=== PATIENT | female | born 1970 | race Caucasian/White ===

== ENCOUNTER 2018-01-30 18:02 | Emergency (ER) | payer MEDICARE, SELFPAY ==
[2018-01-30 18:03] VITALS: BP 133/90; PULSE 107; RESP 18; TEMP 36.6; O2SAT 95; BMI 26.6
--- NOTE | 2018-01-30 18:29 | EKG12_ITS ---
Test Reason : Blood Pressure : / mmHG Vent. Rate : 081 BPM Atrial Rate : 081 BPM P-R Int : 132 ms QRS Dur : 086 ms QT Int : 406 ms P-R-T Axes : 045 064 058 degrees QTc Int : 471 ms Normal sinus rhythm Normal ECG Confirmed by SURAJ WILKINS ([id number]), supervising editor news reel GARY FREEMAN ([id number]) on 02/04/2018 1:42:50 PM Referred By: SAQIB Confirmed By:SURAJ WILKINS
[2018-01-30 19:30] LABS: Anion Gap 9 (5-15); BUN 4 mg/dL (7-18); BUN/Creat Ratio 6.7 RATIO (10-20); Calcium,Total 7.8 mg/dL (8.5-10.1); Chloride 105 mmol/L (98-107); EST Glomerular Filtration Rate 113 mL/min (>60); Est Glom Filt Rate - Afr Amer 137 mL/min (>60); Estimated Creatinine Clearance 102.06 ml/min; Glucose 87 mg/dL (74-106); Potassium 3.4 mmol/L (3.5-5.1); Sodium Level 137 mmol/L (136-145)
[2018-01-30 19:42] LABS: Absolute Lymphocyte Count 5.28 X10^3/ul (0.83-4.51); Absolute Neutrophil Count 1.7 X10^3/uL (2.0-7.7); Basophil# 0.02 X10^3/uL; Basophil% 0.3 % (0-1); Differential Indicated SCAN CRITERIA MET; Eosinophil# 0.02 X10^3/uL; Eosinophils% 0.3 % (0-5); Hematocrit 36.1 % (37-47); Hemoglobin 12.3 g/dl (12.0-15.0); Lymphocyte # 5.28 X10^3/ul (4.0); Lymphocyte % 72.8 % (19-41); Mean Corp Hgb Conc 34.1 g/gl (32-36); Mean Corpuscular Hgb 28.7 pg (27.0-32.0); Mean Corpuscular Volume 84.1 fL (81-99); Mean Platelet Vol. 8.8 fl (6.2-12.0); Monocyte# 0.21 X10^3/uL; Monocyte% 2.9 % (0-10); Neutrophil % 23.4 % (47-70); POSITIVE COUNT NO; POSITIVE DIFFERENTIAL YES; POSITIVE MORPHOLOGY NO; Platelet Count 214 K/mm3 (150-450); RBC Distribution Width CV 15.1 % (11.6-14.6); RBC Distribution Width SD 46.3 fl (35.1-43.9); Red Blood Count 4.29 M/mm3 (4.2-5.4); White Blood Count 7.3 K/mm3 (4.4-11.0)
[2018-01-30 19:46] LABS: Pregnancy, Serum, hCG Quali. NEGATIVE Negative (0-9 Nonpreg)
[2018-01-30 19:55] VITALS: RESP 18
[2018-01-30 19:59] LABS: Differential Comment SCANNED
--- NOTE | 2018-01-30 20:00 | NURSING ---
DR. ALVAREZ NOTIFIED OF ALCOHOL LEVEL OF .391
[2018-01-30 21:02] VITALS: RESP 17
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
[2018-01-31] VITALS (12 sets, daily range): BP systolic 128–180; BP diastolic 75–100; PULSE 61–80; RESP 15–20; O2SAT 96–100
[2018-01-31 00:05] LABS: Bacteria 0 SEEN /hpf (None Seen); Mucous, Urine 0 SEEN /hpf (<or=2+); Red Blood Cells-Urine 0 SEEN /hpf (0-5); Squamous Epithelial Cells - UA 0 SEEN /hpf (5-10); White Blood Cells 0 SEEN /hpf (0-5)
[2018-01-31 00:08] LABS: Color, Urine Straw (Yellow); Glucose, Dipstick Normal (Normal); Ketone-Dipstick Negative (Negative); Leukocyte Esterase-Dipstick Negative /ul (Negative); Nitrite-Dipstick Negative (Negative); Occult Blood-Urine Negative /ul (Negative); Protein-Dipstick Negative (Negative); Urine Bilirubin Dipstick Negative (Negative); Urine Clarity Clear (Clear); Urine Urobilinogen Normal (Normal)
[2018-01-31 00:27] LABS: Amphetamine Urine VISTA NEGATIVE (<1000 ng/mL); Barbiturate Urine VISTA NEGATIVE (< 200 ng/mL); Benzodiazepine Urine VISTA NEGATIVE (< 200 ng/mL); Cocaine Urine VISTA NEGATIVE (< 300 ng/mL); Ecstacy Urine VISTA NEGATIVE (< 500 ng/mL); Methadone Urine VISTA NEGATIVE (< 300 ng/mL); PCP Urine VISTA NEGATIVE (< 25 ng/mL); THC Urine VISTA NEGATIVE (< 50 ng/mL); Vista UDS pH Range 5
[2018-01-31] MEDS: diazePAM 5 MG Tablet PO (01:58)
--- NOTE | 2018-01-31 02:21 | ED.RN ---
PT C/O THAT SHE THOUGHT HER HEART WAS RACING,HR 87.PT THEN ASKED IF SHE COULD HAVE ANOTHER BED,ADVISED THAT THIS BED WAS IT.PT HAS BEEN GIVEN FOOD,SEVERAL SERVINGS OF POP AND A PILLOW FOR COMFORT.
[2018-01-31 09:03] LABS: Alcohol, Blood (Medical)-Serum < 3.0 mg/dL
--- NOTE | 2018-01-31 09:08 | ED.RN ---
NOTIFIED CRISIS THAT PT IS MEDICALLY CLEARED
--- NOTE | 2018-01-31 10:43 | ED.VISSUMM ---
- ER Visit Summary Date of Service: 01/31/18 Chief Complaint: [Alcohol intoxication, depression, suicidal ideation] History of Present Illness: The patient is a 47 F [presents to the emergency department with above complaints. This is an addendum to my initial dictation from yesterday. Patient initially was evaluated by myself however her alcohol level was almost 400 and therefore patient required normalization of alcohol level before crisis with see her this morning. Patient was evaluated by crisis and at this time is not suicidal. Patient states that she has had bouts of alcoholism in the past and has gone years sober but she keeps having relapses. Patient has services in place at the counseling center and plans on getting help for her alcohol abuse. Patient has no intent on harming herself at this point, Contract for safety.] Physical Examination: [] Test Results: [] Emergency Department Course and Treatment: [] Treatment Plan: [Follow-up with counseling center] Disposition: [Discharged home in stable condition] Impression: [Alcohol intoxication Depression] This note was generated with [employer] dictation software. It may contain incorrect words, spelling, and punctuation that were not noted in review of the chart prior to signing ED Disposition - Plan for ED Patient: Chief Complaint: Suicidal Referrals: Wendy Cesar MD [Primary Care Provider] -
--- NOTE | 2018-01-31 10:45 | ED.DEP ---
ED Disposition - Plan for ED Patient: Chief Complaint: Suicidal Instructions: ED Depression, ED Alcohol Intoxication Referrals: Wendy Cesar MD [Primary Care Provider] - 3-5 Days Additional Instructions: follow up with counseling center
== END 2018-01-31 11:09 | disposition home or self-care (01) ==
PROVIDERS: Emergency Provider Emergency Medicine; Family Provider Family Medicine; PCP Family Medicine
DX: F10.229 Alcohol dependence with intoxication, unspecified (principal); Y90.8 Blood alcohol level of 240 mg/100 ml or more; R45.851 Suicidal ideations; F31.9 Bipolar disorder, unspecified; F20.9 Schizophrenia, unspecified; I10 Essential (primary) hypertension; Z79.899 Other long term (current) drug therapy; Z72.0 Tobacco use
CPT/HCPCS: 36415; 80048; 80307; 80320; 81001; 84703; 85025; 93005; 99285; G0480

== ENCOUNTER 2018-03-19 17:17 | Emergency (ER) | payer MEDICARE, SELFPAY ==
[2018-03-19 17:18] VITALS: BP 142/88; PULSE 84; RESP 16; TEMP 36.4; O2SAT 97; BMI 23.4
--- NOTE | 2018-03-19 17:36 | ED.RN ---
pt has a ring on that she can not remove.
--- NOTE | 2018-03-19 17:56 | ED.RN ---
THIS RN IN ROOM 1:1 SITTER.
[2018-03-19 18:17] VITALS: RESP 18; O2SAT 99
--- NOTE | 2018-03-19 18:22 | ED.RN ---
MEAL TRAY GIVEN, PT RESTING QUIETLY IN BED EATING, NO SIGNS OF DISTRESS.
[2018-03-19 18:24] LABS: Bacteria 0 SEEN /hpf (None Seen); Mucous, Urine 0 SEEN /hpf (<or=2+); Red Blood Cells-Urine 0 SEEN /hpf (0-5); Squamous Epithelial Cells - UA 0 SEEN /hpf (5-10); White Blood Cells 0 SEEN /hpf (0-5)
[2018-03-19 18:30] LABS: Color, Urine Straw (Yellow); Glucose, Dipstick Normal (Normal); Ketone-Dipstick Negative (Negative); Leukocyte Esterase-Dipstick Negative /ul (Negative); Nitrite-Dipstick Negative (Negative); Occult Blood-Urine Negative /ul (Negative); Protein-Dipstick Negative (Negative); Urine Bilirubin Dipstick Negative (Negative); Urine Clarity Clear (Clear); Urine Urobilinogen Normal (Normal); Urine pH 6.5 (5.0 - 8.0)
[2018-03-19 18:42] LABS: Anion Gap 11 (5-15); BUN 6 mg/dL (7-18); BUN/Creat Ratio 11.5 RATIO (10-20); Calcium,Total 7.8 mg/dL (8.5-10.1); Chloride 101 mmol/L (98-107); Creatinine, Serum 0.52 mg/dL (0.55-1.02); EST Glomerular Filtration Rate 133 mL/min (>60); Est Glom Filt Rate - Afr Amer 161 mL/min (>60); Estimated Creatinine Clearance 117.76 ml/min; Glucose 106 mg/dL (74-106); Potassium 3.6 mmol/L (3.5-5.1); Sodium Level 131 mmol/L (136-145)
[2018-03-19 18:47] LABS: Pregnancy, Serum, hCG Quali. NEGATIVE Negative (0-9 Nonpreg)
[2018-03-19 18:53] LABS: Hematocrit 32.8 % (37-47); Hemoglobin 11.3 g/dl (12.0-15.0); Mean Corp Hgb Conc 34.5 g/gl (32-36); Mean Corpuscular Hgb 3.1 pg (27.0-32.0); Mean Corpuscular Volume 87.5 fL (81-99); Mean Platelet Vol. 8.5 fl (6.2-12.0); Neutrophil % 30.1 % (47-70); POSITIVE COUNT NO; POSITIVE DIFFERENTIAL NO; POSITIVE MORPHOLOGY NO; Platelet Count 177 K/mm3 (150-450); RBC Distribution Width SD 47.4 fl (35.1-43.9); Red Blood Count 3.75 M/mm3 (4.2-5.4); White Blood Count 4.8 K/mm3 (4.4-11.0)
[2018-03-19 18:54] LABS: Absolute Lymphocyte Count 3.05 X10^3/ul (0.83-4.51); Absolute Neutrophil Count 1.4 X10^3/uL (2.0-7.7); Basophil# 0.01 X10^3/uL; Basophil% 0.2 % (0-1); Eosinophil# 0.03 X10^3/uL; Eosinophils% 0.6 % (0-5); Lymphocyte # 3.05 X10^3/ul (4.0); Lymphocyte % 63.9 % (19-41); Monocyte# 0.23 X10^3/uL; Monocyte% 4.8 % (0-10); Neutrophil # 1.43 X10^3/uL (2.7-7.7)
[2018-03-19 19:00] VITALS: RESP 16
[2018-03-19 19:10] LABS: Amphetamine Urine VISTA NEGATIVE (<1000 ng/mL); Barbiturate Urine VISTA NEGATIVE (< 200 ng/mL); Benzodiazepine Urine VISTA NEGATIVE (< 200 ng/mL); Cocaine Urine VISTA NEGATIVE (< 300 ng/mL); Ecstacy Urine VISTA NEGATIVE (< 500 ng/mL); Methadone Urine VISTA NEGATIVE (< 300 ng/mL); PCP Urine VISTA NEGATIVE (< 25 ng/mL); THC Urine VISTA NEGATIVE (< 50 ng/mL); Vista UDS pH Range 5
--- NOTE | 2018-03-19 19:10 | ED.RN ---
in to sit 1:1 with the pt, pt awake and talkative. no distress evident, calm and cooperative.
[2018-03-19] MEDS: HYDROcodone Bitartrate/Apap 5/325 Tablet PO (19:12)
--- NOTE | 2018-03-19 19:18 | ED.RN ---
raoul tadeo rn at bedside for one on one observation of patient
[2018-03-19 21:33] VITALS: BP 134/83; PULSE 81; RESP 16; O2SAT 96
[2018-03-19] MEDS: busPIRone 15 MG TABLET PO (23:02)
[2018-03-19] MEDS: Benztropine 2 MG Tablet 1 MG PO (23:03)
[2018-03-19] MEDS: Haloperidol 5 MG Tablet 10 MG PO (23:03)
[2018-03-19 23:29] VITALS: RESP 14
[2018-03-20] VITALS: BP 161/93; PULSE 74; PULSE 80; RESP 15; RESP 16; O2SAT 100
[2018-03-20] MEDS: traZODone 50 MG Tablet 150 MG PO
--- NOTE | 2018-03-20 00:31 | ED.RN ---
pt woke and jumped out of bed and has a small emesis in the sink, asked the dr for tommie
--- NOTE | 2018-03-20 00:32 | ED.VISSUMM ---
- ER Visit Summary Date of Service: 03/20/18 Chief Complaint: Depression and suicidal ideation History of Present Illness: The patient is a 47 F reports worsening depression. She states she wants to cut because it feels good. She states that she has pain in her heart and she does not want to be here anymore. Symptoms were worsened by the of a family friend yesterday. Patient also admits to alcohol abuse and states she drinks up to a 12 pack of beer a day. She has had 6 drinks so far today. Patient is followed by the counseling center. She states her Klonopin was recently switched to BuSpar. Physical Examination: Vital signs unremarkable. Patient sitting upright in bed in no acute distress. Head neck examination normal. Heart is regular rate and rhythm. Lung sounds are clear. Abdomen is soft nontender. Psych exam reveals depressed affect with suicidal thoughts. Test Results: CBC was normal white count hemoglobin 11.3. Chemistry studies reveal a sodium of 131. Urinalysis normal. test negative. EtOH is 177. Tox screen is positive for opiates and she is prescribed regular hydrocodone. Emergency Department Course and Treatment: Patient was given a single dose of her [place] which she was due for here. She is observed for several hours. Patient felt like she was starting to go through withdrawal. CIWA score was obtained and is only 10. Patient is given her normal nighttime meds. She has been evaluated by Hany from the counseling center. Patient has been accepted at [facility]. Treatment Plan: [] Disposition: Transfer Impression: 1. Suicidal ideation 2. Depression 3. Alcohol abuse This note was generated with [employer] dictation software. It may contain incorrect words, spelling, and punctuation that were not noted in review of the chart prior to signing ED Disposition - Plan for ED Patient: Chief Complaint: Suicidal Referrals: Janna Best MD [Primary Care Provider] -
[2018-03-20] MEDS: Ondansetron ODT 4 MG Tablet PO (00:49)
[2018-03-20 01:23] VITALS: RESP 13
[2018-03-20 02:13] VITALS: RESP 14
[2018-03-20 03:24] VITALS: BP 161/93; PULSE 80; RESP 15; O2SAT 100
== END 2018-03-20 03:54 ==
PROVIDERS: Emergency Provider Emergency Medicine; Family Provider Internal Medicine; PCP Internal Medicine
DX: F32.9 Major depressive disorder, single episode, unspecified (principal); R45.851 Suicidal ideations; F10.20 Alcohol dependence, uncomplicated; Y90.6 Blood alcohol level of 120-199 mg/100 ml; F12.90 Cannabis use, unspecified, uncomplicated; Z79.899 Other long term (current) drug therapy; Z72.0 Tobacco use
CPT/HCPCS: 80048; 80307; 80320; 81001; 84703; 85025; 99285; G0480

== ENCOUNTER 2018-04-16 16:46 | Inpatient (IN) | payer MEDICARE, SELFPAY ==
[2018-04-16 16:46] VITALS: BP 159/79; PULSE 103; RESP 16; TEMP 36.7; O2SAT 98; BMI 25.1
--- NOTE | 2018-04-16 17:11 | ED.VISSUMM ---
- ER Visit Summary Date of Service: 04/16/18 Chief Complaint: Depressed and suicidal History of Present Illness: The patient is a 47 F 3 of PTSD, depression and affective disorder. Patient was just admitted 2 weeks ago for 9 days to a psychiatric facility. She was discharged on 916. She states she is depressed again and contemplating suicidal thoughts. She denies any attempt at this time. She has attempted overdose in the past. She also is contemplating stabbing herself. Physical Examination: Appearing middle-aged female. No acute distress. Currently calm and cooperative. She is not acting out. Vital signs are stable and afebrile. HEENT exam unremarkable. Neck nontender no signs of trauma. Lungs clear to auscultation bilaterally. Heart regular rhythm no murmur. Abdomen soft nontender. No signs of trauma. She is moving all 4 extremities. There are no signs of trauma nor track perez. No edema. Back nontender. Neurologically she is awake and alert with no focal motor deficits. Test Results: CBC unremarkable. BMP unremarkable. Normal creatinine. Serum test negative. Urine tox screen was positive for opiates. Her alcohol level was 196 consistent with acute intoxication. This of course will delay her crisis evaluation. Emergency Department Course and Treatment:. The crisis evaluation to determine she needs to be admitted for depression and suicidal ideation. Treatment Plan: Awaiting crisis evaluation and given the patient's alcohol level time to decrease below intoxication levels. Patient is evaluated patient she is now no longer intoxicated and denies being suicidal. She is requesting alcohol detox. I spoke to the hospitalist and she will be admitted for detox to the [facility] program. Disposition: Admission Impression: Acute on chronic depression Suicidal ideation resolved Acute alcohol intoxication requesting alcohol detox History of depression., PTSD and schizoaffective disorder. This note was generated with [employer] dictation software. It may contain incorrect words, spelling, and punctuation that were not noted in review of the chart prior to signing ED Disposition - Plan for ED Patient: Chief Complaint: Suicidal Referrals: Janna Best MD [Primary Care Provider] -
[2018-04-16 17:34] LABS: Absolute Lymphocyte Count 2.72 X10^3/ul (0.83-4.51); Absolute Neutrophil Count 1.4 X10^3/uL (2.0-7.7); Basophil# 0.02 X10^3/uL; Basophil% 0.4 % (0-1); Eosinophil# 0.02 X10^3/uL; Eosinophils% 0.4 % (0-5); Hematocrit 34.2 % (37-47); Lymphocyte # 2.72 X10^3/ul (4.0); Mean Corp Hgb Conc 35.1 g/gl (32-36); Mean Corpuscular Hgb 30.9 pg (27.0-32.0); Mean Corpuscular Volume 88.1 fL (81-99); Mean Platelet Vol. 8.6 fl (6.2-12.0); Monocyte# 0.27 X10^3/uL; Monocyte% 6.1 % (0-10); Neutrophil # 1.39 X10^3/uL (2.7-7.7); Neutrophil % 31.2 % (47-70); Platelet Count 161 K/mm3 (150-450); RBC Distribution Width CV 15.1 % (11.6-14.6); RBC Distribution Width SD 48.5 fl (35.1-43.9); Red Blood Count 3.88 M/mm3 (4.2-5.4); White Blood Count 4.5 K/mm3 (4.4-11.0)
[2018-04-16 17:36] LABS: POSITIVE COUNT NO; POSITIVE DIFFERENTIAL NO; POSITIVE MORPHOLOGY NO
[2018-04-16 17:47] VITALS: RESP 14
[2018-04-16 17:49] LABS: Amphetamine Urine VISTA NEGATIVE (<1000 ng/mL); Barbiturate Urine VISTA NEGATIVE (< 200 ng/mL); Benzodiazepine Urine VISTA NEGATIVE (< 200 ng/mL); Cocaine Urine VISTA NEGATIVE (< 300 ng/mL); Ecstacy Urine VISTA NEGATIVE (< 500 ng/mL); Methadone Urine VISTA NEGATIVE (< 300 ng/mL); PCP Urine VISTA NEGATIVE (< 25 ng/mL); THC Urine VISTA NEGATIVE (< 50 ng/mL); Vista UDS pH Range 5
[2018-04-16 17:55] LABS: Anion Gap 10 (5-15); BUN 8 mg/dL (7-18); BUN/Creat Ratio 13.7 RATIO (10-20); Chloride 102 mmol/L (98-107); Creatinine, Serum 0.58 mg/dL (0.55-1.02); EST Glomerular Filtration Rate 117 mL/min (>60); Est Glom Filt Rate - Afr Amer 141 mL/min (>60); Estimated Creatinine Clearance 105.58 ml/min; Glucose 78 mg/dL (74-106); Sodium Level 135 mmol/L (136-145)
[2018-04-16 18:01] LABS: Pregnancy, Serum, hCG Quali. NEGATIVE Negative (0-9 Nonpreg)
[2018-04-16 18:16] VITALS: RESP 17
[2018-04-16 21:40] VITALS: BP 168/91; PULSE 78; RESP 14; O2SAT 98
--- NOTE | 2018-04-16 22:05 | ED.RN ---
CANDACE FROM CRISIS CALLED. SHE IS ON HER WAY TO SEE PT.
--- NOTE | 2018-04-16 22:20 | ED.RN ---
CANDACE FROM CRISIS HERE TO SEE PT.
[2018-04-16 22:52] VITALS: BP 172/96; PULSE 75; RESP 22; O2SAT 98
[2018-04-16] MEDS: LORazepam 1 MG Tablet PO (22:52)
--- NOTE | 2018-04-16 23:20 | PCM.HP.STD ---
Problem List (1) Alcohol dependence with withdrawal Status: Acute (2) Schizoaffective disorder Status: Acute (3) PTSD (post-traumatic stress disorder) Status: Acute History of Present Illness Date of Admission: 04/16/18 Chief Complaint: alcohol withdrawal Patient was seen and examined at 2345 on 04/16/2018. The patient is a 47 year old F with a significant history of PTSD, schizoaffective disorder; alcohol dependence who presents with signs of alcohol withdrawal that started about 1 hour prior to arrival at emergency department. She reports symptoms of 'eye jittery', nausea, diarrhea, restlessness, poor appetite and abdominal pain. Patient reported that she was at [facility] for help with alcohol dependence about 2 weeks ago; but she has relapsed a week and a half ago and is seeking help to be sober again. She reports drinking 7-8 beers per day. She drank about 8 beers the same afternoon of this admission. Reportedly she was suicidal was at home. Patient was evaluated by the crisis center whiles at emergency department and it was felt that she is no longer suicidal. At the time of history taking patient reported she is no longer suicidal. She denies any visual, auditory or tactile hallucinations. Patient takes prescribed Vicodin for back pain. Past Medical History Medical History: Medical History (Last Updated 04/17/18 @ 01:52 by Ryne Hernandez MD) PTSD (post-traumatic stress disorder) F43.10 Schizoaffective disorder F25.9 Allergies aripiprazole [From Abilify] Allergy (Verified 04/16/18 16:48) Rash risperidone [From Risperdal] Allergy (Verified 04/16/18 16:48) Unknown sulfamethoxazole [From Septra] Allergy (Verified 04/16/18 16:48) Rash trimethoprim [From Septra] Allergy (Verified 04/16/18 16:48) Rash gabapentin [From Neurontin] Adverse Reaction (Verified 04/16/18 16:48) Upset Stomach prednisone Adverse Reaction (Verified 04/16/18 16:48) Other SKIN HURTS Home Medications: Ambulatory Orders Medication Instructions Recorded Albuterol IH (ProAir) [Proair Hfa] 2 puff INHALATION Q4H PRN PRN 10/24/15 Benztropine [Cogentin] 1 mg PO BID 10/24/15 Citalopram [Celexa] 40 mg PO DAILY 10/24/15 Haloperidol 10 mg PO BID 10/24/15 Hydrocodone/Acetaminophen 1 each PO 4X/DAY PRN PRN 03/19/18 [Hydrocodon-Acetaminoph 7.5-325] Naproxen Sodium [Naprelan] 750 mg PO DAILY 03/19/18 busPIRone [Buspar] 15 mg PO BID 03/19/18 traZODone [Desyrel] 150 mg PO QHS 03/19/18 Docusate Sodium [Colace] 100 mg PO BID 04/17/18 Surgical History: noncontributory, - Psychiatric History: No pertinent psych hx Lives: Alone Smoking Status: Current every day smoker Tobacco Use: Cigarettes Alcohol: Heavy - *Family History Maternal Family History: Family History (Last Updated 04/17/18 @ 01:56 by Ryne Hernandez MD) Father Alcoholism Aunt Depression Aunt No problems noted. History Items: No pertinent history Paternal Family History: Family History (Last Updated 04/17/18 @ 01:56 by Ryne Hernandez MD) Father Alcoholism Aunt Depression Aunt No problems noted. Review of Systems Constitutional: Denies: Chills, Fever, Weight Change HEENT: Denies: Head Aches, Sinus Congestion, Sinus Drainage Cardiovascular: Denies: Chest Pain, Palpitations Respiratory: Denies: Cough, Shortness of breath at rest, Sputum production Gastrointestinal: Reports: Abdominal Pain, Nausea. Denies: Vomiting Genitourinary: Denies: Dysuria Musculoskeletal: Reports: Back Pain. Denies: Joint Pain, Joint Tenderness Skin: Denies: Rash, Wounds Neurological: Denies: Numbness, Tingling, Focal weakness Psychiatric: Reports: Anxiety - on medications, Depression - on medications, Suicidal Ideations - resolved at the emergency department.. Denies: Homicidal Ideations Hematologic/ Lymphatic: Denies: Easy Bruising, Easy Bleeding VTE Information - Inpt Only VTE Present on Admission: No VTE Pharm Prophylaxis ordered?: Yes Patient Problems: Active and Suspected Problems (Last Updated 04/17/18 @ 01:52 by Ryne Hernandez MD) Alcohol dependence with withdrawal (Acute) Schizoaffective disorder (Acute) PTSD (post-traumatic stress disorder) (Acute) - Physical Exam General: Alert, Oriented x3, Cooperative HEENT: Atraumatic, PERRLA, EOMI, Normocephalic Neck: Supple, No JVD, Negative Carotid Bruits Lungs: Clear to auscultation, Normal air movement Cardiovascular: Regular rate, No murmurs Abdomen: Bowel Sounds Present, Soft, Non Tender Extremities: No edema, Capillary Refill Less than 3 Seconds Skin: No rashes, No breakdown Musculoskeletal: No Tenderness to Palpation of Joints or Extremities Neurological: Cranial nerves II-XII grossly intact Psych/Mental Status: Normal Affect, Appropriate Vital Signs Temp Pulse Resp BP Pulse Ox 98.1 F 75 22 H 172/96 H 98 04/16/18 16:46 04/16/18 22:52 04/16/18 22:52 04/16/18 22:52 04/16/18 22:52 Oxygen Delivery Method Room Air Weight: 68.5 kg Body Mass Index (BMI) 25.1 Laboratory Tests Past 24 Hrs 04/16/18 04/16/18 04/16/18 17:03 17:20 17:20 WBC 4.5 RBC 3.88 L Hgb 12.0 Hct 34.2 L MCV 88.1 MCH 30.9 MCHC 35.1 RDW 15.1 H RDW Differential 48.5 H Plt Count 161 MPV 8.6 Immature Gran % (Auto) 0.900 Neut % (Auto) 31.2 L Lymph % (Auto) 61.0 H Gordon % (Auto) 6.1 Eos % (Auto) 0.4 Baso % (Auto) 0.4 Absolute Neuts (auto) 1.4 L Absolute Lymphs (auto) 2.72 Total Counted Not Reportable Sodium 135 L Potassium 4.0 Chloride 102 Carbon Dioxide 23.0 Anion Gap 10 BUN 8 Creatinine 0.58 Estim Creat Clear Calc 105.58 Est GFR (MDRD) Af Amer 141 Est GFR (MDRD) Non-Af 117 BUN/Creatinine Ratio 13.7 Glucose 78 Calcium 8.0 L Serum , Qual Urine Opiates Screen POSITIVE H Urine Methadone Screen NEGATIVE Ur Barbiturates Screen NEGATIVE Ur Phencyclidine Scrn NEGATIVE Ur Amphetamines Screen NEGATIVE U Methamphetamin-MDMA NEGATIVE U Benzodiazepines Scrn NEGATIVE Urine Cocaine Screen NEGATIVE U Cannabinoids Screen NEGATIVE Ur Drug Screen Comment Ethyl Alcohol 04/16/18 04/16/18 17:20 17:20 WBC RBC Hgb Hct MCV MCH MCHC RDW RDW Differential Plt Count MPV Immature Gran % (Auto) Neut % (Auto) Lymph % (Auto) Gordon % (Auto) Eos % (Auto) Baso % (Auto) Absolute Neuts (auto) Absolute Lymphs (auto) Total Counted Sodium Potassium Chloride Carbon Dioxide Anion Gap BUN Creatinine Estim Creat Clear Calc Est GFR (MDRD) Af Amer Est GFR (MDRD) Non-Af BUN/Creatinine Ratio Glucose Calcium Serum , Qual NEGATIVE Urine Opiates Screen Urine Methadone Screen Ur Barbiturates Screen Ur Phencyclidine Scrn Ur Amphetamines Screen U Methamphetamin-MDMA U Benzodiazepines Scrn Urine Cocaine Screen U Cannabinoids Screen Ur Drug Screen Comment Ethyl Alcohol 196.0 Assessment/Plan All Active Problems (Last Updated 04/17/18 @ 01:52 by Ryne Hernandez MD) Alcohol dependence with withdrawal (Acute) Schizoaffective disorder (Acute) PTSD (post-traumatic stress disorder) (Acute) Patient is a 47 year old F with a significant history of PTSD, schizoaffective disorder; tobacco abuse; alcohol dependence who presents with signs of alcohol withdrawal. Alcohol dependence with withdrawal. ED labs reviewed. Urine tox screen was positive for opioids. Patient is on prescribed Vicodin for back pain Internal level was 196. Mild hyponatremia likely secondary to beer potomania Received Ativan at emergency department patient reported calmed her down. CIWA protocol with Ativan, multivitamins, folic acid and thiamine. Patient was counseled. Scheduled metoprolol tartrate As needed Catapres. Trend BMP Hold home Colace in the setting of reported diarrhea Elevated blood pressure without diagnosis of hypertension. On admission blood pressure was severely elevated with highest systolic blood pressure of 180; and highest diastolic blood pressure of 106. This could be essential hypertension or sympathetic effects from withdrawal. Placed on scheduled metoprolol and as needed Catapres. Trend blood pressures. Hyponatremia Mild Secondary to alcohol dependence Trend BMP. Tobacco abuse. Counseled Inpatient consult smoking cessation Nicotine patch ordered. PTSD, depression/anxiety/schizoaffective disorder Home Haloperidol 10 mg 3 times daily continued. Cogentin continued Citalopram continued Back Pain Naproxen continued DVT prophylaxis Subcutaneous Lovenox. Code Visit Inpatient E&M: 29788 Init Hosp L3
[2018-04-17] VITALS (13 sets, daily range): BP systolic 114–182; BP diastolic 75–111; PULSE 69–91; RESP 14–18; TEMP 36.3–37.1; O2SAT 97–99; BMI 23.7
--- NOTE | 2018-04-17 00:14 | ED.RN ---
PT WAS ASKED IF SHE WAS CURRENTLY HAVING ANY THOUGHTS OF HARMING HER SELF OR OTHERS. SHE ANSWERED NO. WHEN QUESTIONED TO WHY THE CHANGE SHE ANSWERED BECAUSE OF THE SOBERING. ED DR STATES SHE IS NO LONGER SUICIDAL AND DOESN'T NEED A 1:1 SITTER. Jaylen KRAMER, RN [id number]
[2018-04-17] MEDS: Benztropine 2 MG Tablet 1 MG PO ×3 (01:40→21:31)
[2018-04-17] MEDS: traZODone 50 MG Tablet 150 MG PO (01:41)
[2018-04-17] MEDS: Metoprolol Tartrate 25 MG Tablet PO (01:42)
[2018-04-17] MEDS: busPIRone 15 MG TABLET PO ×3 (01:42→21:31)
[2018-04-17] MEDS: LORazepam 1 MG Tablet 2 MG PO ×4 (01:57→17:44)
[2018-04-17] MEDS: HYDROcodone Bitartrate/Apap 5/325 Tablet PO ×2 (03:35→09:35)
[2018-04-17] MEDS: Naproxen 250 MG Tablet PO ×3 (07:48→17:43)
[2018-04-17] MEDS: Thiamine Hydrochloride 100 MG Tablet PO ×2 (07:48→17:44)
[2018-04-17] MEDS: Multivitamins,Ther W-Minerals Tablet 1 TABLET PO (07:49)
[2018-04-17] MEDS: Folic Acid 1 MG Tablet PO (07:49)
[2018-04-17] MEDS: Citalopram 40 MG TABLET PO (09:24)
[2018-04-17] MEDS: Haloperidol 5 MG Tablet 10 MG PO ×2 (09:25→21:33)
[2018-04-17] MEDS: Enoxaparin 40 MG/0.4 ML Syringe SC (09:26)
--- NOTE | 2018-04-17 09:28 | PCM.PN.HOSP ---
Patient Problems: Active and Suspected Problems (Last Updated 04/17/18 @ 01:52 by Ryne Hernandez MD) Alcohol dependence with withdrawal (Acute) Schizoaffective disorder (Acute) PTSD (post-traumatic stress disorder) (Acute) Subjective: Doing well at the moment, her last drink was yesterday afternoon. She does state that she has had a seizure in the past with withdrawal. Vitals/I&O's: Vital Signs Temp Pulse Resp BP Pulse Ox 98.2 F 91 16 153/97 H 98 04/17/18 07:41 04/17/18 07:41 04/17/18 07:41 04/17/18 07:41 04/17/18 07:41 Oxygen Delivery Method Room Air Weight: 144 lb 9.972 oz Body Mass Index (BMI) 23.7 Intake and Output for Last 24 Hours 04/15/18 04/16/18 04/17/18 23:59 23:59 23:59 Intake Total 750 / 750 Output Total 450 / 450 Balance 300 / 300 General: Alert, Oriented x3, Cooperative, No apparent distress HEENT: Atraumatic, EOMI, Normocephalic Oral: Moist Mucosa Neck: Supple, No JVD Lungs: Clear to auscultation, Normal air movement, No rhonchi, No wheeze, No rales Cardiovascular: Regular rate, Regular Rhythm, Normal S1, Normal S2, No murmurs Abdomen: Soft, Non Tender, Non-Distended, No Hepato-splenomegaly Extremities: No edema, Capillary Refill Less than 3 Seconds Skin: No rashes, No breakdown Musculoskeletal: No Tenderness to Palpation of Joints or Extremities Neurological: Neuro grossly intact, Sensory exam intact to light touch and pain Psych/Mental Status: Normal Affect, Appropriate Laboratory Results 04/16/18 17:03: Urine Opiates Screen POSITIVE H, Urine Methadone Screen NEGATIVE, Ur Barbiturates Screen NEGATIVE, Ur Phencyclidine Scrn NEGATIVE, Ur Amphetamines Screen NEGATIVE, U Methamphetamin-MDMA NEGATIVE, U Benzodiazepines Scrn NEGATIVE, Urine Cocaine Screen NEGATIVE, U Cannabinoids Screen NEGATIVE, Ur Drug Screen Comment 04/16/18 17:20: WBC 4.5, RBC 3.88 L, Hgb 12.0, Hct 34.2 L, MCV 88.1, MCH 30.9, MCHC 35.1, RDW 15.1 H, RDW Differential 48.5 H, Plt Count 161, MPV 8.6, Immature Gran % (Auto) 0.900, Neut % (Auto) 31.2 L, Lymph % (Auto) 61.0 H, [place] % (Auto) 6.1, Eos % (Auto) 0.4, Baso % (Auto) 0.4, Absolute Neuts (auto) 1.4 L, Absolute Lymphs (auto) 2.72, Total Counted Not Reportable 04/16/18 17:20: Sodium 135 L, Potassium 4.0, Chloride 102, Carbon Dioxide 23.0, Anion Gap 10, BUN 8, Creatinine 0.58, Estim Creat Clear Calc 105.58, Est GFR (MDRD) Af Amer 141, Est GFR (MDRD) Non-Af 117, BUN/Creatinine Ratio 13.7, Glucose 78, Calcium 8.0 L 04/16/18 17:20: Ethyl Alcohol 196.0 04/16/18 17:20: Serum , Qual NEGATIVE Current Medications Hydrocodone Bitart/Acetaminophen ([place] 5mg-325mg) 1.5 tablet PO 4X/DAY PRN PRN PRN Reason: PAIN Last Admin: 04/17/18 03:35 Dose: 1.5 tablet Albuterol Sulfate (Ventolin Aerosols) 2.5 mg INHALATION Q4H PRN PRN PRN Reason: SOB &/OR WHEEZING Benztropine Mesylate (Cogentin) 1 mg PO BID [facility] Last Admin: 04/17/18 01:40 Dose: 1 mg Buspirone HCl (Buspar) 15 mg PO BID [facility] Last Admin: 04/17/18 01:42 Dose: 15 mg Citalopram Hydrobromide (Celexa) 40 mg PO DAILY [facility] Clonidine (Catapres) 0.1 mg PO Q6H PRN PRN PRN Reason: SBP > 160 Enoxaparin Sodium (Lovenox) 40 mg SC DAILY@1000 [facility] Folic Acid (Folic Acid) 1 mg PO DAILY@0800 [facility] Stop: 04/19/18 08:01 Last Admin: 04/17/18 07:49 Dose: 1 mg Haloperidol (Haldol) 10 mg PO BID [facility] Lorazepam (Ativan) 2 mg PO Q2H PRN PRN; Protocol PRN Reason: CIWA score > 8 but <15 Last Admin: 04/17/18 07:51 Dose: 2 mg Lorazepam (Ativan) 2 mg PO UD PRN; Protocol PRN Reason: CIWA score >/=15. Lorazepam (Ativan) 2 mg IV Q2H PRN PRN; Protocol PRN Reason: CIWA score > 8 but <15 Lorazepam (Ativan) 2 mg IV UD PRN; Protocol PRN Reason: CIWA score >/=15. Magnesium Hydroxide (Milk Of Magnesia) 30 ml PO DAILY PRN PRN PRN Reason: Constipation Metoprolol Tartrate (Lopressor (Beta Eze)) 25 mg PO DAILY [facility] Last Admin: 04/17/18 01:42 Dose: 25 mg Multivitamins/Minerals (Multivitamin With Minerals) [facility] Last Admin: 04/17/18 07:49 Dose: 1 tablet Naproxen (Naprosyn) 250 mg PO TIDCM [facility] Last Admin: 04/17/18 07:48 Dose: 250 mg Nicotine (Nicoderm Cq (Pbkc)) 21 mg TRANSDERM. DAILY [facility] Last Admin: 04/17/18 01:41 Dose: 21 mg Ondansetron HCl (Zofran) 4 mg IV Q8H PRN PRN PRN Reason: NAUSEA Thiamine HCl (Vitamin B1) 100 mg PO BIDCM [facility] Stop: 04/19/18 17:01 Last Admin: 04/17/18 07:48 Dose: 100 mg Trazodone HCl (Desyrel) 150 mg PO QHS [facility] Last Admin: 04/17/18 01:41 Dose: 150 mg Medical Necessity - Tobacco Use Smoking Status: Current every day smoker Tobacco Use: Cigarettes Assessment/Plan All Active Problems (Last Updated 04/17/18 @ 01:52 by Ryne Hernandez MD) Alcohol dependence with withdrawal (Acute) Schizoaffective disorder (Acute) PTSD (post-traumatic stress disorder) (Acute) 1. Alcohol Intoxication/HTN/Hyponatremia - BAL was 196 on admission - She was started on ativan PRN, given her past h/o seizure will also add scheduled librium - No IVF at this time - Clonidine as needed, can address HTN after her withdrawal in order to be accurate - hyponatremia is d/t EtOH, will monitor 2. PTSD/Depression/Anxiety/Schizoaffective - C/w her home medications - we did discuss that she starts drinking again when her stress level increases and we discussed mitigation strategies - Stated that she feels she hit rock-bottom this time 3. Tobacco abuse - counseled on cessation - Patch ordered DVT: Lovenox Diet: Regular Code Visit Inpatient E&M: 25031 Subs Hosp L2
--- NOTE | 2018-04-17 09:35 | PN_ITS ---
Patient Problems: Active and Suspected Problems (Last Updated 04/17/18 @ 01:52 by Ryne Hernandez MD) Alcohol dependence with withdrawal (Acute) Schizoaffective disorder (Acute) PTSD (post-traumatic stress disorder) (Acute) Subjective: Doing well at the moment, her last drink was yesterday afternoon. She does state that she has had a seizure in the past with withdrawal. Vitals/I&O's: Vital Signs Temp Pulse Resp BP Pulse Ox 98.2 F 91 16 153/97 H 98 04/17/18 07:41 04/17/18 07:41 04/17/18 07:41 04/17/18 07:41 04/17/18 07:41 Oxygen Delivery Method Room Air Weight: 144 lb 9.972 oz Body Mass Index (BMI) 23.7 Intake and Output for Last 24 Hours 04/15/18 04/16/18 04/17/18 23:59 23:59 23:59 Intake Total 750 / 750 Output Total 450 / 450 Balance 300 / 300 General: Alert, Oriented x3, Cooperative, No apparent distress HEENT: Atraumatic, EOMI, Normocephalic Oral: Moist Mucosa Neck: Supple, No JVD Lungs: Clear to auscultation, Normal air movement, No rhonchi, No wheeze, No rales Cardiovascular: Regular rate, Regular Rhythm, Normal S1, Normal S2, No murmurs Abdomen: Soft, Non Tender, Non-Distended, No Hepato-splenomegaly Extremities: No edema, Capillary Refill Less than 3 Seconds Skin: No rashes, No breakdown Musculoskeletal: No Tenderness to Palpation of Joints or Extremities Neurological: Neuro grossly intact, Sensory exam intact to light touch and pain Psych/Mental Status: Normal Affect, Appropriate Laboratory Results 04/16/18 17:03: Urine Opiates Screen POSITIVE H, Urine Methadone Screen NEGATIVE, Ur Barbiturates Screen NEGATIVE, Ur Phencyclidine Scrn NEGATIVE, Ur Amphetamines Screen NEGATIVE, U Methamphetamin-MDMA NEGATIVE, U Benzodiazepines Scrn NEGATIVE, Urine Cocaine Screen NEGATIVE, U Cannabinoids Screen NEGATIVE, Ur Drug Screen Comment 04/16/18 17:20: WBC 4.5, RBC 3.88 L, Hgb 12.0, Hct 34.2 L, MCV 88.1, MCH 30.9, MCHC 35.1, RDW 15.1 H, RDW Differential 48.5 H, Plt Count 161, MPV 8.6, Immature Gran % (Auto) 0.900, Neut % (Auto) 31.2 L, Lymph % (Auto) 61.0 H, [place] % (Auto) 6.1, Eos % (Auto) 0.4, Baso % (Auto) 0.4, Absolute Neuts (auto) 1.4 L, Absolute Lymphs (auto) 2.72, Total Counted Not Reportable 04/16/18 17:20: Sodium 135 L, Potassium 4.0, Chloride 102, Carbon Dioxide 23.0, Anion Gap 10, BUN 8, Creatinine 0.58, Estim Creat Clear Calc 105.58, Est GFR (MDRD) Af Amer 141, Est GFR (MDRD) Non-Af 117, BUN/Creatinine Ratio 13.7, Glucose 78, Calcium 8.0 L 04/16/18 17:20: Ethyl Alcohol 196.0 04/16/18 17:20: Serum , Qual NEGATIVE Current Medications Hydrocodone Bitart/Acetaminophen ([place] 5mg-325mg) 1.5 tablet PO 4X/DAY PRN PRN PRN Reason: PAIN Last Admin: 04/17/18 03:35 Dose: 1.5 tablet Albuterol Sulfate (Ventolin Aerosols) 2.5 mg INHALATION Q4H PRN PRN PRN Reason: SOB &/OR WHEEZING Benztropine Mesylate (Cogentin) 1 mg PO BID [facility] Last Admin: 04/17/18 01:40 Dose: 1 mg Buspirone HCl (Buspar) 15 mg PO BID [facility] Last Admin: 04/17/18 01:42 Dose: 15 mg Citalopram Hydrobromide (Celexa) 40 mg PO DAILY [facility] Clonidine (Catapres) 0.1 mg PO Q6H PRN PRN PRN Reason: SBP > 160 Enoxaparin Sodium (Lovenox) 40 mg SC DAILY@1000 [facility] Folic Acid (Folic Acid) 1 mg PO DAILY@0800 [facility] Stop: 04/19/18 08:01 Last Admin: 04/17/18 07:49 Dose: 1 mg Haloperidol (Haldol) 10 mg PO BID [facility] Lorazepam (Ativan) 2 mg PO Q2H PRN PRN; Protocol PRN Reason: CIWA score > 8 but <15 Last Admin: 04/17/18 07:51 Dose: 2 mg Lorazepam (Ativan) 2 mg PO UD PRN; Protocol PRN Reason: CIWA score >/=15. Lorazepam (Ativan) 2 mg IV Q2H PRN PRN; Protocol PRN Reason: CIWA score > 8 but <15 Lorazepam (Ativan) 2 mg IV UD PRN; Protocol PRN Reason: CIWA score >/=15. Magnesium Hydroxide (Milk Of Magnesia) 30 ml PO DAILY PRN PRN PRN Reason: Constipation Metoprolol Tartrate (Lopressor (Beta Eze)) 25 mg PO DAILY [facility] Last Admin: 04/17/18 01:42 Dose: 25 mg [facility]ivitamins/Minerals ([facility]ivitamin With Minerals) [facility] Last Admin: 04/17/18 07:49 Dose: 1 tablet Naproxen (Naprosyn) 250 mg PO TIDCM [facility] Last Admin: 04/17/18 07:48 Dose: 250 mg Nicotine (Nicoderm Cq (Pbkc)) 21 mg TRANSDERM. DAILY [facility] Last Admin: 04/17/18 01:41 Dose: 21 mg Ondansetron HCl (Zofran) 4 mg IV Q8H PRN PRN PRN Reason: NAUSEA Thiamine HCl (Vitamin B1) 100 mg PO BIDCM [facility] Stop: 04/19/18 17:01 Last Admin: 04/17/18 07:48 Dose: 100 mg Trazodone HCl (Desyrel) 150 mg PO QHS [facility] Last Admin: 04/17/18 01:41 Dose: 150 mg Medical Necessity - Tobacco Use Smoking Status: Current every day smoker Tobacco Use: Cigarettes Assessment/Plan All Active Problems (Last Updated 04/17/18 @ 01:52 by Ryne Hernandez MD) Alcohol dependence with withdrawal (Acute) Schizoaffective disorder (Acute) PTSD (post-traumatic stress disorder) (Acute) 1. Alcohol Intoxication/HTN/Hyponatremia - BAL was 196 on admission - She was started on ativan PRN, given her past h/o seizure will also add scheduled librium - No IVF at this time - Clonidine as needed, can address HTN after her withdrawal in order to be accurate - hyponatremia is d/t EtOH, will monitor 2. PTSD/Depression/Anxiety/Schizoaffective - C/w her home medications - we did discuss that she starts drinking again when her stress level increases and we discussed mitigation strategies - Stated that she feels she hit rock-bottom this time 3. Tobacco abuse - counseled on cessation - Patch ordered DVT: Lovenox Diet: Regular Code Visit Inpatient E&M: 02275 Subs Hosp L2
[2018-04-17] MEDS: chlordiazePOXIDE 25 MG Capsule PO ×2 (14:00→21:32)
[2018-04-17] MEDS: cloNIDine HCl 0.1 MG Tablet PO (14:58)
[2018-04-18] VITALS (7 sets, daily range): BP systolic 119–157; BP diastolic 67–96; PULSE 63–82; RESP 16–18; TEMP 36–36.7; O2SAT 97–98
[2018-04-18] MEDS: traZODone 50 MG Tablet 150 MG PO ×2 (00:17→21:14)
[2018-04-18] MEDS: chlordiazePOXIDE 25 MG Capsule PO ×3 (06:16→21:13)
[2018-04-18] MEDS: busPIRone 15 MG TABLET PO ×2 (08:23→21:13)
[2018-04-18] MEDS: Haloperidol 5 MG Tablet 10 MG PO ×2 (08:23→21:14)
[2018-04-18] MEDS: Thiamine Hydrochloride 100 MG Tablet PO ×2 (08:24→16:17)
[2018-04-18] MEDS: Citalopram 40 MG TABLET PO (08:24)
[2018-04-18] MEDS: Naproxen 250 MG Tablet PO ×3 (08:24→16:17)
[2018-04-18] MEDS: Folic Acid 1 MG Tablet PO (08:25)
[2018-04-18] MEDS: Multivitamins,Ther W-Minerals Tablet 1 TABLET PO (08:25)
[2018-04-18] MEDS: Metoprolol Tartrate 25 MG Tablet PO (08:25)
[2018-04-18] MEDS: Enoxaparin 40 MG/0.4 ML Syringe SC (08:25)
[2018-04-18] MEDS: Benztropine 2 MG Tablet 1 MG PO ×2 (08:26→21:13)
[2018-04-18] MEDS: LORazepam 1 MG Tablet 2 MG PO ×3 (08:31→18:24)
[2018-04-18] MEDS: Ondansetron ODT 4 MG Tablet PO (12:45)
[2018-04-18] MEDS: HYDROcodone Bitartrate/Apap 5/325 Tablet PO ×2 (13:56→20:05)
--- NOTE | 2018-04-18 14:06 | PCM.PN.HOSP ---
Patient Problems: Active and Suspected Problems (Last Updated 04/17/18 @ 01:52 by Ryne Hernandez MD) Alcohol dependence with withdrawal (Acute) Schizoaffective disorder (Acute) PTSD (post-traumatic stress disorder) (Acute) Subjective: NAD ON, feels ok, resting, not agitated Objective: General: Alert, Oriented x3, Cooperative, No apparent distress HEENT: Atraumatic, EOMI, Normocephalic Oral: Moist Mucosa Neck: Supple, No JVD Lungs: Clear to auscultation, Normal air movement, No rhonchi, No wheeze, No rales Cardiovascular: Regular rate, Regular Rhythm, Normal S1, Normal S2, No murmurs Abdomen: Soft, Non Tender, Non-Distended, No Hepato-splenomegaly Extremities: No edema, Capillary Refill Less than 3 Seconds Skin: No rashes, No breakdown Vitals/I&O's: Vital Signs Temp Pulse Resp BP Pulse Ox 98.1 F 72 18 156/90 H 97 04/18/18 14:00 04/18/18 14:00 04/18/18 14:00 04/18/18 14:00 04/18/18 14:00 Oxygen Delivery Method Room Air Weight: 144 lb 9.972 oz Body Mass Index (BMI) 23.7 Intake and Output for Last 24 Hours 04/16/18 04/17/18 04/18/18 23:59 23:59 23:59 Intake Total 2500 / 2500 980 / 980 Output Total 450 / 450 Balance 0 / 0 980 / 980 Current Medications Hydrocodone Bitart/Acetaminophen ([place] 5mg-325mg) 1.5 tablet PO 4X/DAY PRN PRN PRN Reason: PAIN Last Admin: 04/18/18 13:56 Dose: 1.5 tablet Albuterol Sulfate (Ventolin Aerosols) 2.5 mg INHALATION Q4H PRN PRN PRN Reason: SOB &/OR WHEEZING Benztropine Mesylate (Cogentin) 1 mg PO BID [facility] Last Admin: 04/18/18 08:26 Dose: 1 mg Buspirone HCl (Buspar) 15 mg PO BID [facility] Last Admin: 04/18/18 08:23 Dose: 15 mg Chlordiazepoxide (Librium) 25 mg PO TID [facility] Last Admin: 04/18/18 13:53 Dose: 25 mg Citalopram Hydrobromide (Celexa) 40 mg PO DAILY [facility] Last Admin: 04/18/18 08:24 Dose: 40 mg Clonidine (Catapres) 0.1 mg PO Q6H PRN PRN PRN Reason: SBP > 160 Last Admin: 04/17/18 14:58 Dose: 0.1 mg Enoxaparin Sodium (Lovenox) 40 mg SC DAILY@1000 [facility] Last Admin: 04/18/18 08:25 Dose: 40 mg Folic Acid (Folic Acid) 1 mg PO DAILY@0800 [facility] Stop: 04/19/18 08:01 Last Admin: 04/18/18 08:25 Dose: 1 mg Haloperidol (Haldol) 10 mg PO BID [facility] Last Admin: 04/18/18 08:23 Dose: 10 mg Lorazepam (Ativan) 2 mg PO Q2H PRN PRN; Protocol PRN Reason: CIWA score > 8 but <15 Last Admin: 04/18/18 08:31 Dose: 2 mg Lorazepam (Ativan) 2 mg PO UD PRN; Protocol PRN Reason: CIWA score >/=15. Last Admin: 04/18/18 14:05 Dose: 2 mg Lorazepam (Ativan) 2 mg IV Q2H PRN PRN; Protocol PRN Reason: CIWA score > 8 but <15 Lorazepam (Ativan) 2 mg IV UD PRN; Protocol PRN Reason: CIWA score >/=15. Magnesium Hydroxide (Milk Of Magnesia) 30 ml PO DAILY PRN PRN PRN Reason: Constipation Metoprolol Tartrate (Lopressor (Beta Eze)) 25 mg PO DAILY [facility] Last Admin: 04/18/18 08:25 Dose: 25 mg Multivitamins/Minerals (Multivitamin With Minerals) 1 tablet PO DAILYCM [facility] Last Admin: 04/18/18 08:25 Dose: 1 tablet Naproxen (Naprosyn) 250 mg PO TIDCM [facility] Last Admin: 04/18/18 12:44 Dose: 250 mg Nicotine (Nicoderm Cq (Pbkc)) 21 mg TRANSDERM. DAILY [facility] Last Admin: 04/18/18 08:25 Dose: 21 mg Ondansetron HCl (Zofran Odt) 4 mg PO Q8H PRN PRN PRN Reason: NAUSEA/VOMITING Last Admin: 04/18/18 12:45 Dose: 4 mg Thiamine HCl (Vitamin B1) 100 mg PO BIDCM [facility] Stop: 04/19/18 17:01 Last Admin: 04/18/18 08:24 Dose: 100 mg Trazodone HCl (Desyrel) 150 mg PO QHS [facility] Last Admin: 04/18/18 00:17 Dose: 150 mg Medical Necessity - Tobacco Use Smoking Status: Current every day smoker Tobacco Use: Cigarettes Assessment/Plan All Active Problems (Last Updated 04/17/18 @ 01:52 by Ryne Hernandez MD) Alcohol dependence with withdrawal (Acute) Schizoaffective disorder (Acute) PTSD (post-traumatic stress disorder) (Acute) 1. Alcohol Intoxication/HTN/Hyponatremia - BAL was 196 on admission - She was started on ativan PRN, given her past h/o seizure will also add scheduled librium - No IVF at this time - Clonidine as needed, can address HTN after her withdrawal in order to be accurate - hyponatremia is d/t EtOH, will monitor - Zofran PRN 2. PTSD/Depression/Anxiety/Schizoaffective - C/w her home medications - we did discuss that she starts drinking again when her stress level increases and we discussed mitigation strategies - Stated that she feels she hit rock-bottom this time 3. Tobacco abuse - counseled on cessation - Patch ordered DVT: Lovenox Diet: Regular Code Visit Inpatient E&M: 65671 Subs Hosp L2
[2018-04-19] VITALS (7 sets, daily range): BP systolic 105–142; BP diastolic 55–99; PULSE 64–84; RESP 16–18; TEMP 36–36.8; O2SAT 97–99
[2018-04-19] MEDS: chlordiazePOXIDE 25 MG Capsule PO (05:58)
[2018-04-19] MEDS: HYDROcodone Bitartrate/Apap 5/325 Tablet PO (08:30)
[2018-04-19] MEDS: Folic Acid 1 MG Tablet PO (08:31)
[2018-04-19] MEDS: Naproxen 250 MG Tablet PO ×2 (08:31→12:02)
[2018-04-19] MEDS: Thiamine Hydrochloride 100 MG Tablet PO (08:32)
[2018-04-19] MEDS: busPIRone 15 MG TABLET PO (08:32)
[2018-04-19] MEDS: Multivitamins,Ther W-Minerals Tablet 1 TABLET PO (08:32)
[2018-04-19] MEDS: Benztropine 2 MG Tablet 1 MG PO (08:33)
[2018-04-19] MEDS: Citalopram 40 MG TABLET PO (08:33)
[2018-04-19] MEDS: Haloperidol 5 MG Tablet 10 MG PO (08:34)
[2018-04-19] MEDS: Metoprolol Tartrate 25 MG Tablet PO (08:34)
[2018-04-19] MEDS: Enoxaparin 40 MG/0.4 ML Syringe SC (08:38)
--- NOTE | 2018-04-19 09:21 | DCINST_ITS ---
- Discharge Diagnoses Current Active Problems: Current Active and Chronic Problems (Last Updated 04/17/18 @ 01:52 by Ryne Hernandez MD) Alcohol dependence with withdrawal (Acute) Schizoaffective disorder (Acute) PTSD (post-traumatic stress disorder) (Acute) You will use the following diet at home:: No restrictions, Other Your liquids should be the consistency of: Regular/Thin Discharge Activity: Return to Normal Activity Call your doctor if you observe: Shortness of breath, Dizziness Allergies/Adverse Reactions: Allergies aripiprazole [From Abilify] Allergy (Verified 04/16/18 16:48) Rash risperidone [From Risperdal] Allergy (Verified 04/16/18 16:48) Unknown sulfamethoxazole [From Septra] Allergy (Verified 04/16/18 16:48) Rash trimethoprim [From Septra] Allergy (Verified 04/16/18 16:48) Rash gabapentin [From Neurontin] Adverse Reaction (Verified 04/16/18 16:48) Upset Stomach prednisone Adverse Reaction (Verified 04/16/18 16:48) Other SKIN HURTS Medications to take at Discharge Albuterol IH (ProAir) [Proair Hfa] 2 puff INHALATION Q4H PRN PRN 10/24/15 Benztropine [Cogentin] 1 mg PO BID 10/24/15 Citalopram [Celexa] 40 mg PO DAILY 10/24/15 Haloperidol 10 mg PO BID 10/24/15 Hydrocodone/Acetaminophen [Hydrocodone-Acetamin 7.5-325] 1 each PO 4X/DAY PRN PRN 03/19/18 Naproxen Sodium [Naprelan] 750 mg PO DAILY 03/19/18 busPIRone [Buspar] 15 mg PO BID 03/19/18 traZODone [Desyrel] 150 mg PO QHS 03/19/18 Docusate Sodium [Colace] 100 mg PO BID 04/17/18 Primary Care Physician: Janna Best MD [Primary Care Provider] - Please follow up with your Primary Care Physician in: in 3-5 days Test Results: Test results from this visit will be discussed in further detail at your follow- up appointment, if applicable.
--- NOTE | 2018-04-19 09:21 | PCM.DC.SUM ---
Discharge Date and Diagnosis - Problem List Patient Problems: Active and Suspected Problems (Last Updated 04/17/18 @ 01:52 by Ryne Hernandez MD) Alcohol dependence with withdrawal (Acute) Schizoaffective disorder (Acute) PTSD (post-traumatic stress disorder) (Acute) Date of Admission: 04/16/18 Date of Discharge: 04/19/18 - Primary Discharge Diagnosis Active and Suspected Problems (Last Updated 04/17/18 @ 01:52 by Ryne Hernandez MD) Alcohol dependence with withdrawal (Acute) Schizoaffective disorder (Acute) PTSD (post-traumatic stress disorder) (Acute) Hospital Course and Treatment Imaging Results: None Consults: None Operations: None Procedures: None Summary of Care Provided: HPI: The patient is a 47 year old F with a significant history of PTSD, schizoaffective disorder; alcohol dependence who presents with signs of alcohol withdrawal that started about 1 hour prior to arrival at emergency department. She reports symptoms of 'eye jittery', nausea, diarrhea, restlessness, poor appetite and abdominal pain. Patient reported that she was at [facility] for help with alcohol dependence about 2 weeks ago; but she has relapsed a week and a half ago and is seeking help to be sober again. She reports drinking 7-8 beers per day. She drank about 8 beers the same afternoon of this admission. Reportedly she was suicidal was at home. Patient was evaluated by the crisis center whiles at emergency department and it was felt that she is no longer suicidal. At the time of history taking patient reported she is no longer suicidal. She denies any visual, auditory or tactile hallucinations. Patient takes prescribed Vicodin for back pain. Vital Signs - 24 hr Temp Pulse Resp BP Pulse Ox 04/19/18 08:34 76 142/99 H 04/19/18 08:22 98.3 F 76 18 142/99 H 97 04/19/18 07:01 98 04/19/18 05:53 96.8 F L 64 16 105/55 L 99 04/18/18 20:46 96.8 F L 76 16 119/67 04/18/18 14:00 98.1 F 72 18 156/90 H 97 General: Alert, Oriented x3, Cooperative, No apparent distress HEENT: Atraumatic, EOMI, Normocephalic Oral: Moist Mucosa Neck: Supple, No JVD Lungs: Clear to auscultation, Normal air movement, No rhonchi, No wheeze, No rales Cardiovascular: Regular rate, Regular Rhythm, Normal S1, Normal S2, No murmurs Abdomen: Soft, Non Tender, Non-Distended, No Hepato-splenomegaly Extremities: No edema, Capillary Refill Less than 3 Seconds Skin: No rashes, No breakdown Hospital Course: 1. EtOH intoxication/[facility]/Hyponatremia - She was admitted under the [facility] protocol. During her acute intoxication phase, she did have elevated blood pressures and she was started on clonidine and metoprolol. The elevated BP was d/t the EtOH intoxication and withdrawal, her BP medications were discontinued on discharge. She is to f/u with her PCP for further monitoring of her BP. Her hyponatremia was 2/2 to her EtOH, and was not severe at 135, no intervention was necessary 2. PTSD/Depression/Anxiety/Schizoaffective disorder - She was continued on her home medication on admission and discharge without any changes. In order to help with her alcoholism, her mental health needs to be managed first. It is apparent that at the moment she lack the coping skills to deal with any stress that arises in her life, and therefore turns to drinking. She will need to f/u with both a therapist and a psychiatrist as an outpatient. Discharge Activity: Return to Normal Activity Call your doctor if you observe: Shortness of breath, Dizziness Home Medications: Medications to take at Discharge Albuterol IH (ProAir) [Proair Hfa] 2 puff INHALATION Q4H PRN PRN 10/24/15 Benztropine [Cogentin] 1 mg PO BID 10/24/15 Citalopram [Celexa] 40 mg PO DAILY 10/24/15 Haloperidol 10 mg PO BID 10/24/15 Hydrocodone/Acetaminophen [Hydrocodone-Acetamin 7.5-325] 1 each PO 4X/DAY PRN PRN 03/19/18 Naproxen Sodium [Naprelan] 750 mg PO DAILY 03/19/18 busPIRone [Buspar] 15 mg PO BID 03/19/18 traZODone [Desyrel] 150 mg PO QHS 03/19/18 Docusate Sodium [Colace] 100 mg PO BID 04/17/18 Primary Care Physician: Janna Best MD [Primary Care Provider] - Please follow up with your Primary Care Physician in: in 3-5 days Disposition: Home Minutes spent on discharge:: 35 Patient Condition:: Good Medical Necessity - Tobacco Use Smoking Status: Current every day smoker Tobacco Use: Cigarettes Meaningful Use Info Meaningful Use Diagnoses (Choose all that apply): None applicable Code Visit Inpatient E&M: 59835 Disch Hosp
== END 2018-04-19 13:43 | disposition home or self-care (01) | DRG 897 ==
LOC: ED 18:06 → MS2 04-17
PROVIDERS: Admitting Provider Hospitalist; Emergency Provider Emergency Medicine; Family Provider Internal Medicine; PCP Internal Medicine; Visit Provider Family Medicine
DX: F10.239 Alcohol dependence with withdrawal, unspecified (principal); E87.1 Hypo-osmolality and hyponatremia; F10.229 Alcohol dependence with intoxication, unspecified; Y90.6 Blood alcohol level of 120-199 mg/100 ml; F17.210 Nicotine dependence, cigarettes, uncomplicated; F43.10 Post-traumatic stress disorder, unspecified; F25.9 Schizoaffective disorder, unspecified; R03.0 Elevated blood-pressure reading, without diagnosis of hypertension
CPT/HCPCS: 36415; 80048; 80307; 80320; 84703; 85025; 97165; 97802; 99284; G0480

== ENCOUNTER 2018-06-17 10:51 | Emergency (ER) | payer MEDICARE, SELFPAY ==
[2018-06-17 10:51] VITALS: BP 166/94; PULSE 110; RESP 16; TEMP 36.4; O2SAT 97; BMI 25.0
[2018-06-17] MEDS: proMETHazine 25 MG/ML Syringe 12.5 MG IV (11:19)
[2018-06-17] MEDS: chlordiazePOXIDE 25 MG Capsule 50 MG PO ×2 (11:20→17:35)
[2018-06-17] MEDS: 0.9% Normal Saline 1,000 ML 1000 ML IV (11:20)
[2018-06-17 11:21] LABS: Absolute Lymphocyte Count 1.29 X10^3/ul (0.83-4.51); Absolute Neutrophil Count 2.9 X10^3/uL (2.0-7.7); Basophil# 0.02 X10^3/uL; Basophil% 0.5 % (0-1); Lymphocyte # 1.29 X10^3/ul (4.0); Lymphocyte % 29.2 % (19-41); Mean Corp Hgb Conc 35.1 g/gl (32-36); Mean Corpuscular Hgb 31.3 pg (27.0-32.0); Mean Corpuscular Volume 88.9 fL (81-99); Mean Platelet Vol. 8.6 fl (6.2-12.0); Monocyte# 0.21 X10^3/uL; Monocyte% 4.8 % (0-10); Neutrophil # 2.86 X10^3/uL (2.7-7.7); Neutrophil % 64.6 % (47-70); Platelet Count 208 K/mm3 (150-450); RBC Distribution Width CV 13.9 % (11.6-14.6); RBC Distribution Width SD 44.2 fl (35.1-43.9); Red Blood Count 4.16 M/mm3 (4.2-5.4); White Blood Count 4.4 K/mm3 (4.4-11.0)
[2018-06-17 11:22] LABS: POSITIVE COUNT NO; POSITIVE DIFFERENTIAL NO; POSITIVE MORPHOLOGY NO
[2018-06-17 11:38] LABS: ALB/GLOB Ratio 1.1 RATIO (0.9-2.4); AST(SGOT) 12 U/L (15-37); Alanine Aminotransfer ALT/SGPT 13 U/L (13-56); Albumin, Serum 3.9 g/dL (3.2-5.0); Alkaline Phosphatase 86 U/L (45-117); Anion Gap 10 (5-15); BUN 9 mg/dL (7-18); BUN/Creat Ratio 13.3 RATIO (10-20); Calcium,Total 8.7 mg/dL (8.5-10.1); Chloride 104 mmol/L (98-107); Creatinine, Serum 0.68 mg/dL (0.55-1.02); EST Glomerular Filtration Rate 98 mL/min (>60); Est Glom Filt Rate - Afr Amer 118 mL/min (>60); Estimated Creatinine Clearance 90.05 ml/min; Globulin 3.5 g/dL (2.2-4.2); Glucose 123 mg/dL (74-106); Lipase 71 U/L (73-393); Potassium 3.8 mmol/L (3.5-5.1); Protein, Total 7.4 g/dL (6.4-8.2); Sodium Level 137 mmol/L (136-145)
[2018-06-17 13:00] LABS: Amphetamine Urine VISTA NEGATIVE (<1000 ng/mL); Barbiturate Urine VISTA NEGATIVE (< 200 ng/mL); Benzodiazepine Urine VISTA NEGATIVE (< 200 ng/mL); Cocaine Urine VISTA NEGATIVE (< 300 ng/mL); Ecstacy Urine VISTA NEGATIVE (< 500 ng/mL); Methadone Urine VISTA NEGATIVE (< 300 ng/mL); PCP Urine VISTA NEGATIVE (< 25 ng/mL); THC Urine VISTA POSITIVE (< 50 ng/mL); Vista UDS pH Range 5
--- NOTE | 2018-06-17 14:47 | ED.VISSUMM ---
- ER Visit Summary Date of Service: 06/17/18 Chief Complaint: [Need for alcohol detox] History of Present Illness: The patient is a 47 F [presents to the emergency department complaint of wanting to go through alcohol detox. Patient states that she went through detox 3 months ago with [facility] and 2 weeks after getting out she started drinking again. Patient's last drink was at 5 AM this morning. Patient normally drinks beer. Patient also drank last night. Patient feels shaky, nauseated, and short of breath. Patient denies feeling suicidal or homicidal.] Physical Examination: [HEENT-PERRLA, EOMI. Cranial nerves II through XII grossly intact. TMs clear. Mucous membranes moist. No adenopathy. Cardiovascular-regular rate and rhythm without murmur or ectopy Lungs-clear to auscultation, chest wall stable without crepitus or subcu emphysema Abdomen-normoactive bowel sounds, soft, nontender, no rebound or rigidity, no peritoneal signs. Neuro exam-no focal weakness. Patient does have a fine tremor. Extremities-intact ?4, normal range of motion, normal pulses, atraumatic] Test Results: [. CBC with differential showed a white blood cell count of 4.4, hemoglobin 13, hematocrit 37, placed 208. Chemistries unremarkable. LFTs were normal. Lipase was 71. Alcohol was negative. Toxicology screen was positive for marijuana and opiates.] Emergency Department Course and Treatment: [Patient apparently was told by new patient today that she was not in their network and they recommended that patient go to [facility] for detox however patient states that she did not have a ride so she came to the emergency department here instead.] Treatment Plan: [Patient was medicated with Zofran and Librium. Patient will be evaluated by crisis for possible placement for alcohol detox] Disposition transfer] Impression: [Alcohol withdrawal Request for inpatient detox from alcohol] This note was generated with [employer] dictation software. It may contain incorrect words, spelling, and punctuation that were not noted in review of the chart prior to signing ED Disposition - Plan for ED Patient: Chief Complaint: Substance Abuse Referrals: Janna Best MD [Primary Care Provider] -
--- NOTE | 2018-06-17 14:52 | ED.DCSUM_ITS ---
- ER Visit Summary Date of Service: 06/17/18 Chief Complaint: [Need for alcohol detox] History of Present Illness: The patient is a 47 F [presents to the emergency department complaint of wanting to go through alcohol detox. Patient states that she went through detox 3 months ago with [facility] and 2 weeks after getting out she started drinking again. Patient's last drink was at 5 AM this morning. Patient normally drinks beer. Patient also drank last night. Patient feels shaky, nauseated, and short of breath. Patient denies feeling suicidal or homicidal.] Physical Examination: [HEENT-PERRLA, EOMI. Cranial nerves II through XII grossly intact. TMs clear. Mucous membranes moist. No adenopathy. Cardiovascular-regular rate and rhythm without murmur or ectopy Lungs-clear to auscultation, chest wall stable without crepitus or subcu emphysema Abdomen-normoactive bowel sounds, soft, nontender, no rebound or rigidity, no peritoneal signs. Neuro exam-no focal weakness. Patient does have a fine tremor. Extremities-intact ?4, normal range of motion, normal pulses, atraumatic] Test Results: [. CBC with differential showed a white blood cell count of 4.4, hemoglobin 13, hematocrit 37, placed 208. Chemistries unremarkable. LFTs were normal. Lipase was 71. Alcohol was negative. Toxicology screen was positive for marijuana and opiates.] Emergency Department Course and Treatment: [Patient apparently was told by new patient today that she was not in their network and they recommended that patient go to [facility] for detox however patient states that she did not have a ride so she came to the emergency department here instead.] Treatment Plan: [Patient was medicated with Zofran and Librium. Patient will be evaluated by crisis for possible placement for alcohol detox] Disposition transfer] Impression: [Alcohol withdrawal Request for inpatient detox from alcohol] This note was generated with [employer] dictation software. It may contain incorrect words, spelling, and punctuation that were not noted in review of the chart prior to signing ED Disposition - Plan for ED Patient: Chief Complaint: Substance Abuse Referrals: Janna Best MD [Primary Care Provider] -
[2018-06-17 17:13] LABS: Pregnancy, Serum, hCG Quali. NEGATIVE Negative (0-9 Nonpreg)
[2018-06-17 17:32] VITALS: RESP 18
[2018-06-17 20:03] VITALS: BP 149/84; PULSE 85; RESP 13; O2SAT 98
[2018-06-17 21:08] VITALS: BP 158/91; PULSE 81; RESP 14; O2SAT 99
== END 2018-06-17 21:08 | disposition short-term general hospital (02) ==
PROVIDERS: Emergency Medicine; Emergency Provider Emergency Medicine; Family Provider Internal Medicine; PCP Internal Medicine
DX: F10.239 Alcohol dependence with withdrawal, unspecified (principal); Z72.0 Tobacco use; F20.9 Schizophrenia, unspecified; Z79.899 Other long term (current) drug therapy; F43.10 Post-traumatic stress disorder, unspecified
CPT/HCPCS: 80053; 80307; 80320; 83690; 84703; 85025; 96361; 96374; 99285; J7030; A4216; G0480

== ENCOUNTER 2018-10-26 10:10 | Emergency (ER) | payer MEDICARE, SELFPAY ==
[2018-10-26 10:11] VITALS: BP 135/81; PULSE 92; RESP 18; TEMP 36.4; O2SAT 95; BMI 23.3
--- NOTE | 2018-10-26 10:24 | CT_ITS ---
STUDY: CT ABDOMEN AND PELVIS WITHOUT CONTRAST REASON FOR EXAM: Female, 48 years old. ALCOHOL BINGE DRINKING AND TOOK MULTIPLE TYLENOL, PTSD, SCHIZOAFFECTIVE DISORDER, GERD, HTN, HX-LT KIDNEY AND OVARIAN CA . RADIATION DOSAGE (If Supplied By Facility): CTDIvol = ( 6.42 ) mGy, DLP = ( 332.19 ) mGycm TECHNIQUE: Transaxial images were obtained from the dome of the diaphragm to the symphysis pubis without oral contrast, and without intravenous contrast. Sagittal and coronal images were reconstructed. Individualized dose optimization techniques were used for this CT. COMPARISON: 05 January 2016 FINDINGS: The visualized lung bases are unremarkable. The visualized portions of the heart are within normal limits. Normal liver. Normal gallbladder and extrahepatic biliary system. Normal spleen. Normal pancreas. Normal bilateral adrenal glands. Normal right kidney. Anterior cortical calcification consistent with previous insult versus surgery, clinically correlate. Normal visualized stomach. Normal small intestine. Normal colon. The appendix is visualized and appears normal. Normal abdominal aorta. Normal inferior vena cava. Normal retroperitoneum. Normal urinary bladder. Normal visualized uterus. Normal abdominal wall. Normal osseous structures. CT/Abdomen/Pelvis without Cont IMPRESSION: 1. No evidence of acute intra-abdominal process or focal inflammation. Likely stable postsurgical changes of the left kidney are again noted. Electronically Signed: Ben Johnson DO at 11:14 EDT , Service support ,
--- NOTE | 2018-10-26 10:30 | ED.VISSUMM ---
- ER Visit Summary Date of Service: 10/26/18 Chief Complaint: [] Suicidal ideation and drug overdose alcohol abuse History of Present Illness: The patient is a 48 F [] she is brought in by EMS the history is rather sketchy apparently she has been drinking alcohol all night, she then became suicidal, she then ingested an unspecified amount of Tylenol either 2 bottles or 2 handfuls she does not know the strength, she then spoke with some individual about all the above and that individual called the paramedics and they brought her to the hospital, she indicates she is also having diffuse abdominal pain that she apparently gets when she drinks alcohol, she indicates she has a long history of alcohol abuse and was detoxed 2 months ago, she reports no history of any other elements specifically no heart lung kidney liver abnormalities denies being before she started drinking and took the Tylenol she was not ill she apparently lives alone, she is not specific about prior psychiatric history, she denies illicit drug use Physical Examination: [] Vital signs are within normal range General, no distress resting comfortably, she is quite agitated she is trying to get out of the bed she will not get undressed she wants to leave now she states she is feeling fine she just wants to go home and then a minute later she complained of the abdominal pain she is cooperative to some degree when she is directed HEENT is generally unremarkable The neck is supple no adenopathy Cardiovascular, regular rate and rhythm Lungs, clear bilateral Abdomen, soft , nonspecific discomfort no rebound guarding organomegaly Extremities, no clubbing cyanosis or edema Neurologic, awake alert answering questions appropriately moving all 4 extremities Test Results: [] Emergency Department Course and Treatment: [] This time given all the above there is no additional information from the EMS providers or from the patient we will start IV fluids screening labs and evaluation of the abdominal pain, we will start IV N-acetylcysteine because of potential significant ingestion screening labs tox screen other supportive measures, she is under direct observation of staff Treatment Plan: [] Patient has been started on the IV N-acetylcysteine, her CT abdomen shows nothing acute please see that report, her general screening labs are unremarkable except her lactate is 3.1, her acetaminophen level is 512 and this is approximately a 4-hour level repeat is pending, her liver enzymes and other studies are unremarkable she is not , chest x-ray is pending and will be on the chart she is remained hemodynamically stable here Spoke with the ICU service at [facility] Dr. Reyna he feels she is better managed at a tertiary care facility, I spoke with [facility] they could not accommodate her admission, we then spoke with [facility] Dr. Maria ICU attending they have accepted her in transfer to the [facility] and I discussed with the patient pink slip is signed Disposition: [] Transfer [facility] ICU for further management Impression: [] Intentional drug overdose acetaminophen, suicidal ideation, alcohol abuse, abdominal pain history of schizoaffective disorder and depression This note was generated with Flator[employer] dictation software. It may contain incorrect words, spelling, and punctuation that were not noted in review of the chart prior to signing ED Disposition - Plan for ED Patient: Referrals: Janna Best MD [Primary Care Provider] -
--- NOTE | 2018-10-26 10:34 | ED.DCSUM_ITS ---
- ER Visit Summary Date of Service: 10/26/18 Chief Complaint: [] Suicidal ideation and drug overdose alcohol abuse History of Present Illness: The patient is a 48 F [] she is brought in by EMS the history is rather sketchy apparently she has been drinking alcohol all night, she then became suicidal, she then ingested an unspecified amount of Tylenol either 2 bottles or 2 handfuls she does not know the strength, she then spoke with some individual about all the above and that individual called the paramedics and they brought her to the hospital, she indicates she is also having diffuse abdominal pain that she apparently gets when she drinks alcohol, she indicates she has a long history of alcohol abuse and was detoxed 2 months ago, she reports no history of any other elements specifically no heart lung kidney liver abnormalities denies being before she started drinking and took the Tylenol she was not ill she apparently lives alone, she is not specific about prior psychiatric history, she denies illicit drug use Physical Examination: [] Vital signs are within normal range General, no distress resting comfortably, she is quite agitated she is trying to get out of the bed she will not get undressed she wants to leave now she states she is feeling fine she just wants to go home and then a minute later she complained of the abdominal pain she is cooperative to some degree when she is directed HEENT is generally unremarkable The neck is supple no adenopathy Cardiovascular, regular rate and rhythm Lungs, clear bilateral Abdomen, soft , nonspecific discomfort no rebound guarding organomegaly Extremities, no clubbing cyanosis or edema Neurologic, awake alert answering questions appropriately moving all 4 extremities Test Results: [] Emergency Department Course and Treatment: [] This time given all the above there is no additional information from the EMS providers or from the patient we will start IV fluids screening labs and evaluation of the abdominal pain, we will start IV N-acetylcysteine because of potential significant ingestion screening labs tox screen other supportive measures, she is under direct observation of staff Treatment Plan: [] Patient has been started on the IV N-acetylcysteine, her CT abdomen shows nothing acute please see that report, her general screening labs are unremarkable except her lactate is 3.1, her acetaminophen level is 512 and this is approximately a 4-hour level repeat is pending, her liver enzymes and other studies are unremarkable she is not , chest x-ray is pending and will be on the chart she is remained hemodynamically stable here Spoke with the ICU service at [facility] Dr. Reyna he feels she is better managed at a tertiary care facility, I spoke with [facility] they could not accommodate her admission, we then spoke with [facility] Dr. Maria ICU attending they have accepted her in transfer to the [facility] and I discussed with the patient pink slip is signed Disposition: [] Transfer [facility] ICU for further management Impression: [] Intentional drug overdose acetaminophen, suicidal ideation, alcohol abuse, abdominal pain history of schizoaffective disorder and depression This note was generated with [employer] dictation software. It may contain incorrect words, spelling, and punctuation that were not noted in review of the chart prior to signing ED Disposition - Plan for ED Patient: Referrals: Janna Best MD [Primary Care Provider] -
[2018-10-26 10:40] LABS: Absolute Lymphocyte Count 6.35 X10^3/ul (0.83-4.51); Absolute Neutrophil Count 3.7 X10^3/uL (2.0-7.7); Basophil# 0.04 X10^3/uL; Basophil% 0.4 % (0-1); Eosinophil# 0.03 X10^3/uL; Eosinophils% 0.3 % (0-5); Hemoglobin 12.8 g/dl (12.0-15.0); Lymphocyte # 6.35 X10^3/ul (4.0); Lymphocyte % 60.1 % (19-41); Mean Corp Hgb Conc 34.6 g/gl (32-36); Mean Corpuscular Hgb 29.8 pg (27.0-32.0); Mean Corpuscular Volume 86.2 fL (81-99); Mean Platelet Vol. 8.5 fl (6.2-12.0); Monocyte# 0.38 X10^3/uL; Monocyte% 3.6 % (0-10); Neutrophil # 3.67 X10^3/uL (2.7-7.7); Neutrophil % 34.7 % (47-70); Platelet Count 210 K/mm3 (150-450); RBC Distribution Width CV 14.1 % (11.6-14.6); RBC Distribution Width SD 44.4 fl (35.1-43.9); Red Blood Count 4.29 M/mm3 (4.2-5.4); White Blood Count 10.6 K/mm3 (4.4-11.0)
[2018-10-26 10:41] LABS: Differential Indicated SCAN CRITERIA MET; POSITIVE COUNT NO; POSITIVE DIFFERENTIAL YES; POSITIVE MORPHOLOGY NO
[2018-10-26] MEDS: 0.9% Normal Saline 1,000 ML 1000 ML IV (10:42)
[2018-10-26] MEDS: Ondansetron 4 MG/2 ML Vial IV (10:42)
[2018-10-26] MEDS: Activated Charcoal/Sorbitol 50 GM/240 ML BOT PO (10:42)
[2018-10-26 10:53] LABS: Internal QC Validated? YES +Cl - CLEAR BKGD; Pregnancy, Serum, hCG Quali. NEGATIVE Negative
[2018-10-26 10:54] LABS: AST(SGOT) 13 U/L (15-37); Alanine Aminotransfer ALT/SGPT 14 U/L (13-56); Albumin, Serum 4.3 g/dL (3.2-5.0); Alkaline Phosphatase 97 U/L (45-117); Anion Gap 12 (5-15); BUN 8 mg/dL (7-18); BUN/Creat Ratio 13.8 RATIO (10-20); Bilirubin, Direct 0.16 mg/dL (0.00-0.30); Calcium,Total 8.3 mg/dL (8.5-10.1); Chloride 103 mmol/L (98-107); Creatinine, Serum 0.58 mg/dL (0.55-1.02); EST Glomerular Filtration Rate 117 mL/min (>60); Est Glom Filt Rate - Afr Amer 142 mL/min (>60); Estimated Creatinine Clearance 104.42 ml/min; Globulin 3.2 g/dL (2.2-4.2); Glucose 104 mg/dL (74-106); Lipase 87 U/L (73-393); Protein, Total 7.5 g/dL (6.4-8.2); Sodium Level 135 mmol/L (136-145)
[2018-10-26 11:01] LABS: Differential Comment SCANNED
[2018-10-26 11:06] LABS: Lactic Acid 3.1 mmol/L (0.4-2.0)
[2018-10-26 11:09] LABS: Salicylate 3.8 mg/dL (2.8-20.0)
--- NOTE | 2018-10-26 11:15 | ED.RN ---
LAB CALLS WITH CRITICAL RESULT, LACTIC ACID 3.1, DR. TELLEZ MADE AWARE.
[2018-10-26 11:17] VITALS: BP 124/76; PULSE 69; RESP 17; O2SAT 100
[2018-10-26 11:43] LABS: Acetaminophen (Tylenol) Level 512.6 ug/mL (10.0-30.0)
--- NOTE | 2018-10-26 11:43 | ED.RN ---
Tylenol level is 512.6. aware
[2018-10-26 12:04] VITALS: BP 115/69; PULSE 79; RESP 16; O2SAT 99
[2018-10-26] MEDS: 0.9% Normal Saline 1,000 ML 999 ML IV ×2 (12:04→13:30)
--- NOTE | 2018-10-26 12:12 | RAD_ITS ---
STUDY: X-RAY CHEST REASON FOR EXAM: Female, 48 years old. Shortness of breath. TECHNIQUE: Single AP portable view of the chest. COMPARISON: 07/02/2017. FINDINGS: The patient is somewhat rotated. Nodular density is seen in the right retrocardiac region. The right hilum likely due to summation of shadows and due to rotation. There is no demonstrated pleural abnormality. Normal size heart. Normal mediastinum and vivian. Normal visualized pulmonary arteries. Normal visualized aortic arch and descending thoracic aorta. Normal visualized thoracic spine. Normal visualized ribs, clavicles, and shoulders. There is no demonstrated abnormality of the visualized soft tissue structures of the upper abdomen. RAD/Chest 1 View (Portable) IMPRESSION: No active pulmonary disease. Electronically Signed: Bang Bonner MD at 12:56 EDT Tel , Service support ,
--- NOTE | 2018-10-26 12:12 | EKG12_ITS ---
Test Reason : OVERDOSE Blood Pressure : / mmHG Vent. Rate : 070 BPM Atrial Rate : 070 BPM P-R Int : 136 ms QRS Dur : 074 ms QT Int : 426 ms P-R-T Axes : 043 073 071 degrees QTc Int : 460 ms Sinus rhythm with occasional Premature ventricular complexes Abnormal ECG Confirmed by BARBARA PRICE, ANDRES ([id number]), development editor GARY FREEMAN ([id number]) on 10/29/2018 9:07:52 AM Referred By: ROSALINDA' Confirmed By:ANDRES JIMENEZ MD
[2018-10-26 12:34] LABS: Mucous, Urine 0 SEEN /hpf (<or=2+); Red Blood Cells-Urine 0 SEEN /hpf (0-5)
[2018-10-26 12:48] LABS: Color, Urine Yellow (Yellow); Glucose, Dipstick Normal (Normal); Ketone-Dipstick 50 mg/dl (Negative); Leukocyte Esterase-Dipstick 500 /ul (Negative); Nitrite-Dipstick Negative (Negative); Occult Blood-Urine Negative /ul (Negative); Protein-Dipstick Negative (Negative); Urine Bilirubin Dipstick Negative (Negative); Urine Clarity Sl. Cloudy (Clear); Urine Urobilinogen Normal (Normal)
[2018-10-26 12:49] LABS: Amphetamine Urine VISTA NEGATIVE (<1000 ng/mL); Barbiturate Urine VISTA NEGATIVE (< 200 ng/mL); Benzodiazepine Urine VISTA NEGATIVE (< 200 ng/mL); Cocaine Urine VISTA NEGATIVE (< 300 ng/mL); Ecstacy Urine VISTA NEGATIVE (< 500 ng/mL); Methadone Urine VISTA NEGATIVE (< 300 ng/mL); PCP Urine VISTA NEGATIVE (< 25 ng/mL); THC Urine VISTA NEGATIVE (< 50 ng/mL); Vista UDS pH Range 5
[2018-10-26 12:54] LABS: Bacteria 1+ /hpf (None Seen); Squamous Epithelial Cells - UA 5-10 SEEN /hpf (5-10); White Blood Cells 5-10 SEEN /hpf (0-5)
[2018-10-26 13:00] VITALS: RESP 16
[2018-10-26 13:26] LABS: Acetaminophen (Tylenol) Level 354.3 ug/mL (10.0-30.0)
--- NOTE | 2018-10-26 13:49 | ED.RN ---
TYLENOL LEVEL 354.[address] LAB[address] DR WILSONED AWARE
[2018-10-26 14:00] VITALS: BP 164/91; PULSE 78; RESP 18
[2018-10-26 14:24] VITALS: BP 148/98; PULSE 79; RESP 17; O2SAT 97
[2018-10-26 14:38] LABS: Reflex Lactate? Y
== END 2018-10-26 14:25 | disposition short-term general hospital (02) ==
LOC: ED 10:40
PROVIDERS: Emergency Provider Emergency Medicine; Family Provider Internal Medicine; PCP Internal Medicine
DX: T14.91XA Suicide attempt, initial encounter (principal); T39.1X2A Poisoning by 4-Aminophenol derivatives, intentional self-harm, initial encounter; T51.0X2A Toxic effect of ethanol, intentional self-harm, initial encounter; Y93.89 Activity, other specified; Y92.9 Unspecified place or not applicable; F10.10 Alcohol abuse, uncomplicated; Y90.9 Presence of alcohol in blood, level not specified; R10.9 Unspecified abdominal pain; F25.9 Schizoaffective disorder, unspecified; F32.9 Major depressive disorder, single episode, unspecified
CPT/HCPCS: 71045; 74176; 80048; 80076; 80307; 80320; 80329; 81001; 82009; 83605; 83690; 84703; 85025; 93005; 96365; 96366; 96375; 99285; J7030; A4216; G0480; J2405

== ENCOUNTER 2018-12-27 18:37 | Emergency (ER) | payer MEDICARE, SELFPAY ==
[2018-12-27 18:38] VITALS: BP 142/92; PULSE 83; RESP 16; TEMP 36.8; O2SAT 98; BMI 23.9
--- NOTE | 2018-12-27 18:45 | ED.RN ---
sitter at bedside 1:1
[2018-12-27 19:06] LABS: Internal QC Validated? YES +Cl - CLEAR BKGD
[2018-12-27 19:08] LABS: Absolute Lymphocyte Count 4.36 X10^3/ul (0.83-4.51); Absolute Neutrophil Count 1.4 X10^3/uL (2.0-7.7); Basophil# 0.02 X10^3/uL; Basophil% 0.3 % (0-1); Eosinophil# 0.03 X10^3/uL; Eosinophils% 0.5 % (0-5); Hematocrit 32.9 % (37-47); Hemoglobin 11.3 g/dl (12.0-15.0); Lymphocyte # 4.36 X10^3/ul (4.0); Lymphocyte % 72.1 % (19-41); Mean Corp Hgb Conc 34.3 g/gl (32-36); Mean Corpuscular Hgb 28.8 pg (27.0-32.0); Mean Corpuscular Volume 83.9 fL (81-99); Mean Platelet Vol. 8.3 fl (6.2-12.0); Monocyte# 0.21 X10^3/uL; Monocyte% 3.5 % (0-10); Neutrophil % 23.1 % (47-70); POSITIVE COUNT NO; POSITIVE DIFFERENTIAL NO; POSITIVE MORPHOLOGY NO; Platelet Count 184 K/mm3 (150-450); Pregnancy, Serum, hCG Quali. NEGATIVE Negative; RBC Distribution Width CV 14.7 % (11.6-14.6); RBC Distribution Width SD 44.9 fl (35.1-43.9); Red Blood Count 3.92 M/mm3 (4.2-5.4); White Blood Count 6.1 K/mm3 (4.4-11.0)
[2018-12-27 19:19] LABS: ALB/GLOB Ratio 1.1 RATIO (0.9-2.4); AST(SGOT) 12 U/L (15-37); Alanine Aminotransfer ALT/SGPT 15 U/L (13-56); Albumin, Serum 3.6 g/dL (3.2-5.0); Alkaline Phosphatase 75 U/L (45-117); Anion Gap 6 (5-15); BUN 11 mg/dL (7-18); BUN/Creat Ratio 19.4 RATIO (10-20); Calcium,Total 7.9 mg/dL (8.5-10.1); Chloride 108 mmol/L (98-107); Creatinine, Serum 0.57 mg/dL (0.55-1.02); EST Glomerular Filtration Rate 120 mL/min (>60); Est Glom Filt Rate - Afr Amer 145 mL/min (>60); Estimated Creatinine Clearance 106.25 ml/min; Globulin 3.2 g/dL (2.2-4.2); Glucose 73 mg/dL (74-106); Potassium 3.7 mmol/L (3.5-5.1); Protein, Total 6.8 g/dL (6.4-8.2); Sodium Level 138 mmol/L (136-145)
[2018-12-27 19:28] LABS: Acetaminophen (Tylenol) Level 3.7 ug/mL (10.0-30.0); Salicylate 3.2 mg/dL (2.8-20.0)
--- NOTE | 2018-12-27 21:06 | ED.VISSUMM ---
- ER Visit Summary Date of Service: 12/27/18 Chief Complaint: Suicidal History of Present Illness: The patient is a 48 F who admits she is been drinking a lot of the past 3 days. She reported called her insurance company [employer] and stated that she wanted to hurt herself. Police were called. Patient now states she was just emotional and wants to go home. Please do note the patient had a knife next to her and explained in detail to the office or how she was going to cut her arm. Past history significant for anxiety, depression, schizoaffective disorder, PTSD, asthma, hypertension, renal and ovarian cancer. She had a partial kidney removed and one ovary removed. Physical Examination: Vital signs unremarkable. Patient sitting upright in bed no acute distress. She does smell of alcoholic beverage. Heart is regular rate and rhythm. Lung sounds are clear. Abdomen is soft no focal tenderness. Psychiatric evaluation reveals the patient to be depressed. She does admit to suicidal thoughts. Test Results: CBC significant for hemoglobin 11.3. Chemistry studies significant for glucose of 73. LFTs normal. test negative. Acetaminophen and salicylate levels are negative. Alcohol is 309. Emergency Department Course and Treatment: Patient is sleeping comfortably at this time. She will need to provide a urine sample for tox screen. At this time patient needs to be observed for some time secondary to her acute intoxication. She will be reevaluated once sober and crisis can see the patient at that time if required. Patient will be signed out to oncoming physician. Treatment Plan: [] Disposition: To be determined Impression: 1. EtOH intoxication 2. Suicidal ideation This note was generated with [employer] dictation software. It may contain incorrect words, spelling, and punctuation that were not noted in review of the chart prior to signing ED Disposition - Plan for ED Patient: Referrals: Janna Best MD [Primary Care Provider] -
[2018-12-27 22:30] LABS: Amphetamine Urine VISTA NEGATIVE (<1000 ng/mL); Barbiturate Urine VISTA NEGATIVE (< 200 ng/mL); Benzodiazepine Urine VISTA NEGATIVE (< 200 ng/mL); Cocaine Urine VISTA NEGATIVE (< 300 ng/mL); Ecstacy Urine VISTA NEGATIVE (< 500 ng/mL); Methadone Urine VISTA NEGATIVE (< 300 ng/mL); PCP Urine VISTA NEGATIVE (< 25 ng/mL); THC Urine VISTA NEGATIVE (< 50 ng/mL); Vista UDS pH Range 5
[2018-12-27 23:10] VITALS: BP 110/68; PULSE 76; RESP 14; TEMP 36.9; O2SAT 94
[2018-12-28 01:37] VITALS: RESP 18
[2018-12-28 02:00] VITALS: RESP 18
[2018-12-28 02:56] VITALS: BP 148/89; PULSE 65; RESP 18; O2SAT 95
[2018-12-28 03:56] VITALS: RESP 16
--- NOTE | 2018-12-28 04:31 | ED.RN ---
CALLED [facility]ISIS TO SEE THIS PT, ABIMAEL IS [employer]ER
[2018-12-28 05:00] VITALS: RESP 18
--- NOTE | 2018-12-28 05:01 | ED.RN ---
[facility]ISIS ON SITE TO SEE THIS PT
--- NOTE | 2018-12-28 05:56 | ED.DEP ---
ED Disposition - Plan for ED Patient: Instructions: ED Depression, ED Alcohol Intoxication Referrals: Janna Best MD [Primary Care Provider] -
--- NOTE | 2018-12-28 05:57 | ED.RN ---
SUICIDE PRECAUTIONS DISCONTINUED. PT BEING D/C HOME WITH SAFETY PLAN
[2018-12-28 06:10] VITALS: BP 161/78; PULSE 71; RESP 18; O2SAT 97
== END 2018-12-28 06:19 | disposition home or self-care (01) ==
LOC: ED 19:19
PROVIDERS: Emergency Provider Emergency Medicine; Family Provider Internal Medicine; PCP Internal Medicine
DX: F10.129 Alcohol abuse with intoxication, unspecified (principal); Y90.8 Blood alcohol level of 240 mg/100 ml or more; R45.851 Suicidal ideations; F25.9 Schizoaffective disorder, unspecified; F43.10 Post-traumatic stress disorder, unspecified; F32.9 Major depressive disorder, single episode, unspecified; F41.9 Anxiety disorder, unspecified; I10 Essential (primary) hypertension; J45.909 Unspecified asthma, uncomplicated; Z79.899 Other long term (current) drug therapy; Z72.0 Tobacco use
CPT/HCPCS: 80053; 80307; 80320; 80329; 84703; 85025; 99283; G0480

== ENCOUNTER 2019-01-15 19:15 | Emergency (ER) | payer MEDICARE, SELFPAY ==
[2019-01-15 19:16] VITALS: BP 139/85; PULSE 77; RESP 20; TEMP 37.1; O2SAT 96; BMI 24.1
[2019-01-15 19:54] VITALS: PULSE 79; RESP 18
[2019-01-15 20:23] LABS: Absolute Lymphocyte Count 4.67 X10^3/ul (0.83-4.51); Absolute Neutrophil Count 1.3 X10^3/uL (2.0-7.7); Basophil# 0.02 X10^3/uL; Basophil% 0.3 % (0-1); Eosinophil# 0.01 X10^3/uL; Eosinophils% 0.2 % (0-5); Hematocrit 35.8 % (37-47); Hemoglobin 12.5 g/dl (12.0-15.0); Internal QC Validated? YES +Cl - CLEAR BKGD; Lymphocyte # 4.67 X10^3/ul (4.0); Lymphocyte % 73.9 % (19-41); Mean Corp Hgb Conc 34.9 g/gl (32-36); Mean Corpuscular Hgb 28.8 pg (27.0-32.0); Mean Corpuscular Volume 82.5 fL (81-99); Monocyte# 0.33 X10^3/uL; Monocyte% 5.2 % (0-10); Neutrophil # 1.25 X10^3/uL (2.7-7.7); Neutrophil % 19.8 % (47-70); Platelet Count 231 K/mm3 (150-450); Pregnancy, Serum, hCG Quali. NEGATIVE Negative; RBC Distribution Width CV 14.9 % (11.6-14.6); RBC Distribution Width SD 44.7 fl (35.1-43.9); Red Blood Count 4.34 M/mm3 (4.2-5.4); White Blood Count 6.3 K/mm3 (4.4-11.0)
[2019-01-15 20:25] LABS: POSITIVE COUNT NO; POSITIVE DIFFERENTIAL NO; POSITIVE MORPHOLOGY NO
[2019-01-15 20:35] LABS: ALB/GLOB Ratio 1.2 RATIO (0.9-2.4); AST(SGOT) 12 U/L (15-37); Alanine Aminotransfer ALT/SGPT 12 U/L (13-56); Albumin, Serum 3.8 g/dL (3.2-5.0); Alkaline Phosphatase 91 U/L (45-117); Anion Gap 9 (5-15); BUN 5 mg/dL (7-18); BUN/Creat Ratio 10.1 RATIO (10-20); Calcium,Total 8.1 mg/dL (8.5-10.1); Chloride 99 mmol/L (98-107); EST Glomerular Filtration Rate 140 mL/min (>60); Est Glom Filt Rate - Afr Amer 169 mL/min (>60); Estimated Creatinine Clearance 121.13 ml/min; Globulin 3.3 g/dL (2.2-4.2); Glucose 91 mg/dL (74-106); Potassium 3.5 mmol/L (3.5-5.1); Protein, Total 7.1 g/dL (6.4-8.2); Sodium Level 132 mmol/L (136-145)
[2019-01-15 20:40] LABS: Amphetamine Urine VISTA NEGATIVE (<1000 ng/mL); Barbiturate Urine VISTA NEGATIVE (< 200 ng/mL); Benzodiazepine Urine VISTA NEGATIVE (< 200 ng/mL); Cocaine Urine VISTA NEGATIVE (< 300 ng/mL); Ecstacy Urine VISTA NEGATIVE (< 500 ng/mL); Methadone Urine VISTA NEGATIVE (< 300 ng/mL); PCP Urine VISTA NEGATIVE (< 25 ng/mL); THC Urine VISTA NEGATIVE (< 50 ng/mL); Vista UDS pH Range 6
[2019-01-15 20:42] VITALS: RESP 22
[2019-01-15] MEDS: Haloperidol 5 MG Tablet 10 MG PO (21:29)
[2019-01-15] MEDS: Benztropine 2 MG Tablet 1 MG PO (21:29)
[2019-01-15] MEDS: busPIRone 15 MG TABLET PO (21:29)
[2019-01-15 21:33] VITALS: BP 111/54; PULSE 72; RESP 18; O2SAT 100
[2019-01-15 22:00] VITALS: RESP 18
[2019-01-15 22:58] VITALS: RESP 20
--- NOTE | 2019-01-15 23:13 | ED.RN ---
DR CHAVEZ NOTIFIED PT FEELING SHAKY
[2019-01-16] VITALS (15 sets, daily range): BP systolic 119–173; BP diastolic 68–90; PULSE 76–99; RESP 12–20; O2SAT 97–100
--- NOTE | 2019-01-16 00:09 | ED.VISSUMM ---
- ER Visit Summary Date of Service: 01/16/19 Chief Complaint: Alcohol detox and suicidal ideation History of Present Illness: The patient is a 48 F tells me that she is an alcoholic. She is gone through rehab before. States she would like to go to [facility] because they have good classes for her. She most recently was at [place] she states a few months ago. After leaving there she states she just started drinking. Today she reports having to [place] ice teas at 16 ounces apiece, 2 tall boy 24 ounce cans about ice, and one small bottle of what she believes to be schnapps. She also states she would like to take a knife and cut her throat because she hates herself. History of depression alcoholism PTSD and schizoaffective disorder. Physical Examination: Afebrile vital signs are stable Gen: Well-nourished well-developed Head: Normocephalic atraumatic Eyes: Perrl EOMI ENT: TMs clear no rhinorrhea moist mucous membranes Neck: Supple no lymphadenopathy no JVD nontender CVS: Regular rate rhythm no murmurs normal S1-S2 Respiratory: No distress clear to auscultation bilaterally chest nontender Abdomen: Soft nontender nondistended normal bowel sounds no masses Back: Nontender Extremity: Nontender no edema Skin: Normal color no rash Neuro: alert orientated ?3 CN II-XII intact normal strength sensation she has slurred speech. Smells of alcohol there is no tremor Psych: Normal affect normal mood Test Results: Psychiatric screening labs were obtained. UDA is positive for opiates. Alcohol is 218. Emergency Department Course and Treatment: She will need to sober up until she is clinically sober. As she states she would like to care for herself we will get a sitter. Once she is clinically sober she can be reassessed. Her last visit at the beginning of this month patient denied suicidality when she was sober. Impression: 1. Acute alcohol intoxication 2. Suicidal ideation This note was generated with [employer] dictation software. It may contain incorrect words, spelling, and punctuation that were not noted in review of the chart prior to signing ED Disposition - Plan for ED Patient: Referrals: Janna Best MD [Primary Care Provider] -
[2019-01-16] MEDS: LORazepam 1 MG Tablet PO ×3 (00:32→14:50)
--- NOTE | 2019-01-16 02:50 | ED.RN ---
called crisis to see this pt, mary jane is communications department chair.
--- NOTE | 2019-01-16 03:05 | ED.RN ---
mary jane called back, she must see someone at [facility], and come here after that
[2019-01-16] MEDS: Ondansetron ODT 4 MG Tablet PO (05:14)
--- NOTE | 2019-01-16 06:05 | ED.RN ---
[facility] CALLED, SHE IS STUCK AT [facility] IN THE EVENT SHE IS UNABLE TO MAKE IT HERE, HER SHIFT RELIEF WILL TAKE THE CASE.
--- NOTE | 2019-01-16 08:19 | ED.RN ---
PER MOHSEN WITH CRISIS; SOMEONE SHOULD BE HERE WITHIN THE NEXT THIRTY MINUTES
--- NOTE | 2019-01-16 09:48 | ED.RN ---
JOI WITH CRISIS IS GOING TO WORK ON A FACILITY THAT WILL ACCEPT DUAL DIAGNOSIS
[2019-01-16] MEDS: busPIRone 15 MG TABLET PO (09:51)
[2019-01-16] MEDS: Haloperidol 5 MG Tablet 10 MG PO (09:51)
[2019-01-16] MEDS: Benztropine 2 MG Tablet 1 MG PO (09:51)
[2019-01-16] MEDS: HYDROcodone Bitartrate/Apap 5/325 Tablet PO ×2 (10:18→16:21)
--- NOTE | 2019-01-16 13:35 | ED.RN ---
2 attempts to call [facility] for nurse to nurse report.
--- NOTE | 2019-01-16 14:05 | ED.RN ---
report given to nurse Arechiga at [facility].
== END 2019-01-16 16:57 ==
LOC: ED 19:35
PROVIDERS: Emergency Provider Emergency Medicine; Family Provider Internal Medicine; PCP Internal Medicine
DX: F10.229 Alcohol dependence with intoxication, unspecified (principal); Y90.7 Blood alcohol level of 200-239 mg/100 ml; R45.851 Suicidal ideations; F25.9 Schizoaffective disorder, unspecified; F43.10 Post-traumatic stress disorder, unspecified; F32.9 Major depressive disorder, single episode, unspecified; Z79.899 Other long term (current) drug therapy; Z72.0 Tobacco use
CPT/HCPCS: 36415; 80053; 80307; 80320; 84703; 85025; 99285; G0480

== ENCOUNTER 2020-05-08 13:16 | Inpatient (IN) | payer MEDICARE, SELFPAY ==
[2020-05-08] VITALS (12 sets, daily range): BP systolic 146–200; BP diastolic 72–117; PULSE 92–112; RESP 17–19; TEMP 36.1–36.9; O2SAT 97–100; BMI 27.4; BMI 28.9
--- NOTE | 2020-05-08 13:49 | ED.VIS.GEN ---
History of Present Illness Chief Complaint: Substance Abuse Informant: Patient Narrative: 1-year-old female presenting for EtOH detox. She states that she has detox before but it has been a long time. She currently states she drinks about a 12 pack a day of beer. She states she also gets up in the middle the night when she cannot sleep and drinks beer. She denies other alcohol. She denies drugs. She is a smoker. States she has been in withdrawal before. She is also had 1 withdrawal seizure. - Past Medical History (1) Alcohol dependence with withdrawal Status: Acute (2) PTSD (post-traumatic stress disorder) Status: Chronic (3) Schizoaffective disorder Status: Chronic Past Medical History - Allergies and Home Meds Allergies/Adverse Reactions: Allergies aripiprazole [From Abilify] Allergy (Verified 05/08/20 13:16) Rash risperidone [From Risperdal] Allergy (Verified 05/08/20 13:16) Unknown sulfamethoxazole [From Septra] Allergy (Verified 05/08/20 13:16) Rash trimethoprim [From Septra] Allergy (Verified 05/08/20 13:16) Rash gabapentin [From Neurontin] Adverse Reaction (Verified 05/08/20 13:16) Upset Stomach prednisone Adverse Reaction (Verified 05/08/20 13:16) Other SKIN HURTS Prior records reviewed: Yes Past Medical History: - - Reviewed in problem list Surgical History: noncontributory, - Lives: Alone Smoking Status: Current every day smoker Alcohol: Heavy Drugs: None - Family History Maternal Family History: Family History (Last Reviewed 05/08/20 @ 16:08 by Angelique Arreola NP, RESERVATIONS SPECIALIST-C) Father Alcoholism Aunt Depression Aunt No problems noted. Family History: Reports: No pertinent history Paternal Family History: Family History (Last Reviewed 05/08/20 @ 16:08 by Angelique Arreola NP, RESERVATIONS SPECIALIST-C) Father Alcoholism Aunt Depression Aunt No problems noted. Family History: Reports: - - Alcoholism Review of Systems General: Denies: Chills, Fever, Sweats Eyes: Denies: Visual changes - bilaterally, Diplopia ENT: Denies: Rhinorrhea, Sore throat Cardiovascular: Denies: Chest pain, Palpitations Respiratory: Denies: Dyspnea, Cough, Dyspnea on exertion Gastrointestinal: Denies: Abdominal pain, Nausea, Vomiting, Diarrhea, Melena, Hematochezia Genitourinary: Denies: Dysuria, Hematuria, Frequency Musculoskeletal: Denies: Back pain, Extremity Pain Skin: Denies: Rash, Wounds Neurological: Denies: Headache, Weakness, Numbness Psych: Denies: Suicidal thoughts, Suicidal ideations Physical Exam Vital Signs/Narrative: Vital Signs Temp Pulse Resp BP Pulse Ox 05/08/20 13:17 97.0 F L 108 H 17 200/117 H 100 General: Obese, No Acute Distress Head: Normocephalic, Atraumatic Eyes: Perrl, EOMI. Negative for: Scleral icterus ENT: Moist mucous membranes, No rhinorrhea Cardiovascular: Regular rate, Regular rhythm Respiratory: No distress, CTA bilaterally Skin: Normal color, No rash. Negative for: Jaundice Neurological: Alert, Oriented x3 Psychological: Normal affect, Normal Mood Diagnostic/Tx/Re-eval Laboratory Data 05/08/20 05/08/20 05/08/20 14:03 14:15 14:15 WBC 5.9 RBC 4.30 Hgb 13.5 Hct 40.5 MCV 94.2 MCH 31.4 MCHC 33.3 RDW Std Deviation 47.2 H RDW Coeff of Cecille 13.7 Plt Count 230 MPV 8.5 Immature Gran % (Auto) 1.500 H Neut % (Auto) 34.0 L Lymph % (Auto) 59.5 H Worth % (Auto) 4.1 Eos % (Auto) 0.2 Baso % (Auto) 0.7 Absolute Neuts (auto) 2.0 Absolute Lymphs (auto) 3.48 Nucleated RBC % 0 PT 11.5 L INR 0.9 Sodium Potassium Chloride Carbon Dioxide Anion Gap BUN Creatinine Estim Creat Clear Calc Est GFR (MDRD) Af Amer Est GFR (MDRD) Non-Af BUN/Creatinine Ratio Glucose Calcium Phosphorus Magnesium Total Bilirubin AST ALT Alkaline Phosphatase Total Protein Albumin Globulin Albumin/Globulin Ratio Urine Opiates Screen NEGATIVE Urine Methadone Screen NEGATIVE Ur Barbiturates Screen NEGATIVE Ur Phencyclidine Scrn NEGATIVE Ur Amphetamines Screen NEGATIVE U Methamphetamin-MDMA NEGATIVE U Benzodiazepines Scrn NEGATIVE Urine Cocaine Screen NEGATIVE U Cannabinoids Screen NEGATIVE Ur Drug Screen Comment Ethyl Alcohol 05/08/20 05/08/20 05/08/20 14:15 14:15 14:15 WBC RBC Hgb Hct MCV MCH MCHC RDW Std Deviation RDW Coeff of Cecille Plt Count MPV Immature Gran % (Auto) Neut % (Auto) Lymph % (Auto) Worth % (Auto) Eos % (Auto) Baso % (Auto) Absolute Neuts (auto) Absolute Lymphs (auto) Nucleated RBC % PT INR Sodium 131 L Potassium 3.9 Chloride 101 Carbon Dioxide 20.0 L Anion Gap 10 BUN 5 L Creatinine 0.68 Estim Creat Clear Calc 88.07 Est GFR (MDRD) Af Amer 117 Est GFR (MDRD) Non-Af 96 BUN/Creatinine Ratio 7.3 L Glucose 91 Calcium 9.0 Phosphorus Magnesium 1.9 Total Bilirubin 0.50 AST 21 ALT 22 Alkaline Phosphatase 139 H Total Protein 8.5 H Albumin 4.1 Globulin 4.4 H Albumin/Globulin Ratio 0.9 Urine Opiates Screen Urine Methadone Screen Ur Barbiturates Screen Ur Phencyclidine Scrn Ur Amphetamines Screen U Methamphetamin-MDMA U Benzodiazepines Scrn Urine Cocaine Screen U Cannabinoids Screen Ur Drug Screen Comment Ethyl Alcohol 62.0 05/08/20 14:15 WBC RBC Hgb Hct MCV MCH MCHC RDW Std Deviation RDW Coeff of Cecille Plt Count MPV Immature Gran % (Auto) Neut % (Auto) Lymph % (Auto) Worth % (Auto) Eos % (Auto) Baso % (Auto) Absolute Neuts (auto) Absolute Lymphs (auto) Nucleated RBC % PT INR Sodium Potassium Chloride Carbon Dioxide Anion Gap BUN Creatinine Estim Creat Clear Calc Est GFR (MDRD) Af Amer Est GFR (MDRD) Non-Af BUN/Creatinine Ratio Glucose Calcium Phosphorus 2.9 Magnesium Total Bilirubin AST ALT Alkaline Phosphatase Total Protein Albumin Globulin Albumin/Globulin Ratio Urine Opiates Screen Urine Methadone Screen Ur Barbiturates Screen Ur Phencyclidine Scrn Ur Amphetamines Screen U Methamphetamin-MDMA U Benzodiazepines Scrn Urine Cocaine Screen U Cannabinoids Screen Ur Drug Screen Comment Ethyl Alcohol - Medical Decision Making 49-year-old female presenting for detox from alcohol. She states her last drink was about 1130. Patient states she has had withdrawal and withdrawal seizures in the past. Currently she is hypertensive and tachycardic she does not have a tremor. She appears to be mentating clearly. Her blood work is unremarkable. She was given 2 doses of Ativan in the ED and feels improved. She still has a very low alcohol level. Talk screen is negative. Patient discussed with hospitalist who accepted admission for detox. Impression: 1. Alcohol abuse 2. Admission for alcohol detoxification ED Disposition - Plan for ED Patient: Disposition: Acute Care Hospital [facility]
[2020-05-08] MEDS: LORazepam 2 MG/ML Syringe 1 MG IV ×2 (14:15→15:36)
[2020-05-08 14:30] LABS: Absolute Lymphocyte Count 3.48 X10^3/uL (0.83-4.51); Basophil# 0.04 X10^3/uL; Basophil% 0.7 % (0-1); Eosinophil# 0.01 X10^3/uL; Eosinophils% 0.2 % (0-5); Hematocrit 40.5 % (37-47); Hemoglobin 13.5 g/dL (12.0-15.0); Lymphocyte # 3.48 X10^3/ul (4.0); Lymphocyte % 59.5 % (19-41); Mean Corp Hgb Conc 33.3 g/dL (32-36); Mean Corpuscular Hgb 31.4 pg (27.0-32.0); Mean Corpuscular Volume 94.2 fL (81-99); Mean Platelet Vol. 8.5 fl (6.2-12.0); Monocyte# 0.24 X10^3/uL; Monocyte% 4.1 % (0-10); NRBC Flagged by Analyzer 0 % (0-5); Neutrophil # 1.99 X10^3/uL (2.7-7.7); Platelet Count 230 K/mm3 (150-450); RBC Distribution Width CV 13.7 % (11.6-14.6); RBC Distribution Width SD 47.2 fl (35.1-43.9); White Blood Count 5.9 K/mm3 (4.4-11.0)
[2020-05-08 14:31] LABS: Amphetamine Urine VISTA NEGATIVE (<1000 ng/mL); Barbiturate Urine VISTA NEGATIVE (< 200 ng/mL); Benzodiazepine Urine VISTA NEGATIVE (< 200 ng/mL); Cocaine Urine VISTA NEGATIVE (< 300 ng/mL); Ecstacy Urine VISTA NEGATIVE (< 500 ng/mL); Methadone Urine VISTA NEGATIVE (< 300 ng/mL); PCP Urine VISTA NEGATIVE (< 25 ng/mL); THC Urine VISTA NEGATIVE (< 50 ng/mL); Vista UDS pH Range 5
[2020-05-08 14:47] LABS: International Normalized Ratio 0.9; Prothrombin Time (Protime)PT. 11.5 SECONDS (11.7-14.9)
[2020-05-08 15:00] LABS: ALB/GLOB Ratio 0.9 RATIO (0.9-2.4); AST(SGOT) 21 U/L (15-37); Alanine Aminotransfer ALT/SGPT 22 U/L (13-56); Albumin, Serum 4.1 g/dL (3.2-5.0); Alkaline Phosphatase 139 U/L (45-117); Anion Gap 10 (5-15); BUN 5 mg/dL (7-18); BUN/Creat Ratio 7.3 RATIO (10-20); Chloride 101 mmol/L (98-107); Creatinine, Serum 0.68 mg/dL (0.55-1.02); EST Glomerular Filtration Rate 96 mL/min (>60); Est Glom Filt Rate - Afr Amer 117 mL/min (>60); Estimated Creatinine Clearance 88.07 ml/min; Globulin 4.4 g/dL (2.2-4.2); Glucose 91 mg/dL (74-106); Potassium 3.9 mmol/L (3.5-5.1); Protein, Total 8.5 g/dL (6.4-8.2); Sodium Level 131 mmol/L (136-145)
--- NOTE | 2020-05-08 15:59 | HP.PCM_ITS ---
Problem List (1) Alcohol dependence with withdrawal Status: Acute (2) Schizoaffective disorder Status: Chronic (3) PTSD (post-traumatic stress disorder) Status: Chronic History of Present Illness Date of Admission: 05/08/20 Chief Complaint: Alcohol withdrawal. The patient is a 49 year old F who presents the emergency room for alcohol withdrawal. Patient states she drinks 12 beers per day, last drink 11 AM this morning. She states she drank a sixpack of [place] earlier today. She currently complains of anxiety, tremors. Patient reports a history of seizures due to alcohol withdrawal. She denies recent seizure activity. Patient has been through detox programs in the past which have been unsuccessful. Patient states her drinking has been worse over the past 6 months to 1 year due to worsening back pain. She also reports recent of her aunt which she has been drinking more to cope with. She denies other drug use. She has a history of she has a history of suicidal ideation/suicide attempt. Denies current suicidal thoughts or ideations. She has a past medical history of hypertension, depression, anxiety, schizoaffective disorder, PTSD, alcohol dependence, tobacco dependence, chronic back pain. Past Medical History Past Medical History (Chronic Problems): Chronic Problems (Last Updated 04/17/18 @ 01:[address] Ryne Hernandez MD) Schizoaffective disorder (Chronic) PTSD (post-traumatic stress disorder) (Chronic) Medical History: Medical History (Last Updated 04/17/18 @ 01:[address] Ryne Hernandez MD) PTSD (post-traumatic stress disorder) F43.10 Schizoaffective disorder F25.9 Allergies aripiprazole [From Abilify] Allergy (Verified 05/08/20 13:16) Rash risperidone [From Risperdal] Allergy (Verified 05/08/20 13:16) Unknown sulfamethoxazole [From Septra] Allergy (Verified 05/08/20 13:16) Rash trimethoprim [From Septra] Allergy (Verified 05/08/20 13:16) Rash gabapentin [From Neurontin] Adverse Reaction (Verified 05/08/20 13:16) Upset Stomach prednisone Adverse Reaction (Verified 05/08/20 13:16) Other SKIN HURTS Home Medications: Ambulatory Orders Medication Instructions Recorded Albuterol IH (ProAir) [Proair Hfa] 2 puff INHALATION Q4H PRN PRN 10/24/15 Benztropine [Cogentin] 0.5 mg PO BID 10/24/15 Citalopram [Celexa] 40 mg PO DAILY 10/24/15 Haloperidol 10 mg PO BID 10/24/15 busPIRone [Buspar] 15 mg PO BID 03/19/18 traZODone [Desyrel] 150 mg PO QHS 03/19/18 Docusate Sodium [Colace] 100 mg PO BID 04/17/18 Albuterol Inhaler [Ventolin Hfa 1 - 2 puff INHALATION Q4H PRN PRN 05/08/20 (SP)] Amlodipine [Norvasc] 5 mg PO DAILY 05/08/20 Pantoprazole Sodium [Protonix] 40 mg PO DAILY 05/08/20 Quetiapine Fumarate [Seroquel] 200 mg PO QHS 05/08/20 Surgical History: - - Spine surgery x2. 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 History Items: - - Denies known maternal medical history including cardiac history. Paternal Family History: Family History (Last Reviewed 05/08/20 @ 16:08 by Angelique Arreola NP, LIFT MECHANIC-C) Father Alcoholism Aunt Depression Aunt No problems noted. History Items: - - Alcoholism Review of Systems Constitutional: Reports: - - Upper extremity tremors. Denies: Chills, Fever, Weight Change HEENT: Denies: Head Aches, Sinus Congestion, Sinus Drainage Cardiovascular: Denies: Chest Pain, Palpitations Respiratory: Denies: Cough, Shortness of breath at rest, Sputum production Gastrointestinal: Denies: Abdominal Pain, Nausea, Vomiting Genitourinary: Denies: Dysuria Musculoskeletal: Denies: Joint Pain, Joint Tenderness Skin: Denies: Rash, Wounds Neurological: Denies: Numbness, Tingling, Focal weakness Psychiatric: Reports: Anxiety, Depression. Denies: Homicidal Ideations, Suicidal Ideations Hematologic/ Lymphatic: Denies: Easy Bruising, Easy Bleeding VTE Information - Inpt Only VTE Present on Admission: No VTE Mechan Device Prophylaxis: None VTE Pharm Prophylaxis ordered?: No Reason prophylaxis not ordered:: Treatment Not Indicated Patient Problems: Active and Suspected Problems (Last Updated 04/17/18 @ 01:[address] Ryne Hernandez MD) Alcohol dependence with withdrawal (Acute) - Physical Exam Vitals/I&O's: Vital Signs Temp Pulse Resp BP Pulse Ox 98 F 112 H 18 175/94 H 98 05/08/20 15:37 05/08/20 15:37 05/08/20 15:37 05/08/20 15:37 05/08/20 15:37 Oxygen Delivery Method Room Air Weight: 165 lb Body Mass Index (BMI) 27.4 General: Alert, Oriented x3, Cooperative, - - Appears anxious, upper extremity tremors HEENT: Atraumatic, PERRLA, EOMI, Normocephalic Oral: Dry Mucosa Neck: Supple, No JVD, Negative Carotid Bruits Lungs: Clear to auscultation, Normal air movement Cardiovascular: Regular Rhythm, No murmurs, Tachycardic Abdomen: Bowel Sounds Present, Soft, Non Tender, Non-Distended Extremities: No clubbing, No cyanosis, No edema, Capillary Refill Less than 3 Seconds Skin: No rashes, No breakdown Musculoskeletal: No Tenderness to Palpation of Joints or Extremities Neurological: Cranial nerves II-XII grossly intact, Neuro grossly intact Psych/Mental Status: Anxious, Flat Affect Laboratory Results 05/08/20 14:03: Urine Opiates Screen NEGATIVE, Urine Methadone Screen NEGATIVE, Ur Barbiturates Screen NEGATIVE, Ur Phencyclidine Scrn NEGATIVE, Ur Amphetamines Screen NEGATIVE, U Methamphetamin-MDMA NEGATIVE, U Benzodiazepines Scrn NEGATIVE, Urine Cocaine Screen NEGATIVE, U Cannabinoids Screen NEGATIVE, Ur Drug Screen Comment 05/08/20 14:15: WBC 5.9, RBC 4.30, Hgb 13.5, Hct 40.5, MCV 94.2, MCH 31.4, MCHC 33.3, RDW Std Deviation 47.2 H, RDW Coeff of Cecille 13.7, Plt Count 230, MPV 8.5, Immature Gran % (Auto) 1.500 H, Neut % (Auto) 34.0 L, Lymph % (Auto) 59.5 H, [place] % (Auto) 4.1, Eos % (Auto) 0.2, Baso % (Auto) 0.7, Absolute Neuts (auto) 2.0, Absolute Lymphs (auto) 3.48, Nucleated RBC % 0 05/08/20 14:15: PT 11.5 L, INR 0.9 05/08/20 14:15: Sodium 131 L, Potassium 3.9, Chloride 101, Carbon Dioxide 20.0 L , Anion Gap 10, BUN 5 L, Creatinine 0.68, Estim Creat Clear Calc 88.07, Est GFR (MDRD) Af Amer 117, Est GFR (MDRD) Non-Af 96, BUN/Creatinine Ratio 7.3 L, Glucose 91, Calcium 9.0, Total Bilirubin 0.50, AST 21, ALT 22, Alkaline Phosphatase 139 H, Total Protein 8.5 H, Albumin 4.1, Globulin 4.4 H, Albumin/Globulin Ratio 0.9 05/08/20 14:15: Ethyl Alcohol 62.0 Assessment/Plan All Active Problems (Last Updated 04/17/18 @ 01:[address] Ryne Hernandez MD) Alcohol dependence with withdrawal (Acute) 1. Acute alcohol withdrawal, chronic alcohol dependence-medical stabilization per protocol. Phenobarbital taper. As needed regimen for somatic complaints. Tox screen negative. Alcohol level 62. Mild hyponatremia on BMP. [employer] consult. 2. Uncontrolled hypertension-blood pressure significantly elevated on admission. Increase home amlodipine regimen to 10 mg daily. As needed hydralazine for systolic blood pressure greater than 160. 3. Tobacco dependence-encouraged cessation. Nicotine replacement patch. 4. Anxiety/depression/schizoaffective disorder/PTSD-continue BuSpar, Celexa, haloperidol, Seroquel, trazodone, Cogentin. 5. Chronic back pain-as needed Tylenol. Reports she plans on following up with primary care provider for further management. 6. GERD-continue PPI. 7. History of alcohol related seizure-protocol per #1. Seizure precautions. DVT prophylaxis-low risk, not indicated This patient was seen by SAGRARIO Chester under the supervision of Dr. Mitchell.
[2020-05-08 16:57] LABS: Magnesium 1.9 mg/dL (1.6-2.6)
[2020-05-08 17:15] LABS: Phosphorus 2.9 mg/dL (2.5-4.9)
[2020-05-08] MEDS: Thiamine Hydrochloride 100 MG Tablet PO (19:30)
[2020-05-08] MEDS: Phenobarbital 32.4 MG Tablet 64.8 MG PO ×2 (19:30→22:49)
[2020-05-08] MEDS: hydrALAZINE 20 MG/ML Vial 10 MG IV (19:36)
[2020-05-08] MEDS: LORazepam 1 MG Tablet 2 MG PO (20:31)
[2020-05-08] MEDS: Docusate Sodium 100 MG Capsule PO (21:57)
[2020-05-08] MEDS: traZODone 100 MG Tablet 150 MG PO (21:58)
[2020-05-08] MEDS: Benztropine 2 MG Tablet 0.5 MG PO (21:58)
[2020-05-08] MEDS: QUEtiapine 100 MG Tablet 200 MG PO (21:59)
[2020-05-08] MEDS: Haloperidol 5 MG Tablet 10 MG PO (21:59)
[2020-05-08] MEDS: busPIRone 15 MG TABLET PO (21:59)
[2020-05-09] VITALS (9 sets, daily range): BP systolic 119–148; BP diastolic 76–92; PULSE 83–125; RESP 16–18; TEMP 36.1–37; O2SAT 96–100
[2020-05-09] MEDS: Phenobarbital 32.4 MG Tablet 64.8 MG PO ×6 (03:42→23:18)
[2020-05-09] MEDS: hydrOXYzine PAM 25 MG Capsule 50 MG PO (03:50)
[2020-05-09] MEDS: Multivitamins,Ther W-Minerals Tablet 1 TABLET PO (08:08)
[2020-05-09] MEDS: Folic Acid 1 MG Tablet PO (08:08)
[2020-05-09] MEDS: Thiamine Hydrochloride 100 MG Tablet PO ×2 (08:10→16:21)
[2020-05-09] MEDS: busPIRone 15 MG TABLET PO ×2 (09:23→21:09)
[2020-05-09] MEDS: Citalopram 40 MG TABLET PO (09:23)
[2020-05-09] MEDS: Benztropine 2 MG Tablet 0.5 MG PO ×2 (09:25→21:09)
[2020-05-09] MEDS: Pantoprazole Sodium 40 MG Tablet PO (09:28)
[2020-05-09] MEDS: Haloperidol 5 MG Tablet 10 MG PO ×2 (09:28→21:08)
[2020-05-09] MEDS: amLODIPine 10 MG Tablet PO (09:28)
--- NOTE | 2020-05-09 10:03 | ADDICTION ---
This designer/writer met with patient in her room to conduct ASAM, MSE, AUDIT assessments and to plan for upcoming discharge. Patient was alert, oriented and cooperative and actively participated during this meeting, however, declined coordination with [facility] for d/c planning. Patient plans to contact [facility] upon d/c to follow up with her psychiatrist, psychologist and case packer. She did not report a need for transportation upon d/c from [facility]. Completed documentation to be filed in chart and sent to [facility].
--- NOTE | 2020-05-09 10:51 | PN_ITS ---
<Angelique Arreola TUTOR - Last Filed: 05/09/20 10:57> Patient Problems: Active and Suspected Problems (Last Updated 04/17/18 @ 01:[address] Ryne medrano MD) Alcohol dependence with withdrawal (Acute) Subjective: Patient seen and examined. Requesting nicotine gum. Continues to have upper extremity tremors. Reports anxiety. Denies other active withdrawal symptoms. 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 - Physical Exam Vitals/I&O's: Vital Signs Temp Pulse Resp BP Pulse Ox 98.2 F 107 H 18 148/92 H 100 05/09/20 07:46 05/09/20 07:46 05/09/20 07:46 05/09/20 07:46 05/09/20 07:46 Oxygen Delivery Method Room Air Weight: 173 lb 15.115 oz Body Mass Index (BMI) 28.9 Intake and Output for Last 24 Hours 05/07/20 05/08/20 05/09/20 23:59 23:59 23:59 Intake Total 300 / 300 200 / 200 Balance 300 / 300 200 / 200 General: Alert, Oriented x3, Cooperative, - - Upper extremity tremors HEENT: Atraumatic, PERRLA, EOMI, Normocephalic Neck: Supple, No JVD, Negative Carotid Bruits Lungs: Clear to auscultation, Normal air movement Cardiovascular: Regular Rhythm, Normal S1, Normal S2, No murmurs, Tachycardic Abdomen: Bowel Sounds Present, Soft, Non Tender, Non-Distended Extremities: No clubbing, No cyanosis, No edema, Capillary Refill Less than 3 Seconds Skin: No rashes, No breakdown Musculoskeletal: No Tenderness to Palpation of Joints or Extremities Neurological: Cranial nerves II-XII grossly intact, Neuro grossly intact Psych/Mental Status: Anxious Laboratory Results 05/08/20 14:03: Urine Opiates Screen NEGATIVE, Urine Methadone Screen NEGATIVE, Ur Barbiturates Screen NEGATIVE, Ur Phencyclidine Scrn NEGATIVE, Ur Amphetamines Screen NEGATIVE, U Methamphetamin-MDMA NEGATIVE, U Benzodiazepines Scrn NEGATIVE, Urine Cocaine Screen NEGATIVE, U Cannabinoids Screen NEGATIVE, Ur Drug Screen Comment 05/08/20 14:15: WBC 5.9, RBC 4.30, Hgb 13.5, Hct 40.5, MCV 94.2, MCH 31.4, MCHC 33.3, RDW Std Deviation 47.2 H, RDW Coeff of Cecille 13.7, Plt Count 230, MPV 8.5, Immature Gran % (Auto) 1.500 H, Neut % (Auto) 34.0 L, Lymph % (Auto) 59.5 H, [place] % (Auto) 4.1, Eos % (Auto) 0.2, Baso % (Auto) 0.7, Absolute Neuts (auto) 2.0, Absolute Lymphs (auto) 3.48, Nucleated RBC % 0 05/08/20 14:15: PT 11.5 L, INR 0.9 05/08/20 14:15: Sodium 131 L, Potassium 3.9, Chloride 101, Carbon Dioxide 20.0 L , Anion Gap 10, BUN 5 L, Creatinine 0.68, Estim Creat Clear Calc 88.07, Est GFR (MDRD) Af Amer 117, Est GFR (MDRD) Non-Af 96, BUN/Creatinine Ratio 7.3 L, Glucose 91, Calcium 9.0, Total Bilirubin 0.50, AST 21, ALT 22, Alkaline Phosphatase 139 H, Total Protein 8.5 H, Albumin 4.1, Globulin 4.4 H, Albumin/Globulin Ratio 0.9 05/08/20 14:15: Ethyl Alcohol 62.0 05/08/20 14:15: Magnesium 1.9 05/08/20 14:15: Phosphorus 2.9 Current Medications Acetaminophen (Acetaminophen 325 Mg Tablet) 650 mg PO Q6H PRN PRN PRN Reason: Pain Score 1-10/Temp > 100.7 F Amlodipine Besylate (Amlodipine 10 Mg Tablet) 10 mg PO DAILY [facility] Last Admin: 05/09/20 09:28 Dose: 10 mg Documented by: Benztropine Mesylate (Benztropine 2 Mg Tablet) 0.5 mg PO BID [facility] Last Admin: 05/09/20 09:25 Dose: 0.5 mg Documented by: Buspirone HCl (Buspirone 15 Mg Tablet) 15 mg PO BID [facility] Last Admin: 05/09/20 09:23 Dose: 15 mg Documented by: Citalopram Hydrobromide (Citalopram 40 Mg Tablet) 40 mg PO DAILY [facility] Last Admin: 05/09/20 09:23 Dose: 40 mg Documented by: Dicyclomine HCl (Dicyclomine 10 Mg Capsule) 20 mg PO Q6H PRN PRN PRN Reason: abdominal discomfort Docusate Sodium (Docusate Sodium 100 Mg Capsule) 100 mg PO BID [facility] Last Admin: 05/09/20 09:28 Dose: Not Given Documented by: Folic Acid (Folic Acid 1 Mg Tablet) 1 mg PO DAILY@0800 [facility] Stop: 05/11/20 08:01 Last Admin: 05/09/20 08:08 Dose: 1 mg Documented by: Gabapentin (Gabapentin 300 Mg Capsule) 300 mg PO Q8H PRN PRN PRN Reason: moderate to severe anxiety Haloperidol (Haloperidol 5 Mg Tablet) 10 mg PO BID [facility] Last Admin: 05/09/20 09:28 Dose: 10 mg Documented by: Hydralazine HCl (Hydralazine 20 Mg/Ml Vial) 10 mg IV Q6H PRN PRN PRN Reason: BLOOD PRESSURE Last Admin: 05/08/20 19:36 Dose: 10 mg Documented by: Hydroxyzine Pamoate (Hydroxyzine Sherrill 25 Mg Capsule) 50 mg PO Q4H PRN PRN PRN Reason: mild anxiety Last Admin: 05/09/20 03:50 Dose: 50 mg Documented by: Loperamide HCl (Loperamide 2 Mg Capsule) 2 mg PO Q4H PRN PRN PRN Reason: LOOSE STOOLS Lorazepam (Lorazepam 1 Mg Tablet) 2 mg PO Q2H PRN PRN; Protocol PRN Reason: CIWA score > 8 but <15 Last Admin: 05/08/20 20:31 Dose: 2 mg Documented by: Lorazepam (Lorazepam 1 Mg Tablet) 2 mg PO UD PRN; Protocol PRN Reason: CIWA score >/=15. Lorazepam (Lorazepam 2 Mg/Ml Syringe) 2 mg IV Q2H PRN PRN; Protocol PRN Reason: CIWA score > 8 but <15 Lorazepam (Lorazepam 2 Mg/Ml Syringe) 2 mg IV UD PRN; Protocol PRN Reason: CIWA score >/=15. Multivitamins/Minerals (Multivitamins,Ther W-Minerals Tablet) [facility] Last Admin: 05/09/20 08:08 Dose: 1 tablet Documented by: Nicotine (Nicotine 21 Mg Patch) 21 mg TRANSDERM. DAILY [facility] Last Admin: 10/26/20 10:04 Dose: 21 mg Documented by: Nicotine Polacrilex (Nicotine Polacrilex 2 Mg Gum) 2 mg PO Q2H PRN PRN PRN Reason: Nicotine Craving Ondansetron HCl (Ondansetron 8 Mg Tablet) 8 mg PO Q8H PRN PRN PRN Reason: NAUSEA Pantoprazole Sodium (Pantoprazole Sodium 40 Mg Tablet) 40 mg PO DAILY [facility] Last Admin: 05/09/20 09:28 Dose: 40 mg Documented by: Phenobarbital (Phenobarbital 32.4 Mg Tablet) 97.2 mg PO Q4H [facility]; Taper Stop: 05/13/20 03:29 Last Admin: 05/09/20 08:07 Dose: 97.2 mg Documented by: Quetiapine Fumarate (Quetiapine 100 Mg Tablet) 200 mg PO QHS [facility] Last Admin: 05/08/20 21:59 Dose: 200 mg Documented by: Sodium Chloride (0.9% Saline Lock 10 Ml Syringe) 10 - 40 ml IV UD PRN PRN Reason: SALINE FLUSH Thiamine HCl (Thiamine Hydrochloride 100 Mg Tablet) 100 mg PO BIDCM [facility] Stop: 05/11/20 08:01 Last Admin: 05/09/20 08:10 Dose: 100 mg Documented by: Trazodone HCl (Trazodone 100 Mg Tablet) 150 mg PO QHS [facility] Last Admin: 05/08/20 21:58 Dose: 150 mg Documented by: Medical Necessity - Tobacco Use Smoking Status: Current every day smoker Tobacco Use: Cigarettes Assessment/Plan All Active Problems (Last Updated 04/17/18 @ 01:[address] Ryne Hernandez MD) Alcohol dependence with withdrawal (Acute) 1. Acute alcohol withdrawal, chronic alcohol dependence-medical stabilization per protocol. Phenobarbital taper. As needed regimen for somatic complaints. Tox screen negative. Alcohol level 62. Mild hyponatremia on BMP. [employer] consulted. 2. Uncontrolled hypertension-blood pressure significantly elevated on admission. Increase home amlodipine regimen to 10 mg daily. As needed hydralazine for systolic blood pressure greater than 160. Blood pressure currently improved. 3. Tobacco dependence-encouraged cessation. Nicotine replacement patch. 4. Anxiety/depression/schizoaffective disorder/PTSD-continue BuSpar, Celexa, haloperidol, Seroquel, trazodone, Cogentin. 5. Chronic back pain-as needed Tylenol. Reports she plans on following up with primary care provider for further management. 6. GERD-continue PPI. 7. History of alcohol related seizure-protocol per #1. Seizure precautions. DVT prophylaxis-low risk, not indicated This patient was seen by SAGRARIO Chester under the supervision of Dr. Aguilar. <Kobi Aguilar F - Last Filed: 05/09/20 12:57> - Physical Exam Vitals/I&O's: Vital Signs Temp Pulse Resp BP Pulse Ox 98.6 F 108 H 16 119/79 98 05/09/20 12:08 05/09/20 12:08 05/09/20 12:08 05/09/20 12:08 05/09/20 12:08 Oxygen Delivery Method Room Air Weight: 173 lb 15.115 oz Body Mass Index (BMI) 28.9 Intake and Output for Last 24 Hours 05/07/20 05/08/20 05/09/20 23:59 23:59 23:59 Intake Total 300 / 300 200 / 200 Balance 300 / 300 200 / 200 Laboratory Results 05/08/20 14:03: Urine Opiates Screen NEGATIVE, Urine Methadone Screen NEGATIVE, Ur Barbiturates Screen NEGATIVE, Ur Phencyclidine Scrn NEGATIVE, Ur Amphetamines Screen NEGATIVE, U Methamphetamin-MDMA NEGATIVE, U Benzodiazepines Scrn NEGATIVE, Urine Cocaine Screen NEGATIVE, U Cannabinoids Screen NEGATIVE, Ur Drug Screen Comment 05/08/20 14:15: WBC 5.9, RBC 4.30, Hgb 13.5, Hct 40.5, MCV 94.2, MCH 31.4, MCHC 33.3, RDW Std Deviation 47.2 H, RDW Coeff of Cecille 13.7, Plt Count 230, MPV 8.5, Immature Gran % (Auto) 1.500 H, Neut % (Auto) 34.0 L, Lymph % (Auto) 59.5 H, [place] % (Auto) 4.1, Eos % (Auto) 0.2, Baso % (Auto) 0.7, Absolute Neuts (auto) 2.0, Absolute Lymphs (auto) 3.48, Nucleated RBC % 0 05/08/20 14:15: PT 11.5 L, INR 0.9 05/08/20 14:15: Sodium 131 L, Potassium 3.9, Chloride 101, Carbon Dioxide 20.0 L , Anion Gap 10, BUN 5 L, Creatinine 0.68, Estim Creat Clear Calc 88.07, Est GFR (MDRD) Af Amer 117, Est GFR (MDRD) Non-Af 96, BUN/Creatinine Ratio 7.3 L, Glucose 91, Calcium 9.0, Total Bilirubin 0.50, AST 21, ALT 22, Alkaline Phosphatase 139 H, Total Protein 8.5 H, Albumin 4.1, Globulin 4.4 H, Albumin/Globulin Ratio 0.9 05/08/20 14:15: Ethyl Alcohol 62.0 05/08/20 14:15: Magnesium 1.9 05/08/20 14:15: Phosphorus 2.9 Current Medications Acetaminophen (Acetaminophen 325 Mg Tablet) 650 mg PO Q6H PRN PRN PRN Reason: Pain Score 1-10/Temp > 100.7 F Last Admin: 05/09/20 12:25 Dose: 650 mg Documented by: Amlodipine Besylate (Amlodipine 10 Mg Tablet) 10 mg PO DAILY [facility] Last Admin: 05/09/20 09:28 Dose: 10 mg Documented by: Benztropine Mesylate (Benztropine 2 Mg Tablet) 0.5 mg PO BID [facility] Last Admin: 05/09/20 09:25 Dose: 0.5 mg Documented by: Buspirone HCl (Buspirone 15 Mg Tablet) 15 mg PO BID [facility] Last Admin: 05/09/20 09:23 Dose: 15 mg Documented by: Citalopram Hydrobromide (Citalopram 40 Mg Tablet) 40 mg PO DAILY [facility] Last Admin: 05/09/20 09:23 Dose: 40 mg Documented by: Dicyclomine HCl (Dicyclomine 10 Mg Capsule) 20 mg PO Q6H PRN PRN PRN Reason: abdominal discomfort Last Admin: 05/09/20 12:25 Dose: 20 mg Documented by: Docusate Sodium (Docusate Sodium 100 Mg Capsule) 100 mg PO BID [facility] Last Admin: 05/09/20 09:28 Dose: Not Given Documented by: Folic Acid (Folic Acid 1 Mg Tablet) 1 mg PO DAILY@0800 [facility] Stop: 05/11/20 08:01 Last Admin: 05/09/20 08:08 Dose: 1 mg Documented by: Gabapentin (Gabapentin 300 Mg Capsule) 300 mg PO Q8H PRN PRN PRN Reason: moderate to severe anxiety Haloperidol (Haloperidol 5 Mg Tablet) 10 mg PO BID [facility] Last Admin: 05/09/20 09:28 Dose: 10 mg Documented by: Hydralazine HCl (Hydralazine 20 Mg/Ml Vial) 10 mg IV Q6H PRN PRN PRN Reason: BLOOD PRESSURE Last Admin: 05/08/20 19:36 Dose: 10 mg Documented by: Hydroxyzine Pamoate (Hydroxyzine Sherrill 25 Mg Capsule) 50 mg PO Q4H PRN PRN PRN Reason: mild anxiety Last Admin: 05/09/20 03:50 Dose: 50 mg Documented by: Loperamide HCl (Loperamide 2 Mg Capsule) 2 mg PO Q4H PRN PRN PRN Reason: LOOSE STOOLS Lorazepam (Lorazepam 1 Mg Tablet) 2 mg PO Q2H PRN PRN; Protocol PRN Reason: CIWA score > 8 but <15 Last Admin: 05/08/20 20:31 Dose: 2 mg Documented by: Lorazepam (Lorazepam 1 Mg Tablet) 2 mg PO UD PRN; Protocol PRN Reason: CIWA score >/=15. Lorazepam (Lorazepam 2 Mg/Ml Syringe) 2 mg IV Q2H PRN PRN; Protocol PRN Reason: CIWA score > 8 but <15 Lorazepam (Lorazepam 2 Mg/Ml Syringe) 2 mg IV UD PRN; Protocol PRN Reason: CIWA score >/=15. Multivitamins/Minerals (Multivitamins,Ther W-Minerals Tablet) [facility] Last Admin: 05/09/20 08:08 Dose: 1 tablet Documented by: Nicotine (Nicotine 21 Mg Patch) 21 mg TRANSDERM. DAILY [facility] Last Admin: 05/09/20 10:04 Dose: 21 mg Documented by: Nicotine Polacrilex (Nicotine Polacrilex 2 Mg Gum) 2 mg PO Q2H PRN PRN PRN Reason: Nicotine Craving Ondansetron HCl (Ondansetron 8 Mg Tablet) 8 mg PO Q8H PRN PRN PRN Reason: NAUSEA Pantoprazole Sodium (Pantoprazole Sodium 40 Mg Tablet) 40 mg PO DAILY [facility] Last Admin: 05/09/20 09:28 Dose: 40 mg Documented by: Phenobarbital (Phenobarbital 32.4 Mg Tablet) 97.2 mg PO Q4H [facility]; Taper Stop: 05/13/20 03:29 Last Admin: 05/09/20 12:07 Dose: 97.2 mg Documented by: Quetiapine Fumarate (Quetiapine 100 Mg Tablet) 200 mg PO QHS [facility] Last Admin: 05/08/20 21:59 Dose: 200 mg Documented by: Sodium Chloride (0.9% Saline Lock 10 Ml Syringe) 10 - 40 ml IV UD PRN PRN Reason: SALINE FLUSH Thiamine HCl (Thiamine Hydrochloride 100 Mg Tablet) 100 mg PO BIDCM [facility] Stop: 05/11/20 08:01 Last Admin: 05/09/20 08:10 Dose: 100 mg Documented by: Trazodone HCl (Trazodone 100 Mg Tablet) 150 mg PO QHS [facility] Last Admin: 05/08/20 21:58 Dose: 150 mg Documented by: Addendum: Dr. Aguilar I personally examined the patient and reviewed the chart. I agree with the above. Two 1-year-old female presents to the hospital with alcohol withdrawal. She says she drinks about 12 beers a day and she had her last drink was at 11 AM on the morning of admission. Today she says that she is still very anxious and does have a tremor. We will continue with the alcohol withdrawal protocol and monitor. Her heart rate is little bit elevated but stable in the low 100s. She will need to meet with 180 prior to discharge to set up outpatient therapy. Inpatient E&M: [id number] Subs Hosp L2
[2020-05-09] MEDS: Dicyclomine 10 MG Capsule 20 MG PO (12:25)
[2020-05-09] MEDS: Acetaminophen 325 MG Tablet 650 MG PO ×2 (12:25→19:33)
[2020-05-09] MEDS: Nicotine Polacrilex 2 MG GUM PO ×2 (17:58→21:13)
[2020-05-09] MEDS: QUEtiapine 100 MG Tablet 200 MG PO (21:08)
[2020-05-09] MEDS: traZODone 100 MG Tablet 150 MG PO (21:09)
[2020-05-09] MEDS: 0.9% Saline Lock 10 ML Syringe IV (23:20)
[2020-05-10] VITALS (11 sets, daily range): BP systolic 130–145; BP diastolic 79–90; PULSE 77–107; RESP 16–18; TEMP 36.4–37.1; O2SAT 95–99
[2020-05-10] MEDS: Phenobarbital 32.4 MG Tablet 64.8 MG PO ×6 (03:36→22:31)
--- NOTE | 2020-05-10 08:20 | ADDICTION ---
this information writer met with patient, in her room, to verify her intention to follow through with discharge plan and to provide support. Krystle was alert and oriented and receptive to this information writer's visit. Patient reports that she plans to follow up with the counseling center and also verified that she has this information writer's direct line to contact if she chooses to seek AoD related treatment in the future. She presented with euthymic mood and actively engaged with this information writer today. She reports no need for transportation assistance.
[2020-05-10] MEDS: Citalopram 40 MG TABLET PO (08:42)
[2020-05-10] MEDS: Thiamine Hydrochloride 100 MG Tablet PO ×2 (08:42→17:09)
[2020-05-10] MEDS: Docusate Sodium 100 MG Capsule PO (08:43)
[2020-05-10] MEDS: Haloperidol 5 MG Tablet 10 MG PO ×2 (08:43→22:28)
[2020-05-10] MEDS: amLODIPine 10 MG Tablet PO (08:43)
[2020-05-10] MEDS: Folic Acid 1 MG Tablet PO (08:43)
[2020-05-10] MEDS: Multivitamins,Ther W-Minerals Tablet 1 TABLET PO (08:44)
[2020-05-10] MEDS: busPIRone 15 MG TABLET PO ×2 (08:44→22:26)
[2020-05-10] MEDS: Benztropine 2 MG Tablet 0.5 MG PO ×2 (08:44→22:26)
[2020-05-10] MEDS: Pantoprazole Sodium 40 MG Tablet PO (08:44)
[2020-05-10] MEDS: Nicotine Polacrilex 2 MG GUM PO ×3 (08:47→18:22)
--- NOTE | 2020-05-10 08:57 | PN_ITS ---
<Angelique Arreola ELEMENTARY READING SPECIALIST - Last Filed: 05/10/20 09:00> Patient Problems: Active and Suspected Problems (Last Updated 04/17/18 @ 01:[address] Ryne medrano MD) Alcohol dependence with withdrawal (Acute) Subjective: Patient seen and examined. No acute events overnight. Upper extremity tremors improved. Denies other withdrawal symptoms. States discharge plan is outpatient follow-up with counseling center and online AA meetings. - Physical Exam Vitals/I&O's: Vital Signs Temp Pulse Resp BP Pulse Ox 98.5 F 99 18 145/90 H 98 05/10/20 08:50 05/10/20 08:50 05/10/20 08:50 05/10/20 08:50 05/10/20 08:50 Oxygen Delivery Method Room Air Weight: 173 lb 15.115 oz Body Mass Index (BMI) 28.9 Intake and Output for Last 24 Hours 05/08/20 05/09/20 05/10/20 23:59 23:59 23:59 Intake Total 300 / 300 800 / 800 200 / 200 Balance 300 / 300 800 / 800 200 / 200 General: Alert, Oriented x3, Cooperative, - - Upper extremity tremors improved HEENT: Atraumatic, PERRLA, EOMI, Normocephalic Neck: Supple, No JVD, Negative Carotid Bruits Lungs: Clear to auscultation, Normal air movement Cardiovascular: Regular rate, No murmurs, - - Tachycardic with ambulation Abdomen: Bowel Sounds Present, Soft, Non Tender, Non-Distended Extremities: No clubbing, No cyanosis, No edema, Capillary Refill Less than 3 Seconds Skin: No rashes, No breakdown Musculoskeletal: No Tenderness to Palpation of Joints or Extremities Neurological: Cranial nerves II-XII grossly intact, Neuro grossly intact Psych/Mental Status: Normal Affect, Appropriate Current Medications Acetaminophen (Acetaminophen 325 Mg Tablet) 650 mg PO Q6H PRN PRN PRN Reason: Pain Score 1-10/Temp > 100.7 F Last Admin: 05/09/20 19:33 Dose: 650 mg Documented by: Amlodipine Besylate (Amlodipine 10 Mg Tablet) 10 mg PO DAILY [facility] Last Admin: 05/10/20 08:43 Dose: 10 mg Documented by: Benztropine Mesylate (Benztropine 2 Mg Tablet) 0.5 mg PO BID [facility] Last Admin: 05/10/20 08:44 Dose: 0.5 mg Documented by: Buspirone HCl (Buspirone 15 Mg Tablet) 15 mg PO BID [facility] Last Admin: 05/10/20 08:44 Dose: 15 mg Documented by: Citalopram Hydrobromide (Citalopram 40 Mg Tablet) 40 mg PO DAILY [facility] Last Admin: 05/10/20 08:42 Dose: 40 mg Documented by: Dicyclomine HCl (Dicyclomine 10 Mg Capsule) 20 mg PO Q6H PRN PRN PRN Reason: abdominal discomfort Last Admin: 05/09/20 12:25 Dose: 20 mg Documented by: Docusate Sodium (Docusate Sodium 100 Mg Capsule) 100 mg PO BID [facility] Last Admin: 05/10/20 08:43 Dose: 100 mg Documented by: Folic Acid (Folic Acid 1 Mg Tablet) 1 mg PO DAILY@0800 [facility] Stop: 05/11/20 08:01 Last Admin: 05/10/20 08:43 Dose: 1 mg Documented by: Gabapentin (Gabapentin 300 Mg Capsule) 300 mg PO Q8H PRN PRN PRN Reason: moderate to severe anxiety Haloperidol (Haloperidol 5 Mg Tablet) 10 mg PO BID [facility] Last Admin: 05/10/20 08:43 Dose: 10 mg Documented by: Hydralazine HCl (Hydralazine 20 Mg/Ml Vial) 10 mg IV Q6H PRN PRN PRN Reason: BLOOD PRESSURE Last Admin: 05/08/20 19:36 Dose: 10 mg Documented by: Hydroxyzine Pamoate (Hydroxyzine Sherrill 25 Mg Capsule) 50 mg PO Q4H PRN PRN PRN Reason: mild anxiety Last Admin: 05/09/20 03:50 Dose: 50 mg Documented by: Loperamide HCl (Loperamide 2 Mg Capsule) 2 mg PO Q4H PRN PRN PRN Reason: LOOSE STOOLS Lorazepam (Lorazepam 1 Mg Tablet) 2 mg PO Q2H PRN PRN; Protocol PRN Reason: CIWA score > 8 but <15 Last Admin: 05/08/20 20:31 Dose: 2 mg Documented by: Lorazepam (Lorazepam 1 Mg Tablet) 2 mg PO UD PRN; Protocol PRN Reason: CIWA score >/=15. Lorazepam (Lorazepam 2 Mg/Ml Syringe) 2 mg IV Q2H PRN PRN; Protocol PRN Reason: CIWA score > 8 but <15 Lorazepam (Lorazepam 2 Mg/Ml Syringe) 2 mg IV UD PRN; Protocol PRN Reason: CIWA score >/=15. Multivitamins/Minerals (Multivitamins,Ther W-Minerals Tablet) 1 tablet PO DA ILYCM [facility] Last Admin: 05/10/20 08:44 Dose: 1 tablet Documented by: Nicotine (Nicotine 21 Mg Patch) 21 mg TRANSDERM. DAILY [facility] Last Admin: 05/10/20 08:41 Dose: 21 mg Documented by: Nicotine Polacrilex (Nicotine Polacrilex 2 Mg Gum) 2 mg PO Q2H PRN PRN PRN Reason: Nicotine Craving Last Admin: 05/10/20 08:47 Dose: 2 mg Documented by: Ondansetron HCl (Ondansetron 8 Mg Tablet) 8 mg PO Q8H PRN PRN PRN Reason: NAUSEA Pantoprazole Sodium (Pantoprazole Sodium 40 Mg Tablet) 40 mg PO DAILY [facility] Last Admin: 05/10/20 08:44 Dose: 40 mg Documented by: Phenobarbital (Phenobarbital 32.4 Mg Tablet) 64.8 mg PO Q4H [facility]; Taper Stop: 05/13/20 03:29 Last Admin: 05/10/20 06:58 Dose: 64.8 mg Documented by: Quetiapine Fumarate (Quetiapine 100 Mg Tablet) 200 mg PO QHS [facility] Last Admin: 05/09/20 21:08 Dose: 200 mg Documented by: Sodium Chloride (0.9% Saline Lock 10 Ml Syringe) 10 - 40 ml IV UD PRN PRN Reason: SALINE FLUSH Last Admin: 05/09/20 23:20 Dose: 10 ml Documented by: Thiamine HCl (Thiamine Hydrochloride 100 Mg Tablet) 100 mg PO BIDCM [facility] Stop: 05/11/20 08:01 Last Admin: 05/10/20 08:42 Dose: 100 mg Documented by: Trazodone HCl (Trazodone 100 Mg Tablet) 150 mg PO QHS [facility] Last Admin: 05/09/20 21:09 Dose: 150 mg Documented by: Medical Necessity - Tobacco Use Smoking Status: Current every day smoker Tobacco Use: Cigarettes Assessment/Plan All Active Problems (Last Updated 04/17/18 @ 01:[address] Ryne Hernandez MD) Alcohol dependence with withdrawal (Acute) 1. Acute alcohol withdrawal, chronic alcohol dependence-medical stabilization per protocol. Phenobarbital taper. As needed regimen for somatic complaints. Tox screen negative. Alcohol level 62 on admission. [employer] consulted. Patient states plan is for outpatient follow-up with counseling center. 2. Uncontrolled hypertension-blood pressure significantly elevated on admission. Increase home amlodipine regimen to 10 mg daily. As needed hydralazine for systolic blood pressure greater than 160. Blood pressure currently improved. 3. Tobacco dependence-encouraged cessation. Nicotine replacement patch. 4. Anxiety/depression/schizoaffective disorder/PTSD-continue BuSpar, Celexa, haloperidol, Seroquel, trazodone, Cogentin. 5. Chronic back pain-as needed Tylenol. Reports she plans on following up with primary care provider for further management. 6. GERD-continue PPI. 7. History of alcohol related seizure-protocol per #1. Seizure precautions. DVT prophylaxis-low risk, not indicated This patient was seen by SAGRARIO Chester under the supervision of Dr. Aguilar. <Kobi Aguilar F - Last Filed: 05/10/20 10:35> - Physical Exam Vitals/I&O's: Vital Signs Temp Pulse Resp BP Pulse Ox 98.5 F 99 18 145/90 H 98 05/10/20 08:50 05/10/20 08:50 05/10/20 08:50 05/10/20 08:50 05/10/20 08:50 Oxygen Delivery Method Room Air Weight: 173 lb 15.115 oz Body Mass Index (BMI) 28.9 Intake and Output for Last 24 Hours 05/08/20 05/09/20 05/10/20 23:59 23:59 23:59 Intake Total 300 / 300 800 / 800 200 / 200 Balance 300 / 300 800 / 800 200 / 200 Current Medications Acetaminophen (Acetaminophen 325 Mg Tablet) 650 mg PO Q6H PRN PRN PRN Reason: Pain Score 1-10/Temp > 100.7 F Last Admin: 05/09/20 19:33 Dose: 650 mg Documented by: Amlodipine Besylate (Amlodipine 10 Mg Tablet) 10 mg PO DAILY [facility] Last Admin: 05/10/20 08:43 Dose: 10 mg Documented by: Benztropine Mesylate (Benztropine 2 Mg Tablet) 0.5 mg PO BID [facility] Last Admin: 05/10/20 08:44 Dose: 0.5 mg Documented by: Buspirone HCl (Buspirone 15 Mg Tablet) 15 mg PO BID [facility] Last Admin: 05/10/20 08:44 Dose: 15 mg Documented by: Citalopram Hydrobromide (Citalopram 40 Mg Tablet) 40 mg PO DAILY [facility] Last Admin: 05/10/20 08:42 Dose: 40 mg Documented by: Dicyclomine HCl (Dicyclomine 10 Mg Capsule) 20 mg PO Q6H PRN PRN PRN Reason: abdominal discomfort Last Admin: 05/09/20 12:25 Dose: 20 mg Documented by: Docusate Sodium (Docusate Sodium 100 Mg Capsule) 100 mg PO BID [facility] Last Admin: 05/10/20 08:43 Dose: 100 mg Documented by: Folic Acid (Folic Acid 1 Mg Tablet) 1 mg PO DAILY@0800 [facility] Stop: 05/11/20 08:01 Last Admin: 05/10/20 08:43 Dose: 1 mg Documented by: Gabapentin (Gabapentin 300 Mg Capsule) 300 mg PO Q8H PRN PRN PRN Reason: moderate to severe anxiety Haloperidol (Haloperidol 5 Mg Tablet) 10 mg PO BID [facility] Last Admin: 05/10/20 08:43 Dose: 10 mg Documented by: Hydralazine HCl (Hydralazine 20 Mg/Ml Vial) 10 mg IV Q6H PRN PRN PRN Reason: BLOOD PRESSURE Last Admin: 05/08/20 19:36 Dose: 10 mg Documented by: Hydroxyzine Pamoate (Hydroxyzine Sherrill 25 Mg Capsule) 50 mg PO Q4H PRN PRN PRN Reason: mild anxiety Last Admin: 05/09/20 03:50 Dose: 50 mg Documented by: Loperamide HCl (Loperamide 2 Mg Capsule) 2 mg PO Q4H PRN PRN PRN Reason: LOOSE STOOLS Lorazepam (Lorazepam 1 Mg Tablet) 2 mg PO Q2H PRN PRN; Protocol PRN Reason: CIWA score > 8 but <15 Last Admin: 05/08/20 20:31 Dose: 2 mg Documented by: Lorazepam (Lorazepam 1 Mg Tablet) 2 mg PO UD PRN; Protocol PRN Reason: CIWA score >/=15. Lorazepam (Lorazepam 2 Mg/Ml Syringe) 2 mg IV Q2H PRN PRN; Protocol PRN Reason: CIWA score > 8 but <15 Lorazepam (Lorazepam 2 Mg/Ml Syringe) 2 mg IV UD PRN; Protocol PRN Reason: CIWA score >/=15. Multivitamins/Minerals (Multivitamins,Ther W-Minerals Tablet) 1 tablet PO DAILYCM [facility] Last Admin: 05/10/20 08:44 Dose: 1 tablet Documented by: Nicotine (Nicotine 21 Mg Patch) 21 mg TRANSDERM. DAILY [facility] Last Admin: 05/10/20 08:41 Dose: 21 mg Documented by: Nicotine Polacrilex (Nicotine Polacrilex 2 Mg Gum) 2 mg PO Q2H PRN PRN PRN Reason: Nicotine Craving Last Admin: 05/10/20 08:47 Dose: 2 mg Documented by: Ondansetron HCl (Ondansetron 8 Mg Tablet) 8 mg PO Q8H PRN PRN PRN Reason: NAUSEA Pantoprazole Sodium (Pantoprazole Sodium 40 Mg Tablet) 40 mg PO DAILY [facility] Last Admin: 05/10/20 08:44 Dose: 40 mg Documented by: Phenobarbital (Phenobarbital 32.4 Mg Tablet) 64.8 mg PO Q4H [facility]; Taper Stop: 05/13/20 03:29 Last Admin: 05/10/20 06:58 Dose: 64.8 mg Documented by: Quetiapine Fumarate (Quetiapine 100 Mg Tablet) 200 mg PO QHS [facility] Last Admin: 05/09/20 21:08 Dose: 200 mg Documented by: Sodium Chloride (0.9% Saline Lock 10 Ml Syringe) 10 - 40 ml IV UD PRN PRN Reason: SALINE FLUSH Last Admin: 05/09/20 23:20 Dose: 10 ml Documented by: Thiamine HCl (Thiamine Hydrochloride 100 Mg Tablet) 100 mg PO BIDCM [facility] Stop: 05/11/20 08:01 Last Admin: 05/10/20 08:42 Dose: 100 mg Documented by: Trazodone HCl (Trazodone 100 Mg Tablet) 150 mg PO QHS [facility] Last Admin: 05/09/20 21:09 Dose: 150 mg Documented by: Addendum: Dr. Aguilar I personally examined the patient and reviewed the chart. I agree with the above. Two 1-year-old female presents to the hospital with alcohol withdrawal. She says she drinks about 12 beers a day and she had her last drink was at 11 AM on the morning of admission. Today she says that she is still very anxious and does have a tremor. We will continue with the alcohol withdrawal protocol and monitor. Her heart rate is little bit elevated but stable in the low 100s. She will need to meet with 180 prior to discharge to set up outpatient therapy. 05/10/2020: Feels even better today than she did yesterday, she says that the phenobarb is working. We will continue with the taper and she will follow-up as an outpatient with her counselor. Inpatient E&M: 84448 Subs Hosp L2
[2020-05-10] MEDS: hydrOXYzine PAM 25 MG Capsule 50 MG PO ×2 (13:06→20:16)
[2020-05-10] MEDS: Acetaminophen 325 MG Tablet 650 MG PO (20:13)
[2020-05-10] MEDS: Mag Hydrox/Al Hydrox/Simeth 30 ML UDC PO (22:26)
[2020-05-10] MEDS: traZODone 100 MG Tablet 150 MG PO (22:27)
[2020-05-10] MEDS: QUEtiapine 100 MG Tablet 200 MG PO (22:28)
[2020-05-11] VITALS (7 sets, daily range): BP systolic 118–144; BP diastolic 75–93; PULSE 68–107; RESP 16–18; TEMP 36.3–36.8; O2SAT 97–100
[2020-05-11] MEDS: Phenobarbital 32.4 MG Tablet 64.8 MG PO ×2 (03:08→09:46)
[2020-05-11] MEDS: Folic Acid 1 MG Tablet PO (08:11)
[2020-05-11] MEDS: Multivitamins,Ther W-Minerals Tablet 1 TABLET PO (08:11)
[2020-05-11] MEDS: Thiamine Hydrochloride 100 MG Tablet PO (08:11)
[2020-05-11] MEDS: Nicotine Polacrilex 2 MG GUM PO (08:12)
[2020-05-11] MEDS: busPIRone 15 MG TABLET PO (09:47)
[2020-05-11] MEDS: Benztropine 2 MG Tablet 0.5 MG PO (09:47)
[2020-05-11] MEDS: Pantoprazole Sodium 40 MG Tablet PO (09:47)
[2020-05-11] MEDS: Docusate Sodium 100 MG Capsule PO (09:47)
[2020-05-11] MEDS: Haloperidol 5 MG Tablet 10 MG PO (09:47)
[2020-05-11] MEDS: Citalopram 40 MG TABLET PO (09:47)
[2020-05-11] MEDS: amLODIPine 10 MG Tablet PO (09:48)
--- NOTE | 2020-05-11 10:29 | DCINST_ITS ---
- Discharge Diagnoses Current Active Problems: Current Active and Chronic Problems (Last Updated 04/17/18 @ 01:[address] Ryne Hernandez MD) Alcohol dependence with withdrawal (Acute) Schizoaffective disorder (Chronic) PTSD (post-traumatic stress disorder) (Chronic) You will use the following diet at home:: Cardiac Your food should be the consistency of: Regular Your liquids should be the consistency of: Regular/Thin Discharge Activity: Return to Normal Activity Call your doctor if you observe: Fever of 101 or Higher, Shortness of breath, Dizziness, Fainting spells, Swelling in the ankles, Chest pain, Increased palpitations (irregular heartbeat) Allergies/Adverse Reactions: Allergies aripiprazole [From Abilify] Allergy (Verified 05/08/20 13:16) Rash risperidone [From Risperdal] Allergy (Verified 05/08/20 13:16) Unknown sulfamethoxazole [From Septra] Allergy (Verified 05/08/20 13:16) Rash trimethoprim [From Septra] Allergy (Verified 05/08/20 13:16) Rash gabapentin [From Neurontin] Adverse Reaction (Verified 05/08/20 13:16) Upset Stomach prednisone Adverse Reaction (Verified 05/08/20 13:16) Other SKIN HURTS Medications to take at Discharge Albuterol IH (ProAir) [Proair Hfa] 2 puff INHALATION Q4H PRN PRN 10/24/15 Benztropine [Cogentin] 0.5 mg PO BID 10/24/15 Citalopram [Celexa] 40 mg PO DAILY 10/24/15 Haloperidol 10 mg PO BID 10/24/15 busPIRone [Buspar] 15 mg PO BID 03/19/18 traZODone [Desyrel] 150 mg PO QHS 03/19/18 Docusate Sodium [Colace] 100 mg PO BID 04/17/18 Albuterol Inhaler [Ventolin Hfa] 1 - 2 puff INHALATION Q4H PRN PRN 05/08/20 Pantoprazole Sodium [Protonix] 40 mg PO DAILY 05/08/20 Quetiapine Fumarate [Seroquel] 200 mg PO QHS 05/08/20 Amlodipine [Norvasc] 10 mg PO DAILY #0 05/11/20 Primary Care Physician: Janna Best MD [Primary Care Provider] - Please follow up with your Primary Care Physician in: 3-5 days Test Results: Test results from this visit will be discussed in further detail at your follow- up appointment, if applicable. Please Follow Up With: Counselor When: SANDRO
--- NOTE | 2020-05-11 13:16 | PCM.DC.SUM ---
Discharge Date and Diagnosis - Problem List Patient Problems: Active and Suspected Problems (Last Updated 04/17/18 @ 01:[address] Ryne Hernandez MD) Alcohol dependence with withdrawal (Acute) Date of Admission: 05/08/20 Date of Discharge: 05/11/20 - Primary Discharge Diagnosis Acute Problems: Active Problems (Last Updated 04/17/18 @ 01:[address] Ryne Hernandez MD) Alcohol dependence with withdrawal (Acute) - Secondary Discharge Diagnosis Chronic Problems: Chronic Problems (Last Updated 04/17/18 @ 01:[address] Ryne Hernandez MD) Schizoaffective disorder (Chronic) PTSD (post-traumatic stress disorder) (Chronic) Hospital Course and Treatment Operations: None Procedures: None Summary of Care Provided: Per HPI: The patient is a 49 year old F who presents the emergency room for alcohol withdrawal. Patient states she drinks 12 beers per day, last drink 11 AM this morning. She states she drank a sixpack of [place] [employer] earlier today. She currently complains of anxiety, tremors. Patient reports a history of seizures due to alcohol withdrawal. She denies recent seizure activity. Patient has been through detox programs in the past which have been unsuccessful. Patient states her drinking has been worse over the past 6 months to 1 year due to worsening back pain. She also reports recent of her aunt which she has been drinking more to cope with. She denies other drug use. She has a history of she has a history of suicidal ideation/suicide attempt. Denies current suicidal thoughts or ideations. She has a past medical history of hypertension, depression, anxiety, schizoaffective disorder, PTSD, alcohol dependence, tobacco dependence, chronic back pain. Hospital Course: 1. Acute alcohol withdrawal with chronic alcohol [id number] female presents to the emergency room with alcohol withdrawal she drinks about 12. Her last drink was at 11 AM on the day of admission. She has had seizures in the past but she has done well today with the phenobarb. She wants to go home today. I discussed the risk and benefits of discharge and she expressed understanding. She has an outpatient counselor already for rehab but she is willing to reach out to 180 if she needs the resources as well. 2. Uncontrolled hypertension-she is on 5 mg of Norvasc at home and this was increased to 10 mg. Her blood pressures been much better controlled with the phenobarb and the increase Norvasc. Initially on admission her systolic blood pressures were in the 200s, and she is now down to the 140s. 3. Tobacco dependence, anxiety, depression, schizoaffective disorder, PTSD, chronic back pain, GERD are all chronic medical conditions which complicate her care. Her home medications were continued where appropriate Patient Problems: Active and Suspected Problems (Last Updated 04/17/18 @ 01:[address] Ryne Hernandez MD) Alcohol dependence with withdrawal (Acute) - Physical Exam Vitals/I&O's: Vital Signs Temp Pulse Resp BP Pulse Ox 98.3 F 92 18 139/88 H 97 05/11/20 12:24 05/11/20 12:24 05/11/20 12:24 05/11/20 12:24 05/11/20 12:24 Oxygen Delivery Method Room Air Weight: 173 lb 15.115 oz Body Mass Index (BMI) 28.9 Intake and Output for Last 24 Hours 05/09/20 05/10/20 05/11/20 23:59 23:59 23:59 Intake Total 800 / 800 1900 / 1900 Balance 800 / 800 1900 / 1900 General: Alert, Oriented x3, Cooperative, No apparent distress HEENT: Atraumatic, PERRLA, EOMI, Normocephalic Oral: Moist Mucosa Neck: Supple, No JVD Lungs: Clear to auscultation, Normal air movement, No rhonchi, No wheeze, No rales Cardiovascular: Regular rate, Regular Rhythm, Normal S1, Normal S2, No murmurs Abdomen: Soft, Non Tender, Non-Distended, No Hepato-splenomegaly Extremities: No edema, Capillary Refill Less than 3 Seconds Skin: No rashes, No breakdown Neurological: Neuro grossly intact, Sensory exam intact to light touch and pain Psych/Mental Status: Normal Affect, Appropriate Discharge Activity: Return to Normal Activity Call your doctor if you observe: Fever of 101 or Higher, Shortness of breath, Dizziness, Fainting spells, Swelling in the ankles, Chest pain, Increased palpitations (irregular heartbeat) Home Medications: Medications to take at Discharge Albuterol IH (ProAir) [Proair Hfa] 2 puff INHALATION Q4H PRN PRN 10/24/15 Benztropine [Cogentin] 0.5 mg PO BID 10/24/15 Citalopram [Celexa] 40 mg PO DAILY 10/24/15 Haloperidol 10 mg PO BID 10/24/15 busPIRone [Buspar] 15 mg PO BID 03/19/18 traZODone [Desyrel] 150 mg PO QHS 03/19/18 Docusate Sodium [Colace] 100 mg PO BID 04/17/18 Albuterol Inhaler [Ventolin Hfa] 1 - 2 puff INHALATION Q4H PRN PRN 05/08/20 Pantoprazole Sodium [Protonix] 40 mg PO DAILY 05/08/20 Quetiapine Fumarate [Seroquel] 200 mg PO QHS 05/08/20 Amlodipine [Norvasc] 10 mg PO DAILY #0 05/11/20 Primary Care Physician: Janna Best MD [Primary Care Provider] - Please follow up with your Primary Care Physician in: 3-5 days Please Follow Up With: Counselor When: SANDRO Disposition: Home Minutes spent on discharge:: 35 Patient Condition:: Stable Medical Necessity - Tobacco Use Smoking Status: Current every day smoker Tobacco Use: Cigarettes Meaningful Use Info Meaningful Use Diagnoses (Choose all that apply): None applicable Inpatient E&M: [id number] [facility]
== END 2020-05-11 12:25 | disposition home or self-care (01) | DRG 897 ==
LOC: ED 14:34 → MS3 17:31
PROVIDERS: Family Medicine; Admitting Provider Nurse Practitioner Family; Emergency Provider Student in an Organized Health Care Education/Training Program; PCP Internal Medicine; Visit Provider Family Medicine
DX: F10.239 Alcohol dependence with withdrawal, unspecified (principal); E87.1 Hypo-osmolality and hyponatremia; F43.12 Post-traumatic stress disorder, chronic; F25.9 Schizoaffective disorder, unspecified; F17.210 Nicotine dependence, cigarettes, uncomplicated; Y90.3 Blood alcohol level of 60-79 mg/100 ml; I10 Essential (primary) hypertension; G89.29 Other chronic pain; F41.8 Other specified anxiety disorders; K21.9 Gastro-esophageal reflux disease without esophagitis; Z79.899 Other long term (current) drug therapy; M54.9 Dorsalgia, unspecified
CPT/HCPCS: 80053; 80307; 80320; 83735; 84100; 85025; 85610; 97802; 99283; 99406; J7040; A4216; G0480

== ENCOUNTER 2020-06-13 14:40 | Emergency (ER) | payer MEDICARE, SELFPAY ==
[2020-05-08 18:09] VITALS: BMI 28.9
[2020-06-13 14:41] VITALS: BP 142/92; PULSE 89; RESP 16; TEMP 36.2; O2SAT 96; BMI 28.3
--- NOTE | 2020-06-13 14:54 | ED.DCSUM_ITS ---
History of Present Illness Chief Complaint: Lower Extremity Injury Detail of Chief Complaint: Fall with right knee injury Informant: Patient Onset: Today Current Severity: Mild Maximum Severity: Moderate Narrative: Patient presents after trip and fall. She states she tripped over a blanket that was laying on the floor landing on her flexed right knee. She has pain to the anterior right knee. No history of surgery or injections to this knee. She denies any other injury. - Past Medical History (1) PTSD (post-traumatic stress disorder) Status: Chronic (2) Schizoaffective disorder Status: Chronic Past Medical History - Allergies and Home Meds Allergies/Adverse Reactions: Allergies aripiprazole [From Abilify] Allergy (Verified 06/13/20 14:43) Rash risperidone [From Risperdal] Allergy (Verified 06/13/20 14:43) Unknown sulfamethoxazole [From Septra] Allergy (Verified 06/13/20 14:43) Rash trimethoprim [From Septra] Allergy (Verified 06/13/20 14:43) Rash gabapentin [From Neurontin] Adverse Reaction (Verified 06/13/20 14:43) Upset Stomach prednisone Adverse Reaction (Verified 06/13/20 14:43) Other SKIN HURTS Primary Care Physician: Janna Best MD [Primary Care Provider] - Prior records reviewed: Yes Surgical History: - - Spine surgery x2. Smoking Status: Current every day smoker - Family History Maternal Family History: Family History (Last Reviewed 05/08/20 @ 16:08 by Angelique Arreola NP, REMITTANCE CLERK-C) Father Alcoholism Aunt Depression Aunt No problems noted. Family History: Reports: - - Denies known maternal medical history including cardiac history. Paternal Family History: Family History (Last Reviewed 05/08/20 @ 16:08 by Angelique Arreola NP, REMITTANCE CLERK-C) Father Alcoholism Aunt Depression Aunt No problems noted. Family History: Reports: - - Alcoholism Review of Systems General: Denies: Chills, Fever Eyes: Denies: Visual changes - bilaterally ENT: Denies: Bilateral ear pain Cardiovascular: Denies: Chest pain Respiratory: Denies: Dyspnea, Cough Gastrointestinal: Denies: Abdominal pain Musculoskeletal: Reports: Swelling, Extremity Pain Skin: Denies: Rash Neurological: Denies: Headache Hematologic: Denies: Easy bruising, Easy bleeding Allergy: Denies: Uticaria Physical Exam Vital Signs/Narrative: Vital Signs Temp Pulse Resp BP Pulse Ox 06/13/20 14:41 97.2 F L 89 16 142/92 H 96 Inital Vital Signs reviewed: Yes General: Well nourished, Well developed Head: Normocephalic ENT: Moist mucous membranes Neck: Supple Cardiovascular: Regular rate, Regular rhythm Respiratory: No distress, CTA bilaterally Abdomen: Soft, Nontender, Normal bowel sounds Extremities: - - Tenderness over the anterior right knee just inferior to the patella. Mild edema. No abrasions or ecchymosis. Full range of motion without difficulty. Strong distal pulses. Neurological: Alert, Oriented x3 Psychological: Normal affect Diagnostic/Tx/Re-eval Impressions Knee X-Ray 06/13/20 14:54 IMPRESSION: Unremarkable x-ray examination of the right knee. Electronically Signed: Jimmy Wells MD at 15:30 EST Tel , Service support , 06/13/20 14:54 Knee 4 or More Views [RAD] Stat - Medical Decision Making X-ray is unremarkable. Nursing staff states that when they went to check on the patient she had eloped from the emergency department. Test results were not discussed with her. ED Disposition - Plan for ED Patient: Disposition: Home or Assisted Living Diagnosis: Contusion of right knee Referrals: Janna Best MD [Primary Care Provider] -
--- NOTE | 2020-06-13 14:54 | RAD_ITS ---
STUDY: X-RAY - RIGHT KNEE REASON FOR EXAM: Medial knee pain status post fall today, unable to bear weight. TECHNIQUE: 4 view(s) of the knee. COMPARISON: None. FINDINGS: Normal visualized distal femur. Normal visualized proximal tibia and fibula. Normal proximal tibiofibular articulation. Normal medial femorotibial compartment. Normal lateral femorotibial compartment. Normal patellofemoral articulation. The soft tissue structures are unremarkable. RAD/Knee 4 or More Views IMPRESSION: Unremarkable x-ray examination of the right knee. Electronically Signed: Jimmy Wells MD at 15:30 EST Tel , Service support ,
== END 2020-06-13 17:25 | disposition home or self-care (01) ==
PROVIDERS: Emergency Provider Emergency Medicine; PCP Internal Medicine
DX: S80.01XA Contusion of right knee, initial encounter (principal); F17.200 Nicotine dependence, unspecified, uncomplicated; W01.0XXA Fall on same level from slipping, tripping and stumbling without subsequent striking against object, initial encounter
CPT/HCPCS: 73564; 99281; 99282

== ENCOUNTER 2020-06-21 16:20 | Inpatient (IN) | payer MEDICARE, SELFPAY ==
[2020-06-21] VITALS (7 sets, daily range): BP systolic 128–164; BP diastolic 82–94; PULSE 75–89; RESP 12–21; TEMP 36.4–37; O2SAT 99–100; BMI 29.1; BMI 26.6; BMI 26.7
--- NOTE | 2020-06-21 17:05 | ED.VIS.GEN ---
History of Present Illness Chief Complaint: Mental Health Narrative: Patient presents with thoughts of hurting herself. She called the counseling center after having 8 beers and told him that she wants to cut. She does not want to kill herself, she has no suicidal ideations, she uses cutting as a measure of release and she was try and avoid cutting. At no point did she ever want to kill herself. She is drinking quite a bit however and would like detox. She denies any somatic complaints. Past Medical History - Allergies and Home Meds Allergies/Adverse Reactions: Allergies aripiprazole [From Abilify] Allergy (Verified 06/21/20 16:24) Rash risperidone [From Risperdal] Allergy (Verified 06/21/20 16:24) Unknown sulfamethoxazole [From Septra] Allergy (Verified 06/21/20 16:24) Rash trimethoprim [From Septra] Allergy (Verified 06/21/20 16:24) Rash gabapentin [From Neurontin] Adverse Reaction (Verified 06/21/20 16:24) Upset Stomach prednisone Adverse Reaction (Verified 06/21/20 16:24) Other SKIN HURTS Primary Care Physician: Janna Best MD [Primary Care Provider] - Past Medical History: - - Schizoaffective disorder, alcoholism Surgical History: - - Spine surgery x2. Smoking Status: Current every day smoker - Family History Maternal Family History: Family History (Last Reviewed 05/08/20 @ 16:08 by Angelique Arreola NP, TELETYPEWRITER INSTALLER-C) Father Alcoholism Aunt Depression Aunt No problems noted. Family History: Reports: - - Denies known maternal medical history including cardiac history. Paternal Family History: Family History (Last Reviewed 05/08/20 @ 16:08 by Angelique Arreola NP, TELETYPEWRITER INSTALLER-C) Father Alcoholism Aunt Depression Aunt No problems noted. Family History: Reports: - - Alcoholism Review of Systems All systems negative except as indicated General: Denies: Fever ENT: Denies: Bilateral ear pain Cardiovascular: Denies: Chest pain, Palpitations Respiratory: Denies: Dyspnea, Cough, Sputum Gastrointestinal: Denies: Abdominal pain, Nausea, Vomiting Genitourinary: Denies: Dysuria Musculoskeletal: Denies: Myalgias Skin: Denies: Rash Neurological: Denies: Headache, Weakness Psych: Reports: Depression, Anxiety. Denies: Suicidal thoughts, Suicidal ideations Hematologic: Denies: Easy bruising, Easy bleeding, Lymphadenopathy Allergy: Denies: Uticaria Physical Exam Vital Signs/Narrative: Vital Signs Temp Pulse Resp BP Pulse Ox 06/21/20 16:21 97.6 F L 85 14 157/94 H 99 General: - - Patient is lucid and coherent she is speaking in clear sentences without obvious evidence of intoxication. I do smell fermentation on her breath. Eyes: Perrl ENT: Moist mucous membranes Neck: Supple Cardiovascular: Regular rate, Regular rhythm Respiratory: No distress, CTA bilaterally Abdomen: Soft, Nontender Back: Nontender, Normal Inspection Extremities: Nontender Skin: Normal color, No rash Neurological: Normal Strength, Normal Sensation Psychological: Normal affect ED Disposition - Plan for ED Patient: Referrals: Janna Best MD [Primary Care Provider] -
[2020-06-21 17:22] LABS: Absolute Lymphocyte Count 3.38 X10^3/uL (0.83-4.51); Absolute Neutrophil Count 1.8 X10^3/uL (2.0-7.7); Basophil# 0.03 X10^3/uL; Basophil% 0.5 % (0-1); Eosinophil# 0.02 X10^3/uL; Eosinophils% 0.4 % (0-5); Hematocrit 37.3 % (37-47); Hemoglobin 12.3 g/dL (12.0-15.0); Lymphocyte # 3.38 X10^3/ul (4.0); Lymphocyte % 61.1 % (19-41); Mean Corpuscular Hgb 31.5 pg (27.0-32.0); Mean Corpuscular Volume 95.4 fL (81-99); Mean Platelet Vol. 8.9 fl (6.2-12.0); Monocyte# 0.23 X10^3/uL; Monocyte% 4.2 % (0-10); NRBC Flagged by Analyzer 0 % (0-5); Neutrophil # 1.77 X10^3/uL (2.7-7.7); Platelet Count 181 K/mm3 (150-450); RBC Distribution Width CV 13.5 % (11.6-14.6); Red Blood Count 3.91 M/mm3 (4.2-5.4); White Blood Count 5.5 K/mm3 (4.4-11.0)
[2020-06-21 17:36] LABS: ALB/GLOB Ratio 0.9 RATIO (0.9-2.4); AST(SGOT) 18 U/L (15-37); Alanine Aminotransfer ALT/SGPT 18 U/L (13-56); Albumin, Serum 3.7 g/dL (3.2-5.0); Alkaline Phosphatase 120 U/L (45-117); Anion Gap 9 (5-15); BUN 5 mg/dL (7-18); BUN/Creat Ratio 9.4 RATIO (10-20); Calcium,Total 8.7 mg/dL (8.5-10.1); Chloride 104 mmol/L (98-107); Creatinine, Serum 0.53 mg/dL (0.55-1.02); EST Glomerular Filtration Rate 128 mL/min (>60); Est Glom Filt Rate - Afr Amer 155 mL/min (>60); Glucose 80 mg/dL (74-106); Lipase 86 U/L (73-393); Potassium 3.8 mmol/L (3.5-5.1); Protein, Total 7.7 g/dL (6.4-8.2); Sodium Level 135 mmol/L (136-145)
--- NOTE | 2020-06-21 17:45 | CM.ED ---
SOCIAL WORK Informant: Nursing Reason for Consult: Mental Health/Substance Abuse Patient presents [place] Slipped by police. Patient with history of alcohol abuse. Met with patient in room. Introduced role and reason for referral. Patient denies suicidal ideation, plan or intent. Patient states mentioned to her counselor, Latos[facility] with [facility]- thoughts of wanting to harm myself, but I did not mean I wanted to kill myself. It's just this struggle with alcoholism. Patient reports completed detox here at [facility] about 1 month ago and completed program. Patient states, I just didn't follow up with after care. I think that is where I messed up. Education and encouragement provided. Patient reports history of cutting to ease the pain. Patient states has not cut herself in a few years. Discussed with staff. Plan for admission to [facility]. This worker to contact [facility] Treatment Navigator upon admission. Plan: Admit to [facility] Gabriel Rodriguez, SCORER HELPER, NAIL ASSEMBLY MACHINE OPERATOR
[2020-06-21 18:46] LABS: Amphetamine Urine VISTA NEGATIVE (<1000 ng/mL); Barbiturate Urine VISTA NEGATIVE (< 200 ng/mL); Benzodiazepine Urine VISTA NEGATIVE (< 200 ng/mL); Cocaine Urine VISTA NEGATIVE (< 300 ng/mL); Ecstacy Urine VISTA NEGATIVE (< 500 ng/mL); Methadone Urine VISTA NEGATIVE (< 300 ng/mL); PCP Urine VISTA NEGATIVE (< 25 ng/mL); THC Urine VISTA NEGATIVE (< 50 ng/mL); Vista UDS pH Range 6
--- NOTE | 2020-06-21 19:07 | HP.PCM_ITS ---
Problem List (1) Alcohol dependence with withdrawal Status: Acute Qualifiers: Complication of substance-induced condition: with unspecified complication Qualified Code(s): F10.239 - Alcohol dependence with withdrawal, unspecified (2) Schizoaffective disorder Status: Chronic Qualifiers: Schizoaffective disorder type: unspecified Qualified Code(s): F25.9 - Schizoaffective disorder, unspecified (3) PTSD (post-traumatic stress disorder) Status: Chronic (4) Hyponatremia Status: Chronic History of Present Illness Date of Admission: 06/21/20 Chief Complaint: Request for medical stabilisation for acute alcohol withdrawal The patient is a 49 year old F with past medical history of chronic alcohol use disorder was recently discharged on 05/11/20 after admission for acute alcohol withdrawal. States that she relapsed and went back to drinking soon after. She feels anxious. She reportedly is having relationship problems with her boyfriend. She is reported to have called the counseling center stating she w anted to cut herself and hurting herself. She however denies any suicidal ideation. Last had 8 cans of beer hours before admission. She requests for medical decision for acute alcohol withdrawal. Vitals in the ED showed temperature of 97.6F, heart rate 85, blood pressure 157/94, respiratory 14, SPO2 was 99% on room air. Her WBC count is 5.5, hemoglobin 12.2, platelet count 181, sodium 135, potassium 3.8, chloride 104, bicarbonate 22, BUN 5, creatinine 0.53, LFTs unremarkable. Urine tox negative. Alcohol level 204 Past Medical History Past Medical History (Chronic Problems): Chronic Problems (Last Updated 04/17/18 @ 01:[address] yRne Hernandez MD) Schizoaffective disorder (Chronic) PTSD (post-traumatic stress disorder) (Chronic) Hyponatremia (Chronic) Medical History: Medical History (Last Updated 04/17/18 @ 01:[address] Ryne Hernandez MD) PTSD (post-traumatic stress disorder) F43.10 Schizoaffective disorder F25.9 Allergies aripiprazole [From Abilify] Allergy (Verified 06/21/20 16:24) Rash risperidone [From Risperdal] Allergy (Verified 06/21/20 16:24) Unknown sulfamethoxazole [From Septra] Allergy (Verified 06/21/20 16:24) Rash trimethoprim [From Septra] Allergy (Verified 06/21/20 16:24) Rash gabapentin [From Neurontin] Adverse Reaction (Verified 06/21/20 16:24) Upset Stomach prednisone Adverse Reaction (Verified 06/21/20 16:24) Other SKIN HURTS Home Medications: Ambulatory Orders Medication Instructions Recorded Albuterol IH (ProAir) [Proair Hfa] 2 puff INHALATION Q4H PRN PRN 10/24/15 Benztropine [Cogentin] 0.5 mg PO BID 10/24/15 Citalopram [Celexa] 40 mg PO DAILY 10/24/15 Haloperidol 10 mg PO BID 10/24/15 busPIRone [Buspar] 15 mg PO BID 03/19/18 traZODone [Desyrel] 150 mg PO QHS 03/19/18 Docusate Sodium [Colace] 100 mg PO BID 04/17/18 Albuterol Inhaler [Ventolin Hfa] 1 - 2 puff INHALATION Q4H PRN PRN 05/08/20 Pantoprazole Sodium [Protonix] 40 mg PO DAILY 05/08/20 Quetiapine Fumarate [Seroquel] 200 mg PO QHS 05/08/20 Amlodipine [Norvasc] 10 mg PO DAILY #0 05/11/20 Surgical History: - - Spine surgery x2. Psychiatric History: Anxiety, Depression, Post traumatic stress, Schizophrenia INSURANCE ACCOUNT ASSISTANT History: No pertinent INSURANCE ACCOUNT ASSISTANT history Lives: Alone Smoking Status: Current every day smoker Tobacco Use: Cigarettes Alcohol: Heavy Drugs: None - *Family History Maternal Family History: Family History (Last Reviewed 05/08/20 @ 16:08 by Angelique Arreola NP, SUPERVISORY CBP OFFICER-C) Father Alcoholism Aunt Depression Aunt No problems noted. History Items: - - Denies known maternal medical history including cardiac history. Paternal Family History: Family History (Last Reviewed 05/08/20 @ 16:08 by Angelique Arreola NP, SUPERVISORY CBP OFFICER-C) Father Alcoholism Aunt Depression Aunt No problems noted. History Items: - - Alcoholism Review of Systems Constitutional: Denies: Anorexia, Chills, Fever, Malaise, Weakness, Weight Change Eyes: Denies: Blurred vision, Cataracts, Conjunctivae Inflammation HEENT: Denies: Difficulty Hearing, Difficulty Swallowing, Head Aches, Hearing Changes, Sinus Congestion, Sinus Drainage Cardiovascular: Denies: Chest Pain, Light Headedness, Orthopnea, Palpitations, Paroxysmal Noc. Dyspnea Respiratory: Denies: Cough, Shortness of Breath, Shortness of breath at rest, Shortness of breath upon exertion, Sputum production Gastrointestinal: Denies: Abdominal Pain, Constipation, Hematemesis, Hematochezia, Nausea, Vomiting Genitourinary: Denies: Dysuria, Frequency, Incontinence Musculoskeletal: Denies: Joint Pain, Joint stiffness, Joint Tenderness Skin: Denies: Rash, Wounds Neurological: Denies: Numbness, Tingling, Focal weakness Psychiatric: Reports: Depression, Suicidal Ideations. Denies: Anxiety, Homicidal Ideations Hematologic/ Lymphatic: Denies: Easy Bruising, Easy Bleeding VTE Information - Inpt Only VTE Present on Admission: No VTE Pharm Prophylaxis ordered?: Yes Patient Problems: Active and Suspected Problems (Last Updated 04/17/18 @ 01:[address] Ryne Hernandez MD) Alcohol dependence with withdrawal (Acute) - Physical Exam Vitals/I&O's: Vital Signs Temp Pulse Resp BP Pulse Ox 97.6 F L 89 12 128/82 H 100 06/21/20 16:21 06/21/20 18:36 06/21/20 18:36 06/21/20 18:36 06/21/20 18:36 Oxygen Delivery Method Room Air Weight: 79.379 kg Body Mass Index (BMI) 29.1 General: Alert, Oriented x3, Cooperative, No apparent distress HEENT: Atraumatic, PERRLA, EOMI, Normocephalic Oral: Moist Mucosa Neck: Supple Lungs: Clear to auscultation, Normal air movement Cardiovascular: Regular rate, Regular Rhythm, Normal S1, Normal S2, No murmurs Abdomen: Bowel Sounds Present, Soft, Non Tender, Non-Distended, No Hepato- splenomegaly Extremities: No edema Skin: No rashes Musculoskeletal: No Tenderness to Palpation of Joints or Extremities Lymphatic: No Cervical, Supraclavicular, or Inguinal Adenopathy Neurological: Cranial nerves II-XII grossly intact, Neuro grossly intact Psych/Mental Status: Normal Affect, Appropriate Laboratory Results 06/21/20 16:40: WBC 5.5, RBC 3.91 L, Hgb 12.3, Hct 37.3, MCV 95.4, MCH 31.5, MCHC 33.0, RDW Std Deviation 48.0 H, RDW Coeff of Cecille 13.5, Plt Count 181, MPV 8.9, Immature Gran % (Auto) 1.800 H, Neut % (Auto) 32.0 L, Lymph % (Auto) 61.1 H , [place] % (Auto) 4.2, Eos % (Auto) 0.4, Baso % (Auto) 0.5, Absolute Neuts (auto) 1.8 L, Absolute Lymphs (auto) 3.38, Nucleated RBC % 0 06/21/20 16:40: Sodium 135 L, Potassium 3.8, Chloride 104, Carbon Dioxide 22.0, Anion Gap 9, BUN 5 L, Creatinine 0.53 L, Estim Creat Clear Calc 113.00, Est GFR (MDRD) Af Amer 155, Est GFR (MDRD) Non-Af 128, BUN/Creatinine Ratio 9.4 L, Glucose 80, Calcium 8.7, Total Bilirubin 0.40, AST 18, ALT 18, Alkaline Phosphatase 120 H, Total Protein 7.7, Albumin 3.7, Globulin 4.0, Al bumin/Globulin Ratio 0.9, Lipase 86 06/21/20 16:40: Ethyl Alcohol 204.0 06/21/20 17:30: Urine Opiates Screen NEGATIVE, Urine Methadone Screen NEGATIVE, Ur Barbiturates Screen NEGATIVE, Ur Phencyclidine Scrn NEGATIVE, Ur Amphetamines Screen NEGATIVE, U Methamphetamin-MDMA NEGATIVE, U Benzodiazepines Scrn NEGATIVE, Urine Cocaine Screen NEGATIVE, U Cannabinoids Screen NEGATIVE, Ur Drug Screen Comment Assessment/Plan All Active Problems (Last Updated 04/17/18 @ 01:[address] Ryne Hernandez MD) Alcohol dependence with withdrawal (Acute) 1. Anticipated acute alcohol withdrawal for chronic alcohol use disorder Patient is on acute alcohol withdrawal protocol We will continue to monitor 2. Intent on harming self, possible suicidal ideation although patient denies Social work consulted from ED 3. Hypertension, controlled, on continue with home regimen -amlodipine 4. Schizoaffective disorder, continue on BuSpar, Celexa, benztropine, Haldol, Seroquel, trazodone Will get an EKG to monitor for QTc 5. DVT Ppx- low risk; early ambulation required Inpatient E&M: 32279 Init Hosp L2
[2020-06-21] MEDS: LORazepam 0.5 MG Tablet PO (19:15)
--- NOTE | 2020-06-21 19:39 | CM.ED ---
SOCIAL WORK Call to [facility] Treatment Navigator, Angela to update on patient's admission. Angela reports will update Rox and anticipate Rox to be in tomorrow to complete assessments. Plan: Admit to ALLA Rodriguez, GENERAL OFFICE CLERK, PROCUREMENT COORDINATOR
--- NOTE | 2020-06-21 20:41 | EKG12_ITS ---
Test Reason : MONITOR QTC PROLONGA Blood Pressure : / mmHG Vent. Rate : 077 BPM Atrial Rate : 077 BPM P-R Int : 136 ms QRS Dur : 084 ms QT Int : 408 ms P-R-T Axes : 034 025 060 degrees QTc Int : 461 ms Normal sinus rhythm Normal ECG Confirmed by RO PRICE, AMANUEL ([id number]), business editor SANJEEV GÓMEZ ([id number]) on 06/23/2020 11:19:07 AM Referred By: ISAI Confirmed By:AMANUEL STARR MD
[2020-06-21] MEDS: busPIRone 15 MG TABLET PO (21:40)
[2020-06-21] MEDS: Benztropine 2 MG Tablet 0.5 MG PO (21:40)
[2020-06-21] MEDS: Phenobarbital 32.4 MG Tablet 64.8 MG PO (21:40)
[2020-06-21] MEDS: traZODone 100 MG Tablet 150 MG PO (21:42)
[2020-06-21] MEDS: Haloperidol 5 MG Tablet 10 MG PO (21:43)
[2020-06-21] MEDS: QUEtiapine 100 MG Tablet 200 MG PO (21:44)
[2020-06-22] VITALS (8 sets, daily range): BP systolic 124–161; BP diastolic 68–102; PULSE 81–100; RESP 18–20; TEMP 36.5–37.1; O2SAT 96–99
[2020-06-22] MEDS: Phenobarbital 32.4 MG Tablet 64.8 MG PO ×6 (00:50→20:16)
[2020-06-22] MEDS: Acetaminophen 325 MG Tablet 650 MG PO ×2 (00:50→11:45)
[2020-06-22] MEDS: Ondansetron 8 MG Tablet PO (03:12)
--- NOTE | 2020-06-22 03:13 | NURSING ---
Pt c/o nausea. Has been tolerating diet without difficulty. Zofran given.
[2020-06-22 05:52] LABS: Absolute Lymphocyte Count 3.43 X10^3/uL (0.83-4.51); Absolute Neutrophil Count 1.1 X10^3/uL (2.0-7.7); Basophil# 0.02 X10^3/uL; Basophil% 0.4 % (0-1); Eosinophil# 0.03 X10^3/uL; Eosinophils% 0.6 % (0-5); Hematocrit 35.2 % (37-47); Hemoglobin 11.8 g/dL (12.0-15.0); Lymphocyte # 3.43 X10^3/ul (4.0); Lymphocyte % 70.1 % (19-41); Mean Corp Hgb Conc 33.5 g/dL (32-36); Mean Corpuscular Hgb 32.1 pg (27.0-32.0); Mean Corpuscular Volume 95.7 fL (81-99); Mean Platelet Vol. 8.8 fl (6.2-12.0); Monocyte# 0.31 X10^3/uL; Monocyte% 6.3 % (0-10); NRBC Flagged by Analyzer 0 % (0-5); Neutrophil # 1.06 X10^3/uL (2.7-7.7); Neutrophil % 21.8 % (47-70); Platelet Count 174 K/mm3 (150-450); RBC Distribution Width CV 13.6 % (11.6-14.6); Red Blood Count 3.68 M/mm3 (4.2-5.4); White Blood Count 4.9 K/mm3 (4.4-11.0)
[2020-06-22 06:40] LABS: AST(SGOT) 10 U/L (15-37); Alanine Aminotransfer ALT/SGPT 16 U/L (13-56); Albumin, Serum 3.5 g/dL (3.2-5.0); Alkaline Phosphatase 118 U/L (45-117); Anion Gap 4 (5-15); BUN 5 mg/dL (7-18); Calcium,Total 8.5 mg/dL (8.5-10.1); Chloride 102 mmol/L (98-107); Creatinine, Serum 0.63 mg/dL (0.55-1.02); EST Glomerular Filtration Rate 106 mL/min (>60); Est Glom Filt Rate - Afr Amer 129 mL/min (>60); Estimated Creatinine Clearance 95.06 ml/min; Globulin 3.6 g/dL (2.2-4.2); Glucose 85 mg/dL (74-106); Potassium 3.6 mmol/L (3.5-5.1); Protein, Total 7.1 g/dL (6.4-8.2); Sodium Level 134 mmol/L (136-145)
--- NOTE | 2020-06-22 06:57 | PCS.PANDOC ---
PANDEMIC DOCUMENTATION INITIATED: Date: Time:
[2020-06-22] MEDS: Folic Acid 1 MG Tablet PO (07:59)
[2020-06-22] MEDS: Thiamine Hydrochloride 100 MG Tablet PO (07:59)
[2020-06-22] MEDS: Pantoprazole Sodium 40 MG Tablet PO (07:59)
[2020-06-22] MEDS: hydrOXYzine PAM 25 MG Capsule 50 MG PO ×2 (08:00→13:36)
[2020-06-22] MEDS: Dicyclomine 10 MG Capsule 20 MG PO (08:00)
--- NOTE | 2020-06-22 08:49 | PN_ITS ---
Patient Problems: Active and Suspected Problems (Last Updated 04/17/18 @ 01:[address] Ryne Hernandez MD) Alcohol dependence with withdrawal (Acute) Reason for Visit: alcohol withdrawal Subjective: Lanes of tremulousness and headache. Patient denies any suicidal or homicidal ideation. Vitals/I&O's: Vital Signs Temp Pulse Resp BP Pulse Ox 36.7 C 89 18 149/90 H 98 06/22/20 07:48 06/22/20 07:48 06/22/20 07:48 06/22/20 07:48 06/22/20 07:48 Oxygen Delivery Method Room Air Weight: 72.7 kg Body Mass Index (BMI) 26.6 Intake and Output for Last 24 Hours 06/20/20 06/21/20 06/22/20 23:59 23:59 23:59 Intake Total 325 / 325 400 / 400 Output Total 300 / 300 Balance 25 / 25 400 / 400 General: Alert, No apparent distress HEENT: Atraumatic, Normocephalic Oral: Moist Mucosa, No Gingival or Mucosal Lesions/ Ulcerations Neck: No Nodes, Thyroid Normal Size and Texture Lungs: Clear to auscultation, Normal air movement, No rhonchi, No wheeze, No rales Cardiovascular: Regular rate, Regular Rhythm, Normal S1, Normal S2, No murmurs Abdomen: Bowel Sounds Present, Soft, Non Tender, Non-Distended, No Hepato- splenomegaly Extremities: No edema, No Calf Tenderness Laboratory Results 06/21/20 16:40: WBC 5.5, RBC 3.91 L, Hgb 12.3, Hct 37.3, MCV 95.4, MCH 31.5, MCHC 33.0, RDW Std Deviation 48.0 H, RDW Coeff of Cecille 13.5, Plt Count 181, MPV 8.9, Immature Gran % (Auto) 1.800 H, Neut % (Auto) 32.0 L, Lymph % (Auto) 61.1 H , [place] % (Auto) 4.2, Eos % (Auto) 0.4, Baso % (Auto) 0.5, Absolute Neuts (auto) 1.8 L, Absolute Lymphs (auto) 3.38, Nucleated RBC % 0 06/21/20 16:40: Sodium 135 L, Potassium 3.8, Chloride 104, Carbon Dioxide 22.0, Anion Gap 9, BUN 5 L, Creatinine 0.53 L, Estim Creat Clear Calc 113.00, Est GFR (MDRD) Af Amer 155, Est GFR (MDRD) Non-Af 128, BUN/Creatinine Ratio 9.4 L, G lucose 80, Calcium 8.7, Total Bilirubin 0.40, AST 18, ALT 18, Alkaline Phosphatase 120 H, Total Protein 7.7, Albumin 3.7, Globulin 4.0, Albumin/Globulin Ratio 0.9, Lipase 86 06/21/20 16:40: Ethyl Alcohol 204.0 06/21/20 17:30: Urine Opiates Screen NEGATIVE, Urine Methadone Screen NEGATIVE, Ur Barbiturates Screen NEGATIVE, Ur Phencyclidine Scrn NEGATIVE, Ur Amphetamines Screen NEGATIVE, U Methamphetamin-MDMA NEGATIVE, U Benzodiazepines Scrn NEGATIVE, Urine Cocaine Screen NEGATIVE, U Cannabinoids Screen NEGATIVE, Ur Drug Screen Comment 06/22/20 05:20: WBC 4.9, RBC 3.68 L, Hgb 11.8 L, Hct 35.2 L, MCV 95.7, MCH 32.1 H, MCHC 33.5, RDW Std Deviation 48.0 H, RDW Coeff of Cecille 13.6, Plt Count 174, MPV 8.8, Immature Gran % (Auto) 0.800, Neut % (Auto) 21.8 L, Lymph % (Auto) 70.1 H, [place] % (Auto) 6.3, Eos % (Auto) 0.6, Baso % (Auto) 0.4, Absolute Neuts (auto) 1.1 L, Absolute Lymphs (auto) 3.43, Nucleated RBC % 0 06/22/20 05:20: Sodium 134 L, Potassium 3.6, Chloride 102, Carbon Dioxide 28.0, Anion Gap 4 L, BUN 5 L, Creatinine 0.63, Estim Creat Clear Calc 95.06, Est GFR (MDRD) Af Amer 129, Est GFR (MDRD) Non-Af 106, BUN/Creatinine Ratio 8.0 L, Glucose 85, Calcium 8.5, Total Bilirubin 0.60, AST 10 L, ALT 16, Alkaline Phosphatase 118 H, Total Protein 7.1, Albumin 3.5, Globulin 3.6, Albumin/Globulin Ratio 1.0 Current Medications Acetaminophen (Acetaminophen 325 Mg Tablet) 650 mg PO Q6H PRN PRN PRN Reason: Pain Score 1-10/Temp > 100.7 F Last Admin: 06/22/20 00:50 Dose: 650 mg Documented by: Albuterol Sulfate (Albuterol 2.5 Mg/3 Ml Vial.Neb.) 2.5 mg INHALATION Q4H PRN PRN PRN Reason: SOB &/OR WHEEZING Amlodipine Besylate (Amlodipine 10 Mg Tablet) 10 mg PO DAILY [facility] Benztropine Mesylate (Benztropine 2 Mg Tablet) 0.5 mg PO BID [facility] Last Admin: 06/21/20 21:40 Dose: 0.5 mg Documented by: Buspirone HCl (Buspirone 15 Mg Tablet) 15 mg PO BID [facility] Last Admin: 06/21/20 21:40 Dose: 15 mg Documented by: Citalopram Hydrobromide (Citalopram 40 Mg Tablet) 40 mg PO DAILY [facility] Dicyclomine HCl (Dicyclomine 10 Mg Capsule) 20 mg PO Q6H PRN PRN PRN Reason: abdominal discomfort Last Admin: 06/22/20 08:00 Dose: 20 mg Documented by: Docusate Sodium (Docusate Sodium 100 Mg Capsule) 100 mg PO BID [facility] Last Admin: 06/21/20 21:42 Dose: Not Given Documented by: Folic Acid (Folic Acid 1 Mg Tablet) 1 mg PO DAILY@0800 [facility] Last Admin: 06/22/20 07:59 Dose: 1 mg Documented by: Gabapentin (Gabapentin 300 Mg Capsule) 300 mg PO Q8H PRN PRN PRN Reason: moderate to severe anxiety Haloperidol (Haloperidol 5 Mg Tablet) 10 mg PO BID [facility] Last Admin: 06/21/20 21:43 Dose: 10 mg Documented by: Hydroxyzine Pamoate (Hydroxyzine Sherrill 25 Mg Capsule) 50 mg PO Q4H PRN PRN PRN Reason: mild anxiety Last Admin: 06/22/20 08:00 Dose: 50 mg Documented by: Loperamide HCl (Loperamide 2 Mg Capsule) 2 mg PO Q4H PRN PRN PRN Reason: LOOSE STOOLS Nicotine (Nicotine 21 Mg Patch) 21 mg TD DAILY [facility] Last Admin: 06/22/20 05:05 Dose: 21 mg Documented by: Nicotine Polacrilex (Nicotine Polacrilex 2 Mg Gum) 2 mg PO Q2H PRN PRN PRN Reason: Nicotine Craving Ondansetron HCl (Ondansetron 4 Mg/2 Ml Vial) 4 mg IV Q8H PRN PRN PRN Reason: NAUSEA/VOMITING Ondansetron HCl (Ondansetron 8 Mg Tablet) 8 mg PO Q8H PRN PRN PRN Reason: NAUSEA Last Admin: 06/22/20 03:12 Dose: 8 mg Documented by: Pantoprazole Sodium (Pantoprazole Sodium 40 Mg Tablet) 40 mg PO DAILY [facility] Last Admin: 06/22/20 07:59 Dose: 40 mg Documented by: Phenobarbital (Phenobarbital 32.4 Mg Tablet) 97.2 mg PO Q4H [facility]; Taper Stop: 06/26/20 04:59 Last Admin: 06/22/20 05:05 Dose: 97.2 mg Documented by: Quetiapine Fumarate (Quetiapine 100 Mg Tablet) 200 mg PO QHS [facility] Last Admin: 06/21/20 21:44 Dose: 200 mg Documented by: Sodium Chloride (0.9% Saline Lock 10 Ml Syringe) 10 - 40 ml IV UD PRN PRN Reason: SALINE FLUSH Thiamine HCl (Thiamine Hydrochloride 100 Mg Tablet) [facility] Last Admin: 06/22/20 07:59 Dose: 100 mg Documented by: Trazodone HCl (Trazodone 100 Mg Tablet) 150 mg PO QHS [facility] Last Admin: 06/21/20 21:42 Dose: 150 mg Documented by: STROKE Vital Signs/Narrative: Vital Signs Temp Pulse Resp BP Pulse Ox 06/22/20 07:48 36.7 C 89 18 149/90 H 98 06/22/20 04:56 37.0 C 81 20 H 134/85 H 96 Medical Necessity - Tobacco Use Smoking Status: Current every day smoker Tobacco Use: Cigarettes Assessment/Plan All Active Problems (Last Updated 04/17/18 @ 01:[address] Ryne Hernandez MD) Alcohol dependence with withdrawal (Acute) 1. Acute alcohol withdrawal: * Continue phenobarbital taper, thiamine and folate. * Continue with other medications to help with other somatic complaints. * Patient will be monitored here for 2 more days barring any kind of issues with alcohol withdrawal, such as delirium tremens, plan will be for the patient to be discharged on the . Informed patient, given the pandemic, would not hold her here beyond that unless it were medically necessary. She expressed understanding. 2. History of self-harm * Patient with noted cutting perez on her arm. Patient denies any suicidal or homicidal ideation. Patient is not a threat to herself immediately. Patient will need further counseling upon discharge. Inpatient E&M: 51467 Subs Hosp L2
[2020-06-22] MEDS: Nicotine Polacrilex 2 MG GUM PO ×3 (09:32→16:29)
[2020-06-22] MEDS: Benztropine 2 MG Tablet 0.5 MG PO (09:40)
[2020-06-22] MEDS: Citalopram 40 MG TABLET PO (09:41)
[2020-06-22] MEDS: amLODIPine 10 MG Tablet PO (09:41)
[2020-06-22] MEDS: busPIRone 15 MG TABLET PO ×2 (09:42→20:22)
[2020-06-22] MEDS: Haloperidol 5 MG Tablet 10 MG PO ×2 (09:42→20:22)
--- NOTE | 2020-06-22 10:29 | ADDICTION ---
This typewriter repairer met with patient in her room. Patient appears appropriate for dual-diagnosis residential due to prior schizoeffective dx and today's presentation. Patient stated that she will think about it. This typewriter repairer left d/c plan for patient to review and complete. This typewriter repairer will follow-up with patient tomorrow to finalize d/c plan (06/23/2020). This typewriter repairer completed ASAM, MSE and AUDIT assessments and faxed documentation to [facility]. Originals placed in pt's file.
--- NOTE | 2020-06-22 13:10 | CHAPLAIN ---
Type of Pastoral Visit _x__ Initial Visit ___ Follow-up Visit ___ On-call Visit ___ General Patient Visit ___ Spiritual Assessment ___ Family Conference ___ Bereavement ___ Rapid Response ___ Code Blue ___ Other (describe below) Pastoral Care Referral From _x__ Patient ___ Family ___ Nurse ___ Physician ___ Strap Cutting Machine Operator ___ Aviation Electrical Technician ___ Other (describe below) Sacrament/Intervention _x__ Active listening ___ Anointing ___ Christianity ___ Bereavement ___ Communion _x__ [place] exploration ___ _x__ Life review _x__ Prayer ___ Reconciliation ___ Sacrament of Sick _x__ Supportive presence ___ Wedding ___ Other (describe below) Pastoral Comments patient shares concern about placement after the detox and who might accept her into their program/home
[2020-06-22] MEDS: Ondansetron 4 MG/2 ML Vial IV (13:36)
[2020-06-22] MEDS: 0.9% Saline Lock 10 ML Syringe IV (13:36)
[2020-06-22] MEDS: Gabapentin 300 MG Capsule PO (16:27)
[2020-06-22] MEDS: traZODone 100 MG Tablet 150 MG PO (20:21)
[2020-06-22] MEDS: QUEtiapine 100 MG Tablet 200 MG PO (20:22)
[2020-06-22] MEDS: Docusate Sodium 100 MG Capsule PO (20:22)
[2020-06-23] MEDS: Phenobarbital 32.4 MG Tablet 64.8 MG PO ×6 (00:09→20:19)
[2020-06-23 00:18] VITALS: BP 109/71; PULSE 85; RESP 16; TEMP 37.1; O2SAT 98
[2020-06-23 04:00] VITALS: BP 149/88; PULSE 81; RESP 16; TEMP 36.4; O2SAT 100
[2020-06-23 04:43] VITALS: PULSE 72; RESP 16
[2020-06-23] MEDS: Acetaminophen 325 MG Tablet 650 MG PO ×2 (05:07→13:52)
[2020-06-23] MEDS: Nicotine Polacrilex 2 MG GUM PO ×5 (05:08→18:51)
[2020-06-23 08:49] VITALS: BP 150/91; PULSE 88; RESP 18; TEMP 36.7; O2SAT 98
[2020-06-23] MEDS: Docusate Sodium 100 MG Capsule PO (09:04)
[2020-06-23] MEDS: Thiamine Hydrochloride 100 MG Tablet PO (09:04)
[2020-06-23] MEDS: Folic Acid 1 MG Tablet PO (09:04)
[2020-06-23] MEDS: Haloperidol 5 MG Tablet 10 MG PO ×2 (09:04→20:15)
[2020-06-23] MEDS: Benztropine 2 MG Tablet 0.5 MG PO ×2 (09:04→16:12)
[2020-06-23] MEDS: amLODIPine 10 MG Tablet PO (09:05)
[2020-06-23] MEDS: Pantoprazole Sodium 40 MG Tablet PO (09:05)
[2020-06-23] MEDS: busPIRone 15 MG TABLET PO ×2 (09:05→20:17)
[2020-06-23] MEDS: Citalopram 40 MG TABLET PO (09:05)
--- NOTE | 2020-06-23 09:19 | PCM.PN.HOSP ---
Patient Problems: Active and Suspected Problems (Last Updated 04/17/18 @ 01:[address] Ryne Hernandez MD) Alcohol dependence with withdrawal (Acute) Reason for Visit: alcohol with drawal Subjective: That she had a bad day yesterday. Patient stated that her blood pressure was marshall high required gabapentin. She does not feel that she would be ready for discharge on the but would feel more comfortable being discharged on the because she would be stronger by then. Vitals/I&O's: Vital Signs Temp Pulse Resp BP Pulse Ox 36.7 C 88 18 150/91 H 98 06/23/20 08:49 06/23/20 08:49 06/23/20 08:49 06/23/20 08:49 06/23/20 08:49 Oxygen Delivery Method Room Air Weight: 72.7 kg Body Mass Index (BMI) 26.6 Intake and Output for Last 24 Hours 06/21/20 06/22/20 06/23/20 23:59 23:59 23:59 Intake Total 325 / 325 1210 / 1210 400 / 400 Output Total 300 / 300 Balance 25 / 25 1210 / 1210 400 / 400 General: Alert, No apparent distress HEENT: Atraumatic, Normocephalic Psych/Mental Status: Appropriate, Flat Affect Current Medications Acetaminophen (Acetaminophen 325 Mg Tablet) 650 mg PO Q6H PRN PRN PRN Reason: Pain Score 1-10/Temp > 100.7 F Last Admin: 06/23/20 05:07 Dose: 650 mg Documented by: Albuterol Sulfate (Albuterol 2.5 Mg/3 Ml Vial.Neb.) 2.5 mg INHALATION Q4H PRN PRN PRN Reason: SOB &/OR WHEEZING Amlodipine Besylate (Amlodipine 10 Mg Tablet) 10 mg PO DAILY [facility] Last Admin: 06/23/20 09:05 Dose: 10 mg Documented by: Benztropine Mesylate (Benztropine 2 Mg Tablet) 0.5 mg PO 0800,1530 [facility] Last Admin: 06/23/20 09:04 Dose: 0.5 mg Documented by: Buspirone HCl (Buspirone 15 Mg Tablet) 15 mg PO BID [facility] Last Admin: 06/23/20 09:05 Dose: 15 mg Documented by: Citalopram Hydrobromide (Citalopram 40 Mg Tablet) 40 mg PO DAILY [facility] Last Admin: 06/23/20 09:05 Dose: 40 mg Documented by: Dicyclomine HCl (Dicyclomine 10 Mg Capsule) 20 mg PO Q6H PRN PRN PRN Reason: abdominal discomfort Last Admin: 06/22/20 08:00 Dose: 20 mg Documented by: Docusate Sodium (Docusate Sodium 100 Mg Capsule) 100 mg PO BID [facility] Last Admin: 06/23/20 09:04 Dose: 100 mg Documented by: Folic Acid (Folic Acid 1 Mg Tablet) 1 mg PO DAILY@0800 [facility] Last Admin: 06/23/20 09:04 Dose: 1 mg Documented by: Gabapentin (Gabapentin 300 Mg Capsule) 300 mg PO Q8H PRN PRN PRN Reason: moderate to severe anxiety Last Admin: 06/22/20 16:27 Dose: 300 mg Documented by: Haloperidol (Haloperidol 5 Mg Tablet) 10 mg PO BID [facility] Last Admin: 06/23/20 09:04 Dose: 10 mg Documented by: Hydroxyzine Pamoate (Hydroxyzine Sherrill 25 Mg Capsule) 50 mg PO Q4H PRN PRN PRN Reason: mild anxiety Last Admin: 06/22/20 13:36 Dose: 50 mg Documented by: Loperamide HCl (Loperamide 2 Mg Capsule) 2 mg PO Q4H PRN PRN PRN Reason: LOOSE STOOLS Nicotine (Nicotine 21 Mg Patch) 21 mg TD DAILY [facility] Last Admin: 06/23/20 06:49 Dose: 21 mg Documented by: Nicotine Polacrilex (Nicotine Polacrilex 2 Mg Gum) 2 mg PO Q2H PRN PRN PRN Reason: Nicotine Craving Last Admin: 06/23/20 07:52 Dose: 2 mg Documented by: Ondansetron HCl (Ondansetron 4 Mg/2 Ml Vial) 4 mg IV Q8H PRN PRN PRN Reason: NAUSEA/VOMITING Last Admin: 06/22/20 13:36 Dose: 4 mg Documented by: Ondansetron HCl (Ondansetron 8 Mg Tablet) 8 mg PO Q8H PRN PRN PRN Reason: NAUSEA Last Admin: 06/22/20 03:12 Dose: 8 mg Documented by: Pantoprazole Sodium (Pantoprazole Sodium 40 Mg Tablet) 40 mg PO DAILY [facility] Last Admin: 06/23/20 09:05 Dose: 40 mg Documented by: Phenobarbital (Phenobarbital 32.4 Mg Tablet) 64.8 mg PO Q4H [facility]; Taper Stop: 06/26/20 04:59 Last Admin: 06/23/20 09:03 Dose: 64.8 mg Documented by: Quetiapine Fumarate (Quetiapine 100 Mg Tablet) 200 mg PO QHS [facility] Last Admin: 06/22/20 20:22 Dose: 200 mg Documented by: Sodium Chloride (0.9% Saline Lock 10 Ml Syringe) 10 - 40 ml IV UD PRN PRN Reason: SALINE FLUSH Last Admin: 06/22/20 13:36 Dose: 10 ml Documented by: Thiamine HCl (Thiamine Hydrochloride 100 Mg Tablet) 100 mg PO DAILYCM [facility] Last Admin: 06/23/20 09:04 Dose: 100 mg Documented by: Trazodone HCl (Trazodone 100 Mg Tablet) 150 mg PO QHS [facility] Last Admin: 06/22/20 20:21 Dose: 150 mg Documented by: STROKE Vital Signs/Narrative: Vital Signs Temp Pulse Resp BP Pulse Ox 06/23/20 08:49 36.7 C 88 18 150/91 H 98 Medical Necessity - Tobacco Use Smoking Status: Current every day smoker Tobacco Use: Cigarettes Assessment/Plan All Active Problems (Last Updated 04/17/18 @ 01:[address] Ryne Hernandez MD) Alcohol dependence with withdrawal (Acute) 1. Acute alcohol withdrawal: Continue phenobarbital taper, thiamine and folate. Continue with other medications to help with other somatic complaints. Patient will be monitored here for 2 more days barring any kind of issues with alcohol withdrawal, such as delirium tremens, plan will be for the patient to be discharged on the . Informed patient, given the pandemic, would not hold her here beyond that unless it were medically necessary. She expressed understanding. 2. History of self-harm Patient with noted cutting perez on her arm. Patient denies any suicidal or homicidal ideation. Patient is not a threat to herself immediately. Patient will need further counseling upon discharge. I explained to the patient that as long as she is medically stable the plan is for her to be discharged on the . Noted that her treatment with phenobarbital would be discontinued. Patient's was told this yesterday. Inpatient E&M: [id number] [facility]
--- NOTE | 2020-06-23 09:20 | ADDICTION ---
This quality analyst/technical writer met with patient in her room to finalize d/c planning. Patient interested in inpatient treatment following d/c from medical withdrawal management. This quality analyst/technical writer called multiple residential facilities, including dual-diagnosis facilities, to inquire about admittance into the program with no success. patient amiable to completing full assessment with [facility] and engaging in Intensive Outpatient Programs and individual counseling as well as ongoing counseling and psychiatric services with [facility]. She states that her boyfriend, Garrett, will be providing transportation following discharge.
[2020-06-23 13:58] VITALS: BP 135/99; PULSE 81; RESP 16; TEMP 36.8; O2SAT 98
[2020-06-23 20:12] VITALS: BP 135/80; PULSE 88; RESP 16; TEMP 36.6; O2SAT 98
[2020-06-23] MEDS: QUEtiapine 100 MG Tablet 200 MG PO (20:16)
[2020-06-23] MEDS: traZODone 100 MG Tablet 150 MG PO (20:17)
[2020-06-24] MEDS: Phenobarbital 32.4 MG Tablet 64.8 MG PO ×3 (00:25→10:49)
[2020-06-24 00:27] VITALS: BP 136/90; PULSE 86; RESP 16; TEMP 36.6; O2SAT 98
[2020-06-24 05:03] VITALS: BP 134/94; PULSE 73; RESP 18; TEMP 36.4; O2SAT 100
[2020-06-24] MEDS: Nicotine Polacrilex 2 MG GUM PO ×3 (05:23→10:52)
[2020-06-24] MEDS: Haloperidol 5 MG Tablet 10 MG PO (08:08)
[2020-06-24] MEDS: Docusate Sodium 100 MG Capsule PO (08:08)
[2020-06-24] MEDS: Benztropine 2 MG Tablet 0.5 MG PO (08:09)
[2020-06-24] MEDS: amLODIPine 10 MG Tablet PO (08:09)
[2020-06-24] MEDS: Thiamine Hydrochloride 100 MG Tablet PO (08:09)
[2020-06-24] MEDS: busPIRone 15 MG TABLET PO (08:09)
[2020-06-24] MEDS: Citalopram 40 MG TABLET PO (08:09)
[2020-06-24] MEDS: Folic Acid 1 MG Tablet PO (08:10)
[2020-06-24] MEDS: Pantoprazole Sodium 40 MG Tablet PO (08:10)
[2020-06-24 08:15] VITALS: BP 136/90; PULSE 81; RESP 18; TEMP 36.8; O2SAT 100
--- NOTE | 2020-06-24 08:27 | DCINST_ITS ---
- Discharge Diagnoses Current Active Problems: Current Active and Chronic Problems (Last Updated 04/17/18 @ 01:[address] Ryne Hernandez MD) Alcohol dependence with withdrawal (Acute) Schizoaffective disorder (Chronic) PTSD (post-traumatic stress disorder) (Chronic) Hyponatremia (Chronic) You will use the following diet at home:: No restrictions Allergies/Adverse Reactions: Allergies aripiprazole [From Abilify] Allergy (Verified 06/21/20 16:24) Rash risperidone [From Risperdal] Allergy (Verified 06/21/20 16:24) Unknown sulfamethoxazole [From Septra] Allergy (Verified 06/21/20 16:24) Rash trimethoprim [From Septra] Allergy (Verified 06/21/20 16:24) Rash gabapentin [From Neurontin] Adverse Reaction (Verified 06/21/20 16:24) Upset Stomach prednisone Adverse Reaction (Verified 06/21/20 20:44) skin hurts Medications to take at Discharge Albuterol IH (ProAir) [Proair Hfa] 2 puff INHALATION Q4H PRN PRN 10/24/15 Benztropine [Cogentin] 0.5 mg PO BID 10/24/15 Citalopram [Celexa] 40 mg PO DAILY 10/24/15 Haloperidol 10 mg PO BID 10/24/15 busPIRone [Buspar] 15 mg PO BID 03/19/18 traZODone [Desyrel] 150 mg PO QHS 03/19/18 Docusate Sodium [Colace] 100 mg PO BID 04/17/18 Albuterol Inhaler [Ventolin Hfa] 1 - 2 puff INHALATION Q4H PRN PRN 05/08/20 Pantoprazole Sodium [Protonix] 40 mg PO DAILY 05/08/20 Quetiapine Fumarate [Seroquel] 200 mg PO QHS 05/08/20 Amlodipine [Norvasc] 10 mg PO DAILY #0 05/11/20 Multivitamin [Daily Multiple Vitamin] 1 each PO DAILY #1 tablet 06/24/20 The following prescriptions were given: Multivitamin [Daily Multiple Vitamin] 1 each PO DAILY #1 tablet Primary Care Physician: Janna Best MD [Primary Care Provider] - Within 2 Weeks Test Results: Test results from this visit will be discussed in further detail at your follow- up appointment, if applicable. Please Follow Up With: [facility] When: 1 week Please Follow Up With: [facility] When: 1 week Proposed Discharge Date: 06/24/20
--- NOTE | 2020-06-24 08:28 | PCM.DC.SUM ---
Discharge Date and Diagnosis - Problem List Patient Problems: Active and Suspected Problems (Last Updated 04/17/18 @ 01:[address] Ryne Hernandez MD) Alcohol dependence with withdrawal (Acute) Date of Admission: 06/21/20 Date of Discharge: 06/24/20 - Primary Discharge Diagnosis Acute Problems: Active Problems (Last Updated 04/17/18 @ 01:[address] Ryne Hernandez MD) Alcohol dependence with withdrawal (Acute) - Secondary Discharge Diagnosis Chronic Problems: Chronic Problems (Last Updated 04/17/18 @ 01:[address] Ryne Hernandez MD) Schizoaffective disorder (Chronic) PTSD (post-traumatic stress disorder) (Chronic) Hyponatremia (Chronic) Hospital Course and Treatment Operations: None Procedures: None Summary of Care Provided: The patient is a 49 year old F seeking treatment for alcohol withdrawal. Patient stated drinking 12 beers a day. Patient never demonstrated acute alcohol withdrawal. Patient had some complaints of some mild symptoms but remained stable during the course of her hospitalization. Patient was on a phenobarbital taper. Patient is medically stable today and patient was made aware on the that she would be discharged today and that she were to get worse. Patient on the express some apprehension about that but today is much more comfortable with that decision. Patient was seen by addiction medicine and will follow up with [facility] and be engaged in their intensive outpatient program. Patient will follow up with him for when that can be performed. Patient also has some counseling which sounds like that will be performed over Zoom. Patient will be instructed to take a multivitamin in addition to her other home medications. [] Patient Problems: Active and Suspected Problems (Last Updated 04/17/18 @ 01:[address] Ryne Hernandez MD) Alcohol dependence with withdrawal (Acute) - Physical Exam Vitals/I&O's: Vital Signs Temp Pulse Resp BP Pulse Ox 36.8 C 81 18 136/90 H 100 06/24/20 08:15 06/24/20 08:15 06/24/20 08:15 06/24/20 08:15 06/24/20 08:15 Oxygen Delivery Method Room Air Weight: 72.7 kg Body Mass Index (BMI) 26.6 Intake and Output for Last 24 Hours 06/22/20 06/23/20 06/24/20 23:59 23:59 23:59 Intake Total 1210 / 1210 1500 / 1500 500 / 500 Balance 1210 / 1210 1500 / 1500 500 / 500 General: Alert, No apparent distress HEENT: Atraumatic, Normocephalic Current Medications Acetaminophen (Acetaminophen 325 Mg Tablet) 650 mg PO Q6H PRN PRN PRN Reason: Pain Score 1-10/Temp > 100.7 F Last Admin: 06/23/20 13:52 Dose: 650 mg Documented by: Albuterol Sulfate (Albuterol 2.5 Mg/3 Ml Vial.Neb.) 2.5 mg INHALATION Q4H PRN PRN PRN Reason: SOB &/OR WHEEZING Amlodipine Besylate (Amlodipine 10 Mg Tablet) 10 mg PO DAILY [facility] Last Admin: 06/24/20 08:09 Dose: 10 mg Documented by: Benztropine Mesylate (Benztropine 2 Mg Tablet) 0.5 mg PO 0800,1530 [facility] Last Admin: 06/24/20 08:09 Dose: 0.5 mg Documented by: Buspirone HCl (Buspirone 15 Mg Tablet) 15 mg PO BID [facility] Last Admin: 06/24/20 08:09 Dose: 15 mg Documented by: Citalopram Hydrobromide (Citalopram 40 Mg Tablet) 40 mg PO DAILY [facility] Last Admin: 06/24/20 08:09 Dose: 40 mg Documented by: Dicyclomine HCl (Dicyclomine 10 Mg Capsule) 20 mg PO Q6H PRN PRN PRN Reason: abdominal discomfort Last Admin: 06/22/20 08:00 Dose: 20 mg Documented by: Docusate Sodium (Docusate Sodium 100 Mg Capsule) 100 mg PO BID [facility] Last Admin: 06/24/20 08:08 Dose: 100 mg Documented by: Folic Acid (Folic Acid 1 Mg Tablet) 1 mg PO DAILY@0800 [facility] Last Admin: 06/24/20 08:10 Dose: 1 mg Documented by: Gabapentin (Gabapentin 300 Mg Capsule) 300 mg PO Q8H PRN PRN PRN Reason: moderate to severe anxiety Last Admin: 06/22/20 16:27 Dose: 300 mg Documented by: Haloperidol (Haloperidol 5 Mg Tablet) 10 mg PO BID [facility] Last Admin: 06/24/20 08:08 Dose: 10 mg Documented by: Hydroxyzine Pamoate (Hydroxyzine Sherrill 25 Mg Capsule) 50 mg PO Q4H PRN PRN PRN Reason: mild anxiety Last Admin: 06/22/20 13:36 Dose: 50 mg Documented by: Loperamide HCl (Loperamide 2 Mg Capsule) 2 mg PO Q4H PRN PRN PRN Reason: LOOSE STOOLS Nicotine (Nicotine 21 Mg Patch) 21 mg TD DAILY [facility] Last Admin: 06/24/20 08:08 Dose: 21 mg Documented by: Nicotine Polacrilex (Nicotine Polacrilex 2 Mg Gum) 2 mg PO Q2H PRN PRN PRN Reason: Nicotine Craving Last Admin: 06/24/20 08:10 Dose: 2 mg Documented by: Ondansetron HCl (Ondansetron 4 Mg/2 Ml Vial) 4 mg IV Q8H PRN PRN PRN Reason: NAUSEA/VOMITING Last Admin: 06/22/20 13:36 Dose: 4 mg Documented by: Ondansetron HCl (Ondansetron 8 Mg Tablet) 8 mg PO Q8H PRN PRN PRN Reason: NAUSEA Last Admin: 06/22/20 03:12 Dose: 8 mg Documented by: Pantoprazole Sodium (Pantoprazole Sodium 40 Mg Tablet) 40 mg PO DAILY [facility] Last Admin: 06/24/20 08:10 Dose: 40 mg Documented by: Phenobarbital (Phenobarbital 32.4 Mg Tablet) 64.8 mg PO Q6H [facility]; Taper Stop: 06/26/20 04:59 Last Admin: 06/24/20 05:05 Dose: 64.8 mg Documented by: Quetiapine Fumarate (Quetiapine 100 Mg Tablet) 200 mg PO QHS [facility] Last Admin: 06/23/20 20:16 Dose: 200 mg Documented by: Sodium Chloride (0.9% Saline Lock 10 Ml Syringe) 10 - 40 ml IV UD PRN PRN Reason: SALINE FLUSH Last Admin: 06/22/20 13:36 Dose: 10 ml Documented by: Thiamine HCl ([facility] Mg [facility]) [facility] Admin: 06/24/20 08:09 Dose: 100 mg Documented by: Trazodone HCl (Trazodone 100 Mg Tablet) 150 mg PO QHS [facility] Last Admin: 06/23/20 20:17 Dose: 150 mg Documented by: Discharge Diet: No Restrictions Home Medications: Medications to take at Discharge Albuterol IH (ProAir) [Proair Hfa] 2 puff INHALATION Q4H PRN PRN 10/24/15 Benztropine [Cogentin] 0.5 mg PO BID 10/24/15 Citalopram [Celexa] 40 mg PO DAILY 10/24/15 Haloperidol 10 mg PO BID 10/24/15 busPIRone [Buspar] 15 mg PO BID 03/19/18 traZODone [Desyrel] 150 mg PO QHS 03/19/18 Docusate Sodium [Colace] 100 mg PO BID 04/17/18 Albuterol Inhaler [Ventolin Hfa] 1 - 2 puff INHALATION Q4H PRN PRN 05/08/20 Pantoprazole Sodium [Protonix] 40 mg PO DAILY 05/08/20 Quetiapine Fumarate [Seroquel] 200 mg PO QHS 05/08/20 Amlodipine [Norvasc] 10 mg PO DAILY #0 05/11/20 Multivitamin [Daily Multiple Vitamin] 1 each PO DAILY #1 tablet 06/24/20 Following Prescriptions Were Given to Patient: Multivitamin [Daily Multiple Vitamin] 1 each PO DAILY #1 tablet Primary Care Physician: Janna Best MD [Primary Care Provider] - Within 2 Weeks Please Follow Up With: [facility] When: 1 week Please Follow Up With: [facility] When: 1 week Disposition: Home Minutes spent on discharge:: 26 Patient Condition:: Good Medical Necessity - Tobacco Use Smoking Status: Current every day smoker Tobacco Use: Cigarettes Meaningful Use Info Meaningful Use Diagnoses (Choose all that apply): None applicable Inpatient E&M: 32378 [facility]
--- NOTE | 2020-06-24 10:57 | ADDICTION ---
Patient is scheduled with [facility] for ongoing counseling starting on 06/27/2020 and is amiable to her scheduled appointment.
== END 2020-06-24 12:04 | disposition home or self-care (01) | DRG 897 ==
LOC: ED 17:02 → MS3 19:22
PROVIDERS: Admitting Provider Internal Medicine; Emergency Provider Emergency Medicine; PCP Internal Medicine
DX: F10.239 Alcohol dependence with withdrawal, unspecified (principal); E87.1 Hypo-osmolality and hyponatremia; F25.9 Schizoaffective disorder, unspecified; F43.12 Post-traumatic stress disorder, chronic; Y90.7 Blood alcohol level of 200-239 mg/100 ml; F41.9 Anxiety disorder, unspecified; F32.9 Major depressive disorder, single episode, unspecified; F17.210 Nicotine dependence, cigarettes, uncomplicated; Z91.5 Personal history of self-harm
CPT/HCPCS: 80053; 80307; 80320; 83690; 85025; 93005; 99285; 99406; A4216; G0480; J2405

== ENCOUNTER 2021-03-04 22:57 | Emergency (ER) | payer MEDICARE, SELFPAY ==
[2021-03-04 23:00] VITALS: BP 152/99; PULSE 94; RESP 20; TEMP 36.8; O2SAT 92; BMI 29.0
--- NOTE | 2021-03-04 23:36 | EDS_ITS ---
HPI <Dr. Ousmane Duran MD - Last Filed: 03/05/21 00:28> HPI - Psych History of Present Illness Chief Complaint: Suicidal Informant: patient Onset/Context/Timing Context: Gradual Onset Conflict: Family (sig other) Timing: Continuous Current Severity: Severe Maximum Severity: Severe Worsened by: Alcohol intoxication Relieved by: cutting and inflicting pain Associated Symptoms Associated Symptoms - Psych: Positive for Depressed, Change in Eating, Change in sleeping and Suicidal Thoughts Specific plan (suicidal thought): Try to cut her wrist 3 days ago Narrative Narrative: Patient presents intoxicated and suicidal. She states she wants to because her boyfriend is useless and sleeps all the time and she does not want to leave him because he has nowhere to go. She states she cut her right wrist 3 days ago in an attempt to kill herself over this, she points to it and shows me a large vein that did not bleed and she states it was divine intervention which brought her here to get help. Other than marijuana she denies any other substance use currently. Patient states she has had a cough for 6 weeks. She states she had a negative Covid test near the beginning of this. She denies any fevers or chills. No shortness of breath. PFSH <Dr. Ousmane Duran MD - Last Filed: 03/05/21 00:28> [facility] Medical History PTSD (post-traumatic stress disorder) Schizoaffective disorder Home Medications benztropine 0.5 mg PO BID 10/24/15 [History Last Taken 06/21/20 10:00] citalopram 40 mg PO DAILY 10/24/15 [History Last Taken 06/21/20 10:00] haloperidol 10 mg PO BID 10/24/15 [History Last Taken 06/21/20 10:00] buspirone 15 mg PO BID 03/19/18 [History Last Taken 06/21/20 10:00] albuterol sulfate 1 - 2 puff INHALATION Q4H PRN PRN 05/08/20 [History Last Taken Unknown] amlodipine 10 mg PO DAILY #0 05/11/20 [Rx Last Taken 06/21/20 10:00] multivitamin 1 ea PO DAILY #1 tab 06/24/20 [Rx Last Taken Unknown] pantoprazole [Protonix] 40 mg PO DAILY 03/05/21 [History Last Taken Unknown] quetiapine [Seroquel XR] 300 mg PO QHS 03/05/21 [History Last Taken Unknown] trazodone 150 mg PO QHS 03/05/21 [History Last Taken Unknown] Allergy/AdvReac Type Severity Reaction Status Date / Time aripiprazole [From Abilify] Allergy Rash Verified 03/04/21 23:00 risperidone [From Risperdal] Allergy Unknown Verified 03/04/21 23:00 sulfamethoxazole Allergy Rash Verified 03/04/21 23:00 [From Septra] trimethoprim [From Septra] Allergy Rash Verified 03/04/21 23:00 gabapentin [From Neurontin] AdvReac Upset Verified 03/04/21 23:00 Stomach prednisone AdvReac skin Verified 03/04/21 23:00 hurts Family History Father Alcoholism Aunt Depression Aunt No problems noted. Social History Smoking Status: Current every day smoker tobacco type: cigarettes ROS <Dr. Ousmane Duran MD - Last Filed: 03/05/21 00:28> ROS ED Constitutional Constitutional ED: Denies chills or fever(s) Eyes Eyes: Denies change in vision or diplopia ENT ENT ED: Denies rhinorrhea or sore throat Cardiovascular Cardiovascular: Denies chest pain or palpitations Respiratory/Chest Respiratory/Chest: Reports cough; Denies dyspnea Gastrointestinal Gastrointestinal: Denies abdominal pain, diarrhea, nausea or vomiting Genitourinary Genitourinary ED: Denies dysuria or hematuria Musculoskeletal Musculoskeletal: Denies back pain or neck pain Integumentary Denies abscess or rash Neurologic Neurologic: Denies headache(s), paresthesias or weakness Psychiatric Psychiatric: Reports depression, suicidal ideation and suicidal thoughts; Denies homicidal ideation EXAM <Dr. Ousmane Duran MD - Last Filed: 03/05/21 00:28> Physical Exam Const Vital Signs: 03/04/21 23:00 03/05/21 05:44 03/05/21 07:34 Temperature 98.2 F 98.4 F Temperature Source Temporal Temporal Pulse Rate 94 74 Respiratory Rate 20 H 16 16 Blood Pressure 152/99 H 149/88 H Blood Pressure Mean 116 108 Pulse Ox 92 98 Oxygen Delivery Method Room Air Room Air 03/05/21 08:00 03/05/21 09:00 03/05/21 10:00 Temperature Temperature Source Pulse Rate Respiratory Rate 15 16 15 Blood Pressure Blood Pressure Mean Pulse Ox Oxygen Delivery Method 03/05/21 11:00 03/05/21 12:00 03/05/21 14:04 Temperature Temperature Source Pulse Rate 88 Respiratory Rate 15 18 16 Blood Pressure 182/88 H Blood Pressure Mean 119 Pulse Ox Oxygen Delivery Method Room Air 03/05/21 15:15 Temperature Temperature Source Pulse Rate 82 Respiratory Rate 16 Blood Pressure 170/91 H Blood Pressure Mean 117 Pulse Ox 98 Oxygen Delivery Method Positive well nourished and well developed Constitutional Narrative: Grossly intoxicated, pleasant, cooperative General Appearance ED: well developed and NAD HEENT Reports moist mucous membranes normocephalic and atraumatic Eyes PERRL and EOMs intact bilaterally General Eye ED: Negative for scleral icterus Neck no lymphadenopathy and supple Resp normal respiratory effort and clear to auscultation bilaterally Cardio no murmurs Rate: regular rate Rhythm: regular rhythm GI non-tender and non-distended Auscultation: normoactive bowel sounds Palpation: soft Back/Spine no CVA tenderness and normal ROM Extremity normal to inspection General Extremety ED: Negative for edema General Extremity: Negative for edema Neuro oriented x3, CN's II-XII intact bilaterally, no sensory deficits noted and gait normal Sensorium / Orientation: alert Motor Exam: strength 5/5 throughout Psych mental status grossly normal, thought process normal, cooperative, activity/motor behavior normal and denies homicidal ideation Mood & Affect: depressed Thought Content: suicidality Skin Lesions: no lesions Rashes: no rashes <Dr. Rox Martinez MD - Last Filed: 03/05/21 16:11> Physical Exam Const Vital Signs: 03/04/21 23:00 03/05/21 05:44 03/05/21 07:34 Temperature 98.2 F 98.4 F Temperature Source Temporal Temporal Pulse Rate 94 74 Respiratory Rate 20 H 16 16 Blood Pressure 152/99 H 149/88 H Blood Pressure Mean 116 108 Pulse Ox 92 98 Oxygen Delivery Method Room Air Room Air 03/05/21 08:00 03/05/21 09:00 03/05/21 10:00 Temperature Temperature Source Pulse Rate Respiratory Rate 15 16 15 Blood Pressure Blood Pressure Mean Pulse Ox Oxygen Delivery Method 03/05/21 11:00 03/05/21 12:00 03/05/21 14:04 Temperature Temperature Source Pulse Rate 88 Respiratory Rate 15 18 16 Blood Pressure 182/88 H Blood Pressure Mean 119 Pulse Ox Oxygen Delivery Method Room Air 03/05/21 15:15 Temperature Temperature Source Pulse Rate 82 Respiratory Rate 16 Blood Pressure 170/91 H Blood Pressure Mean 117 Pulse Ox 98 Oxygen Delivery Method MDM <Dr. Ousmane Duran MD - Last Filed: 03/05/21 00:28> MDM MDM Narrative Medical decision making narrative: Labs were obtained including alcohol level which is 271, consistent with the patient's clinical appearance of intoxication. She will be observed here for the hourly shift manager until the morning when she can be reevaluated when sober and likely have crisis see her given the suicidal gesture/attempt that she had 3 days ago in similar context. She keeps telling staff that she wants to leave, however I have pink slipped her until she can be further evaluated. Lab Data Attestation: I reviewed the patient's lab results. Labs: Laboratory Results - last 24 hr 03/04/21 03/04/21 03/04/21 23:00 23:00 23:00 WBC 7.6 RBC 3.47 L Hgb 11.3 L Hct 33.7 L MCV 97.1 MCH 32.6 H MCHC 33.5 RDW Std Deviation 46.5 H RDW Coeff of Cecille 13.1 Plt Count 292 MPV 8.9 Immature Gran % (Auto) 2.100 H Neut % (Auto) 17.8 L Lymph % (Auto) 75.6 H Casey % (Auto) 3.7 Eos % (Auto) 0.1 Baso % (Auto) 0.7 Absolute Neuts (auto) 1.4 L Absolute Lymphs (auto) 5.75 H Nucleated RBC % 0 Differential Comment SCANNED Reactive Lymphocytes RARE Sodium 136 Potassium 3.6 Chloride 103 Carbon Dioxide 23.0 Anion Gap 10 BUN 6 L Creatinine 0.52 L Estim Creat Clear Calc 113.88 Est GFR (MDRD) Af Amer 157 Est GFR (MDRD) Non-Af 130 BUN/Creatinine Ratio 11.4 Glucose 87 Calcium 8.5 Total Bilirubin 0.30 AST 19 ALT 23 Alkaline Phosphatase 104 Total Protein 7.4 Albumin 3.7 Globulin 3.7 Albumin/Globulin Ratio 1.0 Serum , Qual Urine Opiates Screen Urine Methadone Screen Ur Barbiturates Screen Ur Phencyclidine Scrn Ur Amphetamines Screen U Methamphetamin-MDMA U Benzodiazepines Scrn Urine Cocaine Screen U Cannabinoids Screen Ur Drug Screen Comment Ethyl Alcohol 271.0 03/05/21 03/05/21 03/05/21 01:11 06:26 06:26 WBC RBC Hgb Hct MCV MCH MCHC RDW Std Deviation RDW Coeff of Cecille Plt Count MPV Immature Gran % (Auto) Neut % (Auto) Lymph % (Auto) Casey % (Auto) Eos % (Auto) Baso % (Auto) Absolute Neuts (auto) Absolute Lymphs (auto) Nucleated RBC % Differential Comment Reactive Lymphocytes Sodium Potassium Chloride Carbon Dioxide Anion Gap BUN Creatinine Estim Creat Clear Calc Est GFR (MDRD) Af Amer Est GFR (MDRD) Non-Af BUN/Creatinine Ratio Glucose Calcium Total Bilirubin AST ALT Alkaline Phosphatase Total Protein Albumin Globulin Albumin/Globulin Ratio Serum , Qual NEGATIVE Urine Opiates Screen NEGATIVE Urine Methadone Screen NEGATIVE Ur Barbiturates Screen NEGATIVE Ur Phencyclidine Scrn NEGATIVE Ur Amphetamines Screen NEGATIVE U Methamphetamin-MDMA NEGATIVE U Benzodiazepines Scrn NEGATIVE Urine Cocaine Screen NEGATIVE U Cannabinoids Screen POSITIVE H Ur Drug Screen Comment Ethyl Alcohol < 3.0 <Dr. Rox Martinez MD - Last Filed: 03/05/21 16:11> [facility] Lab Data Labs: Laboratory Results - last 24 hr 03/04/21 03/04/21 03/04/21 23:00 23:00 23:00 WBC 7.6 RBC 3.47 L Hgb 11.3 L Hct 33.7 L MCV 97.1 MCH 32.6 H MCHC 33.5 RDW Std Deviation 46.5 H RDW Coeff of Cecille 13.1 Plt Count 292 MPV 8.9 Immature Gran % (Auto) 2.100 H Neut % (Auto) 17.8 L Lymph % (Auto) 75.6 H Casey % (Auto) 3.7 Eos % (Auto) 0.1 Baso % (Auto) 0.7 Absolute Neuts (auto) 1.4 L Absolute Lymphs (auto) 5.75 H Nucleated RBC % 0 Differential Comment SCANNED Reactive Lymphocytes RARE Sodium 136 Potassium 3.6 Chloride 103 Carbon Dioxide 23.0 Anion Gap 10 BUN 6 L Creatinine 0.52 L Estim Creat Clear Calc 113.88 Est GFR (MDRD) Af Amer 157 Est GFR (MDRD) Non-Af 130 BUN/Creatinine Ratio 11.4 Glucose 87 Calcium 8.5 Total Bilirubin 0.30 AST 19 ALT 23 Alkaline Phosphatase 104 Total Protein 7.4 Albumin 3.7 Globulin 3.7 Albumin/Globulin Ratio 1.0 Serum , Qual Urine Opiates Screen Urine Methadone Screen Ur Barbiturates Screen Ur Phencyclidine Scrn Ur Amphetamines Screen U Methamphetamin-MDMA U Benzodiazepines Scrn Urine Cocaine Screen U Cannabinoids Screen Ur Drug Screen Comment Ethyl Alcohol 271.0 03/05/21 03/05/21 03/05/21 01:11 06:26 06:26 WBC RBC Hgb Hct MCV MCH MCHC RDW Std Deviation RDW Coeff of Cecille Plt Count MPV Immature Gran % (Auto) Neut % (Auto) Lymph % (Auto) Casey % (Auto) Eos % (Auto) Baso % (Auto) Absolute Neuts (auto) Absolute Lymphs (auto) Nucleated RBC % Differential Comment Reactive Lymphocytes Sodium Potassium Chloride Carbon Dioxide Anion Gap BUN Creatinine Estim Creat Clear Calc Est GFR (MDRD) Af Amer Est GFR (MDRD) Non-Af BUN/Creatinine Ratio Glucose Calcium Total Bilirubin AST ALT Alkaline Phosphatase Total Protein Albumin Globulin Albumin/Globulin Ratio Serum , Qual NEGATIVE Urine Opiates Screen NEGATIVE Urine Methadone Screen NEGATIVE Ur Barbiturates Screen NEGATIVE Ur Phencyclidine Scrn NEGATIVE Ur Amphetamines Screen NEGATIVE U Methamphetamin-MDMA NEGATIVE U Benzodiazepines Scrn NEGATIVE Urine Cocaine Screen NEGATIVE U Cannabinoids Screen POSITIVE H Ur Drug Screen Comment Ethyl Alcohol < 3.0 Treatment and Re-Evaluation Comments:: Patient signed out to me pending evaluation by crisis. I spoke with dairy cattle farm worker who stated that he had concerns about patient not having a good plan to cope at home. He did feel the safe thing to do would be to transfer her. Patient was accepted at [facility]. Discharge Plan Triage Chief Complaint: Suicidal ED Provider: Ousmane Duran Dx/Rx/DC Orders Clinical Impression: Suicide ideation Prescriptions: No Action citalopram 40 MG tablet 40 mg PO DAILY RF: 0 benztropine 2 MG tablet 0.5 mg PO BID RF: 0 haloperidol 2 MG tablet 10 mg PO BID RF: 0 buspirone 15 MG tablet 15 mg PO BID RF: 0 albuterol sulfate 1 INHALER inhaler 1 - 2 puff INHALATION Q4H PRN PRN (Reason: Wheezing) RF: 0 amlodipine 5 MG tablet 10 mg PO DAILY Qty: 0 RF: 0 multivitamin 1 EACH tablet 1 ea PO DAILY Qty: 1 RF: 0 pantoprazole [Protonix] 40 mg Tablet,Delayed Release (Dr/Ec) 40 mg PO DAILY RF: 0 trazodone 150 mg Tablet 150 mg PO QHS RF: 0 quetiapine [Seroquel XR] 300 mg Tablet Extended Release 24 Hr 300 mg PO QHS RF: 0 Primary Care Provider: Janna Best Referrals: Janna Best MD [Primary Care Provider] - Disposition Disposition: Psychiatric Hospital or Unit Discharge Location: [facility] Discharge Date/Time: 03/05/21 15:51
[2021-03-04 23:50] LABS: Absolute Lymphocyte Count 5.75 X10^3/uL (0.83-4.51); Absolute Neutrophil Count 1.4 X10^3/uL (2.0-7.7); Basophil# 0.05 X10^3/uL; Basophil% 0.7 % (0-1); Eosinophil# 0.01 X10^3/uL; Eosinophils% 0.1 % (0-5); Hematocrit 33.7 % (37-47); Hemoglobin 11.3 g/dL (12.0-15.0); Lymphocyte # 5.75 X10^3/ul (0.83-4.51); Lymphocyte % 75.6 % (19-41); Mean Corp Hgb Conc 33.5 g/dL (32-36); Mean Corpuscular Hgb 32.6 pg (27.0-32.0); Mean Corpuscular Volume 97.1 fL (81-99); Mean Platelet Vol. 8.9 fl (6.2-12.0); Monocyte# 0.28 X10^3/uL; Monocyte% 3.7 % (0-10); NRBC Flagged by Analyzer 0 % (0-5); Neutrophil # 1.36 X10^3/uL (2.7-7.7); Neutrophil % 17.8 % (47-70); POSITIVE DIFFERENTIAL YES; POSITIVE MORPHOLOGY YES; Platelet Count 292 K/mm3 (150-450); RBC Distribution Width CV 13.1 % (11.6-14.6); RBC Distribution Width SD 46.5 fl (35.1-43.9); Red Blood Count 3.47 M/mm3 (4.2-5.4); White Blood Count 7.6 K/mm3 (4.4-11.0)
[2021-03-04 23:56] LABS: Differential Indicated SCAN CRITERIA MET
[2021-03-05] VITALS (9 sets, daily range): BP systolic 149–182; BP diastolic 88–91; PULSE 74–88; RESP 15–18; TEMP 36.9; O2SAT 98
[2021-03-05 00:11] LABS: Albumin, Serum 3.7 g/dL (3.2-5.0); BUN 6 mg/dL (7-18); BUN/Creat Ratio 11.4 RATIO (10-20); Creatinine, Serum 0.52 mg/dL (0.55-1.02); EST Glomerular Filtration Rate 130 mL/min (>60); Est Glom Filt Rate - Afr Amer 157 mL/min (>60); Estimated Creatinine Clearance 113.88 ml/min; Globulin 3.7 g/dL (2.2-4.2); Glucose 87 mg/dL (74-106); Protein, Total 7.4 g/dL (6.4-8.2)
[2021-03-05 00:12] LABS: AST(SGOT) 19 U/L (15-37); Alanine Aminotransfer ALT/SGPT 23 U/L (13-56); Alkaline Phosphatase 104 U/L (45-117); Anion Gap 10 (5-15); Calcium,Total 8.5 mg/dL (8.5-10.1); Chloride 103 mmol/L (98-107); Potassium 3.6 mmol/L (3.5-5.1); Sodium Level 136 mmol/L (136-145)
[2021-03-05 00:42] LABS: Differential Comment SCANNED; Reactive Lymphocyte RARE
[2021-03-05 01:46] LABS: Amphetamine Urine VISTA NEGATIVE (<1000 ng/mL); Barbiturate Urine VISTA NEGATIVE (< 200 ng/mL); Benzodiazepine Urine VISTA NEGATIVE (< 200 ng/mL); Cocaine Urine VISTA NEGATIVE (< 300 ng/mL); Ecstacy Urine VISTA NEGATIVE (< 500 ng/mL); Methadone Urine VISTA NEGATIVE (< 300 ng/mL); PCP Urine VISTA NEGATIVE (< 25 ng/mL); THC Urine VISTA POSITIVE (< 50 ng/mL); Vista UDS pH Range 6
[2021-03-05] MEDS: Acetaminophen 325 MG Tablet 650 MG PO (05:40)
[2021-03-05] MEDS: busPIRone 5 MG Tablet 10 MG PO (05:54)
[2021-03-05 06:49] LABS: Alcohol, Blood (Medical)-Serum < 3.0 mg/dL
--- NOTE | 2021-03-05 07:39 | ED.RN ---
Report given and lunch tray ordered
--- NOTE | 2021-03-05 07:46 | NURSING ---
CRISIS CALLED THE 8:00 AM COUNSELOR WILL BE COMING IN TO SEE PATIENT
--- NOTE | 2021-03-05 08:25 | NURSING ---
CRISIS CALLED HE WILL BE COMING IN TO SEE PATIENT IN 45 MINUTES
[2021-03-05 13:43] LABS: Internal QC Validated? YES +Cl - CLEAR BKGD; Pregnancy, Serum, hCG Quali. NEGATIVE Negative
[2021-03-05] MEDS: Pantoprazole Sodium 40 MG Tablet PO (14:58)
[2021-03-05] MEDS: Haloperidol 5 MG Tablet 10 MG PO (14:58)
[2021-03-05] MEDS: Benztropine Mesylate 0.5 MG TABLET PO (14:58)
== END 2021-03-05 15:51 ==
PROVIDERS: Emergency Medicine; Emergency Provider Emergency Medicine; PCP Internal Medicine
DX: F25.9 Schizoaffective disorder, unspecified (principal); F43.10 Post-traumatic stress disorder, unspecified; R45.851 Suicidal ideations; S61.511A Laceration without foreign body of right wrist, initial encounter; X78.9XXA Intentional self-harm by unspecified sharp object, initial encounter; Y93.9 Activity, unspecified; Y92.9 Unspecified place or not applicable; Y99.9 Unspecified external cause status; F10.129 Alcohol abuse with intoxication, unspecified; Y90.8 Blood alcohol level of 240 mg/100 ml or more; Z20.822 Contact with and (suspected) exposure to COVID-19; F17.210 Nicotine dependence, cigarettes, uncomplicated; Z79.899 Other long term (current) drug therapy
CPT/HCPCS: 36415; 80053; 80307; 82077; 84703; 85025; 87426; 99285

== ENCOUNTER 2021-04-05 14:20 | Inpatient (IN) | payer MEDICARE, SELFPAY ==
[2021-04-05 14:20] VITALS: BP 142/94; PULSE 85; RESP 18; TEMP 36.2; O2SAT 98; BMI 28.5
--- NOTE | 2021-04-05 14:59 | EX.ED.SAOD ---
HPI History of Present Illness Chief Complaint: ETOH Intox Informant: patient Associated Symptoms Associated Symptoms: Positive for vomiting* (And shakiness when in withdrawal usually in the mornings); Negative for diarrhea*, fever* and rash* Narrative Narrative: Patient presenting wanting detox from alcohol. She has been a longtime alcoholic usually drinks at least half a gallon of vodka per day. She last drank today and currently does not feel any withdrawal symptoms but she usually does every morning. Last time she tried detox was 2 months ago in a [facility]. She states she has had no recent illness, has not had Covid, and is interested in getting the vaccine. She states she told her significant other who is also an alcoholic when I get home this will be an alcohol-free home and if he does not stop she intends to ask him to leave. [facility] Medical History Alcohol abuse Hypertension PTSD (post-traumatic stress disorder) Schizoaffective disorder Home Medications benztropine 0.5 mg PO BID 10/24/15 [History Last Taken 06/21/20 10:00] citalopram 40 mg PO DAILY 10/24/15 [History Last Taken 06/21/20 10:00] haloperidol 10 mg PO BID 10/24/15 [History Last Taken 06/21/20 10:00] buspirone 15 mg PO BID 03/19/18 [History Last Taken 06/21/20 10:00] albuterol sulfate 1 - 2 puff INHALATION Q4H PRN PRN 05/08/20 [History Last Taken Unknown] pantoprazole [Protonix] 40 mg PO DAILY 03/05/21 [History Last Taken Unknown] quetiapine [Seroquel XR] 300 mg PO QHS 03/05/21 [History Last Taken Unknown] trazodone 150 mg PO QHS 03/05/21 [History Last Taken Unknown] amlodipine 10 mg PO DAILY 04/05/21 [History Last Taken Unknown] multivitamin 1 each PO DAILY 04/05/21 [History Last Taken Unknown] Allergy/AdvReac Type Severity Reaction Status Date / Time aripiprazole [From Abilify] Allergy Rash Verified 04/05/21 14:22 risperidone [From Risperdal] Allergy Unknown Verified 04/05/21 14:22 sulfamethoxazole Allergy Rash Verified 04/05/21 14:22 [From Septra] trimethoprim [From Septra] Allergy Rash Verified 04/05/21 14:22 gabapentin [From Neurontin] AdvReac Upset Verified 04/05/21 14:22 Stomach prednisone AdvReac skin Verified 04/05/21 14:22 hurts Family History (Reviewed 05/08/20 @ 16:08 by Angelique Arreola CONVENTIONAL MACHINIST, CONVENTIONAL MACHINIST-C) Father Alcoholism Aunt Depression Aunt No problems noted. Social History Smoking Status: Current every day smoker tobacco type: cigarettes ROS ROS ED Constitutional Constitutional ED: Denies chills or fever(s) Eyes Eyes: Denies change in vision or diplopia ENT ENT ED: Denies rhinorrhea or sore throat Cardiovascular Cardiovascular: Denies chest pain or palpitations Respiratory/Chest Respiratory/Chest: Denies cough or dyspnea Gastrointestinal Gastrointestinal: Reports other Details: Vomiting when in withdrawal, not currently nauseated ; Denies abdominal pain, diarrhea or nausea Genitourinary Genitourinary ED: Denies dysuria or hematuria Musculoskeletal Musculoskeletal: Denies back pain or neck pain Integumentary Denies abscess or rash Neurologic Neurologic: Denies headache(s), paresthesias or weakness Psychiatric Psychiatric: Denies anxiety or suicidal thoughts EXAM Physical Exam Const Vital Signs: 04/05/21 14:20 Temperature 97.2 F L Temperature Source Temporal Pulse Rate 85 Respiratory Rate 18 Blood Pressure 142/94 H Blood Pressure Mean 110 Pulse Ox 98 Oxygen Delivery Method Room Air Positive well nourished and well developed General Appearance ED: well developed and NAD HEENT Reports moist mucous membranes normocephalic and atraumatic Eyes PERRL and EOMs intact bilaterally Neck full ROM and supple Resp normal respiratory effort and clear to auscultation bilaterally Cardio regular rate, regular rhythm and no murmurs GI non-tender and non-distended Auscultation: normoactive bowel sounds Palpation: soft Back/Spine no CVA tenderness General Back: other FROM Extremity normal to inspection General Extremety ED: Negative for edema, pulses abnormal or tenderness General Extremity: Negative for edema or pulses abnormal Neuro oriented x3, CN's II-XII intact bilaterally and no sensory deficits noted Sensorium / Orientation: awake and alert Motor Exam: strength 5/5 throughout Skin no rashes or lesions noted and no wounds [facility] Lab Data Attestation: I reviewed the patient's lab results. Labs: Alcohol 267. Toxicology negative. Otherwise labs unremarkable. Discharge Plan Dx/Rx/DC Orders Clinical Impression: Alcohol dependence Disposition Disposition: Acute Care Hospital [facility] Discharge Date/Time: 04/05/21 16:07
--- NOTE | 2021-04-05 15:12 | CM.ED ---
SOCIAL WORK Referral Source: Self-referral Reason for Consult: Alcohol detox Patient presents for detox from alcohol. Discussed with Dr. Duran who reports spoke with hospitalist, patient to be admitted. Addiction Therapist, Yocasta updated and will see patient tomorrow. Plan: Admit to [facility], [facility], [facility]
--- NOTE | 2021-04-05 15:13 | NURSING ---
MED SURG SKYLAR ALCOHOL DEPENDENCE
--- NOTE | 2021-04-05 15:27 | NURSING ---
NO OLD EKGS
[2021-04-05 15:35] VITALS: BP 129/81; PULSE 88; PULSE 92; RESP 17; TEMP 36.7; O2SAT 99
[2021-04-05 15:53] LABS: Bacteria 0 SEEN /hpf (None Seen); Mucous, Urine 0 SEEN /hpf (<or=2+); Red Blood Cells-Urine 0 SEEN /hpf (0-5); White Blood Cells 0 SEEN /hpf (0-5)
[2021-04-05 16:05] LABS: Absolute Lymphocyte Count 4.59 X10^3/uL (0.83-4.51); Absolute Neutrophil Count 1.2 X10^3/uL (2.0-7.7); Basophil# 0.03 X10^3/uL; Basophil% 0.5 % (0-1); Eosinophil# 0.01 X10^3/uL; Eosinophils% 0.2 % (0-5); Hematocrit 41.1 % (37-47); Hemoglobin 13.9 g/dL (12.0-15.0); Lymphocyte # 4.59 X10^3/ul (0.83-4.51); Mean Corp Hgb Conc 33.8 g/dL (32-36); Mean Corpuscular Hgb 32.6 pg (27.0-32.0); Mean Corpuscular Volume 96.3 fL (81-99); Mean Platelet Vol. 8.7 fl (6.2-12.0); Monocyte# 0.17 X10^3/uL; Monocyte% 2.8 % (0-10); NRBC Flagged by Analyzer 0 % (0-5); Neutrophil % 19.5 % (47-70); Platelet Count 219 K/mm3 (150-450); RBC Distribution Width SD 49.4 fl (35.1-43.9); Red Blood Count 4.27 M/mm3 (4.2-5.4); White Blood Count 6.1 K/mm3 (4.4-11.0)
[2021-04-05 16:10] LABS: Amphetamine Urine VISTA NEGATIVE (<1000 ng/mL); Barbiturate Urine VISTA NEGATIVE (< 200 ng/mL); Benzodiazepine Urine VISTA NEGATIVE (< 200 ng/mL); Cocaine Urine VISTA NEGATIVE (< 300 ng/mL); Ecstacy Urine VISTA NEGATIVE (< 500 ng/mL); Methadone Urine VISTA NEGATIVE (< 300 ng/mL); PCP Urine VISTA NEGATIVE (< 25 ng/mL); THC Urine VISTA NEGATIVE (< 50 ng/mL); Vista UDS pH Range 5
--- NOTE | 2021-04-05 16:18 | HP.PCM.HOS_ITS ---
HPI - General General Date of Admission: 04/05/21 HPI Narrative BLAIR SINGLETON, is a 50 F with history of chronic alcohol use disorder for many years and frequent relapses came to ER for treatment of acute alcohol withdrawal syndrome. Patient drinks 1/5 of vodka, whiskey and 4 to 6, 16 ounce bottles of beers every day. Patient denies any prior history of GI bleed including hematemesis, melena or hematochezia, jaundice or ascites. Patient last admission in [facility] was June 2020 and after that she had 3 admissions in other hospitals for acute alcohol withdrawal and she relapsed. Patient also smokes marijuana and smokes a pack per day cigarette. She has hist ory of asthma since early age, childhood. Currently patient has mild tremor and anxiety. Her last drink was 1 hour prior to coming to ER. She had history of seizure about 10 days after last drink for 5 years ago. She also has history of auditory hallucination in the past. Labs are ordered. [facility] Medical History (Updated 04/05/21 @ 17:11 by [place] Lerma) Alcohol abuse Anxiety Asthma Bipolar disorder Chronic pain Depression GERD (gastroesophageal reflux disease) Hypertension Kidney disease PTSD (post-traumatic stress disorder) Schizoaffective disorder Smoker Substance abuse Home Medications benztropine 0.5 mg PO BID 10/24/15 [History Last Taken 06/21/20 10:00] citalopram 40 mg PO DAILY 10/24/15 [History Last Taken 06/21/20 10:00] haloperidol 10 mg PO BID 10/24/15 [History Last Taken 06/21/20 10:00] buspirone 15 mg PO BID 03/19/18 [History Last Taken 06/21/20 10:00] albuterol sulfate 1 - 2 puff INHALATION Q4H PRN PRN 05/08/20 [History Last Taken Unknown] pantoprazole [Protonix] 40 mg PO DAILY 03/05/21 [History Last Taken Unknown] quetiapine [Seroquel XR] 300 mg PO QHS 03/05/21 [History Last Taken Unknown] trazodone 150 mg PO QHS 03/05/21 [History Last Taken Unknown] amlodipine 10 mg PO DAILY 04/05/21 [History Last Taken Unknown] multivitamin 1 each PO DAILY 04/05/21 [History Last Taken Unknown] Allergy/AdvReac Type Severity Reaction Status Date / Time aripiprazole [From Abilify] Allergy Rash Verified 04/05/21 14:22 risperidone [From Risperdal] Allergy Unknown Verified 04/05/21 14:22 sulfamethoxazole Allergy Rash Verified 04/05/21 14:22 [From Septra] trimethoprim [From Septra] Allergy Rash Verified 04/05/21 14:22 gabapentin [From Neurontin] AdvReac Upset Verified 04/05/21 14:22 Stomach prednisone AdvReac skin Verified 04/05/21 14:22 hurts Family History Father Alcoholism Aunt Depression Aunt No problems noted. Social History Smoking Status: Current every day smoker tobacco type: cigarettes ROS ROS Narrative Constitutional: Mild restlessness and anxiety. Strong motivation for quitting. HEENT: Reports systems reviewed and no addt'l complaints, except as documented Respiratory/Chest: Denies chest pain, shortness of breath at rest or with exertion Gastrointestinal: Denies coffee ground emesis, hematemesis or vomiting Genitourinary: Denies burning urination or new urinary tract symptoms Musculoskeletal: Reports joint pain and limited range of motion Neurologic: Denies seizure-like activity skin: No ulcer. No rash Endocrinology: Reports systems reviewed and no addt'l complaints, except as documented Hematologic/Lymphatic: Reports systems reviewed and no addt'l complaints, except as documented Psychiatric: Denies substance use other than alcohol and marijuana. Rest 12 ROS are negative except as mentioned in HPI Vital Signs Vital Signs Vital Signs: 04/05/21 14:20 04/05/21 15:35 Temperature 97.2 F L 98.1 F Temperature Source Temporal Oral Pulse Rate 85 92 Respiratory Rate 18 17 Blood Pressure 142/94 H 129/81 H Blood Pressure Mean 110 97 Blood Pressure Source Monitor Blood Pressure Position Semi-Fowlers Blood Pressure Location Right Arm Pulse Ox 98 99 Oxygen Delivery Method Room Air Room Air Weight Weight: 172 lb 13.478 oz Body Mass Index (BMI) 28.5 Physical Exam Narrative General: Alert, awake, oriented x3, Cooperative HEENT: Atraumatic, PERRLA, EOMI, Normocephalic Oral: No Gingival or Mucosal Lesions/ Ulcerations Neck: Supple, No JVD, Negative Carotid Bruits Lungs: Air entry diminished in bilateral lung bases. No crepitation/rhonchi Cardiovascular: Regular rate, Regular Rhythm, Normal S1, Normal S2, No murmurs Abdomen: Bowel Sounds Present, Soft, Non Tender, Non-Distended : No renal angle tenderness. No suprapubic tenderness. Extremities: No edema, Capillary Refill Less than 3 Seconds Skin: No rashes, No breakdown Musculoskeletal: No Tenderness to Palpation of Joints or Extremities Neurological: Mild tremors. Cranial nerves II-XII grossly intact, DTR 2+/4 and Symmetrical, Neuro grossly intact Psych/Mental Status: Normal Affect, Appropriate. Results Lab / Micro Data Result Diagrams: 04/05/21 15:46 04/05/21 15:46 Labs: Laboratory Results - last 24 hr 04/05/21 15:40: Urine Opiates Screen NEGATIVE, Urine Methadone Screen NEGATIVE, Ur Barbiturates Screen NEGATIVE, Ur Phencyclidine Scrn NEGATIVE, Ur Amphetamines Screen NEGATIVE, U Methamphetamin-MDMA NEGATIVE, U Benzodiazepines Scrn NEGATIVE, Urine Cocaine Screen NEGATIVE, U Cannabinoids Screen NEGATIVE, Ur Drug Screen Comment 04/05/21 15:46: WBC 6.1, RBC 4.27, Hgb 13.9, Hct 41.1, MCV 96.3, MCH 32.6 H, MCHC 33.8, RDW Std Deviation 49.4 H, RDW Coeff of Cecille 14.0, Plt Count 219, MPV 8.7, Immature Gran % (Auto) 2.000 H, Neut % (Auto) 19.5 L, Lymph % (Auto) 75.0 H , [place] % (Auto) 2.8, Eos % (Auto) 0.2, Baso % (Auto) 0.5, Absolute Neuts (auto) 1.2 L, Absolute Lymphs (auto) 4.59 H, Nucleated RBC % 0 Assessment & Plan Assessment/Plan (1) Alcohol dependence with withdrawal: QUALIFIERS: Complication of substance-induced condition: with unspecified complication Qualified Code(s): F10.239 - Alcohol dependence with withdrawal, unspecified PLAN: 1. Acute alcohol withdrawal syndrome: Patient is being admitted [facility] on telemetry. On phenobarbital along with other supportive medications as needed to control alcohol withdrawal symptoms. CIWA monitoring. Patient showed a strong motivation to quitting alcohol this time. Consult case therapist/180 for follow-up Labs reviewed and shows K3.6. UA is negative for pyuria or hematuria or bacteria. 2. Alcoholic hepatitis: Right upper quadrant is tender. Tender hepatomegaly. Right upper quadrant sonogram ordered. ALT and AST are normal. Alk phos 120. 3. Chronic marijuana use: U tox negative. 4. Psychiatric disease: PTSD, schizoaffective disorder, history of suicidal ideation in the past: Currently patient denies suicidal ideation or attempt. VTE prophylaxis: Lovenox mg subcu daily. CODE STATUS full CODE Charges/Coding Visit Charges Inpatient E&M: 74501 Init Hosp L3
[2021-04-05 16:20] LABS: ALB/GLOB Ratio 0.9 RATIO (0.9-2.4); AST(SGOT) 22 U/L (15-37); Alanine Aminotransfer ALT/SGPT 20 U/L (13-56); Albumin, Serum 3.8 g/dL (3.2-5.0); Alkaline Phosphatase 120 U/L (45-117); Anion Gap 8 (5-15); BUN 6 mg/dL (7-18); BUN/Creat Ratio 11.2 RATIO (10-20); Calcium,Total 8.9 mg/dL (8.5-10.1); Chloride 105 mmol/L (98-107); Creatinine, Serum 0.54 mg/dL (0.55-1.02); EST Glomerular Filtration Rate 127 mL/min (>60); Est Glom Filt Rate - Afr Amer 154 mL/min (>60); Estimated Creatinine Clearance 109.66 ml/min; Globulin 4.3 g/dL (2.2-4.2); Glucose 89 mg/dL (74-106); Potassium 3.6 mmol/L (3.5-5.1); Protein, Total 8.1 g/dL (6.4-8.2); Sodium Level 139 mmol/L (136-145)
[2021-04-05 16:30] VITALS: BP 136/81; PULSE 94; RESP 16; TEMP 36.6; O2SAT 95
[2021-04-05 16:37] LABS: Color, Urine Yellow (Yellow); Glucose, Dipstick Normal (Normal); Ketone-Dipstick Negative (Negative); Leukocyte Esterase-Dipstick Negative /ul (Negative); Nitrite-Dipstick Negative (Negative); Occult Blood-Urine Negative /ul (Negative); Protein-Dipstick Negative (Negative); Urine Bilirubin Dipstick Negative (Negative); Urine Clarity Clear (Clear); Urine Urobilinogen Normal (Normal)
[2021-04-05] MEDS: Lactated Ringers 1,000 ML 125 ML IV (16:51)
[2021-04-05] MEDS: 0.9% Saline Lock 10 ML Syringe IV (16:57)
[2021-04-05 16:59] VITALS: BMI 27.9
[2021-04-05 16:59] LABS: Squamous Epithelial Cells - UA 0-5 SEEN /hpf (5-10)
[2021-04-05 17:01] LABS: Prothrombin Time (Protime)PT. 12.2 SECONDS (11.7-14.9)
--- NOTE | 2021-04-05 17:08 | NURSING ---
pandemic documentation initiated
--- NOTE | 2021-04-05 17:12 | NURSING ---
belongings placed in black tote with zip ties, sharps container locked in black tote
[2021-04-05] MEDS: hydrOXYzine PAM 25 MG Capsule 50 MG PO (17:30)
[2021-04-05] MEDS: Phenobarbital 32.4 MG Tablet 64.8 MG PO ×2 (17:30→20:42)
[2021-04-05] MEDS: Pantoprazole Sodium 40 MG Tablet PO (17:31)
[2021-04-05] MEDS: Enoxaparin 40 MG/0.4 ML Syringe SC (17:31)
[2021-04-05] MEDS: Ondansetron 8 MG Tablet PO (18:40)
--- NOTE | 2021-04-05 18:41 | NURSING ---
patient requesting to have covid vaccine in the morning after breakfast
[2021-04-05 20:30] VITALS: BP 150/86; PULSE 92; RESP 18; TEMP 36.6; O2SAT 93
[2021-04-05] MEDS: traZODone 100 MG Tablet PO (20:42)
[2021-04-05] MEDS: QUEtiapine 100 MG Tablet 150 MG PO (22:55)
[2021-04-06] MEDS: Phenobarbital 32.4 MG Tablet 64.8 MG PO ×6 (00:26→19:52)
[2021-04-06 00:30] VITALS: BP 148/80; PULSE 86; RESP 18; TEMP 36.6; O2SAT 96
[2021-04-06 04:30] VITALS: BP 130/77; PULSE 78; RESP 18; TEMP 36.7; O2SAT 99
[2021-04-06] MEDS: Ondansetron 8 MG Tablet PO ×3 (04:54→16:35)
[2021-04-06] MEDS: hydrOXYzine PAM 25 MG Capsule 50 MG PO ×2 (04:54→15:25)
[2021-04-06] MEDS: Ibuprofen 400 MG Tablet PO ×2 (04:54→19:52)
--- NOTE | 2021-04-06 05:55 | US_ITS ---
STUDY: ABDOMINAL ULTRASOUND - RIGHT UPPER QUADRANT REASON FOR VISIT: Female, 50 years old ALCOHOLIC HEPATITIS TECHNIQUE: Ultrasound evaluation of the right upper quadrant was performed with real-time and static mcpherson-scale imaging. TECHNICAL QUALITY: Adequate. COMPARISON: None. FINDINGS: Liver: The liver measures cm. There is normal echogenicity of the liver. The bile ducts are within normal limits. There is hepatic color flow. The direction of portal flow is hepatopetal. There is no demonstrated mass lesion. Gallbladder: Normal distended gallbladder. The gallbladder wall measures 2.0 mm. There is a negative sonographic Franco''s sign. There is no pericholecystic fluid. There are no gallstones. Common Bile Duct (C.B.D.): The common bile duct measures 1.6 mm. Pancreas: Normal size of the head, body and tail of the pancreas. There is normal echogenicity of the pancreas. There is no demonstrated pancreatic mass or cyst. Right Kidney: Normal size of the right kidney. The right kidney measures 9.9 cm x 4.4 cm x 3.6 cm. Normal renal cortex. The right cortex measures 1.4 cm. There is no demonstrated renal mass or cyst. There is no right hydronephrosis. US/Abdomen Limited IMPRESSION: Normal right upper quadrant ultrasound examination. Electronically Signed: Jerry Mckay MD at 8:18 EDT , Service support ,
--- NOTE | 2021-04-06 08:04 | PCM.PN.HOSP ---
Subjective Subjective Patient is a 50-year-old lady with history of chronic alcohol dependence admitted with acute alcohol withdrawal Objective Data Objective Data Vital Signs: Vital Signs Temp Pulse Resp BP Pulse Ox 98.1 F 78 18 130/77 H 99 04/06/21 04:30 04/06/21 04:30 04/06/21 04:30 04/06/21 04:30 04/06/21 04:30 Oxygen Delivery Method Room Air Weight: 76.2 kg Body Mass Index (BMI) 27.9 Intake & Output: Intake and Output for Last 24 Hours 04/04/21 04/05/21 04/06/21 23:59 23:59 23:59 Intake Total 240 / 480 1320.42 / 1320.42 Balance 240 / 480 1320.42 / 1320.42 Lab / Micro Data Result Diagrams: 04/05/21 15:46 04/05/21 15:46 Labs: Laboratory Results - last 24 hr 04/05/21 15:40: Urine Opiates Screen NEGATIVE, Urine Methadone Screen NEGATIVE, Ur Barbiturates Screen NEGATIVE, Ur Phencyclidine Scrn NEGATIVE, Ur Amphetamines Screen NEGATIVE, U Methamphetamin-MDMA NEGATIVE, U Benzodiazepines Scrn NEGATIVE, Urine Cocaine Screen NEGATIVE, U Cannabinoids Screen NEGATIVE, Ur Drug Screen Comment 04/05/21 15:40: Urine Color Yellow, Urine Clarity Clear, Urine pH 6.0, Ur Specific [place] 1.010, Urine Protein Negative, Urine Glucose (UA) Normal, Urine Ketones Negative, Urine Occult Blood Negative, Urine Nitrite Negative, Urine Bilirubin Negative, Urine Urobilinogen Normal, Ur Leukocyte Esterase Negative, Urine RBC 0 SEEN, Urine WBC 0 SEEN, Ur Squamous Epith Cells 0-5 SEEN, Urine Bacteria 0 SEEN, Urine Mucus 0 SEEN 04/05/21 15:46: WBC 6.1, RBC 4.27, Hgb 13.9, Hct 41.1, MCV 96.3, MCH 32.6 H, MCHC 33.8, RDW Std Deviation 49.4 H, RDW Coeff of Cecille 14.0, Plt Count 219, MPV 8.7, Immature Gran % (Auto) 2.000 H, Neut % (Auto) 19.5 L, Lymph % (Auto) 75.0 H, [place] % (Auto) 2.8, Eos % (Auto) 0.2, Baso % (Auto) 0.5, Absolute Neuts (auto) 1.2 L, Absolute Lymphs (auto) 4.59 H, Nucleated RBC % 0 04/05/21 15:46: Sodium 139, Potassium 3.6, Chloride 105, Carbon Dioxide 26.0, Anion Gap 8, BUN 6 L, Creatinine 0.54 L, Estim Creat Clear Calc 109.66, Est GFR (MDRD) Af Amer 154, Est GFR (MDRD) Non-Af 127, BUN/Creatinine Ratio 11.2, Glucose 89, Calcium 8.9, Total Bilirubin 0.40, AST 22, ALT 20, Alkaline Phosphatase 120 H, Total Protein 8.1, Albumin 3.8, Globulin 4.3 H, Albumin/Globulin Ratio 0.9 04/05/21 15:46: Ethyl Alcohol 267.0 04/05/21 16:45: PT 12.2, INR 1.0 Micro: Microbiology 04/05/21 15:40 Nasal Secretion SARS-CoV-2 Antigen (Rapid) - Final Physical Exam Narrative GENERAL: cooperative HEENT: Atraumatic; EYES; Anicteric, Normal Conjunctiva NECK; supple, normal thyroid, RESPIRATORY: Diminished to auscultation CARDIOVASCULAR: Regular S1 S2, GI: soft, normoactive bowel sounds, : No Renal angle tenderness; EXTREMITIES: No edema, no clubbing, MUSCULOSKELETAL: no muscle waisting NEURO: Awake; no lateralizing signs. SKIN: No Rash PSYCH; Flat affect Assessment & Plan Assessment/Plan (1) Alcohol dependence with withdrawal: QUALIFIERS: Complication of substance-induced condition: with unspecified complication Qualified Code(s): F10.239 - Alcohol dependence with withdrawal, unspecified PLAN: Patient is a 50-year-old lady with history of chronic alcohol dependence admitted with acute alcohol withdrawal 1. Acute alcohol withdrawal ?Admitted to regular nursing floor currently being managed with phenobarb taper. Patient being monitored with regard to response to therapy with a CIWA score 2. 2. Acute alcohol hepatitis ?Supportive care 3. Schizoaffective disorder ?Patient is on Seroquel as well as trazodone did continue 4. GERD ?Patient on PPI 5. Essential hypertension ?Patient is on amlodipine did continue 6. Tobacco dependence - Counseled on cessation, offered nicotine patch for tobacco cravings 7. DVT prophylaxis ?Lovenox CODE STATUS full CODE Charges/Coding Visit Charges Inpatient E&M: 79875 Subs Hosp L2
[2021-04-06] MEDS: Enoxaparin 40 MG/0.4 ML Syringe SC (08:53)
[2021-04-06] MEDS: Folic Acid 1 MG Tablet PO (08:54)
[2021-04-06] MEDS: amLODIPine 10 MG Tablet PO (08:54)
[2021-04-06] MEDS: Multivitamins,Therapeutic Tablet 1 TABLET PO (08:54)
[2021-04-06] MEDS: QUEtiapine 100 MG Tablet 150 MG PO ×2 (08:55→19:53)
[2021-04-06] MEDS: Thiamine Hydrochloride 100 MG Tablet PO (08:55)
[2021-04-06] MEDS: Pantoprazole Sodium 40 MG Tablet PO (08:55)
[2021-04-06 09:49] VITALS: BP 132/76; PULSE 84; RESP 16; TEMP 36.1; O2SAT 97
--- NOTE | 2021-04-06 10:31 | ADDICTION ---
This inspector automatic typewriter met with PT to conduct ASAM, MSE, AUDIT assessments and to plan for d/c. PT A+Ox4 and participated actively. All assessments completed, faxed to [facility] and placed in PT's chart. PT plans to f/u with individual counselor at [facility] for follow-up counseling services. PT did not indicate a need for transportation post d/c from [facility].
[2021-04-06 15:18] VITALS: BP 130/84; PULSE 95; RESP 16; TEMP 36.8; O2SAT 97
[2021-04-06 19:55] VITALS: BP 129/81; PULSE 78; RESP 16; TEMP 36.6; O2SAT 97
[2021-04-06] MEDS: traZODone 100 MG Tablet PO (22:47)
[2021-04-07] MEDS: Phenobarbital 32.4 MG Tablet 64.8 MG PO ×6 (01:02→20:51)
[2021-04-07 02:45] VITALS: BP 127/75; PULSE 76; RESP 16; TEMP 36.4; O2SAT 97
[2021-04-07] MEDS: Ondansetron 8 MG Tablet PO (07:06)
--- NOTE | 2021-04-07 07:36 | PN.HOSP_ITS ---
Subjective Subjective Patient seen still remains tremulous. Currently on phenobarb taper. Patient is scheduled to be evaluated by the [facility] counseling services Objective Data Objective Data Vital Signs: Vital Signs Temp Pulse Resp BP Pulse Ox 97.5 F L 76 16 127/75 H 97 04/07/21 02:45 04/07/21 02:45 04/07/21 02:45 04/07/21 02:45 04/07/21 02:45 Oxygen Delivery Method Room Air Weight: 76.2 kg Body Mass Index (BMI) 27.9 Intake & Output: Intake and Output for Last 24 Hours 04/05/21 04/06/21 04/07/21 23:59 23:59 23:59 Intake Total 240 / 480 2280.42 / 2780.42 750 / 750 Balance 240 / 480 2280.42 / 2780.42 750 / 750 Lab / Micro Data Result Diagrams: 04/05/21 15:46 04/05/21 15:46 Micro: Microbiology 04/05/21 15:40 Nasal Secretion SARS-CoV-2 Antigen (Rapid) - Final Radiography Diagnostic Testing: Radiology Impression Abdomen Ultrasound 04/06/21 05:55 IMPRESSION: Normal right upper quadrant ultrasound examination. Electronically Signed: Jerry Mckay MD at 8:18 EDT , Service support , Physical Exam Narrative GENERAL: cooperative HEENT: Atraumatic; EYES; Anicteric, Normal Conjunctiva NECK; supple, normal thyroid, RESPIRATORY: Diminished to auscultation CARDIOVASCULAR: Regular S1 S2, GI: soft, normoactive bowel sounds, : No Renal angle tenderness; EXTREMITIES: No edema, no clubbing, MUSCULOSKELETAL: no muscle waisting NEURO: Awake; no lateralizing signs. SKIN: No Rash PSYCH; Flat affect Assessment & Plan Assessment/Plan (1) Alcohol dependence with withdrawal: QUALIFIERS: Complication of substance-induced condition: with unspecified complication Qualified Code(s): F10.239 - Alcohol dependence with withdrawal, unspecified PLAN: Patient is a 50-year-old lady with history of chronic alcohol de pendence admitted with acute alcohol withdrawal 1. Acute alcohol withdrawal ?Admitted to regular nursing floor currently being managed with phenobarb taper. Patient being monitored with regard to response to therapy with a CIWA score ?04/07/2021; Patient seen still remains tremulous. Currently on phenobarb taper. Patient is scheduled to be evaluated by the [facility] counseling services 2. 2. Acute alcohol hepatitis ?Supportive care 3. Schizoaffective disorder ?Patient is on Seroquel as well as trazodone did continue 4. GERD ?Patient on PPI 5. Essential hypertension ?Patient is on amlodipine did continue 6. Tobacco dependence - Counseled on cessation, offered nicotine patch for tobacco cravings 7. DVT prophylaxis ?Lovenox CODE STATUS full CODE Charges/Coding Visit Charges Inpatient E&M: 06738 Subs Hosp L2
[2021-04-07] MEDS: amLODIPine 10 MG Tablet PO (08:31)
[2021-04-07] MEDS: Folic Acid 1 MG Tablet PO (08:32)
[2021-04-07] MEDS: Enoxaparin 40 MG/0.4 ML Syringe SC (08:32)
[2021-04-07] MEDS: Multivitamins,Therapeutic Tablet 1 TABLET PO (08:32)
[2021-04-07] MEDS: Thiamine Hydrochloride 100 MG Tablet PO (08:32)
[2021-04-07] MEDS: Pantoprazole Sodium 40 MG Tablet PO (08:32)
[2021-04-07] MEDS: QUEtiapine 100 MG Tablet 150 MG PO ×2 (08:33→22:30)
[2021-04-07] MEDS: Ibuprofen 400 MG Tablet PO ×2 (08:45→19:06)
[2021-04-07] MEDS: hydrOXYzine PAM 25 MG Capsule 50 MG PO (08:50)
[2021-04-07] MEDS: Dicyclomine 10 MG Capsule 20 MG PO (08:51)
[2021-04-07] MEDS: Mag Hydrox/Al Hydrox/Simeth 30 ML UDC PO (08:52)
[2021-04-07 08:53] VITALS: BP 145/81; PULSE 89; RESP 18; TEMP 35.7; O2SAT 100
[2021-04-07] MEDS: Acetaminophen 500 MG Tablet PO (12:02)
[2021-04-07 15:50] VITALS: BP 131/72; PULSE 85; RESP 18; TEMP 35.9; O2SAT 100
[2021-04-07] MEDS: Lidocaine 5% Patch 1 PATCH TOPICAL (15:55)
[2021-04-07] MEDS: Haloperidol 5 MG Tablet 10 MG PO ×2 (15:55→22:29)
[2021-04-07] MEDS: Benztropine Mesylate 0.5 MG TABLET PO ×2 (15:55→22:29)
[2021-04-07 20:47] VITALS: BP 153/89; PULSE 83; RESP 18; TEMP 36.5; O2SAT 97
[2021-04-07] MEDS: traZODone 100 MG Tablet PO (20:52)
[2021-04-08 00:31] VITALS: BP 149/91; PULSE 80; RESP 16; TEMP 36.3; O2SAT 98
[2021-04-08] MEDS: Phenobarbital 32.4 MG Tablet 64.8 MG PO ×3 (00:33→12:55)
[2021-04-08 06:40] VITALS: BP 152/90; PULSE 81; RESP 16; TEMP 36.6; O2SAT 100
[2021-04-08] MEDS: hydrOXYzine PAM 25 MG Capsule 50 MG PO (06:53)
--- NOTE | 2021-04-08 07:29 | PCM.DC.SUM ---
Providers Date of Admission: 04/05/21 Primary Care Physician: Dr. Janna Best MD Reason For Visit: ACUTE ALCOHOL WITHDRAWAL SYNDROME Diagnosis Discharge Diagnosis (1) Alcohol dependence with withdrawal: Status: Acute Code(s): F10.239 - Alcohol dependence with withdrawal, unspecified Qualifiers: Complication of substance-induced condition: with unspecified complication Qualified Code(s): F10.239 - Alcohol dependence with withdrawal, unspecified Medications at Discharge Home Medications benztropine 0.5 mg PO BID 10/24/15 citalopram 40 mg PO DAILY 10/24/15 haloperidol 10 mg PO BID 10/24/15 buspirone 15 mg PO BID 03/19/18 albuterol sulfate 1 - 2 puff INHALATION Q4H PRN PRN 05/08/20 pantoprazole [Protonix] 40 mg PO DAILY 03/05/21 quetiapine [Seroquel XR] 300 mg PO QHS 03/05/21 trazodone 150 mg PO QHS 03/05/21 amlodipine 10 mg PO DAILY 04/05/21 multivitamin 1 each PO DAILY 04/05/21 Hospital Course Summary of Care Provided Minutes Spent on Discharge: 35 Hospital Course: Patient is a 50-year-old lady with history of chronic alcohol dependence admitted with acute alcohol withdrawal 1. Acute alcohol withdrawal ?Admitted to regular nursing floor currently being managed with phenobarb taper. Patient being monitored with regard to response to therapy with a CIWA score ?04/07/2021; Patient seen still remains tremulous. Currently on phenobarb taper. Patient is scheduled to be evaluated by the [facility] counseling services -04/08/2021. Patient condition is stabilized for discharge. Plan is for patient to call [facility] counseling services for subsequent care 2. 2. Acute alcohol hepatitis ?Supportive care 3. Schizoaffective disorder ?Patient is on Seroquel as well as trazodone did continue 4. GERD ?Patient on PPI 5. Essential hypertension ?Patient is on amlodipine did continue 6. Tobacco dependence - Counseled on cessation, offered nicotine patch for tobacco cravings 7. DVT prophylaxis ?Lovenox Physical Exam Narrative GENERAL: cooperative HEENT: Atraumatic; EYES; Anicteric, Normal Conjunctiva NECK; supple, normal thyroid, RESPIRATORY: Diminished to auscultation CARDIOVASCULAR: Regular S1 S2, GI: soft, normoactive bowel sounds, : No Renal angle tenderness; EXTREMITIES: No edema, no clubbing, MUSCULOSKELETAL: no muscle waisting NEURO: Awake; no lateralizing signs. SKIN: No Rash PSYCH; Flat affect Weight / BMI Weight Weight: 76.2 kg Body Mass Index (BMI) 27.9 ABG / Lab / Microbiology Data Result Diagrams: 04/05/21 15:46 04/05/21 15:46 Microbiology: Microbiology 04/05/21 15:40 Nasal Secretion SARS-CoV-2 Antigen (Rapid) - Final D/C Instructions Discharge Diet: No restrictions Discharge Activity: Return to Normal Activity Call your doctor if you observe: Fever of 101 or Higher, Shortness of breath, Fainting spells and Chest pain Meaningful Use Info Meaningful Use Diagnoses (Choose all that apply): None applicable Discharge Plan Admission Admit Date/Time: 04/05/21 15:04 Attending Provider: Hany Blanchard Primary Care Provider: Janna Best Discharge Orders/Prescriptions Prescriptions: Continued citalopram 40 MG tablet 40 mg PO DAILY RF: 0 benztropine 2 MG tablet 0.5 mg PO BID RF: 0 haloperidol 2 MG tablet 10 mg PO BID RF: 0 buspirone 15 MG tablet 15 mg PO BID RF: 0 albuterol sulfate 1 INHALER inhaler 1 - 2 puff INHALATION Q4H PRN PRN (Reason: Wheezing) RF: 0 pantoprazole [Protonix] 40 mg Tablet,Delayed Release (Dr/Ec) 40 mg PO DAILY RF: 0 trazodone 150 mg Tablet 150 mg PO QHS RF: 0 quetiapine [Seroquel XR] 300 mg Tablet Extended Release 24 Hr 300 mg PO QHS RF: 0 multivitamin 1 EACH tablet 1 each PO DAILY RF: 0 amlodipine 5 MG tablet 10 mg PO DAILY RF: 0 Referrals / Follow Up: Janna Best MD [Primary Care Provider] - Disposition Disposition (needs filled in before D/C Order can be placed): Home, Self Care Charges/Coding Visit Charges Inpatient E&M: 87248 Disch Hosp
[2021-04-08] MEDS: Benztropine Mesylate 0.5 MG TABLET PO (09:50)
[2021-04-08] MEDS: QUEtiapine 100 MG Tablet 150 MG PO (09:51)
[2021-04-08] MEDS: Multivitamins,Therapeutic Tablet 1 TABLET PO (09:51)
[2021-04-08] MEDS: Thiamine Hydrochloride 100 MG Tablet PO (09:53)
[2021-04-08] MEDS: Folic Acid 1 MG Tablet PO (09:54)
[2021-04-08] MEDS: Pantoprazole Sodium 40 MG Tablet PO (09:54)
[2021-04-08] MEDS: amLODIPine 10 MG Tablet PO (09:55)
[2021-04-08] MEDS: Haloperidol 5 MG Tablet 10 MG PO (09:56)
[2021-04-08] MEDS: Enoxaparin 40 MG/0.4 ML Syringe SC (09:57)
[2021-04-08] MEDS: Lidocaine 5% Patch 1 PATCH TOPICAL (09:57)
[2021-04-08 10:03] VITALS: BP 158/99; PULSE 84; RESP 18; TEMP 36.8; O2SAT 100
[2021-04-08 14:14] VITALS: BP 149/97; PULSE 88; RESP 18; O2SAT 100
== END 2021-04-08 14:20 | disposition home or self-care (01) | DRG 897 ==
LOC: ED 15:09 → MS2 15:22
PROVIDERS: Admitting Provider Internal Medicine; Emergency Provider Emergency Medicine; PCP Internal Medicine; Visit Provider Internal Medicine
DX: F10.229 Alcohol dependence with intoxication, unspecified (principal); F10.239 Alcohol dependence with withdrawal, unspecified; Z23 Encounter for immunization; F43.10 Post-traumatic stress disorder, unspecified; I10 Essential (primary) hypertension; F25.9 Schizoaffective disorder, unspecified; F17.210 Nicotine dependence, cigarettes, uncomplicated; Y90.8 Blood alcohol level of 240 mg/100 ml or more; J45.909 Unspecified asthma, uncomplicated; K21.9 Gastro-esophageal reflux disease without esophagitis; F31.9 Bipolar disorder, unspecified; G89.29 Other chronic pain; Z79.899 Other long term (current) drug therapy; K70.10 Alcoholic hepatitis without ascites
CPT/HCPCS: 0011A; 36415; 76705; 80053; 80307; 81001; 82077; 85025; 85610; 87426; 91301; 99284; 99406; J7120; A4216

== ENCOUNTER 2024-04-11 18:16 | Emergency (ER) | payer MEDICARE, SELFPAY ==
[2024-04-11 18:16] VITALS: BP 113/80; PULSE 106; RESP 20; TEMP 36.4; O2SAT 95
[2024-04-11 18:18] VITALS: BMI 31.1
--- NOTE | 2024-04-11 18:30 | RAD_ITS ---
INDICATION: FALL EXAMINATION/TECHNIQUE: X-RAY - RIGHT XR Ankle 2 Views 2 VIEWS COMPARISON: No relevant prior comparison study available FINDINGS: BONES: Comminuted fracture distal tibia to the medial malleolus, with minimal 3 to 4 mm of lateral displacement of the distal component. Suspect nondisplaced fracture of the distal tibia posterior malleolus, not well-visualized on these 2 views. Acute oblique fracture distal fibula with 8 mm of posterior and minimal lateral displacement of the distal fragment . JOINTS: Asymmetry of the ankle mortise is widened superomedially. The talus is partially displaced posterior in relation to the tibia with widening of the superior aspect of the tibiotalar joint. SOFT TISSUES: Diffuse soft tissue swelling. RAD/Ankle 2 Views IMPRESSION: Acute fractures of the distal tibia and fibula with subluxation at the tibiotalar joint. Electronically Signed: Meena Matute MD at 19:38 EDT ,
--- NOTE | 2024-04-11 19:27 | EKG12_ITS ---
Test Reason : LOWER EXT Blood Pressure : / mmHG Vent. Rate : 091 BPM Atrial Rate : 091 BPM P-R Int : 144 ms QRS Dur : 080 ms QT Int : 404 ms P-R-T Axes : 039 025 074 degrees QTc Int : 496 ms Normal sinus rhythm ANTERIOR T WAVE INVERSION Abnormal ECG Confirmed by BARBARA PRICE, ANDRES ([id number]), editorial director ANTON PARIKH ([id number]) on 04/14/2024 1:48:01 PM Referred By: Confirmed By:ANDRES JIMENEZ MD
--- NOTE | 2024-04-11 20:02 | EDS_ITS ---
HPI <SAGRARIO Montero - Last Filed: 04/11/24 21:55> History of Present Illness Chief Complaint: Lower Extremity Injury Narrative Narrative: Patient is a 53-year-old female with history of alcohol abuse, PTSD, schizoaffective disorder that presents to the emergency department with complaints of mechanical fall, secondary to dizziness. Patient is she was dizzy multiple hours ago, she fell in the kitchen. Pay states she does drink daily when she does not drink she shakes. Patient states that when her boyfriend got home, they put her in a chair, she did continue to drink alcohol. Patient states that she drinks a sixpack of mikes hard lemonade daily. Denies any other injury. However she does have abrasion to her face. [facility] <SAGRARIO Montero - Last Filed: 04/11/24 21:55> [facility] Medical History Smoker Asthma GERD (gastroesophageal reflux disease) Kidney disease Chronic pain Depression Anxiety Bipolar disorder Substance abuse Hypertension Alcohol abuse Schizoaffective disorder PTSD (post-traumatic stress disorder) Home Medications ?Medication ?Instructions ?Recorded ?Last Taken ?Type benztropine 2 mg tablet 0.5 mg PO BID cramps 10/24/15 06/21/20 10:00 History citalopram 40 mg tablet 40 mg PO DAILY depression 10/24/15 06/21/20 10:00 History haloperidol 2 mg tablet 10 mg PO BID anxiety 10/24/15 06/21/20 10:00 History buspirone 15 mg tablet 15 mg PO BID anxiety 03/19/18 06/21/20 10:00 History albuterol sulfate 90 mcg/actuation 1 - 2 puff inhalation Q4H PRN PRN 05/08/20 Unknown History aerosol inhaler Wheezing pantoprazole 40 mg tablet,delayed 40 mg PO DAILY gerd 03/05/21 Unknown History release (Protonix) quetiapine 300 mg tablet,extended 300 mg PO QHS depression 03/05/21 Unknown History release 24 hr (Seroquel XR) trazodone 150 mg tablet 150 mg PO QHS depression 03/05/21 Unknown History amlodipine 5 mg tablet 10 mg PO DAILY bp 04/05/21 Unknown History multivitamin 1 each PO DAILY health 04/05/21 Unknown History Allergy/AdvReac Type Severity Reaction Status Date / Time aripiprazole (From Abilify) Allergy Rash Verified 04/11/24 18:16 risperidone (From Risperdal) Allergy Unknown Verified 04/11/24 18:16 sulfamethoxazole (From Allergy Rash Verified 04/11/24 18:16 Septra) trimethoprim (From Septra) Allergy Rash Verified 04/11/24 18:16 gabapentin (From Neurontin) AdvReac Upset Verified 04/11/24 18:16 Stomach prednisone AdvReac skin Verified 04/11/24 18:16 hurts Family History Father Alcoholism Aunt Depression Aunt No problems noted. Social History Smoking Status: Current every day smoker tobacco type: cigarettes ROS <SAGRARIO Montero - Last Filed: 04/11/24 21:55> ROS ED ROS Narrative Constitutional: Negative for fever, chills, weight loss, weakness Eyes: Negative for vision loss, vision change, double vision ENT: Negative for any sore throat, ear pain, congestion Cardiovascular: Negative for any chest pain, tightness, palpitations Respiratory: Negative for any cough, sputum production, hemoptysis, dyspnea, dyspnea on exertion, orthopnea Gastrointestinal: Negative for any abdominal pain, nausea, vomiting, diarrhea, constipation, blood in stool, blood in vomit : Negative for any urinary frequency, dysuria, retention, blood in urine Muscle skeletal: Negative for any neck pain, back pain. Positive for pain, deformity to the right ankle. Neurological: Negative for any headache, syncope, dizziness Skin: Negative for any rashes, itching, abrasions, lacerations Psychiatric: Negative for any depression, anxiety, stress, suicidal ideation, homicidal ideation Hematologic: Negative for any excessive bruising, easy bleeding EXAM <SAGRARIO Montero - Last Filed: 04/11/24 21:55> Physical Exam Narrative Exam Narrative: Vital signs reviewed. Patient is alert and oriented, patient does appear intoxicated. Patient is slurring her words. HEET: Head normocephalic atraumatic, TMs clear bilaterally. Posterior pharynx is clear, moist mucous membranes. Nares clear bilaterally. Pupils slow to respond however patient does have an abrasion to her bridge of her nose, forehead. There is no hemotympanum, septal hematoma Neck: Supple with no lymphadenopathy or tenderness. No signs of meningismus. Cardiac: Regular rate and rhythm no murmurs gallops or rubs, equal peripheral pulses bilaterally. Respiratory: Lungs clear to auscultation bilaterally. No chest tenderness. Abdomen: Soft, nontender, nondistended. No abdominal bruit or pulsatile masses. No hepatosplenomegaly Extremities: Patient has obvious deformity of the right ankle. Ecchymosis, edema noted. +2 pedal pulse. His neurovascular intact to the distal toes. Neuro: Cranial nerves II through XII intact, no focal neurological deficits. Skin: Clean dry and intact with no rash, purpura, petechiae, vesicles or pustules. Backs/flank: No CVA tenderness, no midline spinal tenderness, no deformity. Psych: Normal mood and affect. No SI, HI or acute psychosis. Const Vital Signs: 04/11/24 18:16 04/11/24 20:16 04/11/24 22:00 Temperature 97.6 F L Temperature Source Temporal Pulse Rate 106 H 99 101 H Respiratory Rate 20 H 18 18 Blood Pressure 113/80 133/70 H 157/111 H Blood Pressure Mean 91 91 126 Pulse Ox 95 94 94 Oxygen Delivery Method Room Air Room Air Room Air EtCo2 (Normal 35-45 , high quality CPR 10-20 & ROSC>/=40mmHg 04/11/24 23:13 04/11/24 23:13 04/12/24 00:00 Temperature Temperature Source Pulse Rate 101 H 101 H Respiratory Rate 21 H 27 H Blood Pressure 185/107 H 163/88 H Blood Pressure Mean 113 Pulse Ox 95 96 Oxygen Delivery Method Room Air Room Air EtCo2 (Normal 35-45 , high quality CPR 10-20 & ROSC>/=40mmHg 38 <Dr. Carlyle Willingham, DO - Last Filed: 04/12/24 00:51> Physical Exam Const Vital Signs: 04/11/24 18:16 04/11/24 20:16 04/11/24 22:00 Temperature 97.6 F L Temperature Source Temporal Pulse Rate 106 H 99 101 H Respiratory Rate 20 H 18 18 Blood Pressure 113/80 133/70 H 157/111 H Blood Pressure Mean 91 91 126 Pulse Ox 95 94 94 Oxygen Delivery Method Room Air Room Air Room Air EtCo2 (Normal 35-45 , high quality CPR 10-20 & ROSC>/=40mmHg 04/11/24 23:13 04/11/24 23:13 04/12/24 00:00 Temperature Temperature Source Pulse Rate 101 H 101 H Respiratory Rate 21 H 27 H Blood Pressure 185/107 H 163/88 H Blood Pressure Mean 113 Pulse Ox 95 96 Oxygen Delivery Method Room Air Room Air EtCo2 (Normal 35-45 , high quality CPR 10-20 & ROSC>/=40mmHg 38 MDM <SAGRARIO Montero - Last Filed: 04/11/24 21:55> [facility] Lab Data Labs: Laboratory Results - last 24 hr 04/11/24 07:59 WBC 4.5 RBC 3.93 L Hgb 13.3 Hct 39.7 MCV 101.0 H MCH 33.8 H MCHC 33.5 RDW Std Deviation 57.7 H RDW Coeff of Cecille 15.5 H Plt Count TNP MPV 9.6 Immature Gran % (Auto) 0.700 Neut % (Auto) 41.5 L Lymph % (Auto) 50.6 H [place] % (Auto) 6.1 Eos % (Auto) 0.2 Baso % (Auto) 0.9 Absolute Neuts (auto) 1.9 L Absolute Lymphs (auto) 2.25 Nucleated RBC % 0 Differential Comment SCANNED Reactive Lymphocytes 1+ Toxic Granulation 2+ Platelet Estimate ADEQUATE Sodium 134 L Potassium 3.1 L Chloride 99 Carbon Dioxide 24.0 Anion Gap 11 BUN 3 L Creatinine 0.61 Estim Creat Clear Calc 112.06 Est GFR (MDRD) Af Amer 131 Est GFR (MDRD) Non-Af 108 BUN/Creatinine Ratio 4.9 L Glucose 112 H Calcium 9.2 Total Bilirubin 0.50 AST 36 ALT 37 Alkaline Phosphatase 181 H Troponin I High Sens 4 Total Protein 7.7 Albumin 3.6 Globulin 4.1 Albumin/Globulin Ratio 0.9 Lipase 25 Ethyl Alcohol 211.0 Radiography Diagnostic Testing: Clinical Impression(s) from Imaging Studies Ankle X-Ray 04/11/24 18:30 IMPRESSION: Acute fractures of the distal tibia and fibula with subluxation at the tibiotalar joint. Electronically Signed: Meena Matute MD at 19:38 EDT , Brain CT 04/11/24 20:30 IMPRESSION: No acute abnormality. Periventricular hypodensities most likely chronic microvascular ischemic disease, relatively prominent for patient stated age. Electronically Signed: Meena Matute MD at 21:38 EDT Reading Location ID and State: [facility] / [place] Tel , Service support , Cervical Spine CT 04/11/24 20:30 IMPRESSION: No evidence of fracture or subluxation. Straightening of the normal curve may be due to positioning or muscle spasm. Postsurgical changes and degenerative changes. Questionable distal left clavicle fracture on the corporation pilot view, radiographic correlation may be helpful if clinically indicated. Electronically Signed: Meena Matute MD at 21:55 EDT Reading Location ID and State: [facility] / [place] Tel , Service support , Facial/Sinus 04/11/24 20:30 IMPRESSION: No evidence of fracture. Electronically Signed: Meena Matute MD at 22:00 EDT Reading Location ID and State: [facility] / [place] Tel , Service support , Lower Extremity CT 04/11/24 20:30 IMPRESSION: Acute fractures distal tibia and fibula, trimalleolar fracture, with displacement and subluxation of the tibiotalar joint. Tiny intra-articular fragments. Electronically Signed: Meena Matute MD at 22:11 EDT Reading Location ID and State: [facility] / [place] Tel , Service support , Treatment and Re-Evaluation :: Differential diagnosis includes however is not limited to: Foot fracture, ankle fracture, ankle sprain, cardiac disease, ACS, HI, electrolyte abnormality Patient is alert and orient x 4, patient does appear slightly intoxicated however vital signs are stable. Patient did have deformity to the right ankle. Preliminary x-rays show acute fracture of the distal tibia and fibula with subluxation at the tibiotalar joint. Patient will receive basic laboratory values including CBC CMP lipase as well as a troponin. EKG was completed and normal. Patient was placed in a short leg sugar-tong posterior splint to the right leg. Patient is neurovascular intact post splint. Patient will now receive CT scans of the ankle, brain cervical spine and facial bones. All radiologic examinations were read, reviewed by the emergency department attending. From these reads, a plan of care will be put in place. <Dr. Carlyle Willingham, DO - Last Filed: 04/12/24 00:51> [facility] Lab Data Labs: Laboratory Results - last 24 hr 04/11/24 07:59 WBC 4.5 RBC 3.93 L Hgb 13.3 Hct 39.7 MCV 101.0 H MCH 33.8 H MCHC 33.5 RDW Std Deviation 57.7 H RDW Coeff of Cecille 15.5 H Plt Count TNP MPV 9.6 Immature Gran % (Auto) 0.700 Neut % (Auto) 41.5 L Lymph % (Auto) 50.6 H [place] % (Auto) 6.1 Eos % (Auto) 0.2 Baso % (Auto) 0.9 Absolute Neuts (auto) 1.9 L Absolute Lymphs (auto) 2.25 Nucleated RBC % 0 Differential Comment SCANNED Reactive Lymphocytes 1+ Toxic Granulation 2+ Platelet Estimate ADEQUATE Sodium 134 L Potassium 3.1 L Chloride 99 Carbon Dioxide 24.0 Anion Gap 11 BUN 3 L Creatinine 0.61 Estim Creat Clear Calc 112.06 Est GFR (MDRD) Af Amer 131 Est GFR (MDRD) Non-Af 108 BUN/Creatinine Ratio 4.9 L Glucose 112 H Calcium 9.2 Total Bilirubin 0.50 AST 36 ALT 37 Alkaline Phosphatase 181 H Troponin I High Sens 4 Total Protein 7.7 Albumin 3.6 Globulin 4.1 Albumin/Globulin Ratio 0.9 Lipase 25 Ethyl Alcohol 211.0 Radiography Diagnostic Testing: Clinical Impression(s) from Imaging Studies Ankle X-Ray 04/11/24 18:30 IMPRESSION: Acute fractures of the distal tibia and fibula with subluxation at the tibiotalar joint. Electronically Signed: Meena Matute MD at 19:38 EDT , Brain CT 04/11/24 20:30 IMPRESSION: No acute abnormality. Periventricular hypodensities most likely chronic microvascular ischemic disease, relatively prominent for patient stated age. Electronically Signed: Meena Matute MD at 21:38 EDT Reading Location ID and State: [facility] / [place] Tel , Service support , Cervical Spine CT 04/11/24 20:30 IMPRESSION: No evidence of fracture or subluxation. Straightening of the normal curve may be due to positioning or muscle spasm. Postsurgical changes and degenerative changes. Questionable distal left clavicle fracture on the corporation pilot view, radiographic correlation may be helpful if clinically indicated. Electronically Signed: Meena Matute MD at 21:55 EDT Reading Location ID and State: [facility] / [place] Tel , Service support , Facial/Sinus 04/11/24 20:30 IMPRESSION: No evidence of fracture. Electronically Signed: Meena Matute MD at 22:00 EDT Reading Location ID and State: [facility] / [place] Tel , Service support , Lower Extremity CT 04/11/24 20:30 IMPRESSION: Acute fractures distal tibia and fibula, trimalleolar fracture, with displacement and subluxation of the tibiotalar joint. Tiny intra-articular fragments. Electronically Signed: Meena Matute MD at 22:11 EDT , Treatment and Re-Evaluation :: Differential diagnosis includes however is not limited to: Foot fracture, ankle fracture, ankle sprain, cardiac disease, ACS, HI, electrolyte abnormality Patient is alert and orient x 4, patient does appear slightly intoxicated however vital signs are stable. Patient did have deformity to the right ankle. Preliminary x-rays show acute fracture of the distal tibia and fibula with subluxation at the tibiotalar joint. Patient will receive basic laboratory values including CBC CMP lipase as well as a troponin. EKG was completed and normal. Patient was placed in a short leg sugar-tong posterior splint to the right leg. Patient is neurovascular intact post splint. Patient will now receive CT scans of the ankle, brain cervical spine and facial bones. All radiologic examinations were read, reviewed by the emergency department attending. From these reads, a plan of care will be put in place. ED attending note: I evaluated the patient in conjunction with the JAYDE. I agree with his/her statements and above findings. I have personally performed a face to face assessment of the patient and have reviewed the JAYDE Note. I performed a substantive portion of the visit including all aspects of the following. I personally saw the patient performed chart review, physical exam, reviewed labs, imaging (if obtained), and formulated a treatment and management plan. 53-year-old female presents after mechanical fall while intoxicated with right ankle pain. Notes head trauma and dizziness as well. We pursued a broad lab and imaging workup to rule out signs of myocardial ischemia, anemia, electro disturbance, intoxication, pancreatitis, traumatic injury to the head, neck, face and ankle. The amalgamation of the studies suggested a severe right ankle fracture. X-rays right ankle was read reviewed person by myself and showed evidence of at least a bimalleolar fracture. Given uncertainty we did pursue a CT scan of the ankle which showed concern for a distal tib-fib fracture as well as a trimalleolar fracture. I did discuss the case with the orthopedic surgeon on-call Dr. Youssef recommended against acute surgical intervention but recommended I sedate the patient and try to improve alignment of her ankle given there is some posterior talar displacement. If we thought it was appropriate the patient coul d be discharged with prompt follow with him in the office next week. Given the patient's intoxication and severe injury I thought the patient should be admitted and given the traumatic nature of her injury she is most appropriate for trauma center which would necessitate transfer. I discussed this did not with the patient who appeared clinically sober despite alcohol level being elevated, she was alert and orient x 3 and she noted she did not want to be transferred to a trauma center she would prefer to follow-up as an outpatient. Patient refused transfer at this time. Given her intoxication I did not feel comfortable with her being discharged on her own recognizance. I stipulated that she can be discharged only if she is able to find a sober ride. She called her fianc? who is in not at this time. Patient will be discharged with a sober ride. I prescribed the patient pain medication, gave crutches, gave prompt orthopedic follow-up and strict return precautions. Postreduction x-ray was read reviewed person myself showed improved alignment. Patient was neurovascular tact both prior to and after splinting The procedure was performed by myself. Intra-Service Time: 13 minutes Indication: Completion of a potentially painful procedure. Pre-sedation Evaluation: Presedation evaluation completed at 12:05 AM on 04/03/2024, ASA class II, Mallampati score of 1 Patient is an appropriate candidate for procedural sedation. The risks of sedation were discussed with the patient and/or legal guardian. A time out was completed. The patient was reevaluated immediately prior to initiation of sedation. IV access established. The patient was sedated with 100 mg of propofol x 2. The patient was monitored with continuous pulse oximetry, permit technician, and capnography. The patient protected their airway well, with vital signs remaining stable throughout the duration of the procedure. There were no complications and no significant hypoxemia. I remained at the bedside for the sedation. I provided 13 minutes of intra-service time. Post sedation evaluation: Patient was alert and cooperative, hemodynamically stable with appropriate respiratory status, temperature and pain control without ongoing nausea and vomiting. Impression: 1. Fall 2. Alcohol tox case 3. Acute closed right trimalleolar ankle fracture Disposition: Discharge with sober ride This note was generated with [employer] dictation software. It may contain incorrect words, spelling, and punctuation that were not noted in review of the chart prior to signing. Procedures <Dr. Carlyle Willingham, DO - Last Filed: 04/12/24 00:51> Lower Extremity Splints Lower Extremity Splint: Orthoglass Splint Fabrication: Pre-fabricated Location: Right Discharge Plan Triage Chief Complaint: Lower Extremity Injury ED Midlevel Provider: Gilberto Wilson ED Provider: Carlyle Willingham Dx/Rx/DC Orders Prescriptions: No Action citalopram 40 MG tablet 40 mg PO DAILY benztropine 2 MG tablet 0.5 mg PO BID haloperidol 2 MG tablet 10 mg PO BID buspirone 15 MG tablet 15 mg PO BID albuterol sulfate 1 INHALER inhaler 1 - 2 puff INHALATION Q4H PRN PRN (Reason: Wheezing) pantoprazole [Protonix] 40 mg Tablet,Delayed Release (Dr/Ec) 40 mg PO DAILY trazodone 150 mg Tablet 150 mg PO QHS quetiapine [Seroquel XR] 300 mg Tablet Extended Release 24 Hr 300 mg PO QHS multivitamin 1 EACH tablet 1 each PO DAILY Rx Instructions: over the counter, no prescription required. amlodipine 5 MG tablet 10 mg PO DAILY Rx Instructions: BP Primary Care Provider: Janna Best Referrals: Janna Best MD [Primary Care Provider] - Print Language: Kyrgyz
[2024-04-11 20:08] LABS: Absolute Lymphocyte Count 2.25 X10^3/uL (0.83-4.51); Absolute Neutrophil Count 1.9 X10^3/uL (2.0-7.7); Basophil# 0.04 X10^3/uL; Basophil% 0.9 % (0-1); Eosinophil# 0.01 X10^3/uL; Eosinophils% 0.2 % (0-5); Hematocrit 39.7 % (37-47); Hemoglobin 13.3 g/dL (12.0-15.0); Lymphocyte # 2.25 X10^3/ul (0.83-4.51); Lymphocyte % 50.6 % (19-41); Mean Corp Hgb Conc 33.5 g/dL (32-36); Mean Corpuscular Hgb 33.8 pg (27.0-32.0); Mean Platelet Vol. 9.6 fl (6.2-12.0); Monocyte# 0.27 X10^3/uL; Monocyte% 6.1 % (0-10); NRBC Flagged by Analyzer 0 % (0-5); Neutrophil # 1.85 X10^3/uL (2.7-7.7); Neutrophil % 41.5 % (47-70); POSITIVE COUNT YES; RBC Distribution Width CV 15.5 % (11.6-14.6); RBC Distribution Width SD 57.7 fl (35.1-43.9); Red Blood Count 3.93 M/mm3 (4.2-5.4); White Blood Count 4.5 K/mm3 (4.4-11.0)
[2024-04-11] MEDS: Morphine 4 MG/ML Syringe IV (20:12)
[2024-04-11] MEDS: Ondansetron 4 MG/2 ML Vial IV (20:12)
[2024-04-11 20:16] VITALS: BP 133/70; PULSE 99; RESP 18; O2SAT 94
--- NOTE | 2024-04-11 20:30 | CT_ITS ---
EXAM: CT Lower Extremity W/O Contrast Injection RIGHT HISTORY: fall TECHNIQUE: Axial images obtained through the ankle without IV contrast. Sagittal and coronal reformats were provided. IV Contrast: None.. RADIATION DOSAGE (If Supplied By Facility): CTDIvol = ( 15.35 ) mGy, DLP = ( 384.46 ) mGycm Individualized dose optimization techniques were used for this CT. COMPARISON: Right ankle x-rays earlier same day. LIMITATIONS: Suboptimal imaging planes. FINDINGS: Tibia: Comminuted fracture at the medial malleolus with approximately 7 to 8 mm lateral displacement of the distal component. Comminuted fracture posterior malleolus with 13 mm of posterior displacement/distraction of the fragment. The tibial cortical margin is nearly in direct contact with the cortex of the talar dome. Fibula: Comminuted fracture distal fibula with approximately 15 mm posterior displacement of the distal fragment. There are few tiny fracture fragments within the joint space between the tibia and fibula. The distal tibia is displaced anterior in relation to the talus by approximately one half of the articular surface with widening of the anterior aspect of the joint space. No other fracture identified. No complete dislocation. Diffuse soft tissue swelling about the ankle most pronounced overlying the lateral malleolus. CT/Extremity Lower without Contra IMPRESSION: Acute fractures distal tibia and fibula, trimalleolar fracture, with displacement and subluxation of the tibiotalar joint. Tiny intra-articular fragments. Electronically Signed: Meena Matute MD at 22:11 EDT ,
--- NOTE | 2024-04-11 20:30 | CT_ITS ---
INDICATION: fall EXAMINATION: CT FACIAL BONES - CT Maxillofacial W/O Contrast Injection TECHNIQUE: Helically acquired images were obtained of the facial bones. A radiation dose optimization technique was used for this scan. The protocol utilizes one or more of the following dose reduction techniques: automated exposure control, adjustment of mA and/or kV according to patient size,and/or use of iterative reconstruction technique. IV Contrast dosage and agent: None. RADIATION DOSAGE (If Supplied By Facility): CTDIvol = ( 29.38 ) mGy, DLP = ( 635.61 ) mGycm COMPARISON: No relevant prior comparison study available FINDINGS: ORBITS: No fracture demonstrated. Globes appear intact. No retrobulbar hematoma. NASAL BONES: Unremarkable. NASOETHMOID COMPLEX: Unremarkable. ZYGOMATIC ARCHES: Unremarkable. MAXILLAE: Unremarkable. PTERYGOID PLATES: Unremarkable. MANDIBLE: No fracture demonstrated. No dislocation at the temporomandibular joints. SINUSES: Clear. SOFT TISSUES: Unremarkable. OTHER: None. CT/Sinus/Facial Bone IMPRESSION: No evidence of fracture. Electronically Signed: Meena Matute MD at 22:00 EDT ,
--- NOTE | 2024-04-11 20:30 | CT_ITS ---
INDICATION: fall EXAMINATION: CT BRAIN - CT Head or Brain W/O Contrast Injection TECHNIQUE: Multiple axial images were obtained of the head without intravenous contrast. The protocol utilizes one or more of the following dose reduction techniques: automated exposure control, adjustment of mA and/or kV according to patient size,and/or use of iterative reconstruction technique. IV Contrast dosage and agent: None. RADIATION DOSAGE (If Supplied By Facility): CTDIvol = ( 44.99 ) mGy, DLP = ( 796.11 ) mGycm COMPARISON: Prior study dated: 02/12/2009 FINDINGS: BRAIN: No acute bleed. No edema. Patchy decreased attenuation in the periventricular white matter bilaterally. Lerma-white matter differentiation is maintained. Arterial calcifications. VENTRICLES AND SULCI: Not dilated. EXTRA-AXIAL: No hemorrhage, fluid collection, or mass. CALVARIUM / SKULL BASE: Unremarkable. FACE/SINUSES: Unremarkable. SOFT TISSUES: Unremarkable. CT/Brain/Head without Contrast IMPRESSION: No acute abnormality. Periventricular hypodensities most likely chronic microvascular ischemic disease, relatively prominent for patient stated age. Electronically Signed: Meena Matute MD at 21:38 EDT ,
--- NOTE | 2024-04-11 20:30 | CT_ITS ---
INDICATION: fall EXAMINATION: CT CERVICAL SPINE - CT Spine Cervical W/O Contrast Injection TECHNIQUE: Helically acquired images were obtained of the cervical spine. 2D reformatted images were reviewed. The protocol utilizes one or more of the following dose reduction techniques: automated exposure control, adjustment of mA and/or kV according to patient size,and/or use of iterative reconstruction technique. IV Contrast dosage and agent: None. RADIATION DOSAGE (If Supplied By Facility): CTDIvol = ( 26.21 ) mGy, DLP = ( 571.16 ) mGycm COMPARISON: No relevant prior comparison study available FINDINGS: Surgical hardware: Anterior plate and screws C5-C6. Hardware appears intact. ALIGNMENT: No subluxation. Straightening of the normal curvature. MINERALIZATION: Normal. VERTEBRAL BODIES: No fracture or acute abnormality. DISC SPACES: Disc space narrowing with osteophytes most pronounced C4-5 and C6-7. POSTERIOR ELEMENTS: Mild facet arthropathy at multiple levels. SPINAL CANAL: Maintained. PARASPINAL SOFT TISSUES: Unremarkable. OTHER: Questionable fracture distal left clavicle seen on the construction recruiter view. CT/Spine Cervical without Contras IMPRESSION: No evidence of fracture or subluxation. Straightening of the normal curve may be due to positioning or muscle spasm. Postsurgical changes and degenerative changes. Questionable distal left clavicle fracture on the construction recruiter view, radiographic correlation may be helpful if clinically indicated. Electronically Signed: Meena Matute MD at 21:55 EDT ,
[2024-04-11 20:34] LABS: ALB/GLOB Ratio 0.9 RATIO (0.9-2.4); AST(SGOT) 36 U/L (15-37); Alanine Aminotransfer ALT/SGPT 37 U/L (13-56); Albumin, Serum 3.6 g/dL (3.2-5.0); Alkaline Phosphatase 181 U/L (45-117); Anion Gap 11 (5-15); BUN 3 mg/dL (7-18); BUN/Creat Ratio 4.9 RATIO (10-20); Calcium,Total 9.2 mg/dL (8.5-10.1); Chloride 99 mmol/L (98-107); Creatinine, Serum 0.61 mg/dL (0.55-1.02); EST Glomerular Filtration Rate 108 mL/min (>60); Est Glom Filt Rate - Afr Amer 131 mL/min (>60); Estimated Creatinine Clearance 112.06 ml/min; Globulin 4.1 g/dL (2.2-4.2); Glucose 112 mg/dL (74-106); Lipase 25 U/L (13-75); Potassium 3.1 mmol/L (3.5-5.1); Protein, Total 7.7 g/dL (6.4-8.2); Sodium Level 134 mmol/L (136-145); Troponin-I HS 4 pg/mL (3.0-54.0)
[2024-04-11 20:40] LABS: Differential Comment SCANNED; Differential Indicated SCAN CRITERIA MET
[2024-04-11 20:41] LABS: Platelet Estimate ADEQUATE (ADEQ)
[2024-04-11 20:43] LABS: Reactive Lymphocyte 1+; Toxic Granulation 2+
[2024-04-11 22:00] VITALS: BP 157/111; PULSE 101; RESP 18; O2SAT 94
[2024-04-11 23:13] VITALS: BP 114/76; BP 119/89; BP 144/101; BP 185/107; PULSE 101; PULSE 96; PULSE 98; PULSE 99; RESP 17; RESP 18; RESP 20; RESP 21; O2SAT 100; O2SAT 95; O2SAT 98
[2024-04-12] VITALS: BP 163/88; PULSE 101; RESP 27; O2SAT 96
[2024-04-12] MEDS: Propofol 200 MG/20 ML Vial 100 MG IV BOLUS (00:02)
[2024-04-12] MEDS: 0.9% Normal Saline (1000mL) 1,000 ML 999 ML IV (00:02)
[2024-04-12] MEDS: Ondansetron 4 MG/2 ML Vial IV (00:02)
[2024-04-12 00:20] VITALS: BP 119/89; O2SAT 96
[2024-04-12 00:25] VITALS: BP 144/101; O2SAT 96
[2024-04-12 00:30] VITALS: BP 166/90; O2SAT 97
--- NOTE | 2024-04-12 00:40 | RAD_ITS ---
INDICATION: post reduction EXAMINATION/TECHNIQUE: X-RAY - RIGHT XR Ankle 2 Views 2 VIEWS COMPARISON: Prior study dated: Right ankle x-rays 04/11/2024 FINDINGS: BONES: Cast in place. Fractures distal tibia and fibula again demonstrated with partial improved alignment compared to earlier No fracture demonstrated. JOINTS: Partially improved alignment at the tibiotalar joint. Continued mild asymmetric widening of the superomedial aspect of the ankle mortise. No dislocation. SOFT TISSUES: Diffuse swelling. RAD/Ankle 2 Views IMPRESSION: Distal tibia and fibular fractures in cast with partial improved alignment. Improved alignment at the tibiotalar joint. Electronically Signed: Meena Matute MD at 1:05 EDT ,
[2024-04-12] MEDS: Morphine 4 MG/ML Syringe IV (01:27)
[2024-04-12 01:29] VITALS: BP 160/83; PULSE 100; RESP 20; TEMP 36.8; O2SAT 95
--- NOTE | 2024-04-13 08:11 | ED.RN ---
[facility] CALLED REGARDING THE ODT ZOFRAN PRESCRIPTION. THEY DO NOT HAVE THE ODT INQUIRY TO CHANGE TO ORAL PILLS. PER DR. HU MOORE TO SWITCH TO ORAL PILLS.
== END 2024-04-12 01:37 | disposition home or self-care (01) ==
PROVIDERS: Nurse Practitioner; Emergency Provider Emergency Medicine; PCP Internal Medicine; Visit Provider Emergency Medicine
DX: S82.851A Displaced trimalleolar fracture of right lower leg, initial encounter for closed fracture (principal); F25.9 Schizoaffective disorder, unspecified; S00.81XA Abrasion of other part of head, initial encounter; S93.01XA Subluxation of right ankle joint, initial encounter; S00.31XA Abrasion of nose, initial encounter; W19.XXXA Unspecified fall, initial encounter; F10.129 Alcohol abuse with intoxication, unspecified; Z53.20 Procedure and treatment not carried out because of patient's decision for unspecified reasons; F43.10 Post-traumatic stress disorder, unspecified; F41.9 Anxiety disorder, unspecified; F17.210 Nicotine dependence, cigarettes, uncomplicated; I10 Essential (primary) hypertension; K21.9 Gastro-esophageal reflux disease without esophagitis; G89.29 Other chronic pain; J45.909 Unspecified asthma, uncomplicated; Z88.1 Allergy status to other antibiotic agents; Z88.2 Allergy status to sulfonamides; Z79.899 Other long term (current) drug therapy
CPT/HCPCS: 27818; 70450; 70486; 72125; 73600; 73700; 80053; 82077; 83690; 84484; 85025; 93005; 96361; 96374; 96375; 96376; 99152; 99283; J2405

== ENCOUNTER 2024-04-14 02:55 | Inpatient (IN) | payer MEDICARE, SELFPAY ==
[2024-04-14] VITALS (10 sets, daily range): BP systolic 88–171; BP diastolic 65–98; PULSE 64–92; RESP 15–20; TEMP 36.6–37.2; O2SAT 96–100; BMI 31.4; BMI 30.2
[2024-04-14 03:34] LABS: Absolute Lymphocyte Count 1.97 X10^3/uL (0.83-4.51); Absolute Neutrophil Count 2.6 X10^3/uL (2.0-7.7); Basophil# 0.04 X10^3/uL; Basophil% 0.8 % (0-1); Eosinophil# 0.01 X10^3/uL; Eosinophils% 0.2 % (0-5); Hematocrit 32.3 % (37-47); Hemoglobin 10.7 g/dL (12.0-15.0); Lymphocyte # 1.97 X10^3/ul (0.83-4.51); Lymphocyte % 38.8 % (19-41); Mean Corp Hgb Conc 33.1 g/dL (32-36); Mean Corpuscular Hgb 32.7 pg (27.0-32.0); Mean Corpuscular Volume 98.8 fL (81-99); Mean Platelet Vol. 9.3 fl (6.2-12.0); Monocyte% 7.9 % (0-10); NRBC Flagged by Analyzer 0 % (0-5); Neutrophil # 2.59 X10^3/uL (2.7-7.7); Neutrophil % 50.9 % (47-70); Platelet Count 218 K/mm3 (150-450); RBC Distribution Width CV 15.2 % (11.6-14.6); RBC Distribution Width SD 55.3 fl (35.1-43.9); Red Blood Count 3.27 M/mm3 (4.2-5.4); White Blood Count 5.1 K/mm3 (4.4-11.0)
[2024-04-14] MEDS: oxyCODONE 5 MG Tablet PO ×3 (03:34→17:23)
[2024-04-14 03:48] LABS: Anion Gap 12 (5-15); BUN 3 mg/dL (7-18); BUN/Creat Ratio 4.2 RATIO (10-20); Calcium,Total 8.6 mg/dL (8.5-10.1); Chloride 96 mmol/L (98-107); Creatinine, Serum 0.71 mg/dL (0.55-1.02); EST Glomerular Filtration Rate 91 mL/min (>60); Est Glom Filt Rate - Afr Amer 110 mL/min (>60); Estimated Creatinine Clearance 96.84 ml/min; Glucose 117 mg/dL (74-106); Potassium 3.3 mmol/L (3.5-5.1); Sodium Level 133 mmol/L (136-145)
[2024-04-14 03:52] LABS: Alcohol, Blood (Medical)-Serum < 3.0 mg/dL
--- NOTE | 2024-04-14 03:58 | EX.ED.DYSGE1 ---
HPI History of Present Illness Chief Complaint: Lower Extremity Injury Informant: patient and EMS Narrative Narrative: 53-year-old female with a history of hypertension schizoaffective disorder PTSD and alcohol abuse presenting to the emergency room with right ankle pain. Patient was seen on 11 April following a fall while intoxicated. She was diagnosed with a trimalleolar fracture. It was recommended to the patient that she be transferred to trauma center however she opted to go home and the case was discussed with on-call orthopedics. She was placed in a posterior stirrup Ortho-Glass splint. She was instructed not to weight-bear and use crutches. Patient states that since going home she is discovered that she cannot use crutches. She states she is having a hard time caring for herself at home and does not believe that she is thriving in the outpatient setting. She states it is hard to get up off her couch to utilize the bathroom. She states her pain is not controlled. She has not made an appointment with orthopedics. She states that she has not had any alcohol this evening. She denies any withdrawal symptoms. Patient is currently denying any pain in her calf or leg swelling. She is denying any paresthesias of her toes. [facility] Medical History Smoker Asthma GERD (gastroesophageal reflux disease) Kidney disease Chronic pain Depression Anxiety Bipolar disorder Substance abuse Hypertension Alcohol abuse Schizoaffective disorder PTSD (post-traumatic stress disorder) Home Medications ?Medication ?Instructions ?Recorded ?Last Taken ?Type benztropine 2 mg tablet 0.5 mg PO BID cramps 10/24/15 06/21/20 10:00 History citalopram 40 mg tablet 40 mg PO DAILY depression 10/24/15 06/21/20 10:00 History haloperidol 2 mg tablet 10 mg PO BID anxiety 10/24/15 06/21/20 10:00 History buspirone 15 mg tablet 15 mg PO BID anxiety 03/19/18 06/21/20 10:00 History albuterol sulfate 90 mcg/actuation 1 - 2 puff inhalation Q4H PRN PRN 05/08/20 Unknown History aerosol inhaler Wheezing pantoprazole 40 mg tablet,delayed 40 mg PO DAILY gerd 03/05/21 Unknown History release (Protonix) quetiapine 300 mg tablet,extended 300 mg PO QHS depression 03/05/21 Unknown History release 24 hr (Seroquel XR) trazodone 150 mg tablet 150 mg PO QHS depression 03/05/21 Unknown History amlodipine 5 mg tablet 10 mg PO DAILY bp 04/05/21 Unknown History multivitamin 1 each PO DAILY health 04/05/21 Unknown History ondansetron 4 mg disintegrating 4 mg PO Q8H PRN PRN Nausea #10 tabs 04/12/24 Unknown Rx tablet oxycodone 5 mg tablet 5 mg PO Q6H PRN pain 3 days #12 04/12/24 Unknown Rx tabs Allergy/AdvReac Type Severity Reaction Status Date / Time aripiprazole (From Abilify) Allergy Rash Verified 04/14/24 03:04 risperidone (From Risperdal) Allergy Unknown Verified 04/14/24 03:04 sulfamethoxazole (From Allergy Rash Verified 04/14/24 03:04 Septra) trimethoprim (From Septra) Allergy Rash Verified 04/14/24 03:04 gabapentin (From Neurontin) AdvReac Upset Verified 04/14/24 03:04 Stomach prednisone AdvReac skin Verified 04/14/24 03:04 hurts Family History Father Alcoholism Aunt Depression Aunt No problems noted. Social History Smoking Status: Current every day smoker tobacco type: cigarettes ROS ROS ED Constitutional Constitutional ED: Denies chills, fever(s) or weight loss Eyes Eyes: Denies change in vision or diplopia ENT ENT ED: Denies ear pain, rhinorrhea or sore throat Cardiovascular Cardiovascular: Denies chest pain, orthopnea, palpitations or racing heartbeat Respiratory/Chest Respiratory/Chest: Denies cough, dyspnea or orthopnea Gastrointestinal Gastrointestinal: Denies abdominal pain, diarrhea, nausea or vomiting Genitourinary Genitourinary ED: Denies dysuria, hematuria or urinary frequency Musculoskeletal Musculoskeletal: Reports other Details: See history of present illness ; Denies arthralgias or myalgias Integumentary Denies abscess or rash Neurologic Neurologic: Denies headache(s) or weakness Psychiatric Psychiatric: Denies anxiety, depression, suicidal ideation or suicidal thoughts Endocrine Endocrinology: Denies polydipsia, polyphagia or polyuria Allergic/Immunologic Allergic/Immunologic ED: Denies mouth swelling, tongue swelling or urticaria EXAM Physical Exam Const Vital Signs: 04/14/24 02:57 Temperature 98.3 F Temperature Source Oral Pulse Rate 89 Respiratory Rate 18 Blood Pressure 159/98 H Blood Pressure Mean 118 Pulse Ox 100 Oxygen Delivery Method Room Air Positive well nourished, well developed and obese General Appearance ED: well developed and NAD Nutritional Appearance: obese HEENT Reports normocephalic, head/scalp atraumatic and moist mucous membranes Eyes PERRL and EOMs intact bilaterally Neck no lymphadenopathy, supple and no JVD Resp normal respiratory effort and clear to auscultation bilaterally Cardio regular rate, regular rhythm and no murmurs GI normal to inspection, nondistended, normoactive bowel sounds and non-tender Palpation: soft Back/Spine no CVA tenderness and normal ROM Extremity Extremity Narrative: There is a posterior stirrup splint in place on the right the toes are pink. There is no obvious calf swelling or pain. The right thigh is not swollen. General Extremety ED: Negative for edema General Extremity: Negative for edema Neuro oriented x3 and CN's II-XII intact bilaterally Sensorium / Orientation: alert Motor Exam: strength 5/5 throughout Psych mental status grossly normal Mood & Affect: Negative for depressed or tearful Skin no rashes or lesions noted and no wounds MDM MDM MDM Narrative Medical decision making narrative: I explained to the patient that if she is unable to care for herself given how long liver rehab this is even after surgery she will most likely need to go to a nursing facility. She is receptive to this. Basic blood work shows a white count of 5.1 hemoglobin 10.7 platelet count of 218. Alcohol is negative. Glucose is 117. Potassium slightly low at 3.3 sodium of 133. BUN to 3 creatinine 0.71. I will speak with the hospitalist regarding admission. Patient received a dose of oxycodone here. I spoke with the hospitalist and we offered the patient seen by the night she could use a knee scooter which she would prefer as compared to staying in a nursing facility. Unfortunately it is in the late night I do not have readily access to 1 so patient was notified of this and is okay with staying until we can see if we can obtain 1 in the morning. Patient asked to speak with me regarding pain in her ankle. While talking with her I noticed that she was shaking and I noted that she was tachycardic. I asked the patient if she was feeling like she was having withdrawal from alcohol and she said yes and she would like something for this. She is not sure if she would like to stay for alcohol detox. History & Record Review Discussion w/independent historian: EMS personnel and Patient Lab Data Attestation: I reviewed the patient's lab results. Labs: Laboratory Results - last 24 hr 04/14/24 04/14/24 03:28 03:36 WBC 5.1 RBC 3.27 L Hgb 10.7 L Hct 32.3 L MCV 98.8 MCH 32.7 H MCHC 33.1 RDW Std Deviation 55.3 H RDW Coeff of Cecille 15.2 H Plt Count 218 MPV 9.3 Immature Gran % (Auto) 1.400 H Neut % (Auto) 50.9 Lymph % (Auto) 38.8 [place] % (Auto) 7.9 Eos % (Auto) 0.2 Baso % (Auto) 0.8 Absolute Neuts (auto) 2.6 Absolute Lymphs (auto) 1.97 Nucleated RBC % 0 Sodium 133 L Potassium 3.3 L Chloride 96 L Carbon Dioxide 25.0 Anion Gap 12 BUN 3 L Creatinine 0.71 Estim Creat Clear Calc 96.84 Est GFR (MDRD) Af Amer 110 Est GFR (MDRD) Non-Af 91 BUN/Creatinine Ratio 4.2 L Glucose 117 H Calcium 8.6 Ethyl Alcohol < 3.0 Management Discussion w/another healthcare provider: Hospitalist (Dr. Gary) Discharge Plan Triage Chief Complaint: Lower Extremity Injury ED Provider: Zhang Bailey Dx/Rx/DC Orders Clinical Impression: Schizoaffective disorder, PTSD (post-traumatic stress disorder), Closed trimalleolar fracture of right ankle, Alcohol abuse Prescriptions: No Action citalopram 40 MG tablet 40 mg PO DAILY benztropine 2 MG tablet 0.5 mg PO BID haloperidol 2 MG tablet 10 mg PO BID buspirone 15 MG tablet 15 mg PO BID albuterol sulfate 1 INHALER inhaler 1 - 2 puff INHALATION Q4H PRN PRN (Reason: Wheezing) pantoprazole [Protonix] 40 mg Tablet,Delayed Release (Dr/Ec) 40 mg PO DAILY trazodone 150 mg Tablet 150 mg PO QHS quetiapine [Seroquel XR] 300 mg Tablet Extended Release 24 Hr 300 mg PO QHS multivitamin 1 EACH tablet 1 each PO DAILY Rx Instructions: over the counter, no prescription required. amlodipine 5 MG tablet 10 mg PO DAILY Rx Instructions: BP oxycodone 5 mg tablet 5 mg PO Q6H PRN (Reason: pain) 3 Days Qty: 12 0RF ondansetron 4 mg tablet,disintegrating 4 mg PO Q8H PRN PRN (Reason: Nausea) Qty: 10 0RF Primary Care Provider: Janna Best Referrals: Janna Best MD [Primary Care Provider] - Print Language: Cook Islander
[2024-04-14] MEDS: LORazepam 2 MG/ML Syringe 1 MG IV (05:13)
--- NOTE | 2024-04-14 07:09 | NURSING ---
CALLED [facility]
--- NOTE | 2024-04-14 07:14 | NURSING ---
FAXED PAPER TO [facility]
--- NOTE | 2024-04-14 08:09 | HP.PCM.HOS_ITS ---
HPI - General General Date of Admission: 04/14/24 Date of Service: 04/14/24 Chief Complaint: mechanical fall HPI Narrative BLAIR SINGLETON, is a 53 F with a PMH as outlined who presents via the ED On 04/14/2024 with a complaint of mechanical fall and right ankle pain. She was seen in the ED on 05/11/2024 after she had a mechanical fall whilst intoxicated. Imaging done during that visit showed a trimalleolar fracture and ED recommended then that she be transferred to a tertiary trauma facility, but she refused. Orthopedics was contacted at that time also and plan was for her to follow up with orthopedics on outpatient basis, and to be nonweight bearing and to use crutches in the interim. Patient went home but could not care for herself so came back to the ED. Plans were for her to be given a knee scooter and discharged home, but she did not qualify for this, and so she is being admitted for placement. She complained of the pain in her right ankle at time of my review. She denied any fever, chills, dizziness, cough or any other symptoms. Review of systems was otherwise negative. Vitals in the ED were BP of 165/96, HI of 86, RR of 20 and she was saturating at 99% on room air. CBC showed hb of 10.7, wbc of 5.1 and platelets of 218. Chemistry showed sodium of 133, potassium of 3.3 nad bicab of 25. Cr was 0.71. She is being admitted to be managed for debility and weakness due to right trimalleolar fracture due to mechanical fall. [facility] Medical History (Updated 04/14/24 @ 09:13 by Fabi Sofia) Cancer Anemia Smoker Asthma GERD (gastroesophageal reflux disease) Kidney disease Chronic pain Depression Anxiety Bipolar disorder Substance abuse Hypertension Alcohol abuse Schizoaffective disorder PTSD (post-traumatic stress disorder) Home Medications ?Medication ?Instructions ?Recorded ?Last Taken ?Type benztropine 2 mg tablet 0.5 mg PO BID cramps 10/24/15 06/21/20 10:00 History citalopram 40 mg tablet 40 mg PO DAILY depression 10/24/15 06/21/20 10:00 History haloperidol 2 mg tablet 10 mg PO BID anxiety 10/24/15 06/21/20 10:00 History buspirone 15 mg tablet 15 mg PO BID anxiety 03/19/18 06/21/20 10:00 History albuterol sulfate 90 mcg/actuation 1 - 2 puff inhalation Q4H PRN PRN 05/08/20 Unknown History aerosol inhaler Wheezing pantoprazole 40 mg tablet,delayed 40 mg PO DAILY gerd 03/05/21 Unknown History release (Protonix) quetiapine 300 mg tablet,extended 300 mg PO QHS depression 03/05/21 Unknown History release 24 hr (Seroquel XR) trazodone 150 mg tablet 150 mg PO QHS depression 03/05/21 Unknown History amlodipine 5 mg tablet 10 mg PO DAILY bp 04/05/21 Unknown History multivitamin 1 each PO DAILY health 04/05/21 Unknown History ondansetron 4 mg disintegrating 4 mg PO Q8H PRN PRN Nausea #10 tabs 04/12/24 Unknown Rx tablet oxycodone 5 mg tablet 5 mg PO Q6H PRN pain 3 days #12 04/12/24 Unknown Rx tabs Allergy/AdvReac Type Severity Reaction Status Date / Time aripiprazole (From Abilify) Allergy Rash Verified 04/14/24 03:04 risperidone (From Risperdal) Allergy Unknown Verified 04/14/24 03:04 sulfamethoxazole (From Allergy Rash Verified 04/14/24 03:04 Septra) trimethoprim (From Septra) Allergy Rash Verified 04/14/24 03:04 gabapentin (From Neurontin) AdvReac Upset Verified 04/14/24 03:04 Stomach prednisone AdvReac skin Verified 04/14/24 03:04 hurts Family History Father Alcoholism Aunt Depression Aunt No problems noted. Social History Smoking Status: Current every day smoker tobacco type: cigarettes ROS Constitutional Constitutional: Reports fatigue, malaise and weakness; Denies anorexia, change in weight, chills or fever(s) Eyes Eyes: Denies change in vision ENT HEENT: Denies dysphagia or headache(s) Cardiovascular Cardiovascular: Denies chest pain, dyspnea on exertion, edema, lightheadedness, orthopnea, palpitations or paroxysmal nocturnal dyspnea Respiratory/Chest Respiratory/Chest: Denies cough, dyspnea, shortness of breath at rest or shortness of breath with exertion Gastrointestinal Gastrointestinal: Denies abdominal pain, diarrhea, nausea or vomiting Genitourinary Genitourinary: Denies burning urination or dysuria Musculoskeletal Musculoskeletal: Reports joint pain; Denies arthralgias, back pain, joint stiffness, joint swelling, myalgias or neck pain Neurologic Neurologic: Denies abnormal gait, confusion, disequilibrium, dizziness, focal weakness, headache(s) or numbness Psychiatric Psychiatric: Denies anxiety or depression Vital Signs Vital Signs Vital Signs: 04/14/24 02:57 04/14/24 05:15 Temperature 98.3 F Temperature Source Oral Pulse Rate 89 86 Respiratory Rate 18 20 H Blood Pressure 159/98 H 165/96 H Blood Pressure Mean 118 119 Pulse Ox 100 99 Oxygen Delivery Method Room Air Room Air Weight Weight: 189 lb 2.506 oz Body Mass Index (BMI) 31.4 Physical Exam Const alert, oriented x3, no apparent distress and average body habitus General Appearance: cooperative HEENT normocephalic, head/scalp atraumatic, hearing grossly normal bilaterally, moist oral mucous membranes and oropharynx normal Mouth: oral and palatal mucosa normal Eyes PERRL, EOMs intact bilaterally and conjunctivae normal Neck no lymphadenopathy and supple Resp normal respiratory effort and no retractions Cardio regular rate, regular rhythm, S1 normal heart sound, S2 normal heart sound and no murmurs GI normal to inspection, nondistended, normoactive bowel sounds, soft to palpation, non-tender and non-distended Extremity Extremity Narrative: RLE immobilised in a cast. Neuro oriented x3 and CN's II-XII intact bilaterally Neuro Narrative: RLE weakness due to RLE being in a cast Sensorium / Orientation: awake, alert and oriented to person Psych Psych Narrative: flat affect Results Lab / Micro Data 04/14/24 03:28 04/14/24 03:28 Labs: Laboratory Results - last 24 hr 04/14/24 03:28: WBC 5.1, RBC 3.27 L, Hgb 10.7 L, Hct 32.3 L, MCV 98.8, MCH 32.7 H, MCHC 33.1, RDW Std Deviation 55.3 H, RDW Coeff of Cecille 15.2 H, Plt Count 218, MPV 9.3, Immature Gran % (Auto) 1.400 H, Neut % (Auto) 50.9, Lymph % (Auto) 38.8, [place] % (Auto) 7.9, Eos % (Auto) 0.2, Baso % (Auto) 0.8, Absolute Neuts (auto) 2.6, Absolute Lymphs (auto) 1.97, Nucleated RBC % 0, Sodium 133 L, P otassium 3.3 L, Chloride 96 L, Carbon Dioxide 25.0, Anion Gap 12, BUN 3 L, Creatinine 0.71, Estim Creat Clear Calc 96.84, Est GFR (MDRD) Af Amer 110, Est GFR (MDRD) Non-Af 91, BUN/Creatinine Ratio 4.2 L, Glucose 117 H, Calcium 8.6 04/14/24 03:36: Ethyl Alcohol < 3.0 Assessment & Plan Assessment/Plan (1) Closed trimalleolar fracture of right ankle: (2) Ankle fracture: (3) Alcohol abuse: (4) Alcohol dependence: PLAN: Plan #Debility and weakness due to right distal tibia and fibula and trimalleolar fracture from mechanical fall * Patient fell a few days ago and came into the ED. Imaging done showed distal tibia and fibula as well as trimalleolar fracture on the right. Transferred to trauma center was offered but patient refused and wanted to go home. Her leg was put in a cast and she was to follow-up with orthopedics on outpatient basis. * However she was unable to care for himself at home so came back into the ED today. * P.o. Tylenol, p.o. oxycodone and IV morphine as needed for pain. * Consult podiatry on account of the trimalleolar fracture. Discussed with Dr. Cl Barrett and he said he would be happy to see the patient. * PT OT consult. Fall precautions. * #Alcohol use disorder, at risk of withdrawal * Patient states she drinks at least 4-5 beers daily and her last drink was 2 days prior to admission. She has gone through detox before and admitted to having tremors of her upper extremities. She would like to go through detox again. * Start alcohol withdrawal protocol with phenobarbital. Thiamine, folic acid and Multi-Sharla. * Adjunctive meds for symptomatic relief. * Monitor CIWA score. * Serum alcohol level was less than 3. * #Hypokalemia: Potassium is 3.3. Will replace and trend. #PTSD with schizoaffective disorder * This is chronic. Follows up with psych on outpatient basis * On buspirone and Haldol as well as benztropine and citalopram. Also on Seroquel and trazodone #Hypertension: * On amlodipine 5 mg daily. * Blood pressure has been elevated at 171/92. * Is receiving clonidine as part of the alcohol withdrawal protocol. * Will add on IV hydralazine as needed if blood pressure still remains elevated will adjust dose of amlodipine upwards. * DVT prophylaxis; lovenox Code status: full code * Patient counseled extensively about different types of CODE STATUS including full code, DNR CCA and DNR CCA. * Patient elects to be full code. * Total [id number] time 16 minutes. Charges/Coding Visit Charges Inpatient E&M: 92279 Init Hosp L3 Procedures Hospitalists Procedures: 55754 Advncd Care Plan 30 Min
--- NOTE | 2024-04-14 08:10 | NURSING ---
DR JOSE LUI
--- NOTE | 2024-04-14 08:22 | NURSING ---
MED SURG OBS [facility] INABILITY TO AMBULATE, TRIMALLEOLAR FX, FAILURE TO THRIVE
--- NOTE | 2024-04-14 10:14 | CASEMGMT ---
Discharge Planning A list of?SNF providers including quality and resource use data and consistent with the patient's preferred geographic region, medical needs, and insurance network was created in [facility] Guide.? This list was provided to the SW. Melony Thakkar Discharge Planning Asst.
[2024-04-14] MEDS: Pantoprazole Sodium 40 MG Tablet PO (12:04)
[2024-04-14] MEDS: amLODIPine 10 MG Tablet PO (12:05)
[2024-04-14] MEDS: Citalopram 40 MG TABLET PO (12:05)
[2024-04-14] MEDS: Phenobarbital 32.4 MG Tablet PO ×4 (12:05→23:12)
[2024-04-14] MEDS: Potassium Chloride Oral Tablet 20 MEQ 40 MEQ PO (12:05)
[2024-04-14] MEDS: Multivitamins,Therapeutic Tablet 1 TABLET PO (12:12)
[2024-04-14] MEDS: Enoxaparin 40 MG/0.4 ML Syringe SC (12:12)
[2024-04-14] MEDS: busPIRone 15 MG TABLET PO ×2 (12:13→22:54)
[2024-04-14] MEDS: Benztropine 2 MG Tablet 0.5 MG PO ×2 (12:13→22:54)
[2024-04-14] MEDS: Haloperidol 5 MG Tablet 10 MG PO ×2 (12:13→22:57)
--- NOTE | 2024-04-14 12:33 | CASEMGMT ---
Social Work- SW met with pt to discuss preferences at d/c. Pt states that she will look over list. Pt reports that she does not want to talk to anyone about substance abuse. Pt states that she has a counselor and psychiatrist through [facility] that she has met with for 20 years. Pt declines any educational resources. SW will f/u with pt. BETHANY Sutton
--- NOTE | 2024-04-14 12:55 | CHAPLAIN ---
Type of Pastoral Visit _x__ Initial Visit ___ Follow-up Visit ___ On-call Visit ___ General Patient Visit ___ Spiritual Assessment ___ Family Conference ___ Bereavement ___ Rapid Response ___ Code Blue ___ Other (describe below) Pastoral Care Referral From _x__ Patient ___ Family ___ Nurse ___ Physician ___ Tow Truck Operator ___ Butadiene Converter Helper ___ Other (describe below) Sacrament/Intervention _x__ Active listening ___ Anointing ___ Druze ___ Bereavement ___ Communion _x__ [place] exploration ___ ___ Life review _x__ Prayer ___ Reconciliation ___ Sacrament of Sick _x__ Supportive presence ___ Wedding ___ Other (describe below) Pastoral Comments patient speaks of her multiple falls recently and another injury to her foot; pt also speaks of her 'support' which is a live in boyfriend that she describes as no good at all; pt talks about the need to make changes in her life but is mostly focused on pain in her foot and when she will be getting surgery; pt asks for prayer as that is what I need; pt reviews need for prayer because I am lost; affirmation for her desire to make changes and improvements in her life; prayer is given; offer of future support as desired
--- NOTE | 2024-04-14 15:11 | CASEMGMT ---
Social Work- SW met with pt to f/u on [facility] for SNF referral. Pt selected [facility] as F[facility]. SW advised DCA of referral request. Pt is completing detox here at hospital and will be here for approximately two more days. BETHANY Nunez
[2024-04-14] MEDS: hydrOXYzine PAM 25 MG Capsule 50 MG PO (15:13)
--- NOTE | 2024-04-14 15:15 | CASEMGMT ---
Addendum entered by Melony Thakkar 04/14/24 16:18: [facility] accepted. Will need to send updates in the morning for precert to be started. Melony Thakkar DC Planning Asst. Original Note: Discharge Planning Referral sent to [facility] via [facility]. Melony Thakkar DC Planning Asst.
[2024-04-14] MEDS: Acetaminophen 325 MG Tablet 650 MG PO (17:22)
[2024-04-14] MEDS: tiZANidine HCl 2 MG Tablet PO (17:23)
[2024-04-14] MEDS: QUEtiapine 100 MG Tablet 300 MG PO (22:58)
[2024-04-15] VITALS (7 sets, daily range): BP systolic 108–143; BP diastolic 72–89; PULSE 86–101; RESP 15–16; TEMP 36.4–37.1; O2SAT 95–96
[2024-04-15] MEDS: oxyCODONE 5 MG Tablet PO ×2 (02:02→23:15)
[2024-04-15] MEDS: Phenobarbital 32.4 MG Tablet PO ×6 (03:15→23:06)
[2024-04-15 07:26] LABS: Absolute Lymphocyte Count 2.17 X10^3/uL (0.83-4.51); Absolute Neutrophil Count 1.5 X10^3/uL (2.0-7.7); Basophil# 0.03 X10^3/uL; Basophil% 0.7 % (0-1); Eosinophil# 0.02 X10^3/uL; Eosinophils% 0.5 % (0-5); Hematocrit 31.7 % (37-47); Hemoglobin 10.3 g/dL (12.0-15.0); Lymphocyte # 2.17 X10^3/ul (0.83-4.51); Lymphocyte % 53.6 % (19-41); Mean Corp Hgb Conc 32.5 g/dL (32-36); Mean Corpuscular Volume 101.6 fL (81-99); Mean Platelet Vol. 9.6 fl (6.2-12.0); Monocyte# 0.26 X10^3/uL; Monocyte% 6.4 % (0-10); NRBC Flagged by Analyzer 0 % (0-5); Neutrophil # 1.53 X10^3/uL (2.7-7.7); Neutrophil % 37.8 % (47-70); Platelet Count 207 K/mm3 (150-450); RBC Distribution Width CV 15.6 % (11.6-14.6); RBC Distribution Width SD 57.6 fl (35.1-43.9); Red Blood Count 3.12 M/mm3 (4.2-5.4); White Blood Count 4.1 K/mm3 (4.4-11.0)
[2024-04-15] MEDS: Thiamine Hydrochloride 100 MG Tablet PO (07:33)
[2024-04-15] MEDS: Multivitamins,Therapeutic Tablet 1 TABLET PO (07:34)
[2024-04-15] MEDS: Folic Acid 1 MG Tablet PO (07:34)
[2024-04-15 07:48] LABS: Anion Gap 6 (5-15); BUN 5 mg/dL (7-18); BUN/Creat Ratio 9.3 RATIO (10-20); Chloride 101 mmol/L (98-107); Creatinine, Serum 0.54 mg/dL (0.55-1.02); EST Glomerular Filtration Rate 124 mL/min (>60); Est Glom Filt Rate - Afr Amer 150 mL/min (>60); Estimated Creatinine Clearance 124.92 ml/min; Glucose 92 mg/dL (74-106); Potassium 3.5 mmol/L (3.5-5.1); Sodium Level 136 mmol/L (136-145)
--- NOTE | 2024-04-15 07:48 | PCM.CONS.GEN ---
Assessment & Plan Assessment/Plan (1) Closed trimalleolar fracture of right ankle: QUALIFIERS: Encounter type: initial encounter Qualified Code(s): S82.851A - Displaced trimalleolar fracture of right lower leg, initial encounter for closed fracture PLAN: Patient was examined and evaluated. All findings were discussed with the patient. All questions were answered to the patient's satisfaction. 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 Postreduction radiographs: Show evidence of a 2 view post reduced trimalleolar ankle fracture in a cast with mild improvement from displacement with displaced lateral and posterior malleolus. Improved realignment to the tibiotalar joint CT scan, right ankle: Evidence of acute fracture to the distal tibia and fibula with evidence of trimalleolar ankle fracture with displacement and subluxation of the tibiotalar joint. I did recommend to the patient that it will be beneficial to take her to the operating room to apply a delta frame due to to be continued displacement of the posterior and lateral malleolus to allow the bones to be realigned especially because the patient is still having pain after her closed reduction and application of a well-padded posterior splint. Patient is agreeable to the procedure. Patient is also agreeable to nursing home facility placement once pre-CERT is approved. Please clear the patient medically with recommendations. Plan for delta frame application to the right lower extremity versus Saturday, based on OR availability. Plan for definitive procedure following delta frame application will take place in approximately 2 weeks from initial surgery date. Medicine: On board, medical management PT/OT: On board Please reach out to Dr. Barrett with any questions or concerns. Thank you for the consultation expiration point (2) Pain in right ankle: QUALIFIERS: Chronicity: acute Qualified Code(s): M25.571 - Pain in right ankle and joints of right foot (3) Alcohol abuse: HPI Consult Data Date of Consult: 04/15/24 HPI Narrative Reason for Consultation: Right lower extremity trimalleolar ankle fracture HPI Narrative: BLAIR SINGLETON, is a 53 F with a past medical history of hypertension, schizophrenia disorder, PTSD, and alcoholic abuse presented to the emergency room with right lower extremity ankle pain after a fall in her home. Patient was seen on April 11 following a fall while intoxicated. At this time she was diagnosed with a trimalleolar ankle fracture. Case was discussed with on-call orthopedics who suggested that the patient be transferred to a trauma center but the patient opted to go home. Patient was placed in a posterior splint and instructed to be nonweightbearing with crutches. It was discovered that when the patient got home she was unable to use crutches. She states that she had a hard time caring for herself at home and read presented to the emergency department for admissions for SNF placement. Podiatry consulted for surgical intervention and recommendations. PENDING SALE TO [facility] Medical History Cancer Anemia Smoker Asthma GERD (gastroesophageal reflux disease) Kidney disease Chronic pain Depression Anxiety Bipolar disorder Substance abuse Hypertension Alcohol abuse Schizoaffective disorder PTSD (post-traumatic stress disorder) Home Medications ?Medication ?Instructions ?Recorded ?Last Taken ?Type benztropine 2 mg tablet 0.5 mg PO BID cramps 10/24/15 06/21/20 10:00 History citalopram 40 mg tablet 40 mg PO DAILY depression 10/24/15 06/21/20 10:00 History haloperidol 2 mg tablet 10 mg PO BID anxiety 10/24/15 06/21/20 10:00 History buspirone 15 mg tablet 15 mg PO BID anxiety 03/19/18 06/21/20 10:00 History albuterol sulfate 90 mcg/actuation 1 - 2 puff inhalation Q4H PRN PRN 05/08/20 Unknown History aerosol inhaler Wheezing pantoprazole 40 mg tablet,delayed 40 mg PO DAILY gerd 03/05/21 Unknown History release (Protonix) quetiapine 300 mg tablet,extended 300 mg PO QHS depression 03/05/21 Unknown History release 24 hr (Seroquel XR) trazodone 150 mg tablet 150 mg PO QHS depression 03/05/21 Unknown History amlodipine 5 mg tablet 10 mg PO DAILY bp 04/05/21 Unknown History multivitamin 1 each PO DAILY health 04/05/21 Unknown History ondansetron 4 mg disintegrating 4 mg PO Q8H PRN PRN Nausea #10 tabs 04/12/24 Unknown Rx tablet oxycodone 5 mg tablet 5 mg PO Q6H PRN pain 3 days #12 04/12/24 Unknown Rx tabs Allergy/AdvReac Type Severity Reaction Status Date / Time aripiprazole (From Abilify) Allergy Rash Verified 04/14/24 03:04 risperidone (From Risperdal) Allergy Unknown Verified 04/14/24 03:04 sulfamethoxazole (From Allergy Rash Verified 04/14/24 03:04 Septra) trimethoprim (From Septra) Allergy Rash Verified 04/14/24 03:04 gabapentin (From Neurontin) AdvReac Upset Verified 04/14/24 03:04 Stomach prednisone AdvReac skin Verified 04/14/24 03:04 hurts Family History Father Alcoholism Aunt Depression Aunt No problems noted. Social History Smoking Status: Current every day smoker tobacco type: cigarettes Physical Exam Narrative Vascular: Capillary refill time is brisk to lesser digits of the right lower extremity. Nonpitting edema appreciated to the distal and proximal aspect of the posterior splint. Neurological: Light touch intact. Patient does respond to painful stimuli when palpation of the medial and lateral malleoli right lower extremity. Dermatological: No observable fracture blisters appreciated. Musculoskeletal: Muscle strength deferred. Mild to moderate tenderness appreciated to the medial and lateral malleoli with palpation of the posterior splint. Active and passive range of motion lesser digit is pain-free. No pain with calf pressure. Const alert, oriented x3 and no apparent distress Lab / Micro Data 04/15/24 06:34 04/15/24 06:34 Labs: Laboratory Results - last 24 hr 04/15/24 06:34: WBC 4.1 L, RBC 3.12 L, Hgb 10.3 L, Hct 31.7 L, MCV 101.6 H, MCH 33.0 H, MCHC 32.5, RDW Std Deviation 57.6 H, RDW Coeff of Cecille 15.6 H, Plt Count 207, MPV 9.6, Immature Gran % (Auto) 1.000 H, Neut % (Auto) 37.8 L, Lymph % (Auto) 53.6 H, [place] % (Auto) 6.4, Eos % (Auto) 0.5, Baso % (Auto) 0.7, Absolute Neuts (auto) 1.5 L, Absolute Lymphs (auto) 2.17, Nucleated RBC % 0, Sodium 136, Potassium 3.5, Chloride 101, Carbon Dioxide 29.0, Anion Gap 6, BUN 5 L, Creatinine 0.54 L, Estim Creat Clear Calc 124.92, Est GFR (MDRD) Af Amer 150, Est GFR (MDRD) Non-Af 124, BUN/Creatinine Ratio 9.3 L, Glucose 92, Calcium 9.0
[2024-04-15] MEDS: Benztropine 2 MG Tablet 0.5 MG PO ×2 (09:49→21:25)
[2024-04-15] MEDS: busPIRone 15 MG TABLET PO ×2 (09:49→21:25)
[2024-04-15] MEDS: Citalopram 40 MG TABLET PO (09:50)
[2024-04-15] MEDS: FLU VACC 2024-25(6MOS UP)/PF 45 MCG/0.5 ML SYRINGE IM (09:50)
[2024-04-15] MEDS: amLODIPine 10 MG Tablet PO (09:50)
[2024-04-15] MEDS: Haloperidol 5 MG Tablet 10 MG PO ×2 (09:50→21:27)
[2024-04-15] MEDS: Pantoprazole Sodium 40 MG Tablet PO (09:50)
[2024-04-15] MEDS: Enoxaparin 40 MG/0.4 ML Syringe SC (09:53)
--- NOTE | 2024-04-15 10:32 | CASEMGMT ---
Met with patient to complete SYED form. SYED form explained to patient who voiced understanding and signed form. Original form placed in pt?s chart and copy provided to patient. Melony Thakkar, Discharge Planning Asst
--- NOTE | 2024-04-15 10:40 | PN_ITS ---
Subjective Subjective Patient seen and examined. She complained of some shakes and tremors. She denies any nausea, vomiting or any other symptoms. Review of systems is otherwise negative. Podiatry on board and recommending surgery for her trimalleolar fracture. Objective Data Objective Data Vital Signs: Vital Signs Temp Pulse Resp BP Pulse Ox O2 Del Method 98.8 F 93 16 128/89 H 96 Room Air 04/15/24 09:42 04/15/24 09:42 04/15/24 09:42 04/15/24 09:42 04/15/24 09:42 04/15/24 09:42 Oxygen Delivery Method Room Air Weight: 182 lb Body Mass Index (BMI) 30.2 Intake & Output: Intake and Output for Last 24 Hours 04/13/24 04/14/24 04/15/24 23:59 23:59 23:59 Intake Total 660 / 660 Balance 660 / 660 Lab / Micro Data 04/15/24 06:34 04/15/24 06:34 Labs: Laboratory Results - last 24 hr 04/15/24 06:34: WBC 4.1 L, RBC 3.12 L, Hgb 10.3 L, Hct 31.7 L, MCV 101.6 H, MCH 33.0 H, MCHC 32.5, RDW Std Deviation 57.6 H, RDW Coeff of Cecille 15.6 H, Plt Count 207, MPV 9.6, Immature Gran % (Auto) 1.000 H, Neut % (Auto) 37.8 L, Lymph % (Auto) 53.6 H, [place] % (Auto) 6.4, Eos % (Auto) 0.5, Baso % (Auto) 0.7, Absolute Neuts (auto) 1.5 L, Absolute Lymphs (auto) 2.17, Nucleated RBC % 0, Sodium 136, Potassium 3.5, Chloride 101, Carbon Dioxide 29.0, Anion Gap 6, BUN 5 L, C reatinine 0.54 L, Estim Creat Clear Calc 124.92, Est GFR (MDRD) Af Amer 150, Est GFR (MDRD) Non-Af 124, BUN/Creatinine Ratio 9.3 L, Glucose 92, Calcium 9.0 Physical Exam Const alert, oriented x3, no apparent distress and average body habitus General Appearance: cooperative HEENT normocephalic, head/scalp atraumatic, hearing grossly normal bilaterally, moist oral mucous membranes and oropharynx normal Eyes PERRL, EOMs intact bilaterally and conjunctivae normal Neck no lymphadenopathy and supple Resp normal respiratory effort, normal air movement and no retractions Cardio regular rate, regular rhythm, S1 normal heart sound, S2 normal heart sound and no murmurs GI normal to inspection, nondistended, normoactive bowel sounds, soft to palpation, non-tender and non-distended Extremity Extremity Narrative: RLE immobilised in a cast. Neuro oriented x3 and CN's II-XII intact bilaterally Neuro Narrative: RLE weakness due to RLE being in a cast Sensorium / Orientation: awake, alert and oriented to person Motor Exam: general weakness Psych Psych Narrative: flat affect Appearance: appropriate Assessment & Plan Assessment/Plan (1) Closed trimalleolar fracture of right ankle: QUALIFIERS: Encounter type: initial encounter Qualified Code(s): S82.851A - Displaced trimalleolar fracture of right lower leg, initial encounter for closed fracture (2) Ankle fracture: (3) Alcohol abuse: (4) Alcohol dependence: PLAN: Plan #Debility and weakness due to right distal tibia and fibula and trimalleolar fracture from mechanical fall * Patient fell a few days ago and came into the ED. Imaging done showed distal tibia and fibula as well as trimalleolar fracture on the right. Transferred to trauma center was offered but patient refused and wanted to go home. Her leg was put in a cast and she was to follow-up with orthopedics on outpatient basis. * However she was unable to care for himself at home so came back into the ED today. * P.o. Tylenol, p.o. oxycodone and IV morphine as needed for pain. * Consult podiatry on account of the trimalleolar fracture. Discussed with Dr. Cl Barrett and he said he would be happy to see the patient. * PT OT consult. Fall precautions. * podiatry reviewed patient and recommends surgery this Saturday; Dr Barrett will confirm if he will be able to do surgery today. * #Alcohol use disorder, at risk of withdrawal * Patient states she drinks at least 4-5 beers daily and her last drink was 2 days prior to admission. She has gone through detox before and admitted to having tremors of her upper extremities. She would like to go through detox again. * On alcohol withdrawal protocol with phenobarbital. Thiamine, folic acid and Multi-Sharla. * Adjunctive meds for symptomatic relief. * Monitor CIWA score. * Serum alcohol level was less than 3. * #Hypokalemia: resolved. k is 3.5 today. #PTSD with schizoaffective disorder * This is chronic. Follows up with psych on outpatient basis * On buspirone and Haldol as well as benztropine and citalopram. Also on Seroquel and trazodone #Hypertension: * On amlodipine 5 mg daily. * BP has improved and is 128/89 today. * * DVT prophylaxis; lovenox Code status: full code * Charges/Coding Visit Charges Inpatient E&M: 24398 Subs Hosp L2
--- NOTE | 2024-04-15 10:47 | CASEMGMT ---
Social Work Per physician, surgery is planned for pt. Pt has been accepted at [facility]. Precert will not be started until after surgery. SW met with pt and explained this and pt is agreeable to dc plan. [facility] updated. Plan: [facility], will need precert prior to admission BETHANY Chen
[2024-04-15] MEDS: tiZANidine HCl 2 MG Tablet PO (14:25)
[2024-04-15] MEDS: traZODone 100 MG Tablet 150 MG PO (21:26)
[2024-04-16] MEDS: Phenobarbital 32.4 MG Tablet PO ×4 (05:56→18:52)
[2024-04-16 06:52] LABS: Absolute Neutrophil Count 1.5 X10^3/uL (2.0-7.7); Basophil# 0.03 X10^3/uL; Basophil% 0.9 % (0-1); Eosinophil# 0.04 X10^3/uL; Eosinophils% 1.2 % (0-5); Hematocrit 27.8 % (37-47); Hemoglobin 9.3 g/dL (12.0-15.0); Lymphocyte % 47.1 % (19-41); Mean Corp Hgb Conc 33.5 g/dL (32-36); Mean Corpuscular Hgb 33.6 pg (27.0-32.0); Mean Corpuscular Volume 100.4 fL (81-99); Mean Platelet Vol. 9.2 fl (6.2-12.0); Monocyte# 0.21 X10^3/uL; Monocyte% 6.2 % (0-10); NRBC Flagged by Analyzer 0 % (0-5); Neutrophil # 1.48 X10^3/uL (2.7-7.7); Neutrophil % 43.4 % (47-70); Platelet Count 200 K/mm3 (150-450); RBC Distribution Width SD 54.2 fl (35.1-43.9); Red Blood Count 2.77 M/mm3 (4.2-5.4); White Blood Count 3.4 K/mm3 (4.4-11.0)
[2024-04-16 07:27] LABS: Anion Gap 6 (5-15); BUN 5 mg/dL (7-18); BUN/Creat Ratio 11.2 RATIO (10-20); Calcium,Total 8.4 mg/dL (8.5-10.1); Chloride 102 mmol/L (98-107); Creatinine, Serum 0.45 mg/dL (0.55-1.02); EST Glomerular Filtration Rate 155 mL/min (>60); Est Glom Filt Rate - Afr Amer 187 mL/min (>60); Glucose 96 mg/dL (74-106); Potassium 3.3 mmol/L (3.5-5.1); Sodium Level 135 mmol/L (136-145)
--- NOTE | 2024-04-16 07:58 | PCM.PN.SRG ---
Subjective Subjective Ms. Roy is a 53-year-old female seen at bedside today for follow-up evaluation of right lower extremity ankle fracture. Patient states she is still having pain to the right ankle even after loosening her Deonte bandage around her posterior splint. She complained of some shakes and tremors. Denies any new onset of trauma. She is nonweightbearing. Denies constitutional symptoms. No other pedal complaints at this time. Objective Data Objective Data Vital Signs: Vital Signs Temp Pulse Resp BP Pulse Ox O2 Del Method 98.5 F 86 15 143/88 H 96 Room Air 04/15/24 21:14 04/15/24 21:14 04/15/24 22:00 04/15/24 21:14 04/15/24 21:14 04/16/24 04:00 Oxygen Delivery Method Room Air Weight: 82.554 kg Body Mass Index (BMI) 30.2 Intake & Output: Intake and Output for Last 24 Hours 04/14/24 04/15/24 04/16/24 23:59 23:59 23:59 Intake Total 660 / 660 200 / 200 Balance 660 / 660 200 / 200 Lab / Micro Data 04/16/24 06:43 04/16/24 06:43 Labs: Laboratory Results - last 24 hr 04/16/24 06:43: WBC 3.4 L, RBC 2.77 L, Hgb 9.3 L, Hct 27.8 L, MCV 100.4 H, MCH 33.6 H, MCHC 33.5, RDW Std Deviation 54.2 H, RDW Coeff of Cecille 15.0 H, Plt Count 200, MPV 9.2, Immature Gran % (Auto) 1.200 H, Neut % (Auto) 43.4 L, Lymph % (Auto) 47.1 H, [place] % (Auto) 6.2, Eos % (Auto) 1.2, Baso % (Auto) 0.9, Absolute Neuts (auto) 1.5 L, Absolute Lymphs (auto) 1.60, Nucleated RBC % 0, Sodium 135 L, Potassium 3.3 L, Chloride 102, Carbon Dioxide 27.0, Anion Gap 6, BUN 5 L, Creatinine 0.45 L, Estim Creat Clear Calc 149.90, Est GFR (MDRD) Af Amer 187, Est GFR (MDRD) Non-Af 155, BUN/Creatinine Ratio 11.2, Glucose 96, Calcium 8.4 L Physical Exam Narrative Neurovascular status is unchanged. No evidence of fracture blisters. Nonpitting edema appreciated to the right ankle. Moderate palpatory tenderness appreciated to the medial lateral and anterior ankle of the right lower extremity. No pain with calf pressure. Const oriented x3 and no apparent distress Assessment & Plan Assessment/Plan (1) Closed trimalleolar fracture of right ankle: QUALIFIERS: Encounter type: initial encounter Qualified Code(s): S82.851A - Displaced trimalleolar fracture of right lower leg, initial encounter for closed fracture PLAN: Patient was examined and evaluated. All findings were discussed with the patient. All questions were answered to the patient's satisfaction. Postreduction radiographs: Show evidence of a 2 view post reduced trimalleolar ankle fracture in a cast with mild improvement from displacement with displaced lateral and posterior malleolus. Improved realignment to the tibiotalar joint CT scan, right ankle: Evidence of acute fracture to the distal tibia and fibula with evidence of trimalleolar ankle fracture with displacement and subluxation of the tibiotalar joint. Will plan for Saturday surgery consisting of application of delta frame to the right lower extremity secondary to dislocated right ankle fracture, patient to be n.p.o. midnight tonight. Patient understands risk and benefits and understands that she needs to be nonweightbearing after the application. Patient showed understanding of everything that was explained to her. Recommended [facility] for surgical aftercare. Medicine: On board, medical management PT/OT: On board Please reach out to Dr. Barrett with any questions or concerns. (2) Pain in right ankle: QUALIFIERS: Chronicity: acute Qualified Code(s): M25.571 - Pain in right ankle and joints of right foot (3) Alcohol abuse:
--- NOTE | 2024-04-16 09:53 | PN_ITS ---
Subjective Subjective Patient seen and examined. She had no complaints this morning. She denied any symptoms of withdrawal. Review of systems was otherwise negative. She has remained hemodynamically stable. Objective Data Objective Data Vital Signs: Vital Signs Temp Pulse Resp BP Pulse Ox O2 Del Method 98.5 F 86 15 143/88 H 96 Room Air 04/15/24 21:14 04/15/24 21:14 04/15/24 22:00 04/15/24 21:14 04/15/24 21:14 04/16/24 04:00 Oxygen Delivery Method Room Air Weight: 182 lb Body Mass Index (BMI) 30.2 Intake & Output: Intake and Output for Last 24 Hours 04/14/24 04/15/24 04/16/24 23:59 23:59 23:59 Intake Total 660 / 660 200 / 200 Balance 660 / 660 200 / 200 Lab / Micro Data 04/16/24 06:43 04/16/24 06:43 Labs: Laboratory Results - last 24 hr 04/16/24 06:43: WBC 3.4 L, RBC 2.77 L, Hgb 9.3 L, Hct 27.8 L, MCV 100.4 H, MCH 33.6 H, MCHC 33.5, RDW Std Deviation 54.2 H, RDW Coeff of Cecille 15.0 H, Plt Count 200, MPV 9.2, Immature Gran % (Auto) 1.200 H, Neut % (Auto) 43.4 L, Lymph % (Auto) 47.1 H, [place] % (Auto) 6.2, Eos % (Auto) 1.2, Baso % (Auto) 0.9, Absolute Neuts (auto) 1.5 L, Absolute Lymphs (auto) 1.60, Nucleated RBC % 0, Sodium 135 L , Potassium 3.3 L, Chloride 102, Carbon Dioxide 27.0, Anion Gap 6, BUN 5 L, C reatinine 0.45 L, Estim Creat Clear Calc 149.90, Est GFR (MDRD) Af Amer 187, Est GFR (MDRD) Non-Af 155, BUN/Creatinine Ratio 11.2, Glucose 96, Calcium 8.4 L Physical Exam Const alert, oriented x3, no apparent distress and average body habitus General Appearance: cooperative HEENT normocephalic, head/scalp atraumatic, hearing grossly normal bilaterally, moist oral mucous membranes and oropharynx normal Eyes PERRL, EOMs intact bilaterally and conjunctivae normal Neck no lymphadenopathy and supple Resp normal respiratory effort, normal air movement and no retractions Cardio regular rate, regular rhythm, S1 normal heart sound, S2 normal heart sound and no murmurs GI normal to inspection, nondistended, normoactive bowel sounds, soft to palpation, non-tender and non-distended Extremity Extremity Narrative: RLE immobilised in a cast. Skin General Skin Exam: no breakdown Neuro oriented x3, CN's II-XII intact bilaterally and no focal motor deficits Neuro Narrative: RLE weakness due to RLE being in a cast Sensorium / Orientation: awake, alert and oriented to person Motor Exam: general weakness Psych thought process normal and cooperative Appearance: appropriate Assessment & Plan Assessment/Plan (1) Closed trimalleolar fracture of right ankle: QUALIFIERS: Encounter type: initial encounter Qualified Code(s): S82.851A - Displaced trimalleolar fracture of right lower leg, initial encounter for closed fracture (2) Ankle fracture: (3) Alcohol abuse: (4) Alcohol dependence: PLAN: Plan #Debility and weakness due to right distal tibia and fibula and trimalleolar fracture from mechanical fall * Patient fell a few days prior to admission and came into the ED. Imaging done showed distal tibia and fibula as well as trimalleolar fracture on the right. Transferred to trauma center was offered but patient refused and wanted to go home. Her leg was put in a cast and she was to follow-up with orthopedics on outpatient basis. * However she was unable to care for himself at home so came back into the ED today. * P.o. Tylenol, p.o. oxycodone and IV morphine as needed for pain. * Consult podiatry on account of the trimalleolar fracture. Discussed with Dr. Cl Barrett and he said he would be happy to see the patient. * PT OT consult. Fall precautions. * podiatry on board. For surgery tomorrow. * #Alcohol use disorder, at risk of withdrawal * On alcohol withdrawal protocol with phenobarbital. Thiamine, folic acid and Multi-Sharla. * Adjunctive meds for symptomatic relief. * Monitor CIWA score. * Serum alcohol level was less than 3. * #Hypokalemia:potassium is 3.3 today. Will replace and trend. #PTSD with schizoaffective disorder * This is chronic. Follows up with psych on outpatient basis * On buspirone and Haldol as well as benztropine and citalopram. Also on Seroquel and trazodone #Hypertension: * On amlodipine 5 mg daily. * IV hydralazine prn. * * DVT prophylaxis; lovenox Code status: full code * Charges/Coding Visit Charges Inpatient E&M: 37919 Subs Hosp L2
[2024-04-16 10:13] VITALS: BP 138/78; PULSE 94; RESP 14; TEMP 36.9; O2SAT 95
[2024-04-16] MEDS: Potassium Chloride Oral Tablet 20 MEQ 40 MEQ PO (10:51)
[2024-04-16] MEDS: Thiamine Hydrochloride 100 MG Tablet PO (10:53)
[2024-04-16] MEDS: Multivitamins,Therapeutic Tablet 1 TABLET PO (10:53)
[2024-04-16] MEDS: Folic Acid 1 MG Tablet PO (10:53)
[2024-04-16] MEDS: Enoxaparin 40 MG/0.4 ML Syringe SC (10:54)
[2024-04-16] MEDS: busPIRone 15 MG TABLET PO ×2 (10:54→21:17)
[2024-04-16] MEDS: amLODIPine 10 MG Tablet PO (10:54)
[2024-04-16] MEDS: Citalopram 40 MG TABLET PO (10:54)
[2024-04-16] MEDS: Haloperidol 5 MG Tablet 10 MG PO ×2 (10:54→21:17)
[2024-04-16] MEDS: Pantoprazole Sodium 40 MG Tablet PO (10:55)
--- NOTE | 2024-04-16 10:59 | NURSING ---
said nurse removed 1100 (tylenol/oxy/phenobarb) med fro primary nurse from [employer] machine d/t pt is currently in isolation and her primary nurse is at bedside with pt in isolation attire.
[2024-04-16] MEDS: Acetaminophen 325 MG Tablet 650 MG PO ×2 (11:02→21:33)
[2024-04-16] MEDS: oxyCODONE 5 MG Tablet PO ×2 (11:03→21:33)
[2024-04-16 14:54] VITALS: BP 140/87; PULSE 86; RESP 15; TEMP 36.9; O2SAT 94
[2024-04-16 21:13] VITALS: BP 139/84; PULSE 84; RESP 16; TEMP 36.9; O2SAT 95
[2024-04-16] MEDS: traZODone 100 MG Tablet 150 MG PO (21:17)
[2024-04-16] MEDS: Benztropine Mesylate 0.5 MG TABLET PO (21:17)
[2024-04-16] MEDS: QUEtiapine 100 MG Tablet 300 MG PO (21:17)
[2024-04-17] VITALS (14 sets, daily range): BP systolic 111–169; BP diastolic 64–102; PULSE 81–105; RESP 15–18; TEMP 36.5–37.1; O2SAT 94–100; BMI 30.2
[2024-04-17] MEDS: Phenobarbital 32.4 MG Tablet PO ×4 (01:46→20:05)
--- NOTE | 2024-04-17 05:00 | EKG12_ITS ---
Test Reason : AM EKG Blood Pressure : / mmHG Vent. Rate : 088 BPM Atrial Rate : 088 BPM P-R Int : 144 ms QRS Dur : 074 ms QT Int : 404 ms P-R-T Axes : 047 028 075 degrees QTc Int : 488 ms Normal sinus rhythm Nonspecific ST and T wave abnormality Prolonged QT Abnormal ECG When compared with ECG of 11-APR-2024 19:35, Minimal criteria for Inferior infarct are no longer Present Confirmed by BARBARA PRICE, ANDRES ([id number]), manager editorial ANTON PARIKH ([id number]) on 04/22/2024 6:07:48 AM Referred By: JOSE Confirmed By:ANDRES JIMENEZ MD
[2024-04-17] MEDS: Acetaminophen 325 MG Tablet 650 MG PO ×2 (06:27→20:05)
[2024-04-17] MEDS: oxyCODONE 5 MG Tablet PO ×2 (06:30→20:05)
[2024-04-17 06:36] LABS: Absolute Lymphocyte Count 1.32 X10^3/uL (0.83-4.51); Absolute Neutrophil Count 0.7 X10^3/uL (2.0-7.7); Basophil# 0.03 X10^3/uL; Basophil% 1.3 % (0-1); Eosinophil# 0.04 X10^3/uL; Eosinophils% 1.7 % (0-5); Hematocrit 31.2 % (37-47); Hemoglobin 10.2 g/dL (12.0-15.0); Lymphocyte # 1.32 X10^3/ul (0.83-4.51); Lymphocyte % 55.7 % (19-41); Mean Corp Hgb Conc 32.7 g/dL (32-36); Mean Corpuscular Hgb 32.8 pg (27.0-32.0); Mean Corpuscular Volume 100.3 fL (81-99); Mean Platelet Vol. 9.3 fl (6.2-12.0); Monocyte# 0.18 X10^3/uL; Monocyte% 7.6 % (0-10); NRBC Flagged by Analyzer 0 % (0-5); Neutrophil # 0.73 X10^3/uL (2.7-7.7); Neutrophil % 30.7 % (47-70); POSITIVE DIFFERENTIAL YES; Platelet Count 226 K/mm3 (150-450); RBC Distribution Width CV 15.3 % (11.6-14.6); Red Blood Count 3.11 M/mm3 (4.2-5.4); White Blood Count 2.4 K/mm3 (4.4-11.0)
[2024-04-17 06:58] LABS: Differential Indicated SCAN CRITERIA MET
[2024-04-17 07:08] LABS: International Normalized Ratio 0.9; Partial Thromboplast Time 24.7 Seconds (24.1-36.2); Prothrombin Time (Protime)PT. 12.3 SECONDS (11.7-14.9)
[2024-04-17 07:19] LABS: AST(SGOT) 35 U/L (15-37); Alanine Aminotransfer ALT/SGPT 28 U/L (13-56); Albumin, Serum 2.6 g/dL (3.2-5.0); Alkaline Phosphatase 155 U/L (45-117); Anion Gap 5 (5-15); BUN 4 mg/dL (7-18); BUN/Creat Ratio 8.4 RATIO (10-20); Bilirubin, Direct 0.23 mg/dL (0.00-0.30); Calcium,Total 8.7 mg/dL (8.5-10.1); Chloride 106 mmol/L (98-107); Creatinine, Serum 0.48 mg/dL (0.55-1.02); EST Glomerular Filtration Rate 143 mL/min (>60); Est Glom Filt Rate - Afr Amer 173 mL/min (>60); Estimated Creatinine Clearance 140.53 ml/min; Globulin 3.3 g/dL (2.2-4.2); Glucose 93 mg/dL (74-106); Potassium 3.7 mmol/L (3.5-5.1); Protein, Total 5.9 g/dL (6.4-8.2); Sodium Level 137 mmol/L (136-145)
[2024-04-17 07:44] LABS: Hypochromasia 1+
--- NOTE | 2024-04-17 09:35 | CASEMGMT ---
Social Work SW met with pt to discuss discharge plan. Pt stating that she has changed her mind and now would like to go to [facility] [place]. SW inquired about second choice. Pt stating that if [facility] cannot accept, she will stick with plan to go to [facility]. Pt to have surgery today followed by PT. Precert cannot be started until this is completed. Referral to be sent to [facility] and if they can accept, precert will be started after surgery and PT. If they are unable to accept, precert to be started at [facility] after surgery and PT. Plan: [facility] vs. [facility], pending precert BETHANY Obrien
--- NOTE | 2024-04-17 09:38 | CASEMGMT ---
Addendum entered by Melony Thakkar 04/17/24 12:01: At this time, it's possible that [facility] will not have a bed next week. We will follow up on Saturday. SW updated. Melony Thakkar DC Planning Asst. Original Note: Discharge Planning Referral sent via [facility] to [facility] [place]. Melony Thakkar DC Planning Asst.
[2024-04-17] MEDS: Folic Acid 1 MG Tablet PO (09:42)
[2024-04-17] MEDS: Multivitamins,Therapeutic Tablet 1 TABLET PO (09:42)
[2024-04-17] MEDS: Haloperidol 5 MG Tablet 10 MG PO ×2 (09:43→20:20)
[2024-04-17] MEDS: Citalopram 40 MG TABLET PO (09:43)
[2024-04-17] MEDS: busPIRone 15 MG TABLET PO ×2 (09:43→20:19)
[2024-04-17] MEDS: Benztropine Mesylate 0.5 MG TABLET PO ×2 (09:43→20:20)
[2024-04-17] MEDS: Thiamine Hydrochloride 100 MG Tablet PO (09:43)
[2024-04-17] MEDS: Enoxaparin 40 MG/0.4 ML Syringe SC (09:43)
[2024-04-17] MEDS: amLODIPine 10 MG Tablet PO (09:43)
[2024-04-17] MEDS: Pantoprazole Sodium 40 MG Tablet PO (09:44)
--- NOTE | 2024-04-17 10:55 | PN_ITS ---
Subjective Subjective Patient seen and examined. She complained of some pain in her right lower extremity and thinks she may have hit her leg in the night. She had no other complaints review of systems otherwise negative. She is due for surgery today. She was made hemodynamically stable. Objective Data Objective Data Vital Signs: Vital Signs Temp Pulse Resp BP Pulse Ox O2 Del Method 98.3 F 100 16 111/71 97 Room Air 04/17/24 09:32 04/17/24 09:32 04/17/24 09:32 04/17/24 09:32 04/17/24 09:32 04/17/24 09:36 Oxygen Delivery Method Room Air Weight: 182 lb Body Mass Index (BMI) 30.2 Intake & Output: Intake and Output for Last 24 Hours 04/15/24 04/16/24 04/17/24 23:59 23:59 23:59 Intake Total 660 / 660 200 / 200 300 / 300 Balance 660 / 660 200 / 200 300 / 300 Lab / Micro Data 04/17/24 06:13 04/17/24 06:13 Labs: Laboratory Results - last 24 hr 04/17/24 06:13: WBC 2.4 L, RBC 3.11 L, Hgb 10.2 L, Hct 31.2 L, MCV 100.3 H, MCH 32.8 H, MCHC 32.7, RDW Std Deviation 56.0 H, RDW Coeff of Cecille 15.3 H, Plt Count 226, MPV 9.3, Immature Gran % (Auto) 3.000 H, Neut % (Auto) 30.7 L, Lymph % (Auto) 55.7 H, [place] % (Auto) 7.6, Eos % (Auto) 1.7, Baso % (Auto) 1.3 H, A bsolute Neuts (auto) 0.7 L, Absolute Lymphs (auto) 1.32, Nucleated RBC % 0, Hypochromasia 1+, PT 12.3, INR 0.9, APTT 24.7, Sodium 137, Potassium 3.7, Chloride 106, Carbon Dioxide 27.0, Anion Gap 5, BUN 4 L, Creatinine 0.48 L, Estim Creat Clear Calc 140.53, Est GFR (MDRD) Af Amer 173, Est GFR (MDRD) Non-Af 143, BUN/Creatinine Ratio 8.4 L, Glucose 93, Calcium 8.7, Total Bilirubin 0.50, Direct Bilirubin 0.23, AST 35, ALT 28, Alkaline Phosphatase 155 H, Total Protein 5.9 L, Albumin 2.6 L, Globulin 3.3 Physical Exam Const alert, oriented x3, no apparent distress and average body habitus General Appearance: cooperative and well developed HEENT normocephalic, head/scalp atraumatic, hearing grossly normal bilaterally, moist oral mucous membranes and oropharynx normal Eyes PERRL, EOMs intact bilaterally and conjunctivae normal Neck no lymphadenopathy, supple and no JVD Resp normal respiratory effort, normal air movement and no retractions Cardio regular rate, regular rhythm, S1 normal heart sound, S2 normal heart sound and no murmurs GI normal to inspection, nondistended, normoactive bowel sounds, soft to palpation, non-tender and non-distended Extremity Extremity Narrative: RLE immobilised in a cast. Skin General Skin Exam: no breakdown Neuro oriented x3, CN's II-XII intact bilaterally and no focal motor deficits Neuro Narrative: RLE weakness due to RLE being in a cast Sensorium / Orientation: awake, alert and oriented to person Motor Exam: general weakness Psych thought process normal and cooperative Psych Narrative: flat affect Appearance: appropriate Assessment & Plan Assessment/Plan (1) Closed trimalleolar fracture of right ankle: QUALIFIERS: Encounter type: initial encounter Qualified Code(s): S82.851A - Displaced trimalleolar fracture of right lower leg, initial encounter for closed fracture (2) Ankle fracture: (3) Alcohol abuse: (4) Alcohol dependence: PLAN: Plan #Debility and weakness due to right distal tibia and fibula and trimalleolar fracture from mechanical fall * Patient fell a few days prior to admission and came into the ED. Imaging done showed distal tibia and fibula as well as trimalleolar fracture on the right. Transferred to trauma center was offered but patient refused and wanted to go home. Her leg was put in a cast and she was to follow-up with orthopedics on outpatient basis. * However she was unable to care for himself at home so came back into the ED today. * P.o. Tylenol, p.o. oxycodone and IV morphine as needed for pain. * podiatry on board. For surgery today. * PT OT consult. Fall precautions. * #Alcohol use disorder, at risk of withdrawal * On alcohol withdrawal protocol with phenobarbital. Thiamine, folic acid and Multi-Sharla. * Adjunctive meds for symptomatic relief. * Monitor CIWA score. * Serum alcohol level was less than 3. * #Hypokalemia:resolved. K is 3.7. #PTSD with schizoaffective disorder * This is chronic. Follows up with psych on outpatient basis * On buspirone and Haldol as well as benztropine and citalopram. Also on Seroquel and trazodone #Hypertension: * On amlodipine 5 mg daily. * IV hydralazine prn. * #Bicytopenia * Hemoglobin is 10.2 and WBC is 2.4. Platelets are normal at 226. Likely due to chronic alcohol abuse. Will monitor. * DVT prophylaxis; lovenox Code status: full code * Charges/Coding Visit Charges Inpatient E&M: 37479 Subs Hosp L2
--- NOTE | 2024-04-17 12:52 | OP.PCM_ITS ---
Problems Associated Problem List Diagnoses (1) Closed trimalleolar fracture of right ankle: (2) Pain in right ankle: Report of Operation Date of Procedure: 04/17/24 Pre-Operative Diagnosis: 1. Dislocated trimalleolar ankle fracture, right lower extremity 2. Pain, right lower extremity Post-Operative Diagnosis: Same as preoperative diagnosis Surgery/Procedure Performed:: 1. Application of external fixator, right lower extremity Description of Surgical Findings:: 1. Adequate reduction with application of external fixator to right lower extremity. Surgeon: Cl Barrett manager programs: Jessica Byrd Type of Anesthesia: General and Local Anesthesiologist: Finesse Pro Special Medications: Per anesthesia Specimen's removed: None Drains: None Estimated Blood Loss (mL): 10 mL Fluids Replaced: Per anesthesia Description of Procedure: Indications For Operation: Mrs. Boland is a 53-year-old female who was admitted to [facility] for pain secondary to displaced trimalleolar ankle fracture. Patient was seen in the emergency room at [facility] on 04/14/2024 with a complaint of mechanical fall to right ankle. Patient was diagnosed with a dislocated trimalleolar ankle fracture. She was discharged home but returned to the emergency department because she cannot care for herself and felt unsafe on her broken ankle to the right lower extremity with assisted of crutches. Patient was ultimately admitted for skilled placement. Podiatry was consulted for surgical evaluation and intervention. Due to continued dislocation of the fibula, medial malleolus and posterior malleolus and the continued pain to right lower extremity even though the patient had closed reduction in the emergency department during her first visit it has been deemed necessary at this time to take the patient to the operating room for general anesthesia to applied a an external fixator/delta flame and use the frame to close reduce the patient's dislocated trimalleolar ankle fracture to right lower extremity. The nature of the problem, anticipated procedures, postop recovery/convalences and risk/complications include but not limited to infection, wound healing complications, digital amputation, hypertrophic scarring, numbness, tingling, chronic pain, CRPS, over and under correction, recurrence of deformity, DVT and or PE and the need for further surgery have been discussed in great detail with the patient. All questions have been answered to the patient's satisfaction. There are no guarantees given as to the outcome of the procedure. Description of Procedure: Under mild sedation, the patient was brought into the operating room and placed on the operating table in supine position. Once the patient was under general anesthesia with laryngeal mask airway, the right lower extremity was blocked using approximately 20 cc0.5% Marcaine plain. Next, a well-padded thigh tourniquet was applied to the right lower extremity. Next, the right lower extremity was prepped and draped in normal aseptic manner. Next, a timeout was then undertaken verifying the correct patient, extremity, visibility of preoperative markings, availability of the equipment. Next, attention was directed to the right lower extremity. Using a 6 inch Esmarch, right lower extr emity was exsanguinated and elevated to 60 degrees for 1 minute. Procedure #1: Application of external fixator/delta frame, right lower extremity At this point, intraoperative fluoroscopy was used to identify the fracture site as well as the ankle and the appropriate starting point in the tibia. Following identification, x2 5mm Schanz pins were placed in the tibia bi-cortically, which were checked under fluoroscopy. Next, using fluoroscopy the appropriate starting point on calcaneus was used for the transcalcaneal crossing pin. Once identified, a single central threaded calcaneal pin was placed across the calcaneus parallel to the joint surface. After placement of all the pins, external fixator/frame was then applied and traction with attempts to get and hold the distal fibular fracture out to length. It was noted and checked with fluoroscopy that the fracture fragment/fibula was in adequate position in the sagittal and coronal planes, external fixator apparatus was then locked in place with the manufactures T-handle and per the plant health care technician's recommendations. A small half pin was placed bicortical across the first metatarsal to decrease the equinus contracture to the right lower extremity. This was applied to the delta frame with additional pin to bar. X-ray images were taken to verify correct placement of the hardware and adequate alignment of the fracture again. The excess of the Schanz pins were then cut with a sterile pin cutter and blue caps were placed over the blunt ends. The tourniquet was deflated at this time. All bleeders were ligated and cauterized as necessary. All pin sites were covered with Betadine soaked gauze followed by 4 x 4's, Cecilio wrap and a single layer Joy compression bandage was applied to right lower extremity. The patient tolerated the procedure and anesthesia well and apparent satisfactory condition and was transported to the PACU for further monitoring prior to discharge back to the floor. Vital signs stable and vascular status intact to all digits bilateral. Post Operative Plan: Weightbearing: Nonweightbearing to right lower extremity. With assistance of crutches and or walker or knee scooter. Full weightbearing left lower extremity. Antibiotics: 2 g Ancef through the IV DVT Prophylaxis: Lovenox 40 mg Hubbard: None Dressing: Delta frame, Betadine soaked gauze to all pins, 4 x 4's, Cecilio, single layer Joy compression bandage X-Rays: Post-operative films taken on the operating room. Pain Medication: Morphine, oxycodone Follow-up: At this time the patient is cleared to discharge to [facility] once pre-CERT has been accepted. Pin site care will be placed in the patient's discharge packet. Patient will continue to be nonweightbearing to the right lower extremity. Patient can be full weightbearing to left lower extremity. The patient will be brought back at approximately 2 weeks for open reduction internal fixation of the trimalleolar ankle fracture to right lower extremity. We will conduct outpatient schedule surgery from my private practice setting when the patient follows up in 1 week to 10 days. Grafts/Implants Used: 1. Ibrahim delta frame Complications None Admit VTE Documentation VTE Present on Admission: No VTE Mechan Device Prophylaxis: SCD's VTE Pharm Prophylaxis ordered?: Yes
[2024-04-17] MEDS: hydrOXYzine PAM 25 MG Capsule 50 MG PO (13:44)
[2024-04-17] MEDS: Lactated Ringers 1,000 ML 15 ML IV (15:19)
--- NOTE | 2024-04-17 16:43 | PCM.PRE.AN2 ---
ASA Classification* ASA Classification ASA Classification: 3 Assessment & Plan Anesthesia* Anesthesia Assessment Anesthesia Assessment: Discussed sedation and/or anesthesia options, risks, benefits, and alternatives with patient/parents/legal guardian/POA. Questions invited. The patient/parents/legal guardian/POA seems to understand and agrees to proceed with anesthesia plan. Reviewed the physical assessment, medical history, allergy history and patient home medications list prior to surgery/procedure/anesthetic and documented any changes. Performed airway and anesthesia risk assessments. Anesthesia Type Anesthesia Type: General History Source History Obtained from:: Patient and Chart Anesthesia Focused Assessment* Temperature: 98.1 F Pulse Rate: 86 Blood Pressure: 169/89 Respiratory Rate: 15 Pulse Ox: 96 Oxygen Delivery Method: Room Air Airway Assessment Mouth opens: >3 cm Mallampati Score: III Teeth Condition: Full (Lower full dentures out.) and Partial (Upper partials out) Neck Range of motion (ROM): Full ROM Focused Labs Anesthesia Preop lab: CBC WBC 2.4 K/mm3 (4.4-11.0) L 04/17/24 06:13 RBC 3.11 M/mm3 (4.2-5.4) L 04/17/24 06:13 Hgb 10.2 g/dL (12.0-15.0) L 04/17/24 06:13 Hct 31.2 % (37-47) L 04/17/24 06:13 Plt Count 226 K/mm3 (150-450) 04/17/24 06:13 CHEMISTRY Potassium 3.7 mmol/L (3.5-5.1) 04/17/24 06:13 Sodium 137 mmol/L (136-145) 04/17/24 06:13 Magnesium 1.9 mg/dL (1.6-2.6) 05/08/20 14:15 Phosphorus 2.9 mg/dL (2.5-4.9) 05/08/20 14:15 BUN 4 mg/dL (7-18) L 04/17/24 06:13 Creatinine 0.48 mg/dL (0.55-1.02) L 04/17/24 06:13 Glucose 93 mg/dL (74-106) 04/17/24 06:13 TSH 0.39 uIU/mL (0.358-3.74) 10/24/15 13:00 COAG PT 12.3 SECONDS (11.7-14.9) 04/17/24 06:13 Pre-Assessment Diagnosis/Proposed Procedure Planned Operative Procedure(s): External fixator placement right ankle. Anesthesia History Anesthesia History - medical reimbursement manager: Anesthesia History - medical reimbursement manager Hx Hospitalization Yes: MENTAL AND SUICIDAL 06/21/20 16:25 Any Problems With Anesthesia No 04/17/24 06:18 Cholinesterase deficiency No 04/17/24 06:18 You/Your Family Experience No 04/17/24 06:18 fever (hyperthermia) with Relationship Recent Exposure to Contagious No 04/17/24 06:18 Disease Does patient have nerve No 04/17/24 06:18 stimulator Patient instructed to have No 04/17/24 06:18 device shut off --Does patient have Pacemaker No 04/17/24 13:46 or ICD? When Was Last Pacemaker Check QUESTION #4 FULL TEXT: You/Your Family Experience fever (hyperthermia) with Anesthesia Last Oral Intake Last Oral intake: Last Oral Intake NPO since 13:45 04/17/24 13:46 Meds taken in AM with sips of Yes 04/17/24 13:46 water? Meds patient instructed to see MAR 04/17/24 13:46 take am of surgery Any additional information?: Yes NPO since: 09:00 (Patient had breakfast at 9 AM.) PONV PONV - medical reimbursement manager: PONV - medical reimbursement manager Female HX of Motion Sickness HX of N/V After Surgery Non-Smoker Duration of Surgery greater than 60 minutes Number of Risk Factors PONV Score Height & Weight Height & Weight: Anesthesia: Height & Weight Height 5 ft 5 in 04/17/24 13:46 Weight: 82.554 kg 04/17/24 13:46 Body Mass Index (BMI) 30.2 04/17/24 13:46 Respiratory Assessment Respiratory Assessment - medical reimbursement manager: Respiratory Tract Infection Hx - medical reimbursement manager Hx Respiratory Tract Infection No 04/17/24 06:18 STOP Sleep Apnea STOP Sleep Apnea - medical reimbursement manager: STOP Sleep Apnea - medical reimbursement manager Hx Hypertension Yes 04/16/24 11:05 Hx Sleep Apnea No 04/14/24 09:06 CPAP BIPAP Do you snore loudly (louder No 04/14/24 09:06 than talking or can be heard Do you often feel tired/ No 04/14/24 09:06 fatigued/ sleepy during daytime? Has anyone observed you stop No 04/14/24 09:06 breathing during sleep? STOP Results Negative 04/14/24 09:06 QUESTION #5 FULL TEXT : Do you snore loudly (louder than talking or can be heard through closed doors)? Tobacco Use History Tobacco Use History - medical reimbursement manager: Tobacco Use History - medical reimbursement manager Tobacco Use Smoking Status Current every day smoker 04/15/24 08:28 Hx Tobacco Use Yes 04/14/24 09:06 Years Smoking Packs Smoked per Day 0.5 04/14/24 09:06 Smoking Cessation Date was within the last 15 years Hx Smoking Cessation Date Hx Smoking Cessation No 04/14/24 09:06 Counseling Hematologic Medial History Hematologic Hx - medical reimbursement manager: Hematologic Medical Hx - health and safety director Hx of Blood Transfusion Yes 04/14/24 09:06 Hx of Transfusion in last 3 No 04/14/24 09:06 Months Date of Last Transfusion (if within last 3 months) Ever experience any problems No 04/14/24 09:06 with transfusion(s)? Specify any problems Hx of Preganancy in last 3 No 04/14/24 09:06 Months Nurse Filling Out Transfusion SHESS 04/14/24 09:06 & Questions: Date: 04/14/24 04/14/24 09:06 Time: 09:07 04/14/24 09:06 Patient unable to answer at this time (ie. confused, unrespo /Reproduction History /Reproductive History - medical reimbursement manager: /Reproductive Hx- medical reimbursement manager Hx Now No 04/17/24 06:18 Gestational Age (in weeks): EDC: Hx Hx Para Hx Section SAB No 04/17/24 06:18 Active Medications Active Medications: Current Medications Generic Name Dose Route Start Last Admin Trade Name Freq PRN Reason Stop Dose Admin Acetaminophen 650 mg 04/14/24 10:12 04/17/24 06:27 Acetaminophen 325 Mg Tablet PO 650 mg Q6H PRN PRN Administration Pain 1-10 Or Fever >100.7 Amlodipine Besylate 10 mg 04/14/24 10:00 04/17/24 09:43 Amlodipine 10 Mg Tablet PO 10 mg DAILY MOUNIKA Administration Protocol Benztropine Mesylate 0.5 mg 10/03/24 22:00 04/17/24 09:43 Benztropine Mesylate 0.5 Mg Tablet PO 0.5 mg BID MOUNIKA Administration Buspirone HCl 15 mg 04/14/24 10:00 04/17/24 09:43 Buspirone 15 Mg Tablet PO 15 mg BID MOUNIKA Administration Citalopram Hydrobromide 40 mg 04/14/24 10:00 04/17/24 09:43 Citalopram 40 Mg Tablet PO 40 mg DAILY MOUNIKA Administration Dicyclomine HCl 20 mg 04/14/24 10:12 Dicyclomine 10 Mg Capsule PO Q6H PRN PRN abdominal discomfort Enoxaparin Sodium 40 mg 04/14/24 10:15 04/17/24 09:43 Enoxaparin 40 Mg/0.4 Ml Syringe SC 40 mg DAILY MOUNIKA Administration Folic Acid 1 mg 04/15/24 08:00 04/17/24 09:42 Folic Acid 1 Mg Tablet PO 1 mg BREAKFAST MOUNIKA Administration Haloperidol 10 mg 04/14/24 10:00 04/17/24 09:43 Haloperidol 5 Mg Tablet PO 10 mg BID MOUNIKA Administration Hydralazine HCl 10 mg 04/15/24 10:47 Hydralazine 20 Mg/Ml Vial IV Q6H PRN PRN Blood Pressure >160/110 Protocol Hydroxyzine Pamoate 50 mg 04/14/24 10:12 04/17/24 13:44 Hydroxyzine Sherrill 25 Mg Capsule PO 50 mg Q4H PRN PRN Administration mild anxiety Sodium Chloride 250 mls @ 15 mls/hr 04/14/24 10:18 IV .[id number] PRN Additional IVPB Infusion Sodium Chloride 250 mls @ 15 mls/hr 04/14/24 10:18 IV .[id number] PRN Saline Flush Lactated Ringer's 1,000 mls @ 15 mls/hr 04/17/24 15:30 04/17/24 15:19 IV 15 mls/hr .Q48H MOUNIKA Administration Loperamide HCl 2 mg 04/14/24 10:12 Loperamide 2 Mg Capsule PO Q4H PRN PRN Loose Stools Morphine Sulfate 2 - 4 mg 04/14/24 10:12 Morphine 2 Mg/Ml Syringe IV Q3H PRN PRN Pain Score 6-10 Morphine Sulfate 2 - 4 mg 04/14/24 10:41 Morphine 4 Mg/Ml Syringe IV Q3H PRN PRN Pain Score 6-10 Multivitamins 1 tablet 04/14/24 10:00 04/17/24 09:42 Multivitamins,Therapeutic Tablet PO 1 tablet DAILYCM MOUNIKA Administration Ondansetron HCl 4 mg 04/14/24 09:04 Ondansetron Odt 4 Mg Tablet PO Q8H PRN PRN Nausea Ondansetron HCl 4 mg 04/14/24 10:12 Ondansetron 4 Mg/2 Ml Vial IV Q8H PRN PRN NAUSEA/VOMITING Ondansetron HCl 8 mg 04/14/24 10:12 Ondansetron 8 Mg Tablet PO Q8H PRN PRN NAUSEA Oxycodone HCl 5 mg 04/14/24 10:12 04/17/24 06:30 Oxycodone 5 Mg Tablet PO 5 mg Q4H PRN PRN Administration Pain Score 4-10 Pantoprazole Sodium 40 mg 04/14/24 10:00 04/17/24 09:44 Pantoprazole Sodium 40 Mg Tablet PO 40 mg DAILY MOUNIKA Administration Phenobarbital 64.8 mg 04/14/24 11:00 04/17/24 13:43 Phenobarbital 32.4 Mg Tablet PO 04/18/24 18:59 64.8 mg Q6H MOUNIKA Administration Taper Quetiapine Fumarate 300 mg 04/14/24 22:00 04/16/24 21:17 Quetiapine 100 Mg Tablet PO 300 mg QHS MOUNIKA Administration Sodium Chloride 10 - 40 ml 04/14/24 10:18 0.9% Saline Lock 10 Ml Syringe IV UD PRN SALINE FLUSH Thiamine HCl 100 mg 04/15/24 08:00 04/17/24 09:43 Thiamine Hydrochloride 100 Mg Tablet PO 100 mg DAILYCM MOUNIKA Administration Tizanidine HCl 2 mg 04/14/24 17:07 04/15/24 14:25 Tizanidine Hcl 2 Mg Tablet PO 2 mg Q8H PRN PRN Administration MUSCLE SPASM Trazodone HCl 150 mg 04/14/24 22:00 04/16/24 21:17 Trazodone 100 Mg Tablet PO 150 mg QHS MOUNIKA Administration Trazodone HCl 100 mg 04/14/24 10:12 Trazodone 100 Mg Tablet PO QHS PRN PRN INSOMNIA PFSH Medical History Cancer Anemia Smoker Asthma GERD (gastroesophageal reflux disease) Kidney disease Chronic pain Depression Anxiety Bipolar disorder Substance abuse Hypertension Alcohol abuse Schizoaffective disorder PTSD (post-traumatic stress disorder) Home Medications ?Medication ?Instructions ?Recorded ?Last Taken ?Type benztropine 2 mg tablet 0.5 mg PO BID cramps 10/24/15 06/21/20 10:00 History citalopram 40 mg tablet 40 mg PO DAILY depression 10/24/15 06/21/20 10:00 History haloperidol 2 mg tablet 10 mg PO BID anxiety 10/24/15 06/21/20 10:00 History buspirone 15 mg tablet 15 mg PO BID anxiety 03/19/18 06/21/20 10:00 History albuterol sulfate 90 mcg/actuation 1 - 2 puff inhalation Q4H PRN PRN 05/08/20 Unknown History aerosol inhaler Wheezing pantoprazole 40 mg tablet,delayed 40 mg PO DAILY gerd 03/05/21 Unknown History release (Protonix) quetiapine 300 mg tablet,extended 300 mg PO QHS depression 03/05/21 Unknown History release 24 hr (Seroquel XR) trazodone 150 mg tablet 150 mg PO QHS depression 03/05/21 Unknown History amlodipine 5 mg tablet 10 mg PO DAILY bp 04/05/21 Unknown History multivitamin 1 each PO DAILY health 04/05/21 Unknown History ondansetron 4 mg disintegrating 4 mg PO Q8H PRN PRN Nausea #10 tabs 04/12/24 Unknown Rx tablet oxycodone 5 mg tablet 5 mg PO Q6H PRN pain 3 days #12 04/12/24 Unknown Rx tabs Allergy/AdvReac Type Severity Reaction Status Date / Time aripiprazole (From Abilify) Allergy Rash Verified 04/14/24 03:04 risperidone (From Risperdal) Allergy Unknown Verified 04/14/24 03:04 sulfamethoxazole (From Allergy Rash Verified 04/14/24 03:04 Septra) trimethoprim (From Septra) Allergy Rash Verified 04/14/24 03:04 gabapentin (From Neurontin) AdvReac Upset Verified 04/14/24 03:04 Stomach prednisone AdvReac skin Verified 04/14/24 03:04 hurts Family History Father Alcoholism Aunt Depression Aunt No problems noted. Social History Smoking Status: Current every day smoker tobacco type: cigarettes Review of Systems (Anesthesia) ROS Narrative System reviewed and no additional complaints, except as documented.
[2024-04-17] MEDS: Cefazolin 2 GM in 0.9% Normal Saline (100mL Bag) 100 ML IV (17:21)
--- NOTE | 2024-04-17 17:25 | RAD_ITS ---
EXAM: XR RIGHT ANKLE, 2 VIEWS CLINICAL INDICATION: ORIF RIGHT ANKLE TECHNIQUE: Frontal and lateral views of the right ankle. COMPARISON: 04/12/2024. FINDINGS: BONES/JOINTS: Intraoperative digital spot radiographs showing acute trimalleolar fractures of the right ankle with surrounding soft tissue swelling. Preservation of the joint space. No sclerotic or destructive changes observed. SOFT TISSUES: Soft tissue swelling around the ankle. RAD/Ankle 2 Views IMPRESSION: Acute trimalleolar fractures of the right ankle without obvious significant change. Electronically Signed: Ronni Chau MD at 12:39 EDT ,
[2024-04-17] MEDS: Bupivacaine 0.5% PF 10 ML VIAL (18:10)
--- NOTE | 2024-04-17 18:31 | PCM.POSTANE2 ---
Anesthesia Postop Eval I Sum Anesthesia Postop Eval I Summary Anesthesia Postop Eval I Summary: Anesthesia Postop Eval I: Assessment Summary Airway patent Spontaneous unlabored respirations Mental status nausea Vomiting Anesthesia Postop Eval I: Fluid Summary Crystalloid volume administer (ml) Colloids volume administered ( ml) Blood Product volume administered (ml) Total IV fluid infused Anesthesia Postop Eval I: Summary Notes Anesthesia Complication Anesthesia Complication Comment: Post-operative progress note
--- NOTE | 2024-04-17 18:31 | PCM.POST.ANE ---
Anesthesia: Postop Eval I Current Vital Signs Temperature: 97.7 F Pulse Rate: 96 Blood Pressure: 158/84 Respiratory Rate: 18 Pulse Ox: 99 Oxygen Delivery Method: Room Air Assessment Airway patent: Yes Spontaneous unlabored respirations: Yes Mental status: Awake and Calm nausea: No Vomiting: No Anesthesia Complication: No Fluid Hydration Crystalloid volume administer (ml): 400 Total IV fluid infused: 400 Progress Note Anesthesia document: Postop Eval 1 completed: Yes
[2024-04-17] MEDS: Ketorolac 30 MG/ML Syringe IV (18:43)
--- NOTE | 2024-04-17 19:35 | PCM.POSTANE2 ---
Anesthesia Postop Eval I Sum Postop Eval Completion status Anesthesia document: Postop Eval 1 completed: Yes Anesthesia Postop Eval I Summary Anesthesia Postop Eval I Summary: Anesthesia Postop Eval I: Assessment Summary Airway patent Yes 04/17/24 18:33 Spontaneous unlabored Yes 04/17/24 18:33 respirations Mental status Awake,Calm 04/17/24 18:33 nausea No 04/17/24 18:33 Vomiting No 04/17/24 18:33 Anesthesia Postop Eval I: Fluid Summary Crystalloid volume administer 400 04/17/24 18:33 (ml) Colloids volume administered ( ml) Blood Product volume administered (ml) Total IV fluid infused 400 04/17/24 18:33 Anesthesia Postop Eval I: Summary Notes Anesthesia Complication No 04/17/24 18:33 Anesthesia Complication Comment: Post-operative progress note Anesthesia: Postop Eval II Evaluation Mental status: Awake and Calm Pain Level: 2 nausea: No Vomiting: No Complications Anesthesia Complication: No
[2024-04-17] MEDS: traZODone 100 MG Tablet 150 MG PO (20:19)
[2024-04-17] MEDS: QUEtiapine 100 MG Tablet 300 MG PO (20:20)
[2024-04-17] MEDS: Morphine 2 MG/ML Syringe IV (23:03)
[2024-04-18] MEDS: Phenobarbital 32.4 MG Tablet PO ×3 (00:55→13:57)
[2024-04-18] MEDS: oxyCODONE 5 MG Tablet PO ×4 (03:03→20:20)
[2024-04-18 03:55] VITALS: BP 118/81; PULSE 93; RESP 17; TEMP 36.5; O2SAT 96
[2024-04-18] MEDS: Morphine 2 MG/ML Syringe IV (06:18)
[2024-04-18] MEDS: 0.9% Saline Lock 10 ML Syringe IV (06:18)
[2024-04-18 07:14] LABS: Absolute Lymphocyte Count 1.08 X10^3/uL (0.83-4.51); Absolute Neutrophil Count 1.8 X10^3/uL (2.0-7.7); Basophil# 0.01 X10^3/uL; Basophil% 0.3 % (0-1); Hematocrit 27.2 % (37-47); Lymphocyte # 1.08 X10^3/ul (0.83-4.51); Lymphocyte % 34.6 % (19-41); Mean Corp Hgb Conc 33.1 g/dL (32-36); Mean Corpuscular Hgb 33.8 pg (27.0-32.0); Mean Corpuscular Volume 102.3 fL (81-99); Mean Platelet Vol. 9.8 fl (6.2-12.0); Monocyte# 0.19 X10^3/uL; Monocyte% 6.1 % (0-10); NRBC Flagged by Analyzer 0 % (0-5); Neutrophil # 1.79 X10^3/uL (2.7-7.7); Neutrophil % 57.4 % (47-70); Platelet Count 248 K/mm3 (150-450); RBC Distribution Width CV 15.3 % (11.6-14.6); RBC Distribution Width SD 56.4 fl (35.1-43.9); Red Blood Count 2.66 M/mm3 (4.2-5.4); White Blood Count 3.1 K/mm3 (4.4-11.0)
[2024-04-18 07:24] LABS: Anion Gap 6 (5-15); BUN 4 mg/dL (7-18); BUN/Creat Ratio 7.8 RATIO (10-20); Calcium,Total 8.5 mg/dL (8.5-10.1); Chloride 103 mmol/L (98-107); Creatinine, Serum 0.51 mg/dL (0.55-1.02); EST Glomerular Filtration Rate 132 mL/min (>60); Est Glom Filt Rate - Afr Amer 160 mL/min (>60); Estimated Creatinine Clearance 132.26 ml/min; Glucose 97 mg/dL (74-106); Potassium 3.7 mmol/L (3.5-5.1); Sodium Level 135 mmol/L (136-145)
[2024-04-18 07:39] VITALS: BP 168/85; PULSE 90; RESP 16; TEMP 37.1; O2SAT 96
[2024-04-18] MEDS: Folic Acid 1 MG Tablet PO (07:47)
[2024-04-18] MEDS: Multivitamins,Therapeutic Tablet 1 TABLET PO (07:47)
[2024-04-18] MEDS: Thiamine Hydrochloride 100 MG Tablet PO (07:47)
--- NOTE | 2024-04-18 10:31 | PN_ITS ---
Subjective Subjective Patient seen and examined. She complained of pain in her left foot. She had the external fixator placed to the RLE yesterday. Today is POD 1. Review of systems is otherwise negative. Objective Data Objective Data Vital Signs: Vital Signs Temp Pulse Resp BP Pulse Ox O2 Del Method 98.8 F 90 16 168/85 H 96 Room Air 04/18/24 07:39 04/18/24 07:39 04/18/24 07:39 04/18/24 07:39 04/18/24 07:39 04/18/24 07:39 Oxygen Delivery Method Room Air Weight: 182 lb Body Mass Index (BMI) 30.2 Intake & Output: Intake and Output for Last 24 Hours 04/16/24 04/17/24 04/18/24 23:59 23:59 23:59 Intake Total 200 / 200 533.25 / 533.25 Output Total 575 / 575 Balance 200 / 200 533.25 / 158.25 -575 / -575 Lab / Micro Data 04/18/24 06:20 04/18/24 06:20 Labs: Laboratory Results - last 24 hr 04/18/24 06:20: WBC 3.1 L, RBC 2.66 L, Hgb 9.0 L, Hct 27.2 L, MCV 102.3 H, MCH 33.8 H, MCHC 33.1, RDW Std Deviation 56.4 H, RDW Coeff of Cecille 15.3 H, Plt Count 248, MPV 9.8, Immature Gran % (Auto) 1.600 H, Neut % (Auto) 57.4, Lymph % (Auto) 34.6, [place] % (Auto) 6.1, Eos % (Auto) 0.0, Baso % (Auto) 0.3, Absolute Neuts (auto) 1.8 L, Absolute Lymphs (auto) 1.08, Nucleated RBC % 0, Sodium 135 L, Potassium 3.7, Chloride 103, Carbon Dioxide 26.0, Anion Gap 6, BUN 4 L, C reatinine 0.51 L, Estim Creat Clear Calc 132.26, Est GFR (MDRD) Af Amer 160, Est GFR (MDRD) Non-Af 132, BUN/Creatinine Ratio 7.8 L, Glucose 97, Calcium 8.5 Physical Exam Const alert, oriented x3, no apparent distress and average body habitus General Appearance: cooperative and well developed HEENT normocephalic, head/scalp atraumatic, hearing grossly normal bilaterally, moist oral mucous membranes and oropharynx normal Eyes PERRL, EOMs intact bilaterally and conjunctivae normal Neck no lymphadenopathy, supple and no JVD Resp normal respiratory effort, normal air movement and no retractions Cardio regular rate, regular rhythm, S1 normal heart sound, S2 normal heart sound and no murmurs GI normal to inspection, nondistended, normoactive bowel sounds, soft to palpation, non-tender and non-distended Extremity Extremity Narrative: RLE immobilised in an external fixator. Skin General Skin Exam: no breakdown Neuro oriented x3, CN's II-XII intact bilaterally and no focal motor deficits Neuro Narrative: RLE weakness due to RLE being in a cast Sensorium / Orientation: awake, alert and oriented to person Motor Exam: general weakness Psych thought process normal and cooperative Appearance: appropriate Assessment & Plan Assessment/Plan (1) Closed trimalleolar fracture of right ankle: QUALIFIERS: Encounter type: initial encounter Qualified Code(s): S82.851A - Displaced trimalleolar fracture of right lower leg, initial encounter for closed fracture (2) Ankle fracture: (3) Alcohol abuse: (4) Alcohol dependence: PLAN: Plan #Debility and weakness due to right distal tibia and fibula and trimalleolar fracture from mechanical fall * Patient fell a few days prior to admission and came into the ED. Imaging done showed distal tibia and fibula as well as trimalleolar fracture on the right. * However she was unable to care for himself at home so came back into the ED * P.o. Tylenol, p.o. oxycodone and IV morphine as needed for pain. * podiatry on board. Had adequate reduction with application of external fixator on 04/17/2024. today is POD 1. * PT OT consult. Fall precautions. * #Alcohol use disorder, at risk of withdrawal * On alcohol withdrawal protocol with phenobarbital. Thiamine, folic acid and Multi-Sharla. * Adjunctive meds for symptomatic relief. * Monitor CIWA score. * Serum alcohol level was less than 3. * #Hypokalemia:resolved. K is 3.7. #PTSD with schizoaffective disorder * This is chronic. Follows up with psych on outpatient basis * On buspirone and Haldol as well as benztropine and citalopram. Also on Seroquel and trazodone #Hypertension: * On amlodipine 5 mg daily. * IV hydralazine prn. * #Bicytopenia * Hemoglobin is 9 today and WBC is 3.1. Platelets are normal at 248. Likely due to chronic alcohol abuse. Will monitor. * DVT prophylaxis; lovenox Code status: full code * Charges/Coding Visit Charges Inpatient E&M: 16815 Subs Hosp L2
[2024-04-18] MEDS: busPIRone 15 MG TABLET PO ×2 (10:50→19:57)
[2024-04-18] MEDS: Citalopram 40 MG TABLET PO (10:50)
[2024-04-18] MEDS: Enoxaparin 40 MG/0.4 ML Syringe SC (10:51)
[2024-04-18] MEDS: Haloperidol 5 MG Tablet 10 MG PO ×2 (10:51→19:57)
[2024-04-18] MEDS: Benztropine Mesylate 0.5 MG TABLET PO ×2 (10:51→19:56)
[2024-04-18] MEDS: amLODIPine 10 MG Tablet PO (10:51)
[2024-04-18] MEDS: Pantoprazole Sodium 40 MG Tablet PO (10:51)
[2024-04-18 13:51] VITALS: BP 122/67; PULSE 95; RESP 16; TEMP 36.7; O2SAT 98
[2024-04-18] MEDS: traZODone 100 MG Tablet 150 MG PO (19:57)
[2024-04-18] MEDS: QUEtiapine 100 MG Tablet 300 MG PO (19:57)
[2024-04-18 20:00] VITALS: BP 150/81; PULSE 85; RESP 15; TEMP 36.2; O2SAT 100
[2024-04-18] MEDS: Ondansetron 8 MG Tablet PO (20:20)
[2024-04-18] MEDS: Acetaminophen 325 MG Tablet 650 MG PO (20:20)
[2024-04-19 02:00] VITALS: BP 140/83; PULSE 82; RESP 17; TEMP 36.4; O2SAT 95
[2024-04-19] MEDS: Acetaminophen 325 MG Tablet 650 MG PO ×4 (02:23→20:19)
[2024-04-19] MEDS: oxyCODONE 5 MG Tablet PO ×4 (02:23→19:58)
[2024-04-19 07:19] LABS: Absolute Lymphocyte Count 2.21 X10^3/uL (0.83-4.51); Absolute Neutrophil Count 0.9 X10^3/uL (2.0-7.7); Basophil# 0.03 X10^3/uL; Basophil% 0.9 % (0-1); Eosinophil# 0.05 X10^3/uL; Eosinophils% 1.4 % (0-5); Hemoglobin 9.3 g/dL (12.0-15.0); Lymphocyte # 2.21 X10^3/ul (0.83-4.51); Lymphocyte % 62.8 % (19-41); Mean Corp Hgb Conc 32.1 g/dL (32-36); Mean Corpuscular Hgb 33.1 pg (27.0-32.0); Mean Corpuscular Volume 103.2 fL (81-99); Mean Platelet Vol. 9.7 fl (6.2-12.0); Monocyte# 0.27 X10^3/uL; Monocyte% 7.7 % (0-10); NRBC Flagged by Analyzer 0 % (0-5); Neutrophil % 25.5 % (47-70); POSITIVE DIFFERENTIAL YES; Platelet Count 264 K/mm3 (150-450); RBC Distribution Width CV 15.4 % (11.6-14.6); RBC Distribution Width SD 59.1 fl (35.1-43.9); Red Blood Count 2.81 M/mm3 (4.2-5.4); White Blood Count 3.5 K/mm3 (4.4-11.0)
[2024-04-19 07:41] LABS: Anion Gap 5 (5-15); BUN 11 mg/dL (7-18); BUN/Creat Ratio 20.5 RATIO (10-20); Calcium,Total 8.7 mg/dL (8.5-10.1); Chloride 106 mmol/L (98-107); Creatinine, Serum 0.54 mg/dL (0.55-1.02); EST Glomerular Filtration Rate 125 mL/min (>60); Est Glom Filt Rate - Afr Amer 152 mL/min (>60); Estimated Creatinine Clearance 124.92 ml/min; Glucose 82 mg/dL (74-106); Potassium 3.5 mmol/L (3.5-5.1); Sodium Level 140 mmol/L (136-145)
[2024-04-19 07:42] VITALS: BP 134/82; PULSE 73; RESP 16; TEMP 37.3; O2SAT 93
[2024-04-19] MEDS: Thiamine Hydrochloride 100 MG Tablet PO (07:43)
[2024-04-19] MEDS: Folic Acid 1 MG Tablet PO (07:43)
[2024-04-19] MEDS: Multivitamins,Therapeutic Tablet 1 TABLET PO (07:43)
[2024-04-19 07:46] LABS: Differential Indicated SCAN CRITERIA MET
[2024-04-19 09:07] LABS: Differential Comment SCANNED
[2024-04-19] MEDS: Haloperidol 5 MG Tablet 10 MG PO ×2 (10:05→20:10)
[2024-04-19] MEDS: amLODIPine 10 MG Tablet PO (10:05)
[2024-04-19] MEDS: Enoxaparin 40 MG/0.4 ML Syringe SC (10:05)
[2024-04-19] MEDS: Benztropine Mesylate 0.5 MG TABLET PO ×2 (10:05→20:10)
[2024-04-19] MEDS: Citalopram 40 MG TABLET PO (10:05)
[2024-04-19] MEDS: Pantoprazole Sodium 40 MG Tablet PO (10:05)
[2024-04-19] MEDS: busPIRone 15 MG TABLET PO ×2 (10:05→20:10)
--- NOTE | 2024-04-19 10:23 | PN_ITS ---
Subjective Subjective Patient seen and examined. She complained of some pain in her RLE. She had no other complaints and review of systems is otherwise negative. She has remained hemodynamically stable. Objective Data Objective Data Vital Signs: Vital Signs Temp Pulse Resp BP Pulse Ox O2 Del Method 99.1 F 73 16 134/82 H 93 Room Air 04/19/24 07:42 04/19/24 07:42 04/19/24 07:42 04/19/24 07:42 04/19/24 07:42 04/19/24 07:42 Oxygen Delivery Method Room Air Weight: 182 lb Body Mass Index (BMI) 30.2 Intake & Output: Intake and Output for Last 24 Hours 04/17/24 04/18/24 04/19/24 23:59 23:59 23:59 Intake Total 533.25 / 533.25 120 / 120 Output Total 925 / 925 1000 / 1000 Balance 533.25 / 158.25 -925 / -805 -880 / -880 Lab / Micro Data 04/19/24 06:20 04/19/24 06:20 Labs: Laboratory Results - last 24 hr 04/19/24 06:20: WBC 3.5 L, RBC 2.81 L, Hgb 9.3 L, Hct 29.0 L, MCV 103.2 H, MCH 33.1 H, MCHC 32.1, RDW Std Deviation 59.1 H, RDW Coeff of Cecille 15.4 H, Plt Count 264, MPV 9.7, Immature Gran % (Auto) 1.700 H, Neut % (Auto) 25.5 L, Lymph % (Auto) 62.8 H, [place] % (Auto) 7.7, Eos % (Auto) 1.4, Baso % (Auto) 0.9, Absolute Neuts (auto) 0.9 L, Absolute Lymphs (auto) 2.21, Nucleated RBC % 0, Differential Comment SCANNED, Sodium 140, Potassium 3.5, Chloride 106, Carbon Dioxide 28.0, Anion Gap 5, BUN 11, Creatinine 0.54 L, Estim Creat Clear Calc 124.92, Est GFR (MDRD) Af Amer 152, Est GFR (MDRD) Non-Af 125, BUN/Creatinine Ratio 20.5 H, Glucose 82, Calcium 8.7 Radiography Diagnostic Testing: Radiology Impression Ankle X-Ray 04/17/24 17:25 IMPRESSION: Acute trimalleolar fractures of the right ankle without obvious significant change. Electronically Signed: Ronni Chau MD at 12:39 EDT , Physical Exam Const alert, oriented x3, no apparent distress and average body habitus General Appearance: cooperative and well developed HEENT normocephalic, head/scalp atraumatic, hearing grossly normal bilaterally, moist oral mucous membranes and oropharynx normal Eyes PERRL, EOMs intact bilaterally and conjunctivae normal Neck no lymphadenopathy, supple and no JVD Resp normal respiratory effort, normal air movement and no retractions Cardio regular rate, regular rhythm, S1 normal heart sound, S2 normal heart sound and no murmurs GI normal to inspection, nondistended, normoactive bowel sounds, soft to palpation, non-tender and non-distended Extremity Extremity Narrative: RLE immobilised in an external fixator. Skin General Skin Exam: no breakdown Neuro oriented x3, CN's II-XII intact bilaterally and no focal motor deficits Neuro Narrative: external fixator in place on RLE Sensorium / Orientation: awake, alert and oriented to person Motor Exam: general weakness Psych thought process normal and cooperative Psych Narrative: flat affect Appearance: appropriate Assessment & Plan Assessment/Plan (1) Closed trimalleolar fracture of right ankle: QUALIFIERS: Encounter type: initial encounter Qualified Code(s): S82.851A - Displaced trimalleolar fracture of right lower leg, initial encounter for closed fracture (2) Ankle fracture: (3) Alcohol abuse: (4) Alcohol dependence: PLAN: Plan #Debility and weakness due to right distal tibia and fibula and trimalleolar fracture from mechanical fall * Patient fell a few days prior to admission and came into the ED. Imaging done showed distal tibia and fibula as well as trimalleolar fracture on the right. * However she was unable to care for himself at home so came back into the ED * P.o. Tylenol, p.o. oxycodone and IV morphine as needed for pain. * podiatry on board. Had adequate reduction with application of external fixator on 04/17/2024. today is POD 2. * PT OT consult. Fall precautions. * #Alcohol use disorder, at risk of withdrawal * On thiamine, folic acid and Multi-Sharla. * Adjunctive meds for symptomatic relief. * Monitor CIWA score. * Serum alcohol level was less than 3. * completed the phenobarb taper for alcohol withdrawal * #Hypokalemia:resolved. K is 3.5 #PTSD with schizoaffective disorder * This is chronic. Follows up with psych on outpatient basis * On buspirone and Haldol as well as benztropine and citalopram. * Also on Seroquel and trazodone #Hypertension: * On amlodipine 10 mg daily. * IV hydralazine prn. * #Bicytopenia * Hemoglobin is 9.3 today and WBC is 3.5. Platelets are normal at 264 today. Likely due to chronic alcohol abuse. Will monitor. * DVT prophylaxis; lovenox Code status: full code Charges/Coding Visit Charges Inpatient E&M: 57056 Subs Hosp L2
--- NOTE | 2024-04-19 11:12 | PN.SURG_ITS ---
Subjective Subjective Ms. Boland is a 53-year-old female seen at bedside today for status post external fixator/delta frame application to right lower extremity secondary to distal located right lower extremity ankle fracture. Patient rates minimal pain to the right lower extremity with delta frame on. No acute events overnight. She is still being monitored for bedbugs. No new bedbugs have been found. She denies any weightbearing to right lower extremity. Denies any recent falls. Denies constitutional symptoms. No other pedal complaints at this time. Objective Data Objective Data Vital Signs: Vital Signs Temp Pulse Resp BP Pulse Ox O2 Del Method 99.1 F 73 16 134/82 H 93 Room Air 04/19/24 07:42 04/19/24 07:42 04/19/24 07:42 04/19/24 07:42 04/19/24 07:42 04/19/24 07:42 Oxygen Delivery Method Room Air Weight: 82.554 kg Body Mass Index (BMI) 30.2 Intake & Output: Intake and Output for Last 24 Hours 04/17/24 04/18/24 04/19/24 23:59 23:59 23:59 Intake Total 533.25 / 533.25 120 / 120 Output Total 925 / 925 1000 / 1000 Balance 533.25 / 158.25 -925 / -805 -880 / -880 Lab / Micro Data 04/19/24 06:20 04/19/24 06:20 Labs: Laboratory Results - last 24 hr 04/19/24 06:20: WBC 3.5 L, RBC 2.81 L, Hgb 9.3 L, Hct 29.0 L, MCV 103.2 H, MCH 33.1 H, MCHC 32.1, RDW Std Deviation 59.1 H, RDW Coeff of Cecille 15.4 H, Plt Count 264, MPV 9.7, Immature Gran % (Auto) 1.700 H, Neut % (Auto) 25.5 L, Lymph % (Auto) 62.8 H, [place] % (Auto) 7.7, Eos % (Auto) 1.4, Baso % (Auto) 0.9, Absolute Neuts (auto) 0.9 L, Absolute Lymphs (auto) 2.21, Nucleated RBC % 0, Differential Comment SCANNED, Sodium 140, Potassium 3.5, Chloride 106, Carbon Dioxide 28.0, Anion Gap 5, BUN 11, Creatinine 0.54 L, Estim Creat Clear Calc 124.92, Est GFR (MDRD) Af Amer 152, Est GFR (MDRD) Non-Af 125, BUN/Creatinine Ratio 20.5 H, Glucose 82, Calcium 8.7 Radiography Diagnostic Testing: Radiology Impression Ankle X-Ray 04/17/24 17:25 IMPRESSION: Acute trimalleolar fractures of the right ankle without obvious significant change. Electronically Signed: Ronni Chau MD at 12:39 EDT , Physical Exam Narrative Neurovascular status is unchanged. Nonpitting edema appreciated right lower extremity. Evidence of ecchymosis appreciated to the right ankle. No fracture blisters are appreciated. Pin sites are stable with no sign of infection or drainage. Moderate protein tenderness appreciated to the lateral, medial and posterior malleoli to the right lower extremity. Delta frame construct is intact and sound with no evidence of loosening. No pain with calf compression. Const oriented x3 and no apparent distress Assessment & Plan Assessment/Plan (1) Closed trimalleolar fracture of right ankle: QUALIFIERS: Encounter type: initial encounter Qualified Code(s): S82.851A - Displaced trimalleolar fracture of right lower leg, initial encounter for closed fracture PLAN: Patient was examined and evaluated. All findings were discussed with the patient. All questions were answered to the patient satisfaction. Patient is status post delta frame application to the right lower extremity. DOS: 04/17/2024. Patient is improving well. Her pain is improved. Ex-Fix was changed today with alcohol wipes to pin sites followed by Betadine paint to all pin sites incisions, 2 x 2, 1 inch Cecilio, single layer Joy compression bandage, right lower extremity. Please leave dressing clean dry and intact unless strikethrough is noted and then change as above. Will plan for surgical intervention consisting of removal of the delta frame external fixator as well as ORIF of the trimalleolar ankle fracture on 05/01/2024. Patient will follow-up in private office for paperwork and evaluation. All risk and benefits were discussed with the patient in great detail and she is showing understanding of this. Medicine: On board, medical management PT/OT: On board Podiatry will continue to follow the patient from a distance. Patient is cleared to discharge from a podiatry perspective once pre-CERT is approved. Please reach out to Dr. Barrett with any questions or concerns. Thank you for letting me be involved in the patient care. (2) Pain in right ankle: QUALIFIERS: Chronicity: acute Qualified Code(s): M25.571 - Pain in right ankle and joints of right foot
[2024-04-19 14:09] VITALS: BP 143/85; PULSE 90; RESP 16; TEMP 37.2; O2SAT 96
[2024-04-19] MEDS: traZODone 100 MG Tablet 150 MG PO (20:11)
[2024-04-19] MEDS: QUEtiapine 100 MG Tablet 300 MG PO (20:11)
[2024-04-19 20:14] VITALS: BP 138/86; PULSE 70; RESP 18; TEMP 36.9; O2SAT 95
[2024-04-20 02:51] VITALS: BP 129/84; PULSE 68; RESP 16; TEMP 36.5; O2SAT 97
[2024-04-20] MEDS: oxyCODONE 5 MG Tablet PO ×4 (05:34→20:30)
[2024-04-20] MEDS: Acetaminophen 325 MG Tablet 650 MG PO (05:34)
[2024-04-20 07:19] LABS: Absolute Lymphocyte Count 1.72 X10^3/uL (0.83-4.51); Absolute Neutrophil Count 1.5 X10^3/uL (2.0-7.7); Basophil# 0.04 X10^3/uL; Basophil% 1.1 % (0-1); Eosinophil# 0.06 X10^3/uL; Eosinophils% 1.6 % (0-5); Hematocrit 29.2 % (37-47); Hemoglobin 9.6 g/dL (12.0-15.0); Lymphocyte # 1.72 X10^3/ul (0.83-4.51); Lymphocyte % 46.9 % (19-41); Mean Corp Hgb Conc 32.9 g/dL (32-36); Mean Corpuscular Hgb 33.3 pg (27.0-32.0); Mean Corpuscular Volume 101.4 fL (81-99); Mean Platelet Vol. 9.6 fl (6.2-12.0); Monocyte# 0.28 X10^3/uL; Monocyte% 7.6 % (0-10); NRBC Flagged by Analyzer 0 % (0-5); Neutrophil # 1.51 X10^3/uL (2.7-7.7); Neutrophil % 41.2 % (47-70); Platelet Count 276 K/mm3 (150-450); RBC Distribution Width CV 15.2 % (11.6-14.6); Red Blood Count 2.88 M/mm3 (4.2-5.4); White Blood Count 3.7 K/mm3 (4.4-11.0)
[2024-04-20 09:55] LABS: Anion Gap 6 (5-15); BUN 15 mg/dL (7-18); BUN/Creat Ratio 34.6 RATIO (10-20); Calcium,Total 8.8 mg/dL (8.5-10.1); Chloride 107 mmol/L (98-107); Creatinine, Serum 0.43 mg/dL (0.55-1.02); EST Glomerular Filtration Rate 160 mL/min (>60); Est Glom Filt Rate - Afr Amer 194 mL/min (>60); Estimated Creatinine Clearance 156.87 ml/min; Glucose 87 mg/dL (74-106); Potassium 3.6 mmol/L (3.5-5.1); Sodium Level 139 mmol/L (136-145)
--- NOTE | 2024-04-20 10:46 | CASEMGMT ---
[facility] no available beds. Updates sent to [facility] Adkins for precert to be submitted. SW aware. Melony Thakkar DC Planning Asst.
[2024-04-20 11:06] VITALS: BP 149/91; PULSE 78; RESP 17; TEMP 36.4; O2SAT 96
[2024-04-20] MEDS: Enoxaparin 40 MG/0.4 ML Syringe SC (11:09)
[2024-04-20] MEDS: Thiamine Hydrochloride 100 MG Tablet PO (11:09)
[2024-04-20] MEDS: hydrOXYzine PAM 25 MG Capsule 50 MG PO (11:09)
[2024-04-20] MEDS: Citalopram 40 MG TABLET PO (11:09)
[2024-04-20] MEDS: Folic Acid 1 MG Tablet PO (11:10)
[2024-04-20] MEDS: amLODIPine 10 MG Tablet PO (11:10)
[2024-04-20] MEDS: Multivitamins,Therapeutic Tablet 1 TABLET PO (11:10)
[2024-04-20] MEDS: Haloperidol 5 MG Tablet 10 MG PO ×2 (11:10→20:31)
[2024-04-20] MEDS: Pantoprazole Sodium 40 MG Tablet PO (11:11)
[2024-04-20] MEDS: busPIRone 15 MG TABLET PO ×2 (11:11→20:31)
[2024-04-20] MEDS: Benztropine Mesylate 0.5 MG TABLET PO ×2 (11:11→20:31)
[2024-04-20] MEDS: Acetaminophen 500 MG Tablet 1000 MG PO ×2 (15:38→20:32)
[2024-04-20 15:41] VITALS: BP 152/88; PULSE 87; RESP 16; TEMP 36.7; O2SAT 97
--- NOTE | 2024-04-20 16:55 | PN.HOSP_ITS ---
Reason for Visit Reason for Visit: Right ankle pain after mechanical fall Subjective Subjective Patient is a 53-year-old white female with a history of alcohol abuse who presented to the emergency department on 04/14/2020 for after suffering from a mechanical fall while intoxicated and suffering from right ankle pain. Imaging showed a trimalleolar fracture and it was recommended that she be transferred to tertiary trauma facility however she refused at that point. Orthopedics was contacted and recommended outpatient follow-up with orthopedic surgery and that she be nonweightbearing with crutches in the interim. The patient went home and unfortunately could not care for herself so she came back to the emergency department. She was initially planned for discharge with a knee scooter but she did not qualify for this show she was admitted for placement. She is admitted to the medical floor and consultation to podiatry was made. With her history of alcohol abuse she was started on phenobarbital prophylactically as well as thiamine and folate for concern of alcohol withdrawal. She was not intoxicated at the time of presentation. Electrolytes were replaced. She was taken to the OR on 04/17/2024 at which time application of external fixator status post reduction of the trimalleolar fracture/dislocation was performed. She has medically been stable and awaiting placement. She was found to have bedbugs and is now in isolation. Surgical plan is for removal of the external fixator as well as ORIF on 05/01/2024. We are currently awaiting pre-CERT for placement. Patient denies any significant issues. She states her pain is not greatly controlled and feels like it could be a little bit better. She also is complaining of some constipation. Has no other complaints at this time. Objective Data Objective Data Vital Signs: Vital Signs Temp Pulse Resp BP Pulse Ox O2 Del Method 98.1 F 87 16 152/88 H 97 Room Air 04/20/24 15:41 04/20/24 15:41 04/20/24 15:41 04/20/24 15:41 04/20/24 15:41 04/20/24 15:41 Oxygen Delivery Method Room Air Weight: 82.554 kg Body Mass Index (BMI) 30.2 Intake & Output: Intake and Output for Last 24 Hours 04/18/24 04/19/24 04/20/24 23:59 23:59 23:59 Intake Total 120 / 770 650 / 650 Output Total 925 / 925 1000 / 1000 Balance -925 / -805 -880 / -230 650 / 650 Lab / Micro Data 04/20/24 07:03 04/20/24 07:03 Labs: Laboratory Results - last 24 hr 04/20/24 07:03: WBC 3.7 L, RBC 2.88 L, Hgb 9.6 L, Hct 29.2 L, MCV 101.4 H, MCH 33.3 H, MCHC 32.9, RDW Std Deviation 57.0 H, RDW Coeff of Cecille 15.2 H, Plt Count 276, MPV 9.6, Immature Gran % (Auto) 1.600 H, Neut % (Auto) 41.2 L, Lymph % (Auto) 46.9 H, [place] % (Auto) 7.6, Eos % (Auto) 1.6, Baso % (Auto) 1.1 H, A bsolute Neuts (auto) 1.5 L, Absolute Lymphs (auto) 1.72, Nucleated RBC % 0, Sodium 139, Potassium 3.6, Chloride 107, Carbon Dioxide 27.0, Anion Gap 6, BUN 15, Creatinine 0.43 L, Estim Creat Clear Calc 156.87, Est GFR (MDRD) Af Amer 194, Est GFR (MDRD) Non-Af 160, BUN/Creatinine Ratio 34.6 H, Glucose 87, Calcium 8.8 Physical Exam Const alert, oriented x3, no apparent distress and well nourished; Negative for average body habitus or healthy appearing Constitutional Narrative: Obese, middle-aged, white female, lying in bed, watching television, appears comfortable, appears older than stated age, does not appear toxic HEENT head/scalp atraumatic and moist oral mucous membranes HEENT Narrative: Edentulous, Mallampati 2-3, no thrush Head and Scalp: normocephalic Resp normal respiratory effort, no retractions, no use of accessory muscles and clear to auscultation bilaterally Auscultation: Negative for rales, rhonchi or wheezes Cardio regular rate, regular rhythm, S1 normal heart sound, S2 normal heart sound, no murmurs, no rub, no gallops and no clicks GI normal to inspection, nondistended, normoactive bowel sounds, soft to palpation and non-tender Extremity Extremity Narrative: Right lower extremity edema with external fixator in place, ecchymosis noted, no clubbing or cyanosis, left lower extremity within normal limits Neuro oriented x3 and no focal motor deficits Speech: speech normal Psych Psych Narrative: Affect is slightly flat but patient makes good eye contact and interacts appropriately Assessment & Plan Assessment/Plan (1) Closed trimalleolar fracture of right ankle: QUALIFIERS: Encounter type: initial encounter Qualified Code(s): S82.851A - Displaced trimalleolar fracture of right lower leg, initial encounter for closed fracture (2) Alcohol abuse: PLAN: Plan Right ankle trimalleolar fracture -Postdate with a 3 reduction with external fixator placement -Scheduled Tylenol -Add Celebrex 100 mg p.o. twice daily with continuation of Protonix for GI protection -Continue Ultram -Neck surgery is planned for 05/01/[address] Barrett -Nonweightbearing right lower extremity Bedbugs -Patient is in isolation History of alcohol abuse -Had been on phenobarbital but currently discontinued -Continue thiamine and folate -Discontinue supportive medications for symptom management related to withdrawal Hypertension -Continue home amlodipine -Blood pressures remain elevated so we will add losartan 50 mg daily -Continue to monitor GERD -Continue home PPI Bipolar disorder/schizoaffective disorder/PTSD -Continue home trazodone -Continue home Seroquel -continue home Haldol -Continue home citalopram -Continue home BuSpar -Continue home Cogentin History of asthma -Continue home as needed albuterol DVT prophylaxis -Subcu Lovenox and will continue this at discharge CODE STATUS Full code Charges/Coding Visit Charges Inpatient E&M: 44037 Subs Hosp L2
[2024-04-20] MEDS: Celecoxib 100 MG Capsule PO (17:38)
[2024-04-20] MEDS: Losartan Potassium 50 MG Tablet PO (17:38)
[2024-04-20 20:20] VITALS: BP 150/88; PULSE 83; RESP 16; TEMP 36.6; O2SAT 96
[2024-04-20] MEDS: traZODone 100 MG Tablet 150 MG PO (20:31)
[2024-04-20] MEDS: Senna/Docusate Sodium 1 Tablet 2 TABLET PO (20:31)
[2024-04-20] MEDS: QUEtiapine 100 MG Tablet 300 MG PO (20:32)
[2024-04-21 06:03] VITALS: BP 140/89; PULSE 89; RESP 15; TEMP 37; O2SAT 100
[2024-04-21] MEDS: oxyCODONE 5 MG Tablet PO ×3 (06:09→17:04)
[2024-04-21] MEDS: Acetaminophen 500 MG Tablet 1000 MG PO ×2 (06:09→15:31)
[2024-04-21 07:55] VITALS: BP 137/80; PULSE 77; RESP 15; TEMP 36.4; O2SAT 96
[2024-04-21] MEDS: Celecoxib 100 MG Capsule PO ×2 (08:10→17:04)
[2024-04-21] MEDS: Folic Acid 1 MG Tablet PO (08:10)
[2024-04-21] MEDS: Multivitamins,Therapeutic Tablet 1 TABLET PO (08:10)
[2024-04-21] MEDS: Thiamine Hydrochloride 100 MG Tablet PO (08:11)
[2024-04-21] MEDS: Ondansetron ODT 4 MG Tablet PO (08:13)
[2024-04-21] MEDS: Senna/Docusate Sodium 1 Tablet 2 TABLET PO (08:13)
[2024-04-21] MEDS: Benztropine Mesylate 0.5 MG TABLET PO (08:22)
[2024-04-21] MEDS: Enoxaparin 40 MG/0.4 ML Syringe SC (08:23)
[2024-04-21] MEDS: busPIRone 15 MG TABLET PO (08:23)
[2024-04-21] MEDS: amLODIPine 10 MG Tablet PO (08:23)
[2024-04-21] MEDS: Losartan Potassium 50 MG Tablet PO (08:23)
[2024-04-21] MEDS: Citalopram 40 MG TABLET PO (08:23)
[2024-04-21] MEDS: Haloperidol 5 MG Tablet 10 MG PO (08:23)
[2024-04-21] MEDS: Pantoprazole Sodium 40 MG Tablet PO (08:24)
--- NOTE | 2024-04-21 09:25 | CASEMGMT ---
Social Work Updates sent to [facility]. Heather Gamble, OPHTHALMIC MEDICAL ASSISTANT, CRIMPING MACHINE OPERATOR
--- NOTE | 2024-04-21 10:18 | CASEMGMT ---
Social Work- SW followed up with pt to advise that precert is still pending. BETHANY Nunez
--- NOTE | 2024-04-21 10:25 | CASEMGMT ---
[facility]charge Planning [facility] has obtained auth. SW updated. Melony Thakkar DC Planning Asst.
--- NOTE | 2024-04-21 12:04 | PCM.TXEXTCAR ---
Diet Diet Order/Speech Therapy: 04/17/24 19:54 Diet: Regular - General Type of Dietary Supplement:: Ramon Breakfast & Dinner Diet Comments: absoluetly no milk fats Routine Orders/Code Status Suppository Frequency: Daily PRN O2 Frequency: PRN Keep PO Greater than or Equal to (%): 89 Routine Lab Work: CBC (10 days) and BMP (10 days) Code Status: Full Code Wound(s) right ankle: Wound Type: Surgical Incision Suggestions for Active Care Change Position every (hours): 2 Hours to sit in a chair: 2 (Legs elevated) Times a day to sit in chair: 2 Therapies Weight Bearing: Non weight bearing (Right lower extremity) Extremity Affected:: Right Lower Physical Therapy: Eval and Treat Occupational Therapy: Eval and Treat Problem/Diagnosis (1) Closed trimalleolar fracture of right ankle: Status: Acute Code(s): S82.851A - Displaced trimalleolar fracture of right lower leg, initial encounter for closed fracture (2) Alcohol abuse: Status: Acute Code(s): F10.10 - Alcohol abuse, uncomplicated Plan Allergies/Procedures Done in Hospital Allergies aripiprazole (From Abilify) Allergy (Verified 04/14/24 03:04) Rash risperidone (From Risperdal) Allergy (Verified 04/14/24 03:04) Unknown sulfamethoxazole (From Septra) Allergy (Verified 04/14/24 03:04) Rash trimethoprim (From Septra) Allergy (Verified 04/14/24 03:04) Rash gabapentin (From Neurontin) Adverse Reaction (Verified 04/14/24 03:04) Upset Stomach prednisone Adverse Reaction (Verified 04/14/24 03:04) skin hurts Procedures: - (Reduction and external fixator placement right lower extremity/ankle x-ray) Type of Care/Length of Stay Estimated LOS: Convalescent Care Less Than 30 days Type of Care Needed: Skilled Rehab Potential: Good Prognosis: Good Additional Orders/Day of Discharge Day of Discharge: 04/21/24 Dietary and Speech Recommendations Dietitian Recommendations/Changes: Continue liberal regular diet - no milk fats Rec discontinue ramon bid once surgical incision ankle healed Follow Up Care Please Follow Up With: Cl Barrett DPM When: 5-7 days in preparation for surgery Discharge Plan Admission Admit Date/Time: 04/15/24 14:29 Attending Provider: Karen Lima Primary Care Provider: Janna Best Consulting Providers: Jenise Andrews Instructions Additional Instructions / Restrictions: Pin site care, right lower extremity external fixator. 1. Remove all external dressing. 2. Wipe leg down with sterile normal saline and pat dry. 3. Clean all pin sites with isopropyl alcohol and allowed the alcohol to dry. 4. Cover all pin sites with Betadine soaked gauze, cover Betadine gauze with 4 x 4's cut in half, Cecilio wrap, two 3 inch Deonte bandages for edema control. Weightbearing status: 1. Nonweightbearing to the right lower extremity with assistive crutches, walker or wheelchair. Full weightbearing left lower extremity. Discharge Orders/Prescriptions Prescriptions: No Action citalopram 40 MG tablet 40 mg PO DAILY benztropine 2 MG tablet 0.5 mg PO BID haloperidol 2 MG tablet 10 mg PO BID buspirone 15 MG tablet 15 mg PO BID albuterol sulfate 1 INHALER inhaler 1 - 2 puff INHALATION Q4H PRN PRN (Reason: Wheezing) pantoprazole [Protonix] 40 mg Tablet,Delayed Release (Dr/Ec) 40 mg PO DAILY trazodone 150 mg Tablet 150 mg PO QHS quetiapine [Seroquel XR] 300 mg Tablet Extended Release 24 Hr 300 mg PO QHS multivitamin 1 EACH tablet 1 each PO DAILY Rx Instructions: over the counter, no prescription required. amlodipine 5 MG tablet 10 mg PO DAILY Rx Instructions: BP oxycodone 5 mg tablet 5 mg PO Q6H PRN (Reason: pain) 3 Days Qty: 12 0RF ondansetron 4 mg tablet,disintegrating 4 mg PO Q8H PRN PRN (Reason: Nausea) Qty: 10 0RF Referrals / Follow Up: Janna Best MD [Primary Care Provider] - Cl Barrett DPM [Med Staff - Active Staff] - (Patient is to follow-up with Dr. Barrett 1 week post discharge for outpatient surgical discussion to the right lower extremity ankle fracture.) Kobi Youssef DO [Med Staff - Active Staff] - As soon as possible (1) Closed trimalleolar fracture of right ankle Qualifiers: Encounter type: initial encounter Qualified Code(s): S82.851A - Displaced trimalleolar fracture of right lower leg, initial encounter for closed fracture
--- NOTE | 2024-04-21 12:21 | PCM.DC.SUM ---
Providers Date of Admission: 04/15/24 Date of Discharge: 04/21/24 Primary Care Physician: Dr. Janna Best MD Reason For Visit: DEBILITY DUE TO RIGHT ANKLE FRACTURE Diagnosis Discharge Diagnosis (1) Closed trimalleolar fracture of right ankle: Status: Acute Code(s): S82.851A - Displaced trimalleolar fracture of right lower leg, initial encounter for closed fracture Qualifiers: Encounter type: initial encounter Qualified Code(s): S82.851A - Displaced trimalleolar fracture of right lower leg, initial encounter for closed fracture (2) Alcohol abuse: Status: Acute Code(s): F10.10 - Alcohol abuse, uncomplicated Medications at Discharge Home Medications benztropine 2 mg tablet 0.5 mg PO BID cramps 10/24/15 citalopram 40 mg tablet 40 mg PO DAILY depression 10/24/15 haloperidol 2 mg tablet 10 mg PO BID anxiety 10/24/15 buspirone 15 mg tablet 15 mg PO BID anxiety 03/19/18 albuterol sulfate 90 mcg/actuation aerosol inhaler 1 - 2 puff inhalation Q4H PRN PRN Wheezing 05/08/20 pantoprazole 40 mg tablet,delayed release (Protonix) 40 mg PO DAILY gerd 03/05/21 quetiapine 300 mg tablet,extended release 24 hr (Seroquel XR) 300 mg PO QHS depression 03/05/21 trazodone 150 mg tablet 150 mg PO QHS depression 03/05/21 amlodipine 5 mg tablet 10 mg PO DAILY bp 04/05/21 multivitamin 1 each PO DAILY health 04/05/21 ondansetron 4 mg disintegrating tablet 4 mg PO Q8H PRN PRN Nausea #10 tabs 04/12/24 acetaminophen 500 mg tablet 1,000 mg (2 x 500 mg) PO Q8 #0 tabs 04/21/24 celecoxib 100 mg capsule 100 mg PO BIDCM #0 caps 04/21/24 enoxaparin 40 mg/0.4 mL subcutaneous syringe 40 mg (0.4 mL) subcut DAILY #0 mL 04/21/24 losartan 50 mg tablet 50 mg PO DAILY #0 tabs 04/21/24 oxycodone 5 mg tablet 5 mg PO Q4H PRN PRN Pain Score 4-10 1 day #6 tabs 04/21/24 sennosides 8.6 mg-docusate sodium 50 mg tablet (Stimulant Laxative Plus) 2 tab PO BID #1 TAB 04/21/24 tizanidine 2 mg tablet 2 mg PO Q8H PRN PRN Muscle Spasm #0 tabs 04/21/24 Hospital Course Operations - (Right ankle reduction with external fixator placement) Procedures - (Right ankle x-ray) Summary of Care Provided Minutes Spent on Discharge: 38 Hospital Course: Patient is a 53-year-old white female with a history of alcohol abuse who presented to the emergency department on 04/14/2020 for after suffering from a mechanical fall while intoxicated and suffering from right ankle pain. Imaging showed a trimalleolar fracture and it was recommended that she be transferred to tertiary trauma facility however she refused at that point. Orthopedics was contacted and recommended outpatient follow-up with orthopedic surgery and that she be nonweightbearing with crutches in the interim. The patient went home and unfortunately could not care for herself so she came back to the emergency department. She was initially planned for discharge with a knee scooter but she did not qualify for this show she was admitted for placement. She is admitted to the medical floor and consultation to podiatry was made. With her history of alcohol abuse she was started on phenobarbital prophylactically as well as thiamine and folate for concern of alcohol withdrawal. She was not intoxicated at the time of presentation. Electrolytes were replaced. She was taken to the OR on 04/17/2024 at which time application of external fixator status post reduction of the trimalleolar fracture/dislocation was performed. She was found to have bedbugs and placed in isolation until he can be eradicated. Her blood pressure was noted to be elevated. She was already taking amlodipine 10 mg daily on admission. We did add losartan 50 mg daily and her blood pressure overall was improved. With regards to pain, she was on Celebrex 100 mg p.o. twice daily with prophylactic Protonix 40 mg daily for the next 14 days, as needed oxycodone, and as needed tizanidine for any muscle spasms in the right lower extremity. She did indicate that her pain was better controlled at the time of discharge. She is having some ongoing constipation and she will remain on senna twice daily. I have encouraged her to drink prune juice is much as possible but further bowel regimen may be required depending on stool output. Surgical plan is for removal of the external fixator as well as ORIF on 05/01/2024. She is to follow-up with Dr. Barrett within the next 5 to 7 days after discharge for preoperative evaluation. Given the external fixator and her mobility issues, she did need placement at the time of discharge and she was accepted with pre-CERT obtained on 04/21/2024. She was discharged in stable condition at this time. Discharge diagnoses: Right ankle trimalleolar fracture Bedbugs History of alcohol abuse Hypertension GERD Bipolar disorder Schizoaffective disorder PTSD History of asthma Obesity Physical Exam Const alert, oriented x3, no apparent distress, no limitations and well nourished; Negative for average body habitus or healthy appearing Constitutional Narrative: Obese, middle-aged, white female, lying in bed, watching television, appears comfortable, appears older than stated age, does not appear toxic General Appearance: cooperative, comfortable and well developed Orientation / Consciousness: awake, oriented to person, oriented to place and oriented to time Exam Limitations: no limitations Nutritional Appearance: obese HEENT normocephalic, head/scalp atraumatic, hearing grossly normal bilaterally, moist oral mucous membranes and oropharynx normal HEENT Narrative: Edentulous, Mallampati 2, no thrush Eyes PERRL, EOMs intact bilaterally and conjunctivae normal Eyes Narrative: No scleral icterus Neck no lymphadenopathy and supple Neck Narrative: Trachea midline, no thyroid enlargement Resp normal respiratory effort, normal air movement, no retractions, no use of accessory muscles and clear to auscultation bilaterally Auscultation: Negative for rales, rhonchi or wheezes Cardio regular rate, regular rhythm, S1 normal heart sound, S2 normal heart sound, no murmurs, no rub, no gallops and no clicks GI normal to inspection, nondistended, normoactive bowel sounds, soft to palpation and non-tender Extremity Extremity Narrative: Right lower extremity edema with external fixator in place, ecchymosis noted, no clubbing or cyanosis, left lower extremity within normal limits, cap refill within normal limits bilateral lower extremities Skin no rashes or lesions noted, skin turgor normal and no jaundice Neuro oriented x3 and no focal motor deficits Neuro Narrative: external fixator in place on RLE, unable to move right lower extremity from the knee down due to injury Speech: speech normal Psych thought process normal and cooperative Psych Narrative: Affect is slightly flat but patient makes good eye contact and interacts appropriately Appearance: appropriate Weight / BMI Weight Weight: 82.554 kg Body Mass Index (BMI) 30.2 ABG / Lab / Microbiology Data 04/20/24 07:03 04/20/24 07:03 D/C Instructions Please Follow Up With: Cl Barrett DPM Meaningful Use Info Meaningful Use Meaningful Use Diagnoses (Choose all that apply): None applicable Ischemic Stroke Statin Dosing Therapy Reference: STATIN DOSE THERAPY REFERENCE: * Patients > 75 years receive moderate or high dose statin therapy. * Patients 75 years or YOUNGER should receive HIGH intensity statin dose unless contraindicated. You will be required to document reason for non-treatment if statin daily dose does not meet guidelines. HIGH DOSE STATIN THERAPY DAILY Atorvastatin > than or = to 40 mg Rosuvastatin > than or = to 20 mg Amlodipine + Atorvastatin > than or = to 2.5/40 mg Ezetimibe + Simvastatin 10/80 mg Simvastatin 80mg Discharge Plan Admission Admit Date/Time: 04/15/24 14:29 Primary Reason for Your Visit: R Ankle pain Attending Provider: Karen Lima Primary Care Provider: Janna Best Consulting Providers: Jenise Andrews Instructions Additional Instructions / Restrictions: Pin site care, right lower extremity external fixator. 1. Remove all external dressing. 2. Wipe leg down with sterile normal saline and pat dry. 3. Clean all pin sites with isopropyl alcohol and allowed the alcohol to dry. 4. Cover all pin sites with Betadine soaked gauze, cover Betadine gauze with 4 x 4's cut in half, Cecilio wrap, two 3 inch Deonte bandages for edema control. Weightbearing status: 1. Nonweightbearing to the right lower extremity with assistive crutches, walker or wheelchair. Full weightbearing left lower extremity. Discharge Orders/Prescriptions Prescriptions: New acetaminophen 500 mg Tablet 1,000 mg PO Q8 Qty: 0 0RF celecoxib 100 mg Capsule 100 mg PO BIDCM Qty: 0 0RF Rx Instructions: continue x 14 days enoxaparin 40 mg/0.4 mL Syringe 40 mg subcut DAILY Qty: 0 0RF losartan 50 mg Tablet 50 mg PO DAILY Qty: 0 0RF oxycodone 5 mg Tablet 5 mg PO Q4H PRN PRN (Reason: Pain Score 4-10) 1 Days Qty: 6 0RF sennosides-docusate sodium [Stimulant Laxative Plus] 8.6-50 mg Tablet 2 tab PO BID Qty: 1 0RF tizanidine 2 mg Tablet 2 mg PO Q8H PRN PRN (Reason: Muscle Spasm) Qty: 0 0RF Continued citalopram 40 MG tablet 40 mg PO DAILY benztropine 2 MG tablet 0.5 mg PO BID haloperidol 2 MG tablet 10 mg PO BID buspirone 15 MG tablet 15 mg PO BID albuterol sulfate 1 INHALER inhaler 1 - 2 puff INHALATION Q4H PRN PRN (Reason: Wheezing) pantoprazole [Protonix] 40 mg Tablet,Delayed Release (Dr/Ec) 40 mg PO DAILY trazodone 150 mg Tablet 150 mg PO QHS quetiapine [Seroquel XR] 300 mg Tablet Extended Release 24 Hr 300 mg PO QHS multivitamin 1 EACH tablet 1 each PO DAILY Rx Instructions: over the counter, no prescription required. amlodipine 5 MG tablet 10 mg PO DAILY Rx Instructions: BP ondansetron 4 mg tablet,disintegrating 4 mg PO Q8H PRN PRN (Reason: Nausea) Qty: 10 0RF Discontinued oxycodone 5 mg tablet 5 mg PO Q6H PRN (Reason: pain) 3 Days Qty: 12 0RF Referrals / Follow Up: Janna Best MD [Primary Care Provider] - Within 1 Week (After discharge from skilled facility) Cl Barertt DPM [Med Staff - Active Staff] - See Referral Note (Patient is to follow-up with Dr. Barrett 5-7 days post discharge for outpatient surgical discussion to the right lower extremity ankle fracture.) Kobi Youssef DO [Med Staff - Active Staff] - As soon as possible Disposition Disposition (needs filled in before D/C Order can be placed): [facility] Charges/Coding Visit Charges Inpatient E&M: 85758 SNF Disch >30 Min
--- NOTE | 2024-04-21 12:52 | CASEMGMT ---
Social Work Precert has been obtained.? Physician updated and pt is ready for discharge today.? 7000 convalescent form completed in [facility] SW met with pt and they are agreeable to discharge plan as stated above.? DCA and bedside nurse notified of discharge. Disposition: [facility], skilled level of care under convalescent stay. BETHANY Nunez
--- NOTE | 2024-04-21 14:07 | CASEMGMT ---
Discharge Planning Discharge orders, signed med list, and transport time sent to [facility] via [facility]. Physicians will transport patient by cot at 6p. Nursing, SW, patient, and her mother updated. Melony Thakkar DC Planning Asst.
--- NOTE | 2024-04-21 14:16 | PHA.DC.MR.R ---
Pharmacy [place] Med Reconciliation Pharmacy Service has performed discharge medication reconciliation for this patient. The patient's discharge medication list was reviewed for discrepancies and discrepancies were resolved. Medications at Discharge Home Medications benztropine 2 mg tablet 0.5 mg PO BID cramps 10/24/15 citalopram 40 mg tablet 40 mg PO DAILY depression 10/24/15 haloperidol 2 mg tablet 10 mg PO BID anxiety 10/24/15 buspirone 15 mg tablet 15 mg PO BID anxiety 03/19/18 albuterol sulfate 90 mcg/actuation aerosol inhaler 1 - 2 puff inhalation Q4H PRN PRN Wheezing 05/08/20 pantoprazole 40 mg tablet,delayed release (Protonix) 40 mg PO DAILY gerd 03/05/21 quetiapine 300 mg tablet,extended release 24 hr (Seroquel XR) 300 mg PO QHS depression 03/05/21 trazodone 150 mg tablet 150 mg PO QHS depression 03/05/21 amlodipine 5 mg tablet 10 mg PO DAILY bp 04/05/21 multivitamin 1 each PO DAILY health 04/05/21 ondansetron 4 mg disintegrating tablet 4 mg PO Q8H PRN PRN Nausea #10 tabs 04/12/24 acetaminophen 500 mg tablet 1,000 mg (2 x 500 mg) PO Q8 #0 tabs 04/21/24 celecoxib 100 mg capsule 100 mg PO BIDCM #0 caps 04/21/24 enoxaparin 40 mg/0.4 mL subcutaneous syringe 40 mg (0.4 mL) subcut DAILY #0 mL 04/21/24 losartan 50 mg tablet 50 mg PO DAILY #0 tabs 04/21/24 oxycodone 5 mg tablet 5 mg PO Q4H PRN PRN Pain Score 4-10 1 day #6 tabs 04/21/24 sennosides 8.6 mg-docusate sodium 50 mg tablet (Stimulant Laxative Plus) 2 tab PO BID #1 TAB 04/21/24 tizanidine 2 mg tablet 2 mg PO Q8H PRN PRN Muscle Spasm #0 tabs 04/21/24
[2024-04-21 15:27] VITALS: BP 141/89; PULSE 81; RESP 16; TEMP 36.6; O2SAT 97
[2024-04-21 17:02] VITALS: BP 149/91; PULSE 79; RESP 16; TEMP 36.6; O2SAT 94
== END 2024-04-21 17:41 | disposition skilled nursing facility (03) | DRG 493 ==
LOC: ED 08:23 → MS3 08:25
PROVIDERS: Anesthesiology; Podiatrist Foot & Ankle Surgery; Admitting Provider Student in an Organized Health Care Education/Training Program; Emergency Provider Emergency Medicine; PCP Internal Medicine; Visit Provider Internal Medicine
PROC: 0QHG35Z Insertion of External Fixation Device into Right Tibia, Percutaneous Approach (ICD-10-PCS; CPT 27814; principal; 2024-04-17 15:45)
DX: S82.851A Displaced trimalleolar fracture of right lower leg, initial encounter for closed fracture (principal); D61.818 Other pancytopenia; F10.130 Alcohol abuse with withdrawal, uncomplicated; F25.9 Schizoaffective disorder, unspecified; I10 Essential (primary) hypertension; J45.909 Unspecified asthma, uncomplicated; E66.9 Obesity, unspecified; K21.9 Gastro-esophageal reflux disease without esophagitis; F41.9 Anxiety disorder, unspecified; F17.210 Nicotine dependence, cigarettes, uncomplicated; W19.XXXA Unspecified fall, initial encounter; E87.6 Hypokalemia; K59.00 Constipation, unspecified; F31.9 Bipolar disorder, unspecified; F43.10 Post-traumatic stress disorder, unspecified; R53.81 Other malaise; R53.1 Weakness; G89.29 Other chronic pain; Z88.2 Allergy status to sulfonamides; Z88.1 Allergy status to other antibiotic agents; Z68.31 Body mass index [BMI] 31.0-31.9, adult; Z79.899 Other long term (current) drug therapy; Z91.199 Patient's noncompliance with other medical treatment and regimen due to unspecified reason; Z23 Encounter for immunization
CPT/HCPCS: 36415; 73600; 76000; 80048; 80076; 82077; 85025; 85610; 85730; 90656; 93005; 97110; 97162; 97166; 97530; 97535; 99284; 99406; C1713; J7120; A4216; J2405

== ENCOUNTER 2024-04-29 12:19 | Day surgery (SDC) | payer MEDICARE, MEDICAID, SELFPAY ==
[2024-04-29] VITALS (9 sets, daily range): BP systolic 116–172; BP diastolic 79–109; PULSE 96–115; RESP 18–20; TEMP 36.3–37.5; O2SAT 87–100; BMI 30.7
--- NOTE | 2024-04-29 12:41 | PCM.OPRPT ---
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 Displaced trimalleolar ankle fracture, right lower extremity 2. Pain, right ankle 3. Encounter for orthopedic aftercare, right lower extremity 4. Full-thickness wound to bone, right lower extremity Post-Operative Diagnosis: Same as preoperative diagnosis Surgery/Procedure Performed:: 1. Removal of external fixator, right lower extremity 2. Excisional debridement down to bone, right lower extremity 3. Delayed primary closure, right lower extremity 4. Open reduction internal fixation of right ankle fracture, right lower extremity 5. Syndesmotic repair, right lower extremity 6. Application of posterior splint, right lower extremity Description of Surgical Findings:: 1. Successful removal of external fixator to the right lower extremity. 2. Anatomic reduction to the fibula and medial malleolus, right lower extremity. Surgeon: Cl Barrett leaf tier: Anastasiia Bhakta Type of Anesthesia: Block,Regional, General and Local Anesthesiologist: Finesse Pro Special Medications: 1. Vancomycin powder, 1 g Specimen's removed: None Drains: None Estimated Blood Loss (mL): 75 mL Fluids Replaced: Per anesthesia Description of Procedure: Indications For Operation: Ms. Roy is a 53-year-old female who was admitted to [facility] for open reduction internal fixation to dislocated right ankle fracture. Patient was ultimately seen in the hospital for consultation due to dislocated ankle fracture approximately 2 weeks ago. During her time at [facility] she was seen by podiatry reevaluated and taken to the operating room to have the external fixator/delta frame placed to the right lower extremity since she was continuing to have pain due to the previous closed reduction by the emergency department. It was educated to the patient after the application external fixator we will wait approximately 2 weeks for her soft tissue to calm down so that we may move forward with open reduction internal fixation of the dislocated trimalleolar right ankle fracture. Patient was seen in my private office with the chart review consent signed. All risk and benefits were discussed with the patient in great detail. Due to nature of the dislocated trimalleolar ankle fracture to right lower extremity it had been deemed necessary at this time to take the patient back to the operating room to remove the external fixator and plan for open reduction internal fixation of the trimalleolar ankle fracture right lower extremity to help anatomically realign the patient's fibula and tibia so that she may begin to ambulate comfortably and also decrease her constant pain. The nature of the problem, anticipated procedures, postop recovery/convalences and risk/complications include but not limited to infection, wound healing complications, digital amputation, hypertrophic scarring, numbness, tingling, chronic pain, CRPS, over and under correction, recurrence of deformity, DVT and or PE and the need for further surgery have been discussed in great detail with the patient. All questions have been answered to the patient's satisfaction. There are no guarantees given as to the outcome of the procedure. Description of Procedure: Under mild sedation, the patient was brought into the operating room and placed on the operating table in supine position. Once the patient was under general anesthesia with laryngeal mask airway, the right lower extremity was blocked using approximately 10 cc 0.5% Marcaine plain to the right lower extremity saphenous nerve. Patient did have popliteal block by anesthesia department, please see anesthesia notes for further detail. Next, a well-padded thigh tourniquet was applied to the right lower extremity. Next, the right lower extremity was prepped and draped in normal aseptic manner. Next, a timeout was then undertaken verifying the correct patient, extremity, visibility of preoperative markings, availability of the equipment. Next, attention was directed to the right lower extremity. Using a 6 inch Esmarch, right lower extremity was exsanguinated and elevated to 60 degrees for 1 minute. Procedure #1: Removal of external fixator, right lower extremity Next, attention was directed to the right lower extremity at the level of external fixator. Using the [employer] T-handle, all bolts were loosened and the 2 half pins from the tibia, half pin to the first metatarsal and the transfixation pin through the calcaneus were all removed without incident. Procedure #2: Excisional debridement down to bone, right lower extremity Next, attention was directed to the full-thickness ulcerations of the right lower extremity. Next, excisional debridement down to and including subcutaneous tissue, fascia, muscle and bone with a sterile bone curette was done without incident. All loose debris was removed and passed the back table to be discarded. All full-thickness wounds were flushed with coping kathy of normal saline. All external fixator full-thickness wounds were packed with vancomycin powder. Procedure #3: Delayed primary closure, right lower extremity Next, attention was directed to all full-thickness wound to the proximal and distal aspects of the right lower extremity at the level of the half pins and transfixation pin. The skin was reapproximated and closed via delayed primary closure using 3-0 nylon in simple interrupted suture technique. Procedure #4: Open reduction internal fixation of right trimalleolar ankle fracture, right lower extremity Next, attention was directed to the right lower extremity. Using large C-arm fluoroscopy, the ankle joint syndesmosis and fibula were marked out prior to incision. Once all landmarks were obtained, a large full-thickness incision down to bone to the lateral ankle over the fibula was performed. Continued sharp dissection was carried down the distal and proximal aspect of the fracture line to the fibula. The fracture line was identified and showed evidence of superior translation. No evidence of trabeculation across the fracture site was observed. Hematoma at the level of the fracture was evacuated using a bone curette. The hematoma was flushed with copious normal saline and evacuated. Using lobster claws, the fracture line was reapproximated down to anatomic position allowing for good apposition prior to interfrag screw. Using [place] hardware, a 3.5 millimeter screw was placed perpendicular to the fracture line using AO technique. Next, using Yony ankle fracture set, a large anatomical plate was placed on the fibula and position was checked not just clinically but with large C-arm fluoroscopy. The plate was held in place with smooth BB tacks. A combination of 3.5 mm locking and nonlocking screws were placed distal and proximal to the fracture line. Next, the incision was flushed with copious normal saline. Next, attention was directed to the medial malleolus. A full-thickness incision with a #15 blade was down to bone. Continued blunt dissection was carried down through the deltoid ligament to expose the fracture across the medial malleolus. The fracture was identified and freed using a [place]. The capital fragment was joystick backed into place using the hook plate guide provided by [place] with the rep in the room. Alignment was checked on the AP and lateral view with large cam fluoroscopy. Once view was confirmed the talons of the hook plate were malleted into place with good apposition noted at the fracture site. Next, a fully threaded 4-0 40 mm fully threaded screw was placed to the proximal hole and bicortical in nature from medial to lateral allowing the plate to have better anatomical position. The 2 distal holes were filled with 3.5 locking screws. Final x-rays of the ankle fracture confirmed adequate anatomic reduction to the distal fibular fragment and medial malleolar fragment. Again the right ankle was put through range of motion and there showed no evidence of catching and or grinding due to hardware in the joint. Next, stress views were obtained of the right lower extremity using large live C arm fluoroscopy. Dorsiflexion external rotating the ankle showed evidence of gapping of the syndesmosis. Due to this evidence we will move forward with syndesmotic repair. Procedure #5: Repair of syndesmosis, right ankle Next, using a smooth large Steinmann pin, the guide hole for the two tight rope was obtained throwing the large smooth Steinmann pins from posterior lateral to anterior medial. Positioning of the Steinmann pins was confirmed with large C-arm fluoroscopy and lateral view that the Steinmann pins was in the middle of the tibia at this time. A type ropes (x2) were placed per the application lead's recommendation with the rep in the room. There was evidence of realignment of the tibial fibular joint that was noted on the operating room table. Next, the incision on the lateral and medial side were flushed with copious normal saline. The ankle was placed through range of motion and showed no evidence of catching and showed only evidence of gliding with no concern of hardware in the joint. Dorsiflexion external rotation was obtained and normal tib-fib overlap was noted. All incisions to the right lower extremity were packed with vancomycin powder. Next, at this time the right calf tourniquet was deflated. Reperfusion was noted instantly to the right lower extremity. All bleeders were cauterized and ligated as necessary. The small medial incision skin was reapproximated closed using 3-0 nylon in simple interrupted suture technique. The deep layer on the lateral and medial incision was reapproximated closed with 3-0 Monocryl and running locking suture technique. Subcutaneous layer was reapproximated closed using 3-0 Monocryl and running suture technique. The skin was reapproximated and closed with manan. Next, 1 cc of via flow was injected into the incisions to help with inflammation and decrease adhesions. The right lower extremity was wiped clean and patted dry. All incisions were dressed with Betadine soaked Adaptic, dry sterile dressing and double layer Joy AO splint at 90 degrees was applied to right lower extremity. Procedure #6: Application of posterior splint, right lower extremity Next, the incision was dressed with Betadine soaked Adaptic, dry sterile dressing and a double layer Joy AO splint at 90 degrees was applied to the right lower extremity. The patient tolerated the procedure and anesthesia well and apparent satisfactory condition and was transported to the PACU for further monitoring prior to discharge back to long term facility. Vital signs stable and vascular status intact to all digits bilateral. Post Operative Plan: Weightbearing: Nonweightbearing to right lower extremity with assist and walker, crutches or wheelchair. Full weightbearing left lower extremity. Antibiotics: 2 g Ancef through the IV DVT Prophylaxis: Lovenox 40 mg to be restarted in 24 hours Hubbard: None Dressing: Betadine soaked Adaptic dry sterile dressing double layer Joy AO splint at 90 degrees right, right lower extremity X-Rays: Post-operative films taken on the operating room. Pain Medication: Percocet 5/325, Flexeril 10 mg Follow-up: Patient will follow-up with Dr. Barrett in private office in 1 week to 10 days for postoperative evaluation. Please call the office for appointment and time.
[2024-04-29] MEDS: Lactated Ringers 1,000 ML 15 ML IV (13:09)
--- NOTE | 2024-04-29 13:32 | PCM.PRE.AN2 ---
ASA Classification* ASA Classification ASA Classification: 3 Assessment & Plan Anesthesia* Anesthesia Assessment Anesthesia Assessment: Discussed sedation and/or anesthesia options, risks, benefits, and alternatives with patient/parents/legal guardian/POA. Questions invited. The patient/parents/legal guardian/POA seems to understand and agrees to proceed with anesthesia plan. Reviewed the physical assessment, medical history, allergy history and patient home medications list prior to surgery/procedure/anesthetic and documented any changes. Performed airway and anesthesia risk assessments. Anesthesia Type Anesthesia Type: General and Block (Patient is consented for popliteal block.) History Source History Obtained from:: Patient and Chart Anesthesia Focused Assessment* Temperature: 97.4 F Pulse Rate: 96 Blood Pressure: 172/90 Respiratory Rate: 18 Pulse Ox: 100 Oxygen Delivery Method: Room Air Airway Assessment Mouth opens: >3 cm Mallampati Score: II Teeth Condition: Missing (Patient is edentulous on the bottom.) and Partial (Top partials out.) Neck Range of motion (ROM): Full ROM Focused Labs Anesthesia Preop lab: CBC WBC 3.7 K/mm3 (4.4-11.0) L 04/20/24 07:03 RBC 2.88 M/mm3 (4.2-5.4) L 04/20/24 07:03 Hgb 9.6 g/dL (12.0-15.0) L 04/20/24 07:03 Hct 29.2 % (37-47) L 04/20/24 07:03 Plt Count 276 K/mm3 (150-450) 04/20/24 07:03 CHEMISTRY Potassium 3.6 mmol/L (3.5-5.1) 04/20/24 07:03 Sodium 139 mmol/L (136-145) 04/20/24 07:03 Magnesium 1.9 mg/dL (1.6-2.6) 05/08/20 14:15 Phosphorus 2.9 mg/dL (2.5-4.9) 05/08/20 14:15 BUN 15 mg/dL (7-18) 04/20/24 07:03 Creatinine 0.43 mg/dL (0.55-1.02) L 04/20/24 07:03 Glucose 87 mg/dL (74-106) 04/20/24 07:03 TSH 0.39 uIU/mL (0.358-3.74) 10/24/15 13:00 COAG PT 12.3 SECONDS (11.7-14.9) 04/17/24 06:13 Pre-Assessment Diagnosis/Proposed Procedure Planned Operative Procedure(s): removal of delta frame, ORIF OF RIGHT TRIMALLEOLAR ANKLE FRACTURE, DELAYED PRIMARY CLOSURE, EXCISSIONAL DEBRIDEMENT TO BONE, AND APPLICATION OF POSTERIOR SPLINT Anesthesia History 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 When Was Last Pacemaker Check QUESTION #4 FULL TEXT: You/Your Family Experience fever (hyperthermia) with Anesthesia Last Oral Intake Last Oral intake: Last Oral Intake NPO since 23:00 04/29/24 12:47 Meds taken in AM with sips of water? Meds patient instructed to take am of surgery PONV PONV - concrete finisher apprentice: PONV - concrete finisher apprentice Female Yes 04/24/24 14:01 HX of Motion Sickness No 04/24/24 14:01 HX of N/V After Surgery No 04/24/24 14:01 Non-Smoker No 04/24/24 14:01 Duration of Surgery greater Yes 04/24/24 14:01 than 60 minutes Number of Risk Factors 2 04/24/24 14:01 PONV Score Moderate Risk 04/24/24 14:01 Height & Weight Height & Weight: Anesthesia: Height & Weight Height 5 ft 5 in 04/29/24 12:47 Weight: 83.915 kg 04/29/24 12:47 Body Mass Index (BMI) 30.7 04/29/24 12:47 Respiratory Assessment Respiratory Assessment - concrete finisher apprentice: Respiratory Tract Infection Hx - concrete finisher apprentice Hx Respiratory Tract Infection No 04/24/24 14:01 STOP Sleep Apnea STOP Sleep Apnea - concrete finisher apprentice: STOP Sleep Apnea - concrete finisher apprentice Hx Hypertension Yes: controlled with med 04/24/24 14:01 Hx Sleep Apnea No 04/24/24 14:01 CPAP BIPAP Do you snore loudly (louder No 04/24/24 14:01 than talking or can be heard Do you often feel tired/ No 04/24/24 14:01 fatigued/ sleepy during daytime? Has anyone observed you stop No 04/24/24 14:01 breathing during sleep? STOP Results Negative 04/24/24 14:01 QUESTION #5 FULL TEXT : Do you snore loudly (louder than talking or can be heard through closed doors)? 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 Specify any problems Hx of Preganancy in last 3 N/A 04/24/24 14:01 Months Nurse Filling Out Transfusion NBUCHER 04/24/24 14:01 & Questions: Date: 04/24/24 04/24/24 14:01 Time: 14:04 04/24/24 14:01 Patient unable to answer at this time (ie. confused, unrespo /Reproduction History /Reproductive History - concrete finisher apprentice: /Reproductive Hx- concrete finisher apprentice Hx Now Gestational Age (in weeks): EDC: Hx Hx Para Hx Section SAB No 04/24/24 14:01 Active Medications Active Medications: Current Medications Generic Name Dose Route Start Last Admin Trade Name Freq PRN Reason Stop Dose Admin Cefazolin Sodium 2 gm/ N/A 20 mls @ 400 mls/hr 04/29/24 13:30 IV 04/29/24 13:32 PREOP ONE Lactated Ringer's 1,000 mls @ 15 mls/hr 04/29/24 12:15 04/29/24 13:09 IV 05/05/24 01:34 15 mls/hr .Q48H MOUNIKA Administration Protocol [facility] Medical History (Updated 04/29/24 @ 13:[address] Cl Barrett, DPTammy) Excessive bleeding Alcohol use Uses wheelchair History of renal disease Arthritis Wears partial dentures Wears dentures Wears glasses Blackout Shortness of breath on exertion History of edema Cancer Anemia Alcohol abuse Smoker Asthma GERD (gastroesophageal reflux disease) Kidney disease Chronic pain Depression Anxiety Bipolar disorder Substance abuse Hypertension Alcohol abuse Suicide ideation Schizoaffective disorder PTSD (post-traumatic stress disorder) PTSD (post-traumatic stress disorder) Schizoaffective disorder Home Medications ?Medication ?Instructions ?Recorded ?Last Taken ?Type benztropine 2 mg tablet 0.5 mg PO BID cramps 10/24/15 04/29/24 History citalopram 40 mg tablet 40 mg PO DAILY depression 10/24/15 04/29/24 History haloperidol 2 mg tablet 10 mg PO BID anxiety 10/24/15 04/29/24 History buspirone 15 mg tablet 15 mg PO BID anxiety 03/19/18 04/29/24 History albuterol sulfate 90 mcg/actuation 1 - 2 puff inhalation Q4H PRN PRN 05/08/20 Unknown History aerosol inhaler Wheezing pantoprazole 40 mg tablet,delayed 40 mg PO DAILY gerd 03/05/21 Unknown History release (Protonix) quetiapine 300 mg tablet,extended 300 mg PO QHS depression 03/05/21 Unknown History release 24 hr (Seroquel XR) trazodone 150 mg tablet 150 mg PO QHS depression 03/05/21 Unknown History amlodipine 5 mg tablet 10 mg PO DAILY bp 04/05/21 04/29/24 History multivitamin 1 each PO DAILY health 04/05/21 Unknown History ondansetron 4 mg disintegrating 4 mg PO Q8H PRN PRN Nausea #10 tabs 04/12/24 Unknown Rx tablet acetaminophen 500 mg tablet 1,000 mg (2 x 500 mg) PO Q8 #0 tabs 04/21/24 04/29/24 Rx celecoxib 100 mg capsule 100 mg PO BIDCM #0 caps 04/21/24 Unknown Rx enoxaparin 40 mg/0.4 mL 40 mg (0.4 mL) subcut DAILY #0 mL 04/21/24 04/26/24 Rx subcutaneous syringe losartan 50 mg tablet 50 mg PO DAILY #0 tabs 04/21/24 04/29/24 Rx oxycodone 5 mg tablet 5 mg PO Q4H PRN PRN Pain Score 04/21/24 04/29/24 Rx 4-10 1 day #6 tabs sennosides 8.6 mg-docusate sodium 2 tab PO BID #1 TAB 04/21/24 Unknown Rx 50 mg tablet (Stimulant Laxative Plus) tizanidine 2 mg tablet 2 mg PO Q8H PRN PRN Muscle Spasm 04/21/24 Unknown Rx #0 tabs thiamine HCl (vitamin B1) 100 mg 100 mg PO DAILY 04/24/24 Unknown History tablet Allergy/AdvReac Type Severity Reaction Status Date / Time aripiprazole (From Abilify) Allergy Rash Verified 04/29/24 12:41 risperidone (From Risperdal) Allergy Unknown Verified 04/29/24 12:41 sulfamethoxazole (From Allergy Rash Verified 04/29/24 12:41 Septra) trimethoprim (From Septra) Allergy Rash Verified 04/29/24 12:41 prednisone AdvReac skin Verified 04/29/24 12:41 hurts Family History Father Alcoholism Aunt Depression Aunt No problems noted. Surgical History History of surgery on left wrist History of neck surgery Status post ORIF of fracture of ankle Social History Smoking Status: Current every day smoker tobacco type: cigarettes Review of Systems (Anesthesia) ROS Narrative System reviewed and no additional complaints, except as documented.
[2024-04-29] MEDS: Cefazolin 2 GM in Syringe IV (14:01)
[2024-04-29] MEDS: Bupivacaine Mpf 0.5% 30 ML VIAL (14:15)
--- NOTE | 2024-04-29 14:45 | RAD_ITS ---
STUDY: X-RAY - RIGHT ANKLE REASON FOR EXAM: Female, 53 years old. Fracture. ORIF trimalleolar fracture right ankle. TECHNIQUE: 4 fluoroscopic spot films of the right ankle. COMPARISON: Fluoroscopic spot films of the right ankle dated 04/17/2024. FINDINGS: There is new ORIF hardware in the distal tibia and distal fibula related to fixation of the previously seen medial malleolar and distal fibular fractures. Intact tibiotalar articulation. Normal visualized talus and calcaneus. The visualized subtalar and talonavicular articulations are normal. The soft tissue structures are unremarkable. RAD/Ankle 2 Views IMPRESSION: New ORIF hardware in the distal tibia and distal fibula. Electronically Signed: Andreas Lima MD at 8:47 EDT ,
[2024-04-29] MEDS: Vancomycin IV 1,000 MG/20 ML Vial 1000 MG OPERA.SITE (14:53)
--- NOTE | 2024-04-29 16:40 | PCM.POST.ANE ---
Anesthesia: Postop Eval I Current Vital Signs Temperature: 98.6 F Pulse Rate: 115 Blood Pressure: 138/109 Respiratory Rate: 20 Pulse Ox: 93 Assessment Airway patent: Yes Spontaneous unlabored respirations: Yes nausea: No Vomiting: No Anesthesia Complication: No Fluid Hydration Crystalloid volume administer (ml): 1,000 Total IV fluid infused: 1,000 Progress Note Anesthesia document: Postop Eval 1 completed: Yes
[2024-04-29] MEDS: Ketorolac 30 MG/ML Syringe IM (17:08)
[2024-04-29] MEDS: oxyCODONE 5 MG Tablet PO (17:55)
[2024-04-29] MEDS: Acetaminophen 325 MG Tablet PO (17:55)
--- NOTE | 2024-04-30 01:27 | POSTOPAN2_ITS ---
Anesthesia Postop Eval I Sum Postop Eval Completion status Anesthesia document: Postop Eval 1 completed: Yes Anesthesia Postop Eval I Summary Anesthesia Postop Eval I Summary: Anesthesia Postop Eval I: Assessment Summary Airway patent Yes 04/29/24 16:40 [email or web address] Spontaneous unlabored Yes 04/29/24 16:40 MASTER [email or web address] respirations Mental status nausea No 04/29/24 16:40 MASTER [email or web address] Vomiting No 04/29/24 16:40 MASTER [email or web address] Anesthesia Postop Eval I: Fluid Summary Crystalloid volume administer 1,000 04/29/24 16:40 MASTER [email or web address].CSIR (ml) Colloids volume administered ( ml) Blood Product volume administered (ml) Total IV fluid infused 1,000 04/29/24 16:40 MASTER SHIP.[email or web address] Anesthesia Postop Eval I: Summary Notes Anesthesia Complication No 04/29/24 16:40 MASTER SHIP.[email or web address] Anesthesia Complication Comment: Post-operative progress note Anesthesia: Postop Eval II Evaluation Mental status: Awake and Calm Pain Level: 3 nausea: No Vomiting: No Complications Anesthesia Complication: No
--- NOTE | 2024-04-30 01:27 | PCM.POSTANE2 ---
Anesthesia Postop Eval I Sum Postop Eval Completion status Anesthesia document: Postop Eval 1 completed: Yes Anesthesia Postop Eval I Summary Anesthesia Postop Eval I Summary: Anesthesia Postop Eval I: Assessment Summary Airway patent Yes 04/29/24 16:40 NICKEL [email or web address].[email or web address] Spontaneous unlabored Yes 04/29/24 16:40 NICKEL OPERATOR.CSIR respirations Mental status nausea No 04/29/24 16:40 NICKEL OPERATOR.CSIR Vomiting No 04/29/24 16:40 NICKEL [email or web address].CSIR Anesthesia Postop Eval I: Fluid Summary Crystalloid volume administer 1,000 04/29/24 16:40 NICKEL OPERATOR.CSIR (ml) Colloids volume administered ( ml) Blood Product volume administered (ml) Total IV fluid infused 1,000 04/29/24 16:40 NICKEL OPERATOR.CSIR Anesthesia Postop Eval I: Summary Notes Anesthesia Complication No 04/29/24 16:40 NICKEL OPERATOR.CSIR Anesthesia Complication Comment: Post-operative progress note Anesthesia: Postop Eval II Evaluation Mental status: Awake and Calm Pain Level: 3 nausea: No Vomiting: No Complications Anesthesia Complication: No
== END 2024-04-29 18:19 | disposition home or self-care (01) ==
LOC: SDC 12:19 → AC 12:19
PROVIDERS: PCP Internal Medicine; Referring Provider Podiatrist Foot & Ankle Surgery; Visit Provider Podiatrist Foot & Ankle Surgery
PROC: (CPT 27822; principal; 2024-04-29 13:10)
DX: S82.851A Displaced trimalleolar fracture of right lower leg, initial encounter for closed fracture (principal); L97.914 Non-pressure chronic ulcer of unspecified part of right lower leg with necrosis of bone; F25.9 Schizoaffective disorder, unspecified; F31.9 Bipolar disorder, unspecified; X58.XXXA Exposure to other specified factors, initial encounter; I10 Essential (primary) hypertension; F41.9 Anxiety disorder, unspecified; F17.210 Nicotine dependence, cigarettes, uncomplicated; D64.9 Anemia, unspecified; K21.9 Gastro-esophageal reflux disease without esophagitis; M19.90 Unspecified osteoarthritis, unspecified site; G89.29 Other chronic pain; J45.909 Unspecified asthma, uncomplicated; Z88.1 Allergy status to other antibiotic agents; Z90.5 Acquired absence of kidney; Z88.2 Allergy status to sulfonamides; Z85.528 Personal history of other malignant neoplasm of kidney; Z79.899 Other long term (current) drug therapy
CPT/HCPCS: 27822; 11044; 20694; 27829; 01480; 73600; 76000; C1713; A4216; J2405

== ENCOUNTER 2024-09-01 11:17 | Emergency (ER) | payer MEDICARE, MEDICAID, SELFPAY ==
[2024-09-01] VITALS (7 sets, daily range): BP systolic 130–177; BP diastolic 76–97; PULSE 85–118; RESP 15–20; TEMP 36.6–36.7; O2SAT 98–100; BMI 29.9
--- NOTE | 2024-09-01 12:28 | RAD_ITS ---
PROCEDURE: CHEST 1 VIEW (PORTABLE) REASON FOR EXAM: One-week history of shortness of breath. Palpitations. TECHNIQUE: Frontal view of the chest. COMPARISON: Comparison is made with prior study of October 26, 2018. FINDINGS: EKG electrodes are seen. The heart size is normal. Minimal increased linear markings at the left lung base suggestive of mild left basilar atelectasis. Prior fusion of the lower cervical spine. RAD/Chest 1 View (Portable) IMPRESSION: Minimal increased linear markings at the left lung base suggestive of linear at electasis. Reading Location: [place] [id number]
[2024-09-01 12:41] LABS: Absolute Lymphocyte Count 2.04 X10^3/uL (0.83-4.51); Absolute Neutrophil Count 2.2 X10^3/uL (2.0-7.7); Basophil# 0.05 X10^3/uL; Basophil% 1.1 % (0-1); Eosinophil# 0.01 X10^3/uL; Eosinophils% 0.2 % (0-5); Hematocrit 38.6 % (37-47); Hemoglobin 12.6 g/dL (12.0-15.0); Lymphocyte # 2.04 X10^3/ul (0.83-4.51); Lymphocyte % 44.2 % (19-41); Mean Corp Hgb Conc 32.6 g/dL (32-36); Mean Corpuscular Hgb 29.6 pg (27.0-32.0); Mean Corpuscular Volume 90.8 fL (81-99); Mean Platelet Vol. 9.3 fl (6.2-12.0); Monocyte# 0.27 X10^3/uL; Monocyte% 5.8 % (0-10); NRBC Flagged by Analyzer 0 % (0-5); Neutrophil % 47.6 % (47-70); Platelet Count 256 K/mm3 (150-450); RBC Distribution Width CV 14.8 % (11.6-14.6); Red Blood Count 4.25 M/mm3 (4.2-5.4); White Blood Count 4.6 K/mm3 (4.4-11.0)
[2024-09-01] MEDS: Ketorolac 15 MG/ML Vial IV (13:30)
[2024-09-01 13:37] LABS: Anion Gap 10 (5-15); BUN 5 mg/dL (7-18); BUN/Creat Ratio 7.2 RATIO (10-20); Calcium,Total 9.3 mg/dL (8.5-10.1); Chloride 101 mmol/L (98-107); Creatinine, Serum 0.69 mg/dL (0.55-1.02); EST Glomerular Filtration Rate 93 mL/min (>60); Est Glom Filt Rate - Afr Amer 113 mL/min (>60); Estimated Creatinine Clearance 97.23 ml/min; Glucose 113 mg/dL (74-106); Potassium 3.2 mmol/L (3.5-5.1); Sodium Level 136 mmol/L (136-145); Troponin-I HS (w/2H Reflex) < 3 pg/mL (3.0-54.0)
--- NOTE | 2024-09-01 13:53 | ED.VIS.CHEST ---
HPI History of Present Illness Chief Complaint: Chest Pain Narrative Narrative: Patient is a 53-year-old female with past medical history of alcohol use, GERD, anxiety, bipolar disorder, substance abuse, schizoaffective disorder, PTSD who presented to the emergency department the chief complaint of cough, chest pain and shortness of breath. Patient states that she has had chest pain and shortness of breath for the past week and things were not improving. She states that she is coughing up green sputum. Patient states that nothing makes her pain better or worse. Denies any recent travel history denies a history of blood clots. [facility] Medical History Excessive bleeding Alcohol use Uses wheelchair History of renal disease Arthritis Wears partial dentures Wears dentures Wears glasses Blackout Shortness of breath on exertion History of edema Cancer Anemia Alcohol abuse Smoker Asthma GERD (gastroesophageal reflux disease) Kidney disease Chronic pain Depression Anxiety Bipolar disorder Substance abuse Hypertension Alcohol abuse Suicide ideation Schizoaffective disorder PTSD (post-traumatic stress disorder) PTSD (post-traumatic stress disorder) Schizoaffective disorder Home Medications ?Medication ?Instructions ?Recorded ?Last Taken ?Type benztropine 2 mg tablet 0.5 mg PO BID cramps 10/24/15 04/29/24 History citalopram 40 mg tablet 40 mg PO DAILY depression 10/24/15 04/29/24 History haloperidol 2 mg tablet 10 mg PO BID anxiety 10/24/15 04/29/24 History buspirone 15 mg tablet 15 mg PO BID anxiety 03/19/18 04/29/24 History albuterol sulfate 90 mcg/actuation 1 - 2 puff inhalation Q4H PRN PRN 05/08/20 Unknown History aerosol inhaler Wheezing pantoprazole 40 mg tablet,delayed 40 mg PO DAILY gerd 03/05/21 Unknown History release (Protonix) quetiapine 300 mg tablet,extended 300 mg PO QHS depression 03/05/21 Unknown History release 24 hr (Seroquel XR) Held on 04/29/24. Instructions: Ordered trazodone 150 mg tablet 150 mg PO QHS depression 03/05/21 Unknown History amlodipine 5 mg tablet 10 mg PO DAILY bp 04/05/21 04/29/24 History multivitamin 1 each PO DAILY health 04/05/21 Unknown History ondansetron 4 mg disintegrating 4 mg PO Q8H PRN PRN Nausea #10 tabs 04/12/24 Unknown Rx tablet acetaminophen 500 mg tablet 1,000 mg (2 x 500 mg) PO Q8 #0 tabs 04/21/24 04/29/24 Rx celecoxib 100 mg capsule 100 mg PO BIDCM #0 caps 04/21/24 Unknown Rx enoxaparin 40 mg/0.4 mL 40 mg (0.4 mL) subcut DAILY #0 mL 04/21/24 04/26/24 Rx subcutaneous syringe losartan 50 mg tablet 50 mg PO DAILY #0 tabs 04/21/24 04/29/24 Rx oxycodone 5 mg tablet 5 mg PO Q4H PRN PRN Pain Score 04/21/24 04/29/24 Rx 4-10 1 day #6 tabs sennosides 8.6 mg-docusate sodium 2 tab PO BID #1 TAB 04/21/24 Unknown Rx 50 mg tablet (Stimulant Laxative Plus) tizanidine 2 mg tablet 2 mg PO Q8H PRN PRN Muscle Spasm 04/21/24 Unknown Rx #0 tabs thiamine HCl (vitamin B1) 100 mg 100 mg PO DAILY 04/24/24 Unknown History tablet ascorbic acid (vitamin C) 1,000 mg 1 g PO DAILY 90 days #90 tabs 04/29/24 Unknown Rx tablet (Vitamin C) calcium 500 mg (as 1 tab PO DAILY 90 days #90 tabs 04/29/24 Unknown Rx carbonate)-vitamin D3 15 mcg (600 unit) tablet (Os-Raheem 500 + D3) cyclobenzaprine 10 mg tablet 10 mg PO TID muscle spasm 7 days 04/29/24 Unknown Rx #21 tabs docusate sodium 100 mg capsule 100 mg PO DAILY 10 days #10 caps 04/29/24 Unknown Rx (Colace) oxycodone-acetaminophen 5 mg-325 1 tab PO Q6H PRN pain 7 days #28 04/29/24 Unknown Rx mg tablet (Percocet) tabs ibuprofen 600 mg tablet 600 mg PO Q6H PRN pain #60 tabs 05/29/24 Unknown Rx oxycodone-acetaminophen 5 mg-325 1 tab PO Q4H PRN pain 7 days #42 05/29/24 Unknown Rx mg tablet (Percocet) tabs azithromycin 500 mg tablet 500 mg PO DAILY 5 days #5 tabs 09/01/24 Unknown Rx Allergy/AdvReac Type Severity Reaction Status Date / Time aripiprazole (From Abilify) Allergy Rash Verified 09/01/24 11:18 risperidone (From Risperdal) Allergy Unknown Verified 09/01/24 11:18 sulfamethoxazole (From Allergy Rash Verified 09/01/24 11:18 Septra) trimethoprim (From Septra) Allergy Rash Verified 09/01/24 11:18 prednisone AdvReac skin Verified 09/01/24 11:18 hurts Family History Father Alcoholism Aunt Depression Aunt No problems noted. Surgical History History of surgery on left wrist History of neck surgery Status post ORIF of fracture of ankle Social History Smoking Status: Current every day smoker tobacco type: cigarettes ROS ROS ED ROS Narrative Constitutional: Denies fevers, chills, headaches, lightness, dizziness Eyes: Denies change in vision double vision blurry vision Cardiovascular: Complains of chest discomfort as noted above Respiratory: Complains of shortness of breath and cough as noted above Abdomen: Denies abdominal pain nausea vomit diarrhea : Denies any urinary symptoms Neurological: Denies numbness, weakness, tingling Musculoskeletal: Denies back pain Skin: Denies any rashes or lesions EXAM Physical Exam Narrative Exam Narrative: General: Patient lying in bed rest comfortably did not appear to be in acute distress Head: Atraumatic, normocephalic Eyes: PERRL bilaterally, EOMI bilaterally, no conjunctival injection noted Neck: Soft, supple, trach midline Cardiovascular: Regular rate and rhythm no murmurs gallops rubs noted Respiratory: Clear to auscultation bilaterally no rales rhonchi or wheeze noted Abdomen: Soft, nondistended, nontender to palpation, bowel sounds present x 4 Extremities: +5/5 strength noted in the bilateral upper and lower extremities, radial pulses +2/4 in the bilateral extremities Neurological: Patient following commands knew that she was at [facility] year is 2024 Skin: Warm, dry, intact no rashes lesions noted Const Vital Signs: 09/01/24 11:18 09/01/24 11:20 09/01/24 12:17 Temperature 98.1 F Temperature Source Oral Pulse Rate 118 H 89 Respiratory Rate 16 16 Respiratory Effort Blood Pressure 177/91 H 140/77 H Blood Pressure Mean 119 98 Pulse Ox 100 98 Oxygen Delivery Method Room Air Room Air Room Air 09/01/24 12:18 09/01/24 13:00 09/01/24 14:00 Temperature Temperature Source Pulse Rate 88 85 Respiratory Rate 20 H 18 Respiratory Effort Short of Breath Blood Pressure 158/82 H 141/76 H Blood Pressure Mean 107 97 Pulse Ox 99 99 Oxygen Delivery Method Room Air MDM MDM MDM Narrative Medical decision making narrative: Patient is a 53-year-old female who presents to the emerged part with chief complaint of chest pain shortness of breath has been going on for a week now and has been constant. On the differential diagnose includes Melamin to pneumonia, pneumothorax, influenza/other upper respiratory infection secondary to viral etiology, ACS. Once workup is obtained reviewed she will be reevaluated. Patient CBC was unremarkable no evidence leukocytosis white blood count normal 4.6, he was 12.6, platelet count noted to be normal at 246. Patient sodium normal 136, calcium was low at 3.2 she was given 40 mill equivalents of supplementation here, creatinine normal at 0.69. Patient's troponin was noted to be less than 3 with a delta troponin obtained less than 3 as well. Patient's EKG was reviewed and independently interpreted by myself which showed sinus tachycardia with a rate of 116 beats per minutes.. Patient chest x-ray reviewed by myself and by radiology showed minimal increased linear markings at the left lung base suggestive of linear atelectasis. Patient ambulated well here in the emergency department no evidence of hypoxia no tachycardia. Did discuss results with the patient and she is feeling better she would like to go home at this point time. Patient states that I am allergic to prednisone it feels like my skin is coming off she states that usually she gets a Z-Willis and would like a Z-Willis which will be prescribed. She is advised to return with worsening symptoms or concerns. I do have low suspicion that this is cardiac in nature as this has been going on constant for a week and nothing makes this better or worse. She was advised to follow-up with her primary care physician outpatient setting. All question concerns answered she is discharged home in stable condition Lab Data Labs: Laboratory Results - last 24 hr 09/01/24 09/01/24 12:13 14:35 WBC 4.6 RBC 4.25 Hgb 12.6 Hct 38.6 MCV 90.8 MCH 29.6 MCHC 32.6 RDW Std Deviation 49.0 H RDW Coeff of Cecille 14.8 H Plt Count 256 MPV 9.3 Immature Gran % (Auto) 1.100 H Neut % (Auto) 47.6 Lymph % (Auto) 44.2 H Taney % (Auto) 5.8 Eos % (Auto) 0.2 Baso % (Auto) 1.1 H Absolute Neuts (auto) 2.2 Absolute Lymphs (auto) 2.04 Nucleated RBC % 0 Sodium 136 Potassium 3.2 L Chloride 101 Carbon Dioxide 25.0 Anion Gap 10 BUN 5 L Creatinine 0.69 Estim Creat Clear Calc 97.23 Est GFR (MDRD) Af Amer 113 Est GFR (MDRD) Non-Af 93 BUN/Creatinine Ratio 7.2 L Glucose 113 H Calcium 9.3 Troponin I High Sens < 3 L < 3 L Radiography Diagnostic Testing: Clinical Impression(s) from Imaging Studies Chest X-Ray 09/01/24 12:28 IMPRESSION: Minimal increased linear markings at the left lung base suggestive of linear atelectasis. Reading Location: [place] [id number] Discharge Plan Triage Chief Complaint: Chest Pain ED Provider: Johnnie Marino Dx/Rx/DC Orders Clinical Impression: Cough, Chest pain Prescriptions: New azithromycin 500 mg tablet 500 mg PO DAILY 5 Days Qty: 5 0RF No Action citalopram 40 MG tablet 40 mg PO DAILY benztropine 2 MG tablet 0.5 mg PO BID haloperidol 2 MG tablet 10 mg PO BID buspirone 15 MG tablet 15 mg PO BID albuterol sulfate 1 INHALER inhaler 1 - 2 puff INHALATION Q4H PRN PRN (Reason: Wheezing) pantoprazole [Protonix] 40 mg Tablet,Delayed Release (Dr/Ec) 40 mg PO DAILY trazodone 150 mg Tablet 150 mg PO QHS quetiapine [Seroquel XR] 300 mg Tablet Extended Release 24 Hr 300 mg PO QHS multivitamin 1 EACH tablet 1 each PO DAILY Rx Instructions: over the counter, no prescription required. amlodipine 5 MG tablet 10 mg PO DAILY Rx Instructions: BP ondansetron 4 mg tablet,disintegrating 4 mg PO Q8H PRN PRN (Reason: Nausea) Qty: 10 0RF acetaminophen 500 mg Tablet 1,000 mg PO Q8 Qty: 0 0RF celecoxib 100 mg Capsule 100 mg PO BIDCM Qty: 0 0RF Rx Instructions: continue x 14 days enoxaparin 40 mg/0.4 mL Syringe 40 mg subcut DAILY Qty: 0 0RF losartan 50 mg Tablet 50 mg PO DAILY Qty: 0 0RF oxycodone 5 mg Tablet 5 mg PO Q4H PRN PRN (Reason: Pain Score 4-10) 1 Days Qty: 6 0RF sennosides-docusate sodium [Stimulant Laxative Plus] 8.6-50 mg Tablet 2 tab PO BID Qty: 1 0RF tizanidine 2 mg Tablet 2 mg PO Q8H PRN PRN (Reason: Muscle Spasm) Qty: 0 0RF thiamine HCl (vitamin B1) 100 mg tablet 100 mg PO DAILY oxycodone-acetaminophen [Percocet] 5-325 mg tablet 1 tab PO Q6H PRN (Reason: pain) 7 Days Qty: 28 0RF docusate sodium [Colace] 100 mg capsule 100 mg PO DAILY 10 Days Qty: 10 0RF cyclobenzaprine 10 mg tablet 10 mg PO TID 7 Days Qty: 21 0RF calcium carbonate-vitamin D3 [Os-Raheem 500 + D3] 500 mg-15 mcg (600 unit) tablet 1 tab PO DAILY 90 Days Qty: 90 0RF ascorbic acid (vitamin C) [Vitamin C] 1,000 mg tablet 1 g PO DAILY 90 Days Qty: 90 0RF oxycodone-acetaminophen [Percocet] 5-325 mg tablet 1 tab PO Q4H PRN (Reason: pain) 7 Days Qty: 42 0RF ibuprofen 600 mg tablet 600 mg PO Q6H PRN (Reason: pain) Qty: 60 0RF Primary Care Provider: Janna Best Referrals: Janna Best MD [Primary Care Provider] - Activity Restrictions/Additional Instructions: Follow-up your primary care physician outpatient setting. Return with worsening symptoms or other concerns. Take antibiotics as prescribed Print Language: Estonian Disposition Disposition: Home, Self Care
[2024-09-01 14:39] LABS: Reflex Troponin-HS? (from REC) Y
[2024-09-01 15:08] LABS: Troponin-I HS < 3 pg/mL (3.0-54.0)
[2024-09-01] MEDS: Potassium Chloride Oral Soln 20 MEQ/15 ML UDC 40 MEQ PO (15:30)
[2024-09-03 15:25] LABS: BNP,B-Type NATRIURETIC PEPTIDE 23.1 pg/mL (0-100)
== END 2024-09-01 15:41 | disposition home or self-care (01) ==
PROVIDERS: Emergency Provider Emergency Medicine; PCP Internal Medicine; Visit Provider Emergency Medicine
DX: R07.9 Chest pain, unspecified (principal); F25.9 Schizoaffective disorder, unspecified; F31.9 Bipolar disorder, unspecified; R05.9 Cough, unspecified; R06.02 Shortness of breath; I10 Essential (primary) hypertension; F41.9 Anxiety disorder, unspecified; F43.10 Post-traumatic stress disorder, unspecified; K21.9 Gastro-esophageal reflux disease without esophagitis; J45.909 Unspecified asthma, uncomplicated; F17.210 Nicotine dependence, cigarettes, uncomplicated; Z88.1 Allergy status to other antibiotic agents; Z88.2 Allergy status to sulfonamides; Z87.898 Personal history of other specified conditions; Z79.899 Other long term (current) drug therapy
CPT/HCPCS: 71045; 80048; 83880; 84484; 85025; 93005; 96374; 99284; A4216

== ENCOUNTER 2024-12-13 21:54 | Emergency (ER) | payer MEDICARE, MEDICAID, SELFPAY ==
[2024-12-13 21:55] VITALS: BP 132/82; PULSE 88; RESP 18; TEMP 36.8; O2SAT 98; BMI 29.2
--- NOTE | 2024-12-13 22:16 | EX.ED.VIS.PS ---
HPI HPI - Psych History of Present Illness Chief Complaint: Suicidal Narrative Narrative: 54-year-old F medical history of schizoaffective disorder, PTSD, depression presents status post intentional overdose of medication. She states that today she was not feeling right, she asked her stepdad if she could move back home with him and he said no. She states that currently she lives with her boyfriend who she called an idiot. She states that she pays all the bills. A few hours ago she took 5 of her 300 mg of gabapentin and drank 2-1/2 tall boys. She told her counselor that she had ingested these things, and was told to come to the emergency department. She states that it was her counselor that had called EMS, and they picked her up. [facility] Medical History Excessive bleeding Alcohol use Uses wheelchair History of renal disease Arthritis Wears partial dentures Wears dentures Wears glasses Blackout Shortness of breath on exertion History of edema Cancer Anemia Alcohol abuse Smoker Asthma GERD (gastroesophageal reflux disease) Kidney disease Chronic pain Depression Anxiety Bipolar disorder Substance abuse Hypertension Alcohol abuse Suicide ideation Schizoaffective disorder PTSD (post-traumatic stress disorder) PTSD (post-traumatic stress disorder) Schizoaffective disorder Home Medications ?Medication ?Instructions ?Recorded ?Last Taken ?Type benztropine 2 mg tablet 0.5 mg PO BID cramps 10/24/15 04/29/24 History citalopram 40 mg tablet 40 mg PO DAILY depression 10/24/15 04/29/24 History albuterol sulfate 90 mcg/actuation 1 - 2 puff inhalation Q4H PRN PRN 05/08/20 Unknown History aerosol inhaler Wheezing pantoprazole 40 mg tablet,delayed 40 mg PO DAILY gerd 03/05/21 Unknown History release (Protonix) amlodipine 5 mg tablet 5 mg PO DAILY bp 04/05/21 04/29/24 History acetaminophen 500 mg tablet 1,000 mg (2 x 500 mg) PO Q8 #0 tabs 04/21/24 04/29/24 Rx losartan 50 mg tablet 50 mg PO DAILY #0 tabs 04/21/24 04/29/24 Rx buspirone 10 mg tablet 10 mg PO TID 12/13/24 Unknown History cholecalciferol (vitamin D3) 1,250 1,250 mcg PO QWEEK 12/13/24 Unknown History mcg (50,000 unit) capsule gabapentin 300 mg capsule 300 mg PO Q12H 12/13/24 Unknown History haloperidol 10 mg tablet 10 mg PO BID 12/13/24 Unknown History potassium chloride 10 mEq 10 meq PO DAILY 12/13/24 Unknown History tablet,extended release(part/cryst) trazodone 50 mg tablet 50 mg PO QHS 12/13/24 Unknown History Allergy/AdvReac Type Severity Reaction Status Date / Time aripiprazole (From Abilify) Allergy Rash Verified 12/13/24 22:02 risperidone (From Risperdal) Allergy Unknown Verified 12/13/24 22:02 sulfamethoxazole (From Allergy Rash Verified 12/13/24 22:02 Septra) trimethoprim (From Septra) Allergy Rash Verified 12/13/24 22:02 prednisone AdvReac skin Verified 12/13/24 22:02 hurts Family History Father Alcoholism Aunt Depression Aunt No problems noted. Surgical History History of surgery on left wrist History of neck surgery Status post ORIF of fracture of ankle Social History Smoking Status: Current every day smoker tobacco type: cigarettes ROS ROS ED ROS Narrative Review of systems positive for drowsiness. No nausea or vomiting. Denies other symptoms. States she was having suicidal thoughts and tried to kill herself because she was feeling low because she could not move back in with her stepdad. EXAM Physical Exam Narrative Exam Narrative: Afebrile. Vital signs noted. Nontoxic-appearing. Cardiovascular examination reveals a regular rate and rhythm. Lungs are clear to auscultation bilaterally. Abdomen is soft, nontender, with positive bowel sounds. No guarding or rebound. Neurological examination is nonfocal, nonlateralizing. She is intermittently drowsy, and appears mildly intoxicated. She continues to have suicidal thoughts. Const Vital Signs: 12/13/24 21:55 12/13/24 22:55 12/13/24 23:00 Temperature 98.2 F Temperature Source Oral Pulse Rate 88 76 76 Respiratory Rate 18 19 H 19 H Blood Pressure 132/82 H 132/78 H 131/78 H Blood Pressure Mean 98 96 95 Pulse Ox 98 97 96 Oxygen Delivery Method Room Air Room Air MDM MDM MDM Narrative Medical decision making narrative: Differential diagnosis includes but not limited to depression with suicidal ideation versus suicidal gesture versus alcohol intoxication versus polysubstance abuse. Medical screening labs were obtained as well as EKG. I will order a Tylenol and salicylate level as well. I reviewed her laboratory work and she has normal white count of 5.1 with hemoglobin 12.5, hematocrit 36.9, platelet count normal at 256. Sodium normal at 137 with potassium 3.4 and chloride 100, BUN low at 3 with creatinine 0.63. Glucose 90. LFTs show alk phos slightly elevated at 151 which I think is nonspecific. Urine for drugs of abuse is negative. Salicylate level and acetaminophen level negative at less than 5. Blood alcohol level slightly elevated at 118. EKG obtained and interpreted by myself independently as normal sinus rhythm at 75 bpm without ectopy or acute ST changes. No STEMI. QTc slightly prolonged at 480 ms. Alcohol level will be redrawn and that I do feel that she would be medically cleared for evaluation by crisis. The patient will be signed out to the overnight physician, Dr. Cas Schwartz, who will recheck the alcohol level and ensure that it is below 100 then contact the crisis counselor as she would be medically cleared then. Patient is in stable condition. History & Record Review Discussion w/independent historian: Patient Lab Data Attestation: I reviewed the patient's lab results. Labs: Laboratory Results - last 24 hr 12/13/24 12/13/24 22:16 22:16 WBC 5.1 RBC 4.01 L Hgb 12.5 Hct 36.9 L MCV 92.0 MCH 31.2 MCHC 33.9 RDW Std Deviation 50.8 H RDW Coeff of Cecille 14.9 H Plt Count 256 MPV 9.0 Immature Gran % (Auto) 1.000 H Neut % (Auto) 21.7 L Lymph % (Auto) 70.6 H Sullivan % (Auto) 5.5 Eos % (Auto) 0.4 Baso % (Auto) 0.8 Absolute Neuts (auto) 1.1 L Absolute Lymphs (auto) 3.57 Nucleated RBC % 0 Sodium 137 Potassium 3.4 Chloride 100 Carbon Dioxide 20.0 L Anion Gap 17 H BUN 3 L Creatinine 0.63 L Estim Creat Clear Calc 104.14 Est GFR (MDRD) Non-Af 104 BUN/Creatinine Ratio 5.5 L Glucose 90 Calcium 9.5 Total Bilirubin 0.35 AST 19 ALT 13 Alkaline Phosphatase 151 H Total Protein 7.5 Albumin 4.4 Globulin 3.1 Albumin/Globulin Ratio 1.4 Salicylates < 0.5 L Urine Opiates Screen NEGATIVE U Buprenorphine Qual NEGATIVE Ur Oxycodone Screen NEGATIVE Urine Methadone Screen NEGATIVE Urine Fentanyl Screen NEGATIVE Acetaminophen < 5.0 L Ur Barbiturates Screen NEGATIVE Ur Phencyclidine Scrn NEGATIVE Ur Amphetamines Screen NEGATIVE U Benzodiazepines Scrn NEGATIVE Urine Cocaine Screen NEGATIVE U Cannabinoids Screen NEGATIVE Ethyl Alcohol 118.0 H Cancelled Discharge Plan Triage Chief Complaint: Suicidal ED Provider: Ronni Gonzalez Dx/Rx/DC Orders Clinical Impression: Suicide attempt by drug ingestion, Major depression, Acute alcohol intoxication Prescriptions: No Action citalopram 40 MG tablet 40 mg PO DAILY benztropine 2 MG tablet 0.5 mg PO BID albuterol sulfate 1 INHALER inhaler 1 - 2 puff INHALATION Q4H PRN PRN (Reason: Wheezing) pantoprazole [Protonix] 40 mg Tablet,Delayed Release (Dr/Ec) 40 mg PO DAILY amlodipine 5 MG tablet 5 mg PO DAILY Rx Instructions: BP trazodone 50 mg tablet 50 mg PO QHS gabapentin 300 mg capsule 300 mg PO Q12H potassium chloride 10 mEq tablet,ER particles/crystals 10 meq PO DAILY cholecalciferol (vitamin D3) 1,250 mcg (50,000 unit) capsule 1,250 mcg PO QWEEK haloperidol 10 mg tablet 10 mg PO BID buspirone 10 mg tablet 10 mg PO TID acetaminophen 500 mg Tablet 1,000 mg PO Q8 Qty: 0 0RF losartan 50 mg Tablet 50 mg PO DAILY Qty: 0 0RF Primary Care Provider: Janna Best Referrals: Janna Best MD [Primary Care Provider] - Print Language: Puerto Rican Disposition Disposition: Psychiatric Hospital or Unit
--- NOTE | 2024-12-13 22:20 | EKG12_ITS ---
Test Reason : DYSRHYTHMIA Blood Pressure : */* mmHG Vent. Rate : 75 BPM Atrial Rate : 75 BPM P-R Int : 144 ms QRS Dur : 70 ms QT Int : 432 ms P-R-T Axes : 36 27 75 degrees QTcB Int : 482 ms Normal sinus rhythm Prolonged QT Abnormal ECG Confirmed by Anuj Johnson ([id number]), primer expeditor and drier SANJEEV GÓMEZ ([id number]) on 12/14/2024 11:01:58 AM Referred By: Confirmed By: Anuj Johnson
[2024-12-13 22:40] LABS: Absolute Lymphocyte Count 3.57 X10^3/uL (0.83-4.51); Absolute Neutrophil Count 1.1 X10^3/uL (2.0-7.7); Basophil# 0.04 X10^3/uL; Basophil% 0.8 % (0-1); Eosinophil# 0.02 X10^3/uL; Eosinophils% 0.4 % (0-5); Hematocrit 36.9 % (37-47); Hemoglobin 12.5 g/dL (12.0-15.0); Lymphocyte # 3.57 X10^3/ul (0.83-4.51); Lymphocyte % 70.6 % (19-41); Mean Corp Hgb Conc 33.9 g/dL (32-36); Mean Corpuscular Hgb 31.2 pg (27.0-32.0); Monocyte# 0.28 X10^3/uL; Monocyte% 5.5 % (0-10); NRBC Flagged by Analyzer 0 % (0-5); Neutrophil % 21.7 % (47-70); POSITIVE MORPHOLOGY YES; Platelet Count 256 K/mm3 (150-450); RBC Distribution Width CV 14.9 % (11.6-14.6); RBC Distribution Width SD 50.8 fl (35.1-43.9); Red Blood Count 4.01 M/mm3 (4.2-5.4); White Blood Count 5.1 K/mm3 (4.4-11.0)
[2024-12-13 22:55] VITALS: BP 132/78; PULSE 76; RESP 19; O2SAT 97
[2024-12-13 23:00] VITALS: BP 131/78; PULSE 76; RESP 19; O2SAT 96
[2024-12-13 23:07] LABS: Acetaminophen (Tylenol) Level < 5.0 ug/mL (8.0-19.0); Amphetamine Urine NEGATIVE (<1000 ng/mL); Barbiturate Urine NEGATIVE (< 200 ng/mL); Benzodiazepine Urine NEGATIVE (< 200 ng/mL); Buprenorphine Urine NEGATIVE (< 200 ng/mL); Cocaine Urine NEGATIVE (< 300 ng/mL); Fentanyl, Urine NEGATIVE; Methadone Urine NEGATIVE (< 300 ng/mL); Opiates Urine NEGATIVE (< 300 ng/mL); Oxycodone, Urine NEGATIVE (< 100 ng/mL); PCP Urine NEGATIVE (< 25 ng/mL); THC Urine NEGATIVE (< 50 ng/mL)
[2024-12-13 23:08] LABS: ALB/GLOB Ratio 1.4 RATIO (0.9-2.4); AST(SGOT) 19 U/L (<=31); Alanine Aminotransfer ALT/SGPT 13 U/L (<=34); Albumin, Serum 4.4 g/dL (3.5-5.0); Alkaline Phosphatase 151 U/L (35-104); Anion Gap 17 (5-15); BUN 3 mg/dL (4-19); BUN/Creat Ratio 5.5 RATIO (10-20); Calcium,Total 9.5 mg/dL (7.6-11.0); Chloride 100 mmol/L (98-108); Creatinine, Serum 0.63 mg/dL (0.70-1.20); EST Glomerular Filtration Rate 104 (>60); Estimated Creatinine Clearance 104.14 ml/min (50-250); Globulin 3.1 g/dL (2.2-4.2); Glucose 90 mg/dL (70-99); Potassium 3.4 mmol/L (3.3-5.1); Protein, Total 7.5 g/dL (5.9-8.4); Sodium Level 137 mmol/L (133-145); Total Bilirubin 0.35 mg/dL (0.00-1.30)
[2024-12-13 23:12] LABS: Differential Indicated SCAN CRITERIA MET
[2024-12-13 23:21] LABS: Salicylate < 0.5 mg/dL (2.8-20.0)
--- NOTE | 2024-12-13 23:39 | ED.RN ---
Patient given sandwich and cookie.
[2024-12-14] VITALS: BP 119/72; PULSE 91; RESP 18; O2SAT 96
[2024-12-14] MEDS: Ibuprofen 200 MG Tablet 400 MG PO (00:20)
[2024-12-14 00:48] LABS: Alcohol, Blood (Medical)-Serum 78.7 mg/dL (<=10.0)
[2024-12-14 01:00] VITALS: BP 104/64; PULSE 82; RESP 14; O2SAT 95
[2024-12-14 01:01] LABS: Atypical Lymphocyte 1+ %; Platelet Estimate ADEQUATE (ADEQ); Red Cell Morphology NORM C+C NORMAL (NORM C&C)
[2024-12-14] MEDS: busPIRone 5 MG Tablet 10 MG PO ×2 (01:03→06:31)
[2024-12-14] MEDS: Haloperidol 5 MG Tablet 10 MG PO (01:03)
[2024-12-14] MEDS: traZODone 50 MG Tablet PO (01:03)
[2024-12-14] MEDS: Benztropine Mesylate 0.5 MG TABLET PO (01:03)
[2024-12-14 02:00] VITALS: PULSE 71; RESP 12; O2SAT 100
[2024-12-14 03:00] VITALS: BP 107/94; PULSE 74; RESP 14; O2SAT 97
[2024-12-14 06:32] VITALS: BP 134/95; PULSE 82; RESP 14; O2SAT 95
[2024-12-14 07:18] VITALS: BP 161/60; PULSE 86; RESP 18; TEMP 36.6; O2SAT 100
== END 2024-12-14 07:28 ==
PROVIDERS: Emergency Provider Emergency Medicine; PCP Internal Medicine; Visit Provider Emergency Medicine
DX: T42.6X2A Poisoning by other antiepileptic and sedative-hypnotic drugs, intentional self-harm, initial encounter (principal); F25.9 Schizoaffective disorder, unspecified; F32.9 Major depressive disorder, single episode, unspecified; F10.120 Alcohol abuse with intoxication, uncomplicated; F41.9 Anxiety disorder, unspecified; F43.10 Post-traumatic stress disorder, unspecified; I10 Essential (primary) hypertension; K21.9 Gastro-esophageal reflux disease without esophagitis; G89.29 Other chronic pain; J45.909 Unspecified asthma, uncomplicated; F17.210 Nicotine dependence, cigarettes, uncomplicated; Z79.899 Other long term (current) drug therapy
CPT/HCPCS: 80053; 80143; 80179; 80307; 82077; 85025; 93005; 99285; A4216

== ENCOUNTER 2025-04-13 16:40 | Emergency (ER) | payer MEDICARE, MEDICAID, SELFPAY ==
[2025-04-13 16:42] VITALS: BP 121/79; PULSE 105; RESP 18; TEMP 36.4; O2SAT 97
[2025-04-13 17:00] VITALS: BMI 28.0
--- NOTE | 2025-04-13 17:06 | EDS_ITS ---
HPI HPI - Psych History of Present Illness Chief Complaint: Suicidal Narrative Narrative: 54-year-old female presents with alcohol intoxication and suicidal ideation. She relates history that she was admitted for psychiatric reasons a few months ago in December. She stayed in a facility for 10 to 11 days. Today, she states that she was having increasing thoughts of suicide and reportedly held a knife to her neck. She states she called crisis because the voice in her head was telling her to kill herself. She presents with command hallucinations, increasing depression and anxiety, and admits to drinking alcohol all day today. [facility] Medical History Excessive bleeding Alcohol use Uses wheelchair History of renal disease Arthritis Wears partial dentures Wears dentures Wears glasses Blackout Shortness of breath on exertion History of edema Cancer Anemia Alcohol abuse Smoker Asthma GERD (gastroesophageal reflux disease) Kidney disease Chronic pain Depression Anxiety Bipolar disorder Substance abuse Hypertension Alcohol abuse Suicide ideation Schizoaffective disorder PTSD (post-traumatic stress disorder) PTSD (post-traumatic stress disorder) Schizoaffective disorder Home Medications ?Medication ?Instructions ?Recorded ?Last Taken ?Type albuterol sulfate 90 mcg/actuation 1 - 2 puff inhalati on Q4H PRN PRN 05/08/20 Unknown History aerosol inhaler Wheezing pantoprazole 40 mg tablet,delayed 40 mg PO DAILY gerd 03/05/21 Unknown History release (Protonix) amlodipine 5 mg tablet 2.5 mg PO DAILY bp 04/05/21 04/29/24 History acetaminophen 500 mg tablet 1,000 mg (2 x 500 mg) PO Q 8 #0 tabs 04/21/24 04/29/24 Rx cholecalciferol (vitamin D3) 1,250 1,250 mcg PO QWEEK 12/13/24 Unknown History mcg (50,000 unit) capsule gabapentin 300 mg capsule 300 mg PO Q12H 12/13/24 Unkn own History haloperidol 10 mg tablet 5 mg PO BID 12/13/24 Unknown History potassium chloride 10 mEq 10 meq PO DAILY 12/13/24 Unk nown History tablet,extended release(part/cryst) trazodone 50 mg tablet 50 mg PO QHS 12/13/24 Unknow n History folic acid 1 mg tablet 1 mg PO DAILY 04/13/25 Unkno wn History meloxicam 15 mg tablet 15 mg PO DAILY 04/13/25 Unkn own History multivitamin 1 tab PO DAILY 04/13/25 Unkn own History thiamine HCl (vitamin B1) 100 mg 100 mg PO DAILY 04/13 Unknown History tablet Allergy/AdvReac Type Severity Reaction Status Date / Time aripiprazole (From Abilify) Allergy Rash Verified 04/13/25 16:42 risperidone (From Risperdal) Allergy Unknown Verified 04/13/25 16:42 sulfamethoxazole (From Allergy Rash Verified 04/13/25 16:42 Septra) trimethoprim (From Septra) Allergy Rash Verified 04/13/25 16:42 prednisone AdvReac skin Verified 04/13/25 16:42 hurts Family History Father Alcoholism Aunt Depression Aunt No problems noted. Surgical History History of surgery on left wrist History of neck surgery Status post ORIF of fracture of ankle Social History Smoking Status: Current every day smoker tobacco type: cigarettes ROS ROS ED ROS Narrative Review of systems is positive for depression and suicidal ideation, suicidal threats, command hallucinations telling her to kill herself. Admits to alcohol use. No current nausea or vomiting. No other symptoms. EXAM Physical Exam Narrative Exam Narrative: Afebrile. Vital signs noted. Nontoxic-appearing. Cardiovascular examination reveals mild tachycardia. Lungs are clear to auscultation bilaterally. The abdomen is soft and nontender without guarding or rebound. Neurological examination is nonfocal, nonlateralizing. Psychiatric examination shows her to be depressed and tearful on examination. She states that she has heard voices in her head telling her to kill herself and hurt herself. Const Vital Signs: 04/13/25 16:42 04/13/25 17:30 04/13/25 18:00 Temperature 97.5 F L Temperature Source Temporal Pulse Rate 105 H 99 Respiratory Rate 18 16 16 Blood Pressure 121/79 H 119/77 Blood Pressure Mean 93 91 Pulse Ox 97 98 Oxygen Delivery Method Room Air Room Air 04/13/25 18:13 Temperature Temperature Source Pulse Rate Respiratory Rate 16 Blood Pressure Blood Pressure Mean Pulse Ox Oxygen Delivery Method MDM MDM MDM Narrative Medical decision making narrative: Differential diagnosis includes but not limited to depression with suicidal ideation versus alcohol intoxication versus both versus depression with psychotic features. Medical clearance labs will be obtained. Was reported that crisis has already come out to the house and recommended placement after her blood alcohol level is below 100. I reviewed her laboratory work and she has normal white count of 5.4 with hemoglobin 12.5, hematocrit 37.6, platelet count normal at 266. LFTs are grossly unremarkable except for alk phos slightly elevated at 141 which I think is nonspecific. BUN low at 3 with creatinine 0.66. Normal sodium of 136 and potassium 3.6, carbon dioxide 21.9. Urine for drugs of abuse is negative. Initial alcohol level was 157. Repeat approximately 5 hours afterwards is now 49.2. I do feel she is medically cleared for placement by crisis as planned. She is currently awaiting placement. Patient will be signed out to the overnight physician, Dr. Cas Schwartz in the event that she is transferred. Disposition is pending but anticipated transfer to psychiatric facility. Patient is in stable condition. History & Record Review Discussion w/independent historian: Patient Lab Data Attestation: I reviewed the patient's lab results. Labs: Laboratory Results - last 24 hr 04/13/25 04/13/25 04/13/25 17:00 17:10 21:00 WBC 5.4 RBC 4.16 L Hgb 12.5 Hct 37.6 MCV 90.4 MCH 30.0 MCHC 33.2 RDW Std Deviation 48.2 H RDW Coeff of Cecille 14.6 Plt Count 266 MPV 9.2 Immature Gran % (Auto) 1.700 H Neut % (Auto) 36.8 L Lymph % (Auto) 55.8 H [place] % (Auto) 4.6 Eos % (Auto) 0.4 Baso % (Auto) 0.7 Absolute Neuts (auto) 2.0 Absolute Lymphs (auto) 3.03 Nucleated RBC % 0 Sodium 136 Potassium 3.6 Chloride 100 Carbon Dioxide 21.9 Anion Gap 15 BUN 3 L Creatinine 0.66 L Estim Creat Clear Calc 97.36 Est GFR (MDRD) Non-Af 103 BUN/Creatinine Ratio 3.8 L Glucose 96 Calcium 9.3 Total Bilirubin 0.41 AST 20 ALT 17 Alkaline Phosphatase 141 H Total Protein 7.1 Albumin 4.4 Globulin 2.8 Albumin/Globulin Ratio 1.6 Urine Opiates Screen NEGATIVE U Buprenorphine Qual NEGATIVE Ur Oxycodone Screen NEGATIVE Urine Methadone Screen NEGATIVE Urine Fentanyl Screen NEGATIVE Ur Barbiturates Screen NEGATIVE Ur Phencyclidine Scrn NEGATIVE Ur Amphetamines Screen NEGATIVE U Benzodiazepines Scrn NEGATIVE Urine Cocaine Screen NEGATIVE U Cannabinoids Screen NEGATIVE Ethyl Alcohol 157.0 H 49.2 H Discharge Plan Triage Chief Complaint: Suicidal ED Provider: Ronni Gonzalez Dx/Rx/DC Orders Clinical Impression: Depression, Command hallucination, Suicidal ideation, Acute alcohol intoxication Prescriptions: No Action albuterol sulfate 1 INHALER inhaler 1 - 2 puff INHALATION Q4H PRN PRN (Reason: Wheezing) pantoprazole [Protonix] 40 mg Tablet,Delayed Release (Dr/Ec) 40 mg PO DAILY amlodipine 5 MG tablet 2.5 mg PO DAILY Rx Instructions: BP trazodone 50 mg tablet 50 mg PO QHS gabapentin 300 mg capsule 300 mg PO Q12H potassium chloride 10 mEq tablet,ER particles/crystals 10 meq PO DAILY cholecalciferol (vitamin D3) 1,250 mcg (50,000 unit) capsule 1,250 mcg PO QWEEK haloperidol 10 mg tablet 5 mg PO BID folic acid 1 mg tablet 1 mg PO DAILY multivitamin Tablet 1 tab PO DAILY meloxicam 15 mg tablet 15 mg PO DAILY thiamine HCl (vitamin B1) 100 mg tablet 100 mg PO DAILY acetaminophen 500 mg Tablet 1,000 mg PO Q8 Qty: 0 0RF Primary Care Provider: Jnana Best Referrals: Janna Best MD [Primary Care Provider, Internal Medicine] Print Language: Jamaican Disposition Disposition: Psychiatric Hospital or Unit
[2025-04-13 17:26] LABS: Hematocrit 37.6 % (37-47); Hemoglobin 12.5 g/dL (12.0-15.0); Immature Granulocytes Count 0.090 X10^3/uL (0.0-0.0); Mean Corp Hgb Conc 33.2 g/dL (32-36); Mean Corpuscular Volume 90.4 fL (81-99); Mean Platelet Vol. 9.2 fl (6.2-12.0); NRBC Flagged by Analyzer 0 % (0-5); Platelet Count 266 K/mm3 (150-450); RBC Distribution Width CV 14.6 % (11.6-14.6); RBC Distribution Width SD 48.2 fl (35.1-43.9); Red Blood Count 4.16 M/mm3 (4.2-5.4); White Blood Count 5.4 K/mm3 (4.4-11.0)
[2025-04-13 17:30] VITALS: BP 119/77; PULSE 99; RESP 16; O2SAT 98
[2025-04-13 17:49] LABS: Alcohol, Blood (Medical)-Serum 157.0 mg/dL (<=10.0)
[2025-04-13 17:52] LABS: Barbiturate Urine NEGATIVE (< 200 ng/mL); Benzodiazepine Urine NEGATIVE (< 200 ng/mL); PCP Urine NEGATIVE (< 25 ng/mL); THC Urine NEGATIVE (< 50 ng/mL)
[2025-04-13 17:53] LABS: AST(SGOT) 20 U/L (<=31); Alanine Aminotransfer ALT/SGPT 17 U/L (<=34); Albumin, Serum 4.4 g/dL (3.5-5.0); Alkaline Phosphatase 141 U/L (35-104); Anion Gap 15 (5-15); BUN 3 mg/dL (4-19); BUN/Creat Ratio 3.8 RATIO (10-20); Calcium,Total 9.3 mg/dL (7.6-11.0); Carbon Dioxide 21.9 mmol/L (21.0-32.0); Chloride 100 mmol/L (98-108); Estimated Creatinine Clearance 97.36 ml/min (50-250); Globulin 2.8 g/dL (2.2-4.2); Glucose 96 mg/dL (70-99); Potassium 3.6 mmol/L (3.3-5.1)
[2025-04-13 18:00] VITALS: RESP 16
[2025-04-13 18:13] VITALS: RESP 16
--- NOTE | 2025-04-13 18:13 | ED.RN ---
Per Dr. Gonzalez, vitals may be changed to Q4H
--- NOTE | 2025-04-13 18:51 | ED.RN ---
Patient refusing dinner. pt now requesting afternoon meds
[2025-04-13 21:48] LABS: Alcohol, Blood (Medical)-Serum 49.2 mg/dL (<=10.0)
--- NOTE | 2025-04-13 22:03 | PCA ---
ALCOHOL REDRAW SENT TO CRISIS.
[2025-04-13 22:26] VITALS: BP 161/68; PULSE 82; RESP 16; O2SAT 100
--- NOTE | 2025-04-13 23:17 | PCA ---
REFERRED TO ABI MACHADO
[2025-04-14 02:00] VITALS: BP 164/81; PULSE 80; RESP 16; TEMP 36.8; O2SAT 96
[2025-04-14 06:00] VITALS: BP 169/97; PULSE 74; RESP 16; TEMP 36.7; O2SAT 97
[2025-04-14 08:01] VITALS: BP 151/84; PULSE 71; RESP 16; TEMP 36.9; O2SAT 99
--- NOTE | 2025-04-14 08:21 | ED.RN ---
report called to MARCUS Brooks at [facility]
== END 2025-04-14 08:22 ==
PROVIDERS: Emergency Provider Emergency Medicine; PCP Internal Medicine; Visit Provider Emergency Medicine
DX: F32.A Depression, unspecified (principal); F10.129 Alcohol abuse with intoxication, unspecified; I10 Essential (primary) hypertension; R45.851 Suicidal ideations; F41.9 Anxiety disorder, unspecified; K21.9 Gastro-esophageal reflux disease without esophagitis; J45.909 Unspecified asthma, uncomplicated; F17.210 Nicotine dependence, cigarettes, uncomplicated; R44.2 Other hallucinations
CPT/HCPCS: 80053; 80307; 82077; 85025; 96374; 96375; 99285; A4216; J2405